=== PATIENT | male | born 1955 | race Two or more races ===

== ENCOUNTER 2024-03-19 15:01 | Outpatient (OUT) | payer MEDICARE, SELFPAY ==
--- NOTE | 2024-03-19 15:05 | US_ITS ---
[place] [address] Patient Name: BRAD CABRALES MRN: [id number] date: 1955 Sex: M Assigned Patient Location: CT Current Patient Location: Accession/Order Number: [id number] Exam Date: 03/19/2024 15:06 Report Date: 03/20/2024 07:02 At the request of: PA BREWER Procedure: US venous doppler LE LT EXAM: US venous doppler LE LT HISTORY: Left Calf Pain M79.062, Left Lower Extremity Edema COMPARISON: None. TECHNIQUE: Grayscale, color and Doppler FINDINGS: Region: Left leg Thrombus: None Flow: Normal Compressibility: Normal Augmentation: Normal US/US venous doppler LE LT IMPRESSION: No deep or superficial vein thrombus identified in the left leg Electronically authenticated by: BLANCO GREEN Date: 03/20/2024 07:02
--- NOTE | 2024-03-19 15:25 | CT_ITS ---
[address] [address] Patient Name: BRAD CABRALES MRN: [id number] date: 1955 Sex: M Assigned Patient Location: CT Current Patient Location: CT Accession/Order Number: [id number] Exam Date: 03/19/2024 15:15 Report Date: 03/19/2024 16:13 At the request of: PA BREWER Procedure: CT lung screening low-dose EXAMINATION: CT lung screening low-dose HISTORY: Tobacco Use Z72.0 COMPARISON: No relevant comparison available. TECHNIQUE: Axial, Coronal, and Sagittal images were created without the administration of IV contrast material. Dose reduction techniques were achieved by using automated exposure control and/or adjustment of mA and/or kV according to patient size and/or use of iterative reconstruction technique. FINDINGS: LUNGS: Scattered subcentimeter calcified pulmonary nodules. Minimal centrilobular emphysema with an upper lobe prominence.. PLEURA: No mass, effusion, or pneumothorax. VASCULATURE: No abnormality. BOB: No mass or pathologic adenopathy. MEDIASTINUM: No mass or pathologic adenopathy. CARDIAC: No enlargement, pericardial thickening, or significant calcification. CORONARY ARTERIES: Coronary calcifications are mild. AORTA: No aortic aneurysm. Mild calcific atherosclerosis CHEST WALL: No mass or axillary adenopathy BONES: No bone lesion or fracture. LIMITED ABDOMEN: Diffuse hypoattenuation the liver suggesting hepatic steatosis. Evidence of a partially visualized left kidney possibly a cyst OTHER: Negative. CT/CT lung screening low-dose IMPRESSION: LUNG SCREENING: Lung-RADS Category 2- Benign Appearance or Behavior. Nodules with a very low likelihood of becoming a clinically active cancer due to size or lack of growth. 2. Continue annual screening with LDCT in 12 months. Electronically authenticated by: BLANCO GREEN Date: 03/19/2024 16:13
== END 2024-03-19 15:02 | disposition home or self-care (01) ==
LOC: CT 15:01
PROVIDERS: PCP Nurse Practitioner Family; Visit Provider Nurse Practitioner Family
DX: R91.8 Other nonspecific abnormal finding of lung field (principal); M79.662 Pain in left lower leg; F17.210 Nicotine dependence, cigarettes, uncomplicated; R60.0 Localized edema
CPT/HCPCS: 71271; 93971

== ENCOUNTER 2024-03-22 14:29 | Outpatient (OUT) | payer MEDICARE, SELFPAY ==
[2024-03-22 14:55] LABS: Basophils Absolute Auto 0.1 10^3/uL (0.0-0.1); Basophils Percent Auto 0.9 % (0.2-2.0); Eosinophils Absolute Auto 0.4 10^3/uL (0.0-0.7); Hemoglobin 15.3 g/dL (14.0-18.0); Immature Granulocytes Abs Auto 0.04 10^3/uL (0.00-0.03); Immature Granulocytes Pct Auto 0.3 % (0.0-0.5); Lymphocytes Absolute Auto 2.8 10^3/uL (1.2-3.8); Mean Corpuscular HGB Conc 33.3 g/dL (29.9-35.2); Mean Corpuscular Hemoglobin 30.3 pg (25.9-34.0); Mean Corpuscular Volume 91.1 fL (80.0-94.0); Mean Platelet Volume 9.6 fL (9.5-13.5); Monocytes Absolute Auto 0.9 10^3/uL (0.3-0.8); Monocytes Percent Auto 7.6 % (1.7-12.0); Neutrophils Absolute Auto 7.5 10^3/uL (1.4-6.5); Neutrophils Percent Auto 64.2 % (43.0-75.0); Platelet Count 257 10^3/uL (150-450); Red Blood Count 5.05 10^6/uL (4.70-6.10); Red Cell Distribution Width 13.1 % (11.0-15.0); White Blood Count 11.6 10^3/uL (4.0-11.0)
[2024-03-22 14:56] LABS: Bilirubin Urine NEGATIVE (NEGATIVE); Blood Urine SMALL (NEGATIVE); Clarity Urine CLEAR (CLEAR); Color Urine LT. YELLOW (YELLOW); Glucose Urine UA NEGATIVE (NEGATIVE); Ketones Urine NEGATIVE (NEGATIVE); Leukocyte Esterase Urine NEGATIVE (NEGATIVE); Nitrite Urine NEGATIVE (NEGATIVE); Protein Urine NEGATIVE (NEG/TRACE); Urobilinogen Urine 0.2 EU/dL (0.2-1.0)
[2024-03-22 15:35] LABS: Alanine Aminotransferase 26 U/L (16-63); Albumin Globulin Ratio 0.9; Albumin Level 3.7 g/dL (3.4-5.0); Alkaline Phosphatase 72 U/L (46-116); Anion Gap 8.7; Aspartate Amino Transferase 18 U/L (15-37); BUN Creatinine Ratio 13.8; Bilirubin Total 0.6 mg/dL (0.2-1.0); Calcium 9.1 mg/dL (8.5-10.1); Chloride 101 mmol/L (98-107); Cholesterol 104 mg/dL (<=200); Estimated GFR (African America >60 (>=60); Estimated GFR (Non-African Ame >60 (>=60); Free T3 2.91 pg/mL (2.18-3.98); Globulin 3.9 g/dL; Glucose 109 mg/dL (74-106); HDL Cholesterol 35 mg/dL (40-60); Potassium 3.7 mmol/L (3.5-5.1); Sodium 137 mmol/L (136-145); Thyroid Stimulating Hormone 1.257 uIU/mL (0.358-3.740); Total Protein 7.6 g/dL (6.4-8.2); Triglycerides 88 mg/dL (<=150); Uric Acid 7.8 mg/dL (3.5-7.2); VLDL CHOLESTEROL 17.6 mg/dL
[2024-03-22 15:37] LABS: Prostate Specific Antigen Scrn 0.23 ng/mL (<=4.00)
[2024-03-22 15:44] LABS: Bacteria Urine TRACE #/HPF (NONE SEEN); Crystals Seen? None Seen #/HPF (None Seen); Mucus Urine SMALL (NONE SEEN); RBC Urine 0-2 #/HPF (0-2); Squamous Epithelial Cell Urine FEW #/LPF (NONE/RARE); WBC Urine 0-2 #/HPF (NONE SEEN)
[2024-03-22 15:45] LABS: Cast Seen? NONE SEEN #/LPF (NONE SEEN)
[2024-03-22 15:45] LABS: Estimated Average Glucose 131 mg/dL; Glycohemoglobin A1C 6.2 % (4.5-6.2)
== END 2024-03-22 14:30 | disposition home or self-care (01) ==
LOC: LAB 14:30
PROVIDERS: PCP Nurse Practitioner Family; Visit Provider Nurse Practitioner Family
DX: R91.8 Other nonspecific abnormal finding of lung field (principal); N39.0 Urinary tract infection, site not specified; E78.5 Hyperlipidemia, unspecified; R53.83 Other fatigue; R73.09 Other abnormal glucose; I10 Essential (primary) hypertension; M10.9 Gout, unspecified; E03.9 Hypothyroidism, unspecified; Z12.5 Encounter for screening for malignant neoplasm of prostate; R31.9 Hematuria, unspecified
CPT/HCPCS: 36415; 80053; 80061; 81001; 83036; 83525; 84436; 84443; 84481; 84550; 85025; 87086; G0103

== ENCOUNTER 2024-08-28 15:55 | Emergency (ER) | payer MEDICARE, SELFPAY ==
[2024-08-28] VITALS (47 sets, daily range): BP systolic 110–180; BP diastolic 62–89; PULSE 59–71; TEMP 36.5; O2SAT 96–99; BMI 32.0
--- OUTSIDE RECORDS SUMMARY | 2024-08-28 16:02 | XMS_ITS | CCD ---
Author Organization [facility] Care Team Providers Care Digital Campaign Manager Name Role Phone MARIELOS Moreau Attending Provider [phone] JOELLE BREWER Primary Care Physician JOELLE BREWER Admitting Unavailable JOELLE BREWER Attending Unavailable OSMAN, JOELLE Primary Care Unavailable OSMAN JOELLE Admitting Unavailable OSMAN, JOELLE Attending Unavailable OSMAN, JOELLE Primary Care Unavailable JOELLE BREWER Consulting Unavailable OSMAN, JOELLE Admitting Unavailable JOELLE BREWER Attending Unavailable JOELLE BREWER Primary Care Unavailable DR ANA RAMOS Consulting Unavailable JOELLE BREWER Consulting Unavailable JOELLE BREWER Admitting Unavailable JOELLE BREWRE Attending Unavailable OSMAN JOELLE Primary Care Unavailable JOELLE BREWER Consulting Unavailable Kameron BARR Attending Unavailable JOELLE BREWER Referring Unavailable JOELLE BREWER Referring Unavailable Kameron BARR Attending Unavailable Allergies Allergy Classification Reported Allergen(s) Allergy Type Date of Onset Reaction(s) Facility (1 source) Benzocaine Drug Allergy Novel [facility] [facility] Other (2 sources) Allantoin / Benzocaine / Camphor / Petrolatum; Translations: [benzocaine topical] Drug Allergy Swelling (finding) [facility] Medications Current Medications Medication Drug Class(es) Dates Sig (Normalized) Sig (Original) cephalexin 500 mg oral tablet (1 source) Cephalosporin Antibacterial Start: 02-09-2022 take 1 tablet by mouth every twelve hours Cephalexin 500 MG 1 tablet Orally every 12 hrs for 10 day(s) Feb, Active lisinopril 20 mg oral tablet (3 sources) Angiotensin Converting Enzyme Inhibitor Start: 12-22-2022 take 1 mg by mouth once daily lisinopril 20 mg Tab mg tab(s), Oral, Daily Start Date: 12/22/22 Status: Ordered Lisinopril Activ e metFORMIN (3 sources) Biguanide Start: 12-22-2022 metformin Oral Start Date: 12/22/22 Status: Ordered metFORMIN HCl Ac tive pantoprazole 40 mg delayed release oral tablet (3 sources) Proton Pump Inhibitor Start: 12-22-2022 take 1 mg by mouth once daily Pantoprazole [address] Tab mg tab(s), Oral, Daily Start Date: 12/22/22 Status: Ordered Pantoprazole Sod ium Active Completed/Discontinued Medications Medication Drug Class(es) Dates Sig (Normalized) Sig (Original) ciprofloxacin 500 mg oral tablet (2 sources) Quinolone Antimicrobial Start: 12-22-2022 Cipro 500 mg Tab 500 mg = 1 tab(s), Oral, As Directed, Patient to take 1 tab the day before procedure and the 2nd tab the day of procedure once completed, # 2 tab(s), Refills(s) 0, [id number], 167, cm, 12/22/22 10:25:00 EDT, Height/Length Do... Start Date: 12/22/22 Status: Ordered Problems Problem Classification Problem Date Documented Da te Episodic/Chronic Deficiency and other anemia (1 source) Anemia, unspecified; Translations: [ANEMIA UNSPECIFIED] Onset: 11-15-2022 Episodic Diabetes mellitus without complication (3 sources) Diabetes mellitus; Translations: [Type 2 diabetes mellitus without complications] Onset: 11-08-2022 12-22-2022 Chronic Disorders of lipid metabolism (6 sources) Hyperlipidemia; Translations: [Hyperlipidemia, unspecified] Onset: 11-04-2022 12-22-2022 Chronic Essential hypertension (2 sources) Hypertensive disorder 12-22-2022 Chronic Genitourinary symptoms and ill-defined conditions (10 sources) Microscopic hematuria; Translations: [Other microscopic hematuria] Onset: 11-08-2022 Episodic Heart valve disorders (2 sources) Heart murmur 12-22-2022 Episodic Hyperplasia of prostate (3 sources) Benign prostatic hypertrophy with outflow obstruction; Translations: [Benign prostatic hyperplasia with lower urinary tract symptoms] Onset: 12-22-2022 Chronic Malaise and fatigue (1 source) Other fatigue; Translations: [OTHER FATIGUE] Onset: 11-08-2022 Episodic Nonspecific chest pain (4 sources) Other chest pain; Translations: [OTHER CHEST PAIN] Onset: 01-11-2023 Episodic Other aftercare (1 source) Other penitentiary (current) drug therapy; Translations: [OTH INTERMEDIATE CURRENT DRUG THERAPY] Onset: 11-08-2022 Episodic Other diseases of kidney and ureters (1 source) Cyst of kidney, acquired; Translations: [CYST OF KIDNEY ACQUIRED] Onset: 11-16-2022 Episodic Other non-traumatic joint disorders (1 source) Pain in unspecified joint; Translations: [PAIN IN UNSPECIFIED JOINT] Onset: 11-08-2022 Episodic Other screening for suspected conditions (not mental disorders or infectious disease) (6 sources) Encounter for screening for malignant neoplasm of rectum; Translations: [Encounter for screening for malignant neoplasm of prostate] Onset: 11-08-2022 Episodic Residual codes; unclassified (3 sources) Family history of malignant neoplasm of kidney; Translations: [Family history of malignant neoplasm of kidney] Onset: 12-22-2022 Episodic Skin and subcutaneous tissue infections (2 sources) Paronychia of finger; Translations: [Cellulitis of unspecified finger] Onset: 02-09-2022 Resolved: 02-09-2022 Episodic Results Test Name Value Interpretation Reference Range Facility Provider Letteron 03-04-2023 Provider Letter (Inserted Image. Carin ble to display) March 04, 2023 HARVEY CABRALES [address] [place] [address] : 1955 Dear Mr. Hintonel Mel , This letter is to inform you the the providers of [facility] (Dr. Kameron Barr) will no longer be responsible for your routine medical care due to your repeated non compliance regarding scheduling a Cystoscopy, scope of the bladder. Emergency care only will be provided for the thirty (30) days following this letter. During this time period we suggest that you find another physician for your medical needs. A listing of area physicians can be found on [facility]'s website at [email or web address] or you may contact your health plan. We will be glad to forward your records to your new physician as long as we receive a signed release of records form. Sincerely, Kameron Barr M.D., F.A.C.S. [facility] [address] [place] [place], [place] [address] , Option #3 Normal [facility] Patient Letter FTon 2022 Patient Letter [facility] January 21, 2023 HARVEY CABRALES [address] [place] [address] : 1955 SENT REGULAR/CERTIFIED MAIL Dear Harvey Cabrales, [facility], Dr. Kameron Barr, is sending this letter (regular and certified mail) in concern that you cancelled the Cystoscopy (scope of the bladder) scheduled on 12/28/22. It is very important that you have this simple out patient procedure done to see where the blood in the urine is coming from. Blood in the urine can be caused by stones, infection, and possible bladder tumors/cancer. Please call the office within 2 weeks to get this procedure rescheduled. Your failure to comply with this request, may result in discharge from the practice due to your repeated non compliance. Sincerely, Kameron Barr M.D., F.A.C.S. [facility] [address] [place], [place] [address] , Option #3 Normal [facility] Urine Cytology ([facility])on 0 12-28-2022 Urine Cytology Diagnosis Info Invalid Interpretation Code [facility] Comment on above: Result Comment: A:Ur ine,Urine:Voided Interpretation - No evidence of high grade urothelial carcinoma identified. Adequate cellularity for evaluation. MicroScopic Description - Adequacy - Gross Description Site ID:A color Yellow fixative Alcohol Specimen designated Urine received in alcohol preservative and labeled with the patient?s name, consists of 40ml clear yellow fluid. Electronically signed by : on: 12/28/2022 09:05:14 Performed By: #### 1 [id number] #### [facility] [address] [place] [address] Formson 12-23-2022 Forms [id number]:127 Normal [facility] Physician Referralon 023 Physician Referral [id number]:127 Normal [facility] Screenson 12-23-2022 Screens [id number]:127 Normal [facility] Ambulatory Visit Summaryon 0 12-22-2022 Ambulatory Visit Summary HARVEY CABRALES :1955 Visit Date:12/22/2022 Ambulatory Visit Instructions Your Diagnosis Microhematuria Benign prostatic hyperplasia (BPH) with post-void dribbling Family history of kidney cancer Tests Performed Urnls Dip Stick Auto w/o Microscopy POC 63594 Your Care Team Attending Physician - Kameron BARR MD Primary Care Physician - JOELLE BREWER CNP Referring Physician - JOELLE BREWER CNP This Is Your Medications List Contact prescribing physician if questions or concerns lisinopril (lisinopril 20 mg Tab) metformin pantoprazole (Pantoprazole [address] Tab) Procedures Performed Cholecystectomy, Colonoscopy, Hernia. Discharge Vitals Heart Rate (Peripheral) 58 Blood Pressure 146/75 Height 167 cm Height 66 in Weight 90.4 kg Weight 198.88 lb BMI 32.41 What to do next You Need to Schedule the Following Appointments Follow Up with OSITO MOYA, YI Farnsworth When: Where: [facility] [address], [place] [address]- Medications What How Much When Instructions Unchanged lisinopril (lisinopril 20 mg Tab) Every day Contact prescribing physician if questions or concerns Unchanged metformin Contact prescribing physician if questions or concerns Unchanged pantoprazole (Pantoprazole [address] Tab) Every day Contact prescribing physician if questions or concerns Test Results Urnls Dip Stick Auto w/o Microscopy POC 66723 (12/22/2022) Bilirubin Urine Dipstick - Negative Blood Urine Dipstick - 2+ Moderate Glucose Urine Dipstick - Negative Ketones Urine Dipstick - Negative Leukocytes Urine Dipstick - Negative Nitrite Urine Dipstick - Negative Protein Urine Dipstick - Negative Specific Jerome Urine Dipstick - 1.020 Urine Appearance Urine Dipstick - Clear Urine Color Urine Dipstick - Yellow Urobilinogen Urine Dipstick - Normal 0.2-1 EU/dl pH Urine Dipstick - 6 Allergies Benzocaine (Swelling) Problems Ongoing - Any problem that you are currently receiving treatment for. Benign prostatic hyperplasia (BPH) with post-void dribbling Diabetes Family history of kidney cancer Heart murmur Hematuria Hyperlipidemia Hypertension Microhematuria Education [employer] Hematuria, Adult Hematuria is blood in the urine. Blood may be visible in the urine, or it may be identified with a test. This condition can be caused by infections of the bladder, urethra, kidney, or prostate. Other possible causes include: ? Kidney stones. ? Cancer of the urinary tract. ? Too much calcium in the urine. ? Conditions that are passed from parent to child (inherited conditions). ? Exercise that requires a lot of energy. Infections can usually be treated with medicine, and a kidney stone usually will pass through your urine. If neither of these is the cause of your hematuria, more tests may be needed to identify the cause of your symptoms. It is very important to tell your health care provider about any blood in your urine, even if it is painless or the blood stops without treatment. Blood in the urine, when it happens and then stops and then happens again, can be a symptom of a very serious condition, including cancer. There is no pain in the initial stages of many urinary cancers. Follow these instructions at home: Medicines ? Take urks-lsc-elehict and prescription medicines only as told by your health care provider. ? If you were prescribed an antibiotic medicine, take it as told by your health care provider. Do not stop taking the antibiotic even if you start to feel better. Eating and drinking ? Drink enough fluid to keep your urine pale yellow. It is recommended that you drink 3?4 quarts (2.8?3.8 L) a day. If you have been diagnosed with an infection, drinking cranberry juice in addition to large amounts of water is recommended. ? Avoid caffeine, tea, and carbonated beverages. These tend to irritate the bladder. ? Avoid alcohol because it may irritate the prostate (in males). General instructions ? If you have been diagnosed with a kidney stone, follow your health care provider's instructions about straining your urine to catch the stone. ? Empty your bladder often. Avoid holding urine for long periods of time. ? If you are female: ? After a bowel movement, wipe from front to back and use each piece of toilet paper only once. ? Empty your bladder before and after sex. ? Pay attention to any changes in your symptoms. Tell your health care provider about any changes or any new symptoms. ? It is up to you to get the results of any tests. Ask your health care provider, or the department that is doing the test, when your results will be ready. ? Keep all follow-up visits. This is important. Contact a health care provider if: ? You develop back pain. ? You have a fever or chills. ? You have nausea or vomiting. ? Your symptoms do not (more content not included)... Normal [facility] Urine Cytology ([facility])on 0 12-22-2022 Method of Extraction Voided Normal [facility] Comment on above: Performed By: #### 1 [id number] #### [facility] [address] [place] [address] Number of Jars 1 Invalid Interpretation Code [facility] Comment on above: Performed By: #### 1 [id number] #### [facility] [address] [place] [address] Specimen Urine Normal [facility] Comment on above: Performed By: #### 1 [id number] #### [facility] [address] [place] [address] Type of Service Technical Only Normal [facility] Comment on above: Performed By: #### 1 [id number] #### [facility] [address] [place] [address] Urology Office/Clinic Noteon 12-22-2022 Urology Office/Clinic Note Chief Complaint Pt referred due to recurring hematuria HPI Staff Pt referred by Joelle Brewer CNP due to recurring hematuria. KUB done 11/12/22 shows no appreciable urinary tract calculi, mass, or finding to account for patient's symptoms. Benign-appearing left renal cysts. PVR today is 61ml. Dysuria: denies pain and burning Incomplete bladder emptying: denies Hematuria: denies visible blood, Pt states his urine appears dark sometimes, UA today shows MODERATE Frequency: every 2 hours depending on fluid intake Urgency: denies Nocturia: every 2 hours Stream: denies hesitancy, normal stream Leaking: yes Post void dripping: yes Wearing pads/ Depends: denies Urge incontinence: denies Stress incontinence: denies Incontinence without Sensory Awareness: denies Abdominal pain: denies Flank pain: Rt sided pain Sexual complaints: denies History of Present Illness Tests reviewed: reviewed UA, referral records. I have reviewed the previous health record information and history for this patient from Joelle Brewer CNP. I have reviewed and verified the staff HPI to be accurate for this encounter. There have been no associated fever, chills, flank pain, or blood in the urine. Denies any urinary infections since last encounter. Review of Systems PHQ Score Initial Depression Screen Score: 2 ROS - Provider Constitutional: denies weight loss, denies hot flashes. Eyes: denies eye problems. Gastrointestinal: denies nausea, denies vomiting. Cardiovascular: denies chest pain or angina. Integumentary: no dryness Musculoskeletal: denies musculoskeletal symptoms. ENMT: denies otolaryngeal symptoms. Respiratory: no shortness of breath. Heme/Lymph: denies easy bleeding tendency, denies easy bruising tendency. Psychiatric: no confusion, no anxiety. Genitourinary: See HPI. Physical Exam Vitals & Measurements HR: 58(Peripheral) BP: 146/75 HT: 66 in HT: 167 cm WT: 90.4 kg WT: 198.88 lb BMI: 32.41 General Appearance: alert, no distress, well nourished, well developed male. Head: normocephalic . Eyes: normal orbit and globe. ENMT: normal examination of external ears. Chest: Lungs CTA, respirations non labored. Cardiovascular: regular rate and rhythm. Abdomen: soft, non distended, no tenderness, no mass or organomegaly, no hernia. Genitourinary: normal scrotum, normal testes, normal urethra, normal epididymis, normal vas deferens/spermatic cord. Flank Pain: none. Bladder: nonpalpable. Penis: normal shaft, normal glans. Prostate: unable to perform due to pt tightening up. Lymph Nodes: unremarkable palpation of the cervical area. Skin: warm, dry, no bruising. Psychiatric: cooperative, affect appropriate for age, normal judgement, euthymic mood. Assessment/Plan Harvey is a 67 yo male new pt referred by Joelle Brewer CNP due to recurrent hematuria. 1. Microhematuria (R31.29: Other microscopic hematuria) LIZBETH 11/12/22 [facility] - No appreciable urinary tract calculi, mass, or finding to account for patient's symptoms. Benign-appearing left renal cysts. UA today shows moderate blood, neg for infection. Reviewed LIZBETH findings with pt, nothing to explain microhematuria. Was hospitalized recently. Not a good historian. Thinks he had stones/stone surgery. Explained cysto the last step for hematuria workup. Has had ongoing R-sided pain, pt is unsure why. -Will schedule cysto. The risks and benefits for cystoscopy have been discussed. The risks include bleeding, infection, and irritation of the bladder and urinary channel, among others. The patient, after being informed of procedural details and after questions have been answered, wishes to proceed. Full informed consent has been obtained. Will order Local anesthesia. Prophylactic abx sent to [facility]. -Will send urine for cytol 2. Benign prostatic hyperplasia (BPH) with post-void dribbling (N40.1: Benign prostatic hyperplasia with lower urinary tract symptoms) PSA 11/04/22 - 0.21. PVR today 61 ml. Denies family hx of prostate cancer. Sometimes slow stream. Feels he empties completely. JEREMY: unable to perform due to pt tightening up. 3. Family history of kidney cancer (Z80.51: Family history of malignant neoplasm of kidney) Parents. Follow-up With When Contact Information OSITO MOYA, Kameron Khoury, URL [facility] [address], [place] [address]- Additional Instructions: schedule cysto Patient Education Hematuria, Adult I, Zoraida Smith, personally scribed for Dr. Barr on 12/22/2022 11:37:26. . Documentation recorded by the scribe, Zoraida Smith, accurately reflects the services(s) I performed and decisions made by me. Authenticated by Dr. Barr on 12/22/2022 11:39:03. Problem List/Past Medical History Ongoing Benign prostatic hyperplasia (BPH) with post-void dribbling Diabetes Family history of kidney cancer Heart murmur Hematuria Hyperlipidemia Hypertens (more content not included)... [facility] Comment on above: Result Comment: Elec tronically Signed By: Kameron BARR MD\.br\Date and Time Signed: 12/22/22 11:39 EDT\.br\Electronically Co-Signed By: Zoraida Smith\.br\Date and Time Co-Signed: 12/22/22 11:37 EDT Patient Educationon 12-22-19 Patient Education Urology Hematuria, Adult Hematuria is blood in the urine. Blood may be visible in the urine, or it may be identified with a test. This condition can be caused by infections of the bladder, urethra, kidney, or prostate. Other possible causes include: ? Kidney stones. ? Cancer of the urinary tract. ? Too much calcium in the urine. ? Conditions that are passed from parent to child (inherited conditions). ? Exercise that requires a lot of energy. Infections can usually be treated with medicine, and a kidney stone usually will pass through your urine. If neither of these is the cause of your hematuria, more tests may be needed to identify the cause of your symptoms. It is very important to tell your health care provider about any blood in your urine, even if it is painless or the blood stops without treatment. Blood in the urine, when it happens and then stops and then happens again, can be a symptom of a very serious condition, including cancer. There is no pain in the initial stages of many urinary cancers. Follow these instructions at home: Medicines ? Take azjf-zki-viligxu and prescription medicines only as told by your health care provider. ? If you were prescribed an antibiotic medicine, take it as told by your health care provider. Do not stop taking the antibiotic even if you start to feel better. Eating and drinking ? Drink enough fluid to keep your urine pale yellow. It is recommended that you drink 3?4 quarts (2.8?3.8 L) a day. If you have been diagnosed with an infection, drinking cranberry juice in addition to large amounts of water is recommended. ? Avoid caffeine, tea, and carbonated beverages. These tend to irritate the bladder. ? Avoid alcohol because it may irritate the prostate (in males). General instructions ? If you have been diagnosed with a kidney stone, follow your health care provider's instructions about straining your urine to catch the stone. ? Empty your bladder often. Avoid holding urine for long periods of time. ? If you are female: ? After a bowel movement, wipe from front to back and use each piece of toilet paper only once. ? Empty your bladder before and after sex. ? Pay attention to any changes in your symptoms. Tell your health care provider about any changes or any new symptoms. ? It is up to you to get the results of any tests. Ask your health care provider, or the department that is doing the test, when your results will be ready. ? Keep all follow-up visits. This is important. Contact a health care provider if: ? You develop back pain. ? You have a fever or chills. ? You have nausea or vomiting. ? Your symptoms do not improve after 3 days. ? Your symptoms get worse. Get help right away if: ? You develop severe vomiting and are unable to take medicine without vomiting. ? You develop severe pain in your back or abdomen even though you are taking medicine. ? You pass a large amount of blood in your urine. ? You pass blood clots in your urine. ? You feel very weak or like you might faint. ? You faint. Summary ? Hematuria is blood in the urine. It has many possible causes. ? It is very important that you tell your health care provider about any blood in your urine, even if it is painless or the blood stops without treatment. ? Take mlmo-tti-maanbbf and prescription medicines only as told by your health care provider. ? Drink enough fluid to keep your urine pale yellow. This information is not intended to replace advice given to you by your health care provider. Make sure you discuss any questions you have with your health care provider. Document Revised: 04/22/2021 Document Reviewed: 04/22/2021 [employer] Patient Education ? 2022 [employer] Normal [facility] OCC BLD IMMUNO SCREENon 11-03 OCCULT BLOOD Negative Normal NEGATIVE [facility] Comment on above: Performed By: #### O BSCRN #### [facility] [address] [place] [address] Dr. Tom Chacko US KIDNEYS BLADDERon 023 US KIDNEYS BLADDER EXAMINATION: US KIDN EYS BLADDER HISTORY: Blood in urine COMPARISON: No relevant comparison available. TECHNIQUE: Ultrasound examination was performed of the kidneys and urinary bladder. FINDINGS: RIGHT KIDNEY: No hydronephrosis, mass, or stones. Color Doppler demonstrates blood flow within the kidney. No significant cortical thinning. Kidney: 10.8 x 5.3 x 5.8 cm LEFT KIDNEY: Benign-appearing cyst projecting from superior pole, 2.2 cm in diameter; and from inferior pole 3.8 cm in diameter. Color Doppler demonstrates blood flow within the kidney. No significant cortical thinning. Kidney: 11.7 x 5.5 x 5.5 cm BLADDER: No visible wall thickening, mass, or calculi. Post void residual: 6 mL URETERAL JETS: Visualized bilaterally. IMPRESSION: 1. No appreciable urinary tract calculi, mass, or findings to account for patient's symptoms. 2. Benign-appearing left renal cysts. Electronically authenticated by: ANA RAMOS Date: 2022-11-12 13:02 [facility] [facility] CA 19-9on 11-05-2022 CA 19-9 9 U/mL Normal 0-35 [facility] Comment on above: Result Comment: [employer] Electrochemiluminescence Immunoassay (ECLIA) . Values obtained with different assay methods or kits cannot be used interchangeably. Results cannot be interpreted as absolute evidence of the presence or absence of malignant disease. Performed By: #### C A 19,9 #### [facility] [address] [place] [address] Dr. Tom Chacko INSULINon 11-05-2022 Insulin 17.2 uIU/mL Normal 2.6-24.9 [facility] Comment on above: Performed By: #### I NSULIN ####[facility] [id number] [address]Dr. Tom Chacko CBC AUTO DIFFon 11-04-2022 BASO # 0.1 103/ul Normal 0.0-0.1 [facility] Comment on above: Performed By: #### C BC #### [facility] [address] [place] [address] Dr. Tom Chacko Basophils/100 WBC (Bld) 1.0 % Normal 0.2-2.0 [facility] Comment on above: Performed By: #### C BC #### [facility] [address] [place] [address] Dr. Tom Chacko EO # 0.4 103/ul Normal 0.0-0.7 [facility] Comment on above: Performed By: #### C BC #### [facility] [address] [place] [address] Dr. Tom Chacko Eosinophils/100 WBC (Bld) 3.2 % Normal 0.9-7.0 [facility] Comment on above: Performed By: #### C BC #### [facility] [address] [place] [address] Dr. Tom Chacko Erythrocyte distribution width (RBC) [Ratio] 13.5 % Normal 11.0-15.0 [facility] Comment on above: Performed By: #### C BC #### [facility] [address] [place] [address] Dr. Tom Chacko Hematocrit (Bld) [Volume fraction] 45.7 % Normal 42.0-54.0 [facility] Comment on above: Performed By: #### C BC #### [facility] [address] [place] [address] Dr. Tom Chacko Hemoglobin (Bld) [Mass/Vol] 15.7 g/dL Normal 14.0-18.0 [facility] Comment on above: Performed By: #### C BC #### [facility] [address] [place] [address] Dr. Tom Chacko IG # 0.05 10e3/ul Critically high 0.00-0.03 [facility] Comment on above: Performed By: #### C BC #### [facility] [address] [place] [address] Dr. Tom Chacko IG % 0.4 % Normal 0.0-0.5 [facility] Comment on above: Performed By: #### C BC #### [facility] [address] [place] [address] Dr. Tom Chacko LYMPH # 3.8 103/ul Normal 1.2-3.8 [facility] Comment on above: Performed By: #### C BC #### [facility] [address] [place] [address] Dr. Tom Chacko Lymphocytes/100 WBC (Bld) 31.9 % Normal 20.5-60.0 [facility] Comment on above: Performed By: #### C BC #### [facility] [address] [place] [address] Dr. Tom Chacko MANUAL DIFF REQ NO Normal [facility] Comment on above: Performed By: #### C BC #### [facility] [address] [place] [address] Dr. Tom Chacko MCH (RBC) [Entitic mass] 30.3 pg Normal 25.9-34.0 [facility] Comment on above: Performed By: #### C BC #### [facility] [address] [place] [address] Dr. Tom Chacko MCHC (RBC) [Mass/Vol] 34.4 g/dL Normal 29.9-35.2 [facility] Comment on above: Performed By: #### C BC #### [facility] [address] [place] [address] Dr. Tom Chacko MCV (RBC) [Entitic vol] 88.2 fL Normal 80.0-94.0 [facility] Comment on above: Performed By: #### C BC #### [facility] [address] [place] [address] Dr. Tom Chacko MONO # 0.8 103/ul Normal 0.3-0.8 [facility] Comment on above: Performed By: #### C BC #### [facility] [address] [place] [address] Dr. Tom Chacko Monocytes/100 WBC (Bld) 6.6 % Normal 1.7-12.0 [facility] Comment on above: Performed By: #### C BC #### [facility] [address] [place] [address] Dr. Tom Chacko NEUT # 6.8 103/ul Critically high 1.4-6.5 [facility] Comment on above: Performed By: #### C BC #### [facility] [address] [place] [address] Dr. Tom Chacko Neutrophils/100 WBC (Bld) 56.9 % Normal 43.0-75.0 [facility] Comment on above: Performed By: #### C BC #### [facility] [address] [place] [address] Dr. Tom Chacko Platelet mean volume (Bld) [Entitic vol] 9.6 fL Normal 9.5-13.5 [facility] Comment on above: Performed By: #### C BC #### [facility] [address] [address] [address] Tom Chacko PLT 258 103/ul Normal 150-450 [facility] Comment on above: Performed By: #### C BC #### [facility] [address] [place] [address] Dr. Tom Chacko RBC 5.18 106/ul Normal 4.70-6.10 [facility] Comment on above: Performed By: #### C BC #### [facility] [address] [place] [address] Dr. Tom Chacko WBC 11.9 103/ul Critically high 4.0-11.0 [facility] Comment on above: Performed By: #### C BC #### [facility] [address] [place] [address] Dr. Tom Chacko GLYCOHEMOGLOBIN A1Con 2022 ADA RECOMMENDATION SEE BELOW Normal [facility] Comment on above: Result Comment: ADA RECOMMENDED LIMIT 4.0 - 6.0 ADA THERAPEUTIC TARGET < 7.0 ACTION SUGGESTED > 7.0 Performed By: #### A 1C #### [facility] [address] [place] [address] Dr. Tom Chacko Glucose [Mass/Vol] 120 mg/dL Normal [facility] Comment on above: Performed By: #### A 1C #### [facility] [address] [place] [address] Dr. Tom Chacko HbA1c (Bld) [Mass fraction] 5.8 % Normal 4.5-6.2 [facility] Comment on above: Performed By: #### A 1C #### [facility] [address] [place] [address] Dr. Tom Chacko LIPID PROFILEon 11-04-2022 CHOL-HDL RATIO NORM SEE BELOW Normal [facility] Comment on above: Result Comment: 3.3 - 4.4 LOW RISK 4.4 - 7.1 AVERAGE RISK 7.1 - 11.0 MODERATE RISK >11.0 HIGH RISK Performed By: #### C MP, URIC, LIPID #### [facility] [address] [address] [address] Tom Chacko Cholesterol [Mass/Vol] 112 mg/dL Normal <=200 [facility] Comment on above: Performed By: #### C MP, URIC, LIPID #### [facility] [address] [address] [address] Tom Chacko Cholesterol in HDL [Mass/Vol] 34 mg/dL Critically low 40-60 [facility] Comment on above: Performed By: #### C MP, URIC, LIPID #### [facility] [address] [address] [address] Tom Chacko Cholesterol in LDL [Mass/Vol] 48.6 mg/dL Normal [facility] Comment on above: Performed By: #### C MP, URIC, LIPID #### [facility] [address] [address] [address] Tom Chacko Cholesterol.total/ Cholesterol in HDL [Mass ratio] 3.3 {ratio} Normal [facility] Comment on above: Performed By: #### C MP, URIC, LIPID #### [facility] [address] [address] [address] Tom Chacko HDL NORMAL > or = 60 mg/dl - LO W CARDIOVASCULAR RISK <40 mg/dl - HIGH CARDIOVASCULAR RISK Normal [facility] Comment on above: Performed By: #### C MP, URIC, LIPID #### [facility] [address] [address] [address] Tom Chacko LDL CALC NORMAL SEE BELOW Normal [facility] Comment on above: Result Comment: <100 mg/dl OPTIMAL 100 - 129 mg/dl NEAR OR ABOVE OPTIMAL 130 - 159 mg/dl BORDERLINE HIGH 160 - 189 mg/dl HIGH >190 mg/dl VERY HIGH Performed By: #### C MP, URIC, LIPID #### [facility] [address] [address] [address] Tom Chacko Triglyceride [Mass/Vol] 147 mg/dL Normal <=150 [facility] Comment on above: Performed By: #### C MP, URIC, LIPID #### [facility] [address] [place] [address] Dr. Tom Chacko VLDL CALC 29.4 mg/dL Normal [facility] Comment on above: Performed By: #### C MP, URIC, LIPID #### [facility] [address] [place] [address] Dr. Tom Chacko PROF 14(COMP METB)on 023 Albumin [Mass/Vol] 3.8 g/dL Normal 3.4-5.0 [facility] Comment on above: Performed By: #### C MP, URIC, LIPID #### [facility] [address] [place] [address] Dr. Tom Chacko Albumin/Globulin [Mass ratio] 1.1 {ratio} Normal [facility] Comment on above: Performed By: #### C MP, URIC, LIPID #### [facility] [address] [place] [address] Dr. Tom Chacko ALP [Catalytic activity/Vol] 73 U/L Normal 46-116 [facility] Comment on above: Performed By: #### C MP, URIC, LIPID #### [facility] [address] [place] [address] Dr. Tom Chacko ALT [Catalytic activity/Vol] 28 U/L Normal 16-63 [facility] Comment on above: Performed By: #### C MP, URIC, LIPID #### [facility] [address] [place] [address] Dr. Tom Chacko Anion gap [Moles/Vol] 10.3 mmol/L Normal [facility] Comment on above: Performed By: #### C MP, URIC, LIPID #### [facility] [address] [place] [address] Dr. Tom Chacko AST [Catalytic activity/Vol] 17 U/L Normal 15-37 [facility] Comment on above: Performed By: #### C MP, URIC, LIPID #### [facility] [address] [address] [address] Tom Chacko Bilirubin [Mass/Vol] 0.4 mg/dL Normal 0.2-1.0 [facility] Comment on above: Performed By: #### C MP, URIC, LIPID #### [facility] [address] [address] [address] Tom Chacko Calcium [Mass/Vol] 9.3 mg/dL Normal 8.5-10.1 [facility] Comment on above: Performed By: #### C MP, URIC, LIPID #### [facility] [address] [address] [address] Tom Chacko Chloride [Moles/Vol] 104 mmol/L Normal 98-107 [facility] Comment on above: Performed By: #### C MP, URIC, LIPID #### [facility] [address] [place] [address] Dr. Tom Chacko CO2 [Moles/Vol] 29.5 mmol/L Normal 21.0-32.0 [facility] Comment on above: Performed By: #### C MP, URIC, LIPID #### [facility] [address] [place] [address] Dr. Tom Chacko Creatinine [Mass/Vol] 0.96 mg/dL Normal 0.70-1.30 [facility] Comment on above: Performed By: #### C MP, URIC, LIPID #### [facility] [address] [place] [address] Dr. Tom Chacko EGFR-AF SLOVAK >60 Normal >=60 [facility] Comment on above: Performed By: #### C MP, URIC, LIPID #### [facility] [address] [place] [address] Dr. Tom Chacko EGFR-NON AF SLOVAK >60 Normal >=60 [facility] Comment on above: Performed By: #### C MP, URIC, LIPID #### [facility] [address] [place] [address] Dr. Tom Chacko Globulin (S) [Mass/Vol] 3.5 g/dL Normal [facility] Comment on above: Performed By: #### C MP, URIC, LIPID #### [facility] [address] [place] [address] Dr. Tom Chacko Glucose [Mass/Vol] 113 mg/dL Critically high 74-106 [facility] Comment on above: Performed By: #### C MP, URIC, LIPID #### [facility] [address] [place] [address] Dr. Tom Chacko Potassium [Moles/Vol] 3.8 mmol/L Normal 3.5-5.1 [facility] Comment on above: Performed By: #### C MP, URIC, LIPID #### [facility] [address] [place] [address] Dr. Tom Chacko Protein [Mass/Vol] 7.3 g/dL Normal 6.4-8.2 [facility] Comment on above: Performed By: #### C MP, URIC, LIPID #### [facility] [address] [place] [address] Dr. Tom Chacko Sodium [Moles/Vol] 140 mmol/L Normal 136-145 [facility] Comment on above: Performed By: #### C MP, URIC, LIPID #### [facility] [address] [place] [address] Dr. Tom Chacko Urea nitrogen [Mass/Vol] 14.0 mg/dL Normal 7.0-18.0 [facility] Comment on above: Performed By: #### C MP, URIC, LIPID #### [facility] [address] [place] [address] Dr. Tom Chacko Urea nitrogen/Creatinin e [Mass ratio] 14.6 mg/mg Normal [facility] Comment on above: Performed By: #### C MP, URIC, LIPID #### [facility] [address] [place] [address] Dr. Tom Chacko UA (CLEAN/CATCH) MEDICAL BILLING CODER/MICRO I F IND.on 11-04-2022 Bilirubin Ql (U) Negative Normal NEGATIVE [facility] Comment on above: Performed By: #### U MICRO, UACSIND #### [facility] [address] [place] [address] Dr. Tom Chacko Clarity (U) CLEAR Normal CLEAR [facility] Comment on above: Performed By: #### U MICRO, UACSIND #### [facility] [address] [address] [address] Tom Chacko Color (U) YELLOW Normal YELLOW [facility] Comment on above: Performed By: #### U MICRO, UACSIND #### [facility] [address] [address] [address] Tom Chacko Glucose Ql (U) Negative Normal NEGATIVE [facility] Comment on above: Performed By: #### U MICRO, UACSIND #### [facility] [address] [address] [address] Tom Chacko Hemoglobin Ql (U) MODERATE Abnormal NEGATIVE [facility] Comment on above: Performed By: #### U MICRO, UACSIND #### [facility] [address] [place] [address] Dr. Tom Chacko Ketones Ql (U) Negative Normal NEGATIVE [facility] Comment on above: Performed By: #### U MICRO, UACSIND #### [facility] [address] [place] [address] Dr. Tom Chacko LEUKOCYTES Negative Normal NEGATIVE [facility] Comment on above: Performed By: #### U MICRO, UACSIND #### [facility] [address] [place] [address] Dr. Tom Chacko Nitrite Ql (U) Negative Normal NEGATIVE [facility] Comment on above: Performed By: #### U MICRO, UACSIND #### [facility] [address] [address] [address] Tom Chacko pH (U) 6.0 [pH] Normal 5-9 [facility] Comment on above: Performed By: #### U MICRO, UACSIND #### [facility] [address] [address] [address] Tom Chacko SPEC GRAVITY 1.020 Normal 1.005-<=1.0 25 [facility] Comment on above: Performed By: #### U MICRO, UACSIND #### [facility] [address] [address] [address] Tom Chacko UA PROTEIN Negative Normal NEGATIVE/ TRACE [facility] Comment on above: Performed By: #### U MICRO, UACSIND #### [facility] [address] [address] [address] Tom Chacko UR MICRO IND INDICATED Normal [facility] Comment on above: Performed By: #### U MICRO, UACSIND #### [facility] [address] [address] [address] Tom Chacko Urobilinogen Qn (U) 0.2 {Joseph'U}/dL Normal 0.2 - 1.0 [facility] Comment on above: Performed By: #### U MICRO, UACSIND #### [facility] [address] [place] [address] Dr. Tom Chacko URIC ACID SERUMon 11-04-2022 Urate [Mass/Vol] 7.3 mg/dL Critically high 3.5-7.2 [facility] Comment on above: Performed By: #### C MP, URIC, LIPID ####[facility] [id number] [address]Dr. Tom Chacko URINE MICROSCOPIC ONLYon BACTERIA NONE SEEN Normal NONE SEEN [facility] Comment on above: Performed By: #### U MICRO, UACSIND #### [facility] [address] [address] [address] Tom Chacko Bacteria identified Cx Nom (U) NOT INDICATED Normal [facility] Comment on above: Performed By: #### U MICRO, UACSIND #### [facility] [address] [place] [address] Dr. Tom Chacko CAST NONE SEEN Normal NONE SEEN [facility] Comment on above: Performed By: #### U MICRO, UACSIND #### [facility] [address] [place] [address] Dr. Tom Chacko Crystals LM Nom (Urine sed) NONE SEEN Normal NONE SEEN [facility] Comment on above: Performed By: #### U MICRO, UACSIND #### [facility] [address] [place] [address] Dr. Tom Chacko Epithelial cells LM Ql (Urine sed) RARE Normal NONE SEEN /RARE [facility] Comment on above: Performed By: #### U MICRO, UACSIND #### [facility] [address] [address] [address] Tom Chacko MUCOUS NONE SEEN Normal NONE SEEN [facility] Comment on above: Performed By: #### U MICRO, UACSIND #### [facility] [address] [address] [address] Tom Chacko RBC 5-10 Abnormal 0-2 [facility] Comment on above: Performed By: #### U MICRO, UACSIND #### [facility] [address] [address] [address] Tom Chacko WBC NONE SEEN Normal NONE SEEN [facility] Comment on above: Performed By: #### U MICRO, UACSIND #### [facility] [address] [address] [address] Tom Chacko Aerobic Cultureon 02-09-2022 Aerobic Culture ORGANISM: Strep. aga lactiae Grp B (O:B) Quantity of Growth Moderate Growth No Anaerobes Isolated 3 Days Gram Stain Result No Bacteria Seen PERFORMED BY: [place] [address] PATHOLOGIST [employer]G [employer] D[employer] MIXER MARGARITA CHOI M.D. [facility] Comment on above: Performed By: #### A JUSTIN, GS #### [facility] [address] [place] [address] Gram Stainon 02-09-2022 Microscopic observation Gram stain Nom (Unsp spec) Gram Stain Result No Bacteria Seen PERFORMED BY: [place] [address] PATHOLOGIST [employer] MIXER MARGARITA CHOI M.D. [facility] Comment on above: Performed By: #### A JUSTIN, GS #### [address] US Venous, Unilat, Lower Ext Righton 09-25-2021 US Venous, Unilat, Lower Ext Right HISTORY: Swelling, pain FINDINGS: The deep venous system of the right lower extremity exhibits full compressibility and normal flow augmentation. These specifically include the common femoral, superficial femoral, popliteal and visualization anterior tibialis, posterior tibialis and peroneal veins. No evidence of deep venous thrombosis is present. Greater saphenous vein is patent. No cystic or soft tissue mass in the popliteal fossa. IMPRESSION: No evidence of deep or superficial venous thrombosis. Report reported and signed by Reggie Hackett on 09/25/2021 1153 Normal [facility] Powerhouse Helper US Venous, Unilat, Lower Ext Righton 09-11-2021 US Venous, Unilat, Lower Ext Right HISTORY: pain and swelling FINDINGS: The deep venous system of the right lower extremity exhibits full compressibility and normal flow augmentation. These specifically include the common femoral, superficial femoral, and popliteal veins. No evidence of deep venous thrombosis is present. No cystic or soft tissue mass in the popliteal fossa. IMPRESSION: Normal venous sonogram. No deep venous thrombosis. Report reported and signed by Reggie Hackett on 09/11/2021 1200 Normal [facility] Specialist Vital Signs Date Time Vital Sign Value Performing Clinician Facility 12-22-2022 10:06-0400 Blood Pressure Location Kameron BARR [facility] 12-22-2022 10:06-0400 Diastolic blood pressure 75 mm[Hg] Kameron BARR [facility] 12-22-2022 10:06-0400 Heart rate 58 /min Kameron BARR [facility] 12-22-2022 10:06-0400 Systolic blood pressure 146 mm[Hg] Kameron BARR [facility] 02-09-2022 19:50-0400 Body height 147.32 cm Allegra Moreau Other [facility] Other 02-09-2022 19:50-0400 Body mass index (BMI) [Ratio] 50.15 kg/m2 Allegra Moreau Other [facility] Other 02-09-2022 19:50-0400 Body temperature 96.9 [degF] Allegra Moreau Other [facility] Other 02-09-2022 19:50-0400 Body weight 108.86 kg Allegra Moreau Other [facility] Other 02-09-2022 19:50-0400 Diastolic blood pressure 80 mm[Hg] Allegra Moreau Other [facility] Other 02-09-2022 19:50-0400 Respiratory rate 18 /min Allegra Moreau Other [facility] Other 02-09-2022 19:50-0400 SaO2% (BldA) [Mass fraction] 99 % Allegra Moreau Other [facility] Other 02-09-2022 19:50-0400 Systolic blood pressure 167 mm[Hg] Allegra Moreau Other [facility] Other Encounters Encounter Date Encounter Type Care Provider Facility Start: 01-11-2023 End: 01-12-2023 ambulatory JOELLE BREWER Facility: Start: 12-23-2022 End: 12-29-2022 Pre-admission assessment Kameron BARR [facility] Start: 12-22-2022 End: 12-23-2022 ambulatory Kameron BARR Facility:[facility] Start: 12-22-2022 End: 12-22-2022 Patient encounter procedure Kameron BARR [facility] Start: 11-16-2022 ambulatory Kameron BARR Facility :[facility] Start: 11-12-2022 End: 11-13-2022 ambulatory JOELLE BREWER Facility:[facility] Start: 11-04-2022 End: 11-05-2022 ambulatory JOELLE BREWER Facility:[facility] Start: 02-09-2022 End: 02-09-2022 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 Tom Chacko Cholecystectomy Kameron LALA Colonoscopy Kameron BARR Herniated structure (morphologic abnormality) Kameron BARR Plan of Treatment Date Care Activity Detail Author Start: 02-09-2022 Aerobic Culture Aerobic Culture [facility] Start: 02-09-2022 Anaerobic Culture Anaerobic Culture [facility] Start: 02-09-2022 Microscopic observat ion [Identifier] in Unspecified specimen by Gram stain Gram Stain [facility] Bacteria identified in Unspecified specimen by Aerobe culture [facility] Work Phone: Bacteria identified in Unspecified specimen by Anaerobe culture [facility] Work Phone: Microscopic observat ion [Identifier] in Unspecified specimen by Gram stain [facility] Work Phone: Immunizations Immunization Date Immunization Notes Care Provider Wilberto stephens 12-30-2020 SARS-CoV-2 (COVID-19 ) [id number] vaccine Kameron BARR [facility] Comment on above: Result Comment: 2022: [id number] 12-02-2020 SARS-CoV-2 (COVID-19 ) [id number] vaccine Kameron BARR [facility] Comment on above: Result Comment: 2022: [id number] 06-21-2020 influenza virus vaccine, unspecified formulation Kameron BARR [facility] 07-08-2019 influenza virus vaccine, unspecified formulation Kameron BARR [facility] Payers Date Payer Category Payer Medicare [id number] 1955 Unknown [id number] 2.16.84 [id number] 1955 Unknown [id number] 2.16.84 [id number] 1955 Unknown [id number] 2.16.84 [id number] 1955 Unknown [id number] 2.16.84 [id number] 1955 Unknown [id number] 2.16.8 [id number] 1955 Unknown [id number] 2.16.8 [id number] Self-pay Self Pay [id number] Unknown [id number] Social History Date Type Detail [facility] Work Phone: Start: 1955 Sex Assigned At Male F [facility] Sex Assigned At [facility] Start: 12-22-2022 Tobacco smoking status Light t obacco smoker (finding) [facility] Tobacco smoking status Never [facility] Functional Status Date Assessment Result Facility 12-22-2022 Functional Status N/A [facility] Evaluation + Plan note 12-22-2022 Note Date & Type Note Facility 12-22-2022 Evaluation + Plan note Diagnostic Tests PendingUrine Cytology ([facility]) 12/22/22 [facility] Hospital Discharge instructions 12-21-2022 Note Date & Type Note Facility 12-21-2022 Hospital Discharg e instructions Patient Education 12/21/2022 15:48:09 Hematuria, Adult Hematuria, Adult Hematuria is blood in the urine. Blood may be visible in the urine, or it may be identified with a test. This condition can be caused by infections of the bladder, urethra, kidney, or prostate. Other possible causes include: Kidney stones. Cancer of the urinary tract. Too much calcium in the urine. Conditions that are passed from parent to child (inherited conditions). Exercise that requires a lot of energy. Infections can usually be treated with medicine, and a kidney stone usually will pass through your urine. If neither of these is the cause of your hematuria, more tests may be needed to identify the cause of your symptoms. It is very important to tell your health care provider about any blood in your urine, even if it is painless or the blood stops without treatment. Blood in the urine, when it happens and then stops and then happens again, can be a symptom of a very serious condition, including cancer. There is no pain in the initial stages of many urinary cancers. Follow these instructions at home: Medicines Take akwl-fkb-hfhamxn and prescription medicines only as told by your health care provider. If you were prescribed an antibiotic medicine, take it as told by your health care provider. Do not stop taking the antibiotic even if you start to feel better. Eating and drinking Drink enough fluid to keep your urine pale yellow. It is recommended that you drink 3 4 quarts (2.8 3.8 L) a day. If you have been diagnosed with an infection, drinking cranberry juice in addition to large amounts of water is recommended. Avoid caffeine, tea, and carbonated beverages. These tend to irritate the bladder. Avoid alcohol because it may irritate the prostate (in males). General instructions If you have been diagnosed with a kidney stone, follow your health care provider's instructions about straining your urine to catch the stone. Empty your bladder often. Avoid holding urine for long periods of time. If you are female: ?After a bowel movement, wipe from front to back and use each piece of toilet paper only once. ?Empty your bladder before and after sex. Pay attention to any changes in your symptoms. Tell your health care provider about any changes or any new symptoms. It is up to you to get the results of any tests. Ask your health care provider, or the department that is doing the test, when your results will be ready. Keep all follow-up visits. This is important. Contact a health care provider if: You develop back pain. You have a fever or chills. You have nausea or vomiting. Your symptoms do not improve after 3 days. Your symptoms get worse. Get help right away if: You develop severe vomiting and are unable to take medicine without vomiting. You develop severe pain in your back or abdomen even though you are taking medicine. You pass a large amount of blood in your urine. You pass blood clots in your urine. You feel very weak or like you might faint. You faint. Summary Hematuria is blood in the urine. It has many possible causes. It is very important that you tell your health care provider about any blood in your urine, even if it is painless or the blood stops without treatment. Take otqx-nwq-uqckzoe and prescription medicines only as told by your health care provider. Drink enough fluid to keep your urine pale yellow. This information is not intended to replace advice given to you by your health care provider. Make sure you discuss any questions you have with your health care provider. Document Revised: 04/22/2021 Document Reviewed: 04/22/2021 [employer] Patient Education 2022 [employer]q. Follow Up Care 12/21/2022 13:53:01 With:OSITO MOYA, Kameron Khoury, URL Address: [facility] [address], [place] [address]- When: Unknown [facility] Evaluation note 02-09-2022 Note Date & Type Note Facility 02-09-2022 Evaluation note Encounter Date Diagnosis Assessment Notes Feb, Paronychia of finger of right hand (ICD-10 - L03.011) Discussed diagnosis with patient. I&D performed today in office. Wound culture obtained, will call with results in 2-5 days. Will send in rx of Cephalexin to use as directed. Instructed patient to take medications as prescribed, take with food and full glass of water, complete entire course even if feeling better. Keep area clean and dry. Encouraged warm Epsom salt soaks of finger and warm compress. Keep skin and nail moisturized, good to use Vaseline or triple antibiotic ointment. May use Tylenol or Motrin as needed for discomfort. Follow up with PCP in 3-4 days if symptoms do not improve. Immediate eval if area increases in swelling, redness, warmth, red streaking, purulent drainage, or any other new or concerning symptoms. Patient verbalizes understanding and is agreeable with treatment plan Feb, Other Paronychia home care material was printed [employer] Other Evaluation note Note Date & Type Note Facility Evaluation note No assessment information availa [facility] Work Phone: History general Narrative - Reported Note Date & Type Note Facility History general Narrative - Reported Type Medical History diabetes mallitus Medical History high blood pressure [employer] Other Hospital course Narrative Note Date & Type Note Facility Hospital course Narrative No data available for this section [facility] Discharge instructions Note Date & Type Note Facility Hospital Discharge instructions No data available for this section [facility] Progress note Note Date & Type Note Facility Progress note No data available for this section [facility] Summary Purpose Family History No Family History Records FoundNo Family History Records FoundNo Family History Records FoundNo Family History Records Found Advance Directives No Advanced Directives Records FoundNo Advanced Directives Records FoundNo Advanced Directives Records FoundNo Advanced Directives Records Found Additional Source Comments (unrecognized sect ion and content) No Status Records FoundNo Status Records FoundNo Status Records FoundNo Status Records Found INFORMATION SOURCE (unrecogn ized section and content) DATE CREATED AUTHOR 09/26/2021 [facility] DATE CREATED AUTHOR AUTHOR'S ORGANIZ ATION 02/13/2022 [facility] DATE CREATED AUTHOR AUTHOR'S ORGANIZ ATION 01/16/2023 [facility] DATE CREATED AUTHOR AUTHOR'S ORGANIZ ATION 03/05/2023 Tommy Roberson [facility] Care Teams (unrecognized sec tion and content) Team Status: Inactive Member Role Status Dates Allegra Moreau APRN Attending Provider Active Goals (unrecognized section and content) Goals may be documented in a n alternate sectionNo Information No data available for this section No data available for this section REASON FOR VISIT (unrecogniz ed section and content) FINGER PAIN FOR RECORDS PERTAINING TO PATIENTS WHO ARE OR HAVE BEEN ENROLLED IN A CHEMICAL DEPENDENCY/SUBSTANCEABUSE PROGRAM, SOME INFORMATION MAY BE OMITTED. This clinical summary was aggregated from multiple sources. Caution should be exercised in using it in the provision of clinical care. This summary normalizes information from multiple sources, and as a consequence, information in this document may materially change the coding, format and clinical context of patient data. In addition, data may be omitted in some cases. CLINICAL DECISIONS SHOULD BE BASED ON THE PRIMARY CLINICAL RECORDS. [facility]. provides no warranty or guarantee of the accuracy or completeness of information in this document.
--- NOTE | 2024-08-28 16:04 | XR_ITS ---
The [address] [address] Patient Name: BRAD CABRALES MRN: [id number] date: 1955 Sex: M Assigned Patient Location: ED.MAIN Current Patient Location: ER Accession/Order Number: [id number] Exam Date: 08/28/2024 16:55 Report Date: 08/28/2024 17:26 At the request of: SHAHIDA MCLEOD Procedure: XR chest 1V EXAM: XR chest 1V at 1641 hours HISTORY: CVA symptoms COMPARISON: 09/22/2021 TECHNIQUE: AP upright portable chest x-ray FINDINGS: The heart is not enlarged and the vasculature is not distended. No acute infiltrate, effusion or pneumothorax is identified. The osseous structures are grossly intact. XR/XR chest 1V IMPRESSION: No acute infiltrate or evidence of cardiac decompensation. The overall appearance of the chest is unchanged. Electronically authenticated by: JASEN BOB Date: 08/28/2024 17:26
--- NOTE | 2024-08-28 16:04 | CT_ITS ---
The [address] [address] Patient Name: BRAD CABRALES MRN: [id number] date: 1955 Sex: M Assigned Patient Location: ER Current Patient Location: ER Accession/Order Number: [id number] Exam Date: 08/28/2024 16:11 Report Date: 08/28/2024 16:50 At the request of: SHAHIDA MCLEOD Procedure: CT stroke head/brain wo con Study: CT stroke head/brain wo con HISTORY: Numbness Technique: CT images of the head were acquired without intravenous contrast. Dose reduction technique used: Automatic exposure control and/or adjustment of the mA and/or kV according to patient size and/or use of degenerative reconstruction technique. Comparisons: None available. Findings: Mild parenchymal volume loss is associated with compensatory prominence of the ventricles and extra-axial CSF spaces. No intracranial hemorrhage identified. No territorial loss of ang-white matter differentiation seen. No mass effect or midline shift. Basal cisterns are patent. No extra-axial fluid collection. No hyperdense vessel sign identified. Basilar calcifications are noted at the carotid siphons. The orbits appear normal. Visualized soft tissues of the face and scalp are within normal limits. The inferior maxillary sinuses are not included in wypqq-es-thcg. Visualized paranasal sinuses are well aerated. Left loy bullosa anatomic variant with mild rightward deviation of the nasal septum is incidentally noted. Mastoid air cells/middle ears are clear. No destructive calvarial lesion. IMPRESSION: 1. No acute abnormality within limitations of noncontrast CT. 2. Mild parenchymal volume loss. Electronically authenticated by: HEMANT ANAYA Date: 08/28/2024 16:50
--- NOTE | 2024-08-28 16:05 | CT_ITS ---
[address] [address] Patient Name: BRAD CABRALES MRN: [id number] date: 1955 Sex: M Assigned Patient Location: ER Current Patient Location: Accession/Order Number: [id number] Exam Date: 08/28/2024 16:11 Report Date: 08/28/2024 18:14 At the request of: SHAHIDA MCLEOD Procedure: CT angio neck CT angio head, CT angio neck EXAM DATE: 08/28/2024 2:11 PM [facility]. COMPARISON: CT head dated 08/28/2024. INDICATION: Right sided numbness TECHNIQUE: CT angiogram images of the head and neck were acquired with intravenous contrast. Multiplanar reformations were obtained. Measurement of carotid stenosis is based on NASCET criteria. Dose reduction technique used: Automatic exposure control and/or adjustment of the mA and/or kV according to patient size and/or use of degenerative reconstruction technique. FINDINGS: HEAD: Anterior circulation: The intracranial ICA segments are patent. The bilateral MCA M1 and M2 segments are patent. The bilateral FARZAD A1 and A2 segments are patent. No large vessel occlusion. Posterior circulation: The bilateral V4 vertebral arteries are patent. The basilar artery is patent. The bilateral CEMENT CUTTER P1 and P2 segments are patent. No large vessel occlusion. NECK: Vasculature: There is a three branch anatomic configuration at the aortic arch. Scattered atherosclerotic plaque is noted at the aortic arch. Atherosclerotic plaque is also noted at the left greater than right carotid bifurcations. Severe burden of eccentric calcified and noncalcified plaque at the left carotid bifurcation extends through the proximal internal carotid artery, resulting in at least 80% luminal narrowing by NASCET criteria. The distal left internal carotid artery remains patent distal to this area of high-grade stenosis. Low attenuating atherosclerotic plaque with associated plaque ulceration at the left carotid bifurcation measures up to 6 mm in thickness. Associated rim calcifications around the atherosclerotic plaque is suggestive of prior intraplaque hemorrhage. A linear filling defect at the distal aspect of this large left carotid bifurcation plaque burden is suspicious for non-occlusive intraluminal thrombus (series 5, image 186). Atherosclerotic plaque at the right carotid bifurcation results in less than 50% narrowing by NASCET criteria. The vertebral arteries appear codominant. The cervical vertebral arteries are patent. No vertebral artery dissection or occlusion is identified. Nasopharynx: Normal. Suprahyoid neck: Parapharyngeal fat is not displaced. The parotid glands and submandibular glands are normal. Infrahyoid neck: The larynx, hypopharynx, and supraglottis are normal. The true vocal cords are symmetric. Thyroid: Within normal limits. Bone: Multilevel degenerative changes of the cervical spine are most advanced at C5-C6 where moderate-severe intervertebral disc loss and associated disc osteophyte complex is present. No critical narrowing of the osseous spinal canal. Upper thorax: Mild emphysematous changes. No acute lung findings. Small right pulmonary cyst CT/CT angio neck IMPRESSION: 1. High-grade left cervical ICA stenosis secondary to large burden of low density ulcerative plaque at the left carotid bifurcation. Luminal narrowing measures at least 80% by NASCET criteria. Left cervical ICA nonocclusive linear filling defect immediately distal to this plaque burden (series 5, image 186) is suspicious for nonocclusive intraluminal thrombus. 2. Left carotid bifurcation low density plaque with rim calcification suggests previous intraplaque hemorrhage. Superimposed plaque ulceration is best seen on series 5, image 177. Findings are suspicious for plaque instability. 3. No intracranial large vessel occlusion. 4. Right carotid bifurcation atherosclerotic plaque results in less than 50% luminal stenosis. 5. No occlusion or high-grade stenosis of the cervical vertebral arteries. Findings were discussed with DONALDO Peoples Dr. via telephone at 5:50 PM, 08/28/2024. Electronically authenticated by: HEMANT ANAYA Date: 08/28/2024 18:14
--- NOTE | 2024-08-28 16:05 | CT_ITS ---
[address] [address] Patient Name: BRAD CABRALES MRN: [id number] date: 1955 Sex: M Assigned Patient Location: ER Current Patient Location: Accession/Order Number: [id number] Exam Date: 08/28/2024 16:11 Report Date: 08/28/2024 18:14 At the request of: SHAHIDA MCLEOD Procedure: CT angio head CT angio head, CT angio neck EXAM DATE: 08/28/2024 2:11 PM [facility]. COMPARISON: CT head dated 08/28/2024. INDICATION: Right sided numbness TECHNIQUE: CT angiogram images of the head and neck were acquired with intravenous contrast. Multiplanar reformations were obtained. Measurement of carotid stenosis is based on NASCET criteria. Dose reduction technique used: Automatic exposure control and/or adjustment of the mA and/or kV according to patient size and/or use of degenerative reconstruction technique. FINDINGS: HEAD: Anterior circulation: The intracranial ICA segments are patent. The bilateral MCA M1 and M2 segments are patent. The bilateral FARZAD A1 and A2 segments are patent. No large vessel occlusion. Posterior circulation: The bilateral V4 vertebral arteries are patent. The basilar artery is patent. The bilateral AIRPORT OPERATIONS SPECIALIST P1 and P2 segments are patent. No large vessel occlusion. NECK: Vasculature: There is a three branch anatomic configuration at the aortic arch. Scattered atherosclerotic plaque is noted at the aortic arch. Atherosclerotic plaque is also noted at the left greater than right carotid bifurcations. Severe burden of eccentric calcified and noncalcified plaque at the left carotid bifurcation extends through the proximal internal carotid artery, resulting in at least 80% luminal narrowing by NASCET criteria. The distal left internal carotid artery remains patent distal to this area of high-grade stenosis. Low attenuating atherosclerotic plaque with associated plaque ulceration at the left carotid bifurcation measures up to 6 mm in thickness. Associated rim calcifications around the atherosclerotic plaque is suggestive of prior intraplaque hemorrhage. A linear filling defect at the distal aspect of this large left carotid bifurcation plaque burden is suspicious for non-occlusive intraluminal thrombus (series 5, image 186). Atherosclerotic plaque at the right carotid bifurcation results in less than 50% narrowing by NASCET criteria. The vertebral arteries appear codominant. The cervical vertebral arteries are patent. No vertebral artery dissection or occlusion is identified. Nasopharynx: Normal. Suprahyoid neck: Parapharyngeal fat is not displaced. The parotid glands and submandibular glands are normal. Infrahyoid neck: The larynx, hypopharynx, and supraglottis are normal. The true vocal cords are symmetric. Thyroid: Within normal limits. Bone: Multilevel degenerative changes of the cervical spine are most advanced at C5-C6 where moderate-severe intervertebral disc loss and associated disc osteophyte complex is present. No critical narrowing of the osseous spinal canal. Upper thorax: Mild emphysematous changes. No acute lung findings. Small right pulmonary cyst CT/CT angio head IMPRESSION: 1. High-grade left cervical ICA stenosis secondary to large burden of low density ulcerative plaque at the left carotid bifurcation. Luminal narrowing measures at least 80% by NASCET criteria. Left cervical ICA nonocclusive linear filling defect immediately distal to this plaque burden (series 5, image 186) is suspicious for nonocclusive intraluminal thrombus. 2. Left carotid bifurcation low density plaque with rim calcification suggests previous intraplaque hemorrhage. Superimposed plaque ulceration is best seen on series 5, image 177. Findings are suspicious for plaque instability. 3. No intracranial large vessel occlusion. 4. Right carotid bifurcation atherosclerotic plaque results in less than 50% luminal stenosis. 5. No occlusion or high-grade stenosis of the cervical vertebral arteries. Findings were discussed with DONALDO Peoples Dr. via telephone at 5:50 PM, 08/28/2024. Electronically authenticated by: HEMANT ANAYA Date: 08/28/2024 18:14
--- NOTE | 2024-08-28 16:05 | ECG_ITS ---
The [facility] Test Date: 2024-08-28 Pat Name: BRAD CABRALES Department: Room: - Gender: Male [employer]: : 1955 Requested By: PA BREWER Order Number: [id number] Reading MD: KEVIN ZHOU Measurements Intervals [place] Rate: 65 P: 68 VT: 176 QRS: 91 QRSD: 92 T: 43 QT: 410 QTc: 422 Interpretive Statements 1100 Sinus rhythm 7102 Moderate right axis deviation 9110 normal ECG Compared to ECG 09/22/2021 17:05:04 Right-axis deviation now present Electronically Signed On 08-29-2024 8:08:11 EST by KEVIN ZHOU
--- NOTE | 2024-08-28 16:14 | ED.NEUROSD1 ---
HPI - Neuro Symptoms/Deficit General Chief Complaint: Neuro Symptoms/Deficit Stated Complaint: Chest pain Time Seen by Provider: 08/28/24 15:56 Source: patient Mode of arrival: walk-in Limitations: no limitations History of Present Illness HPI Narrative: Patient is a 69-year-old male with a history of bradycardia who presents to the emergency department accompanied by his for evaluation of strokelike symptoms. Patient states 2 days ago he noticed numbness and tingling in his right arm with some weakness. He and his thought that he may have a pinched nerve. Today, 1 hour ago the patient's noticed that he was slurring his speech and did not seem like himself. Patient had right-sided facial numbness that is now resolved and states that his speech is no longer slurred. She states he still does not seem like himself and seems confused. He denies any recent illness, flulike symptoms, chest pain or shortness of breath. states she checked his blood pressure and it was 220/100. Related Data Home Medications ?Medication ?Instructions ?Recorded ?Confirmed lisinopril 20 mg tablet 20 mg PO DAILY 08/28/24 08/28/24 metformin 850 mg tablet 850 mg PO BID 08/28/24 08/28/24 pantoprazole 40 mg tablet,delayed 40 mg PO DAILY 08/28/24 08/28/24 release (Protonix) Allergies Allergy/AdvReac Type Severity Reaction Status Date / Time benzocaine Allergy Severe Hives Verified 08/28/24 16:06 Review of Systems ROS Constitutional Denies: fever or chills Ears, nose, mouth, and throat Denies: throat pain or nasal congestion Cardiovascular Denies: chest pain Respiratory Denies: shortness of breath Gastrointestinal Denies: nausea or vomiting Integumentary/Breast Denies: rash Neurological Reports: numbness in extremities, weakness in extremities, confusion and slurred speech; Denies: headache Hematologic/Lymphatic Denies: easy bruising or easy bleeding [facility] Medical History (Updated 08/28/24 @ 19:15 by DONALDO Peoples) Hypertension ?I10 - Essential (primary) hypertension (ICD-10) Social History Little interest or pleasure in doing things: not at all Feeling down, depressed, or hopeless: not at all Exam Narrative Exam Narrative: Gen.: Awake, alert, in no distress Head: Normocephalic, atraumatic ENT: Moist mucous membranes, no obvious facial drooping or swelling; no carotid bruit appreciated by attending physician on reevaluation Respiratory: No respiratory distress, lungs clear bilaterally Cardio: Regular rate and rhythm Extremities: Moves extremities equally Psych: Normal mood and affect Neuro: No focal neuro deficit; NIH stroke scale of 3 for minor drift in the right leg, minimal dysarthria and mild asymmetry of the right corner of the mouth noted with smiling only Skin: Warm, dry, intact Constitutional Vital Signs, click to edit/add: Last Vital Signs Temp 97.7 F 08/28/24 16:00 Pulse 59 L 08/28/24 18:40 Resp 14 08/28/24 18:40 BP 110/66 08/28/24 18:31 Pulse Ox 98 08/28/24 18:31 O2 Del Method Room Air 08/28/24 16:12 O2 Flow Rate 2 08/28/24 16:12 Course Vital Signs Vital signs: Vital Signs Temperature 97.7 F 08/28/24 16:00 Pulse Rate 68 08/28/24 16:00 Respiratory Rate 16 08/28/24 16:00 Blood Pressure 180/89 H 08/28/24 16:00 Pulse Oximetry 98 08/28/24 16:00 Temperature 97.7 F 08/28/24 16:00 Pulse Rate 59 L 08/28/24 18:40 Respiratory Rate 14 08/28/24 18:40 Blood Pressure 110/66 08/28/24 18:31 Pulse Oximetry 98 08/28/24 18:31 Oxygen Delivery Method Room Air 08/28/24 16:12 Oxygen Delivery Flow Rate 2 08/28/24 16:12 MDM - Neuro Symptoms/Deficit MDM Narrative Medical decision making narrative: Patient was immediately taken to a room on arrival, EKG and vital signs were obtained with IV placement and he was immediately taken to CT for noncontrast CT of the brain which is unremarkable per the radiologist. CT angio of the head and neck were also obtained. [facility] I discussed the case with Dr. Mendoza ([id number]) for stroke interventional services. He reviewed the CT angio of the head and neck, he is in agreement that the left carotid artery appears to have thrombus versus occlusion. He requested that the patient be started on heparin drip, lower dose with no bolus. Patient was started on heparin drip, second IV was established and the patient will require transfer to [facility] to the neuro ICU with accepting physician Dr. Rivera for ischemic stroke. [facility] and stroke physician discussed that they do not have any beds at this time, Dr. Mendoza is aware and comfortable with the patient waiting for a bed. 1716: Patient was reevaluated by attending physician, he has not had no progression or worsening of his symptoms since arrival to the ER. No carotid bruits were appreciated by attending physician. Patient and his family were made aware that he will require transfer to [place] and they are in agreement with this. Patient is hemodynamically stable at this time with improved blood pressure 153/84. Plan is to closely monitor the patient in this emergency department on a heparin drip until a bed is available in [place]. If his clinical condition changes in the emergency department he will require emergent transfer to [place]. 1754: Critical results discussed with radiologist who feels the patient's finding in the left carotid artery represents a high risk plaque although she cannot rule out a thrombus entirely. Final results of the CT angio head and neck will be sent with the patient at time of transfer. 1915: Patient resting comfortably in the emergency department, he has not had any progression or worsening of his symptoms at this time. Blood pressure is controlled at 110/66. 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 He remains hemodynamically stable with no progression of neurosymptoms. Critical care time 45 minutes. SHARED APC VISIT, PHYSICIAN ATTESTATION: [id number] I performed a substantive part of the MDM during the patient?s E/M visit. I personally evaluated and examined the patient. I personally made or approved the documented management plan and acknowledge its risk of complications. Medical Records Attestation: I reviewed the patient's medical records. Lab Data Attestation: I reviewed the patient's lab results. Labs: Lab Results 08/28/24 08/28/24 08/28/24 Range/Units 16:10 16:16 16:44 WBC 14.3 H (4.0-11.0) 10^3/uL RBC 5.23 (4.70-6.10) 10^6/uL Hgb 16.0 (14.0-18.0) g/dL Hct 46.3 (42.0-54.0) % MCV 88.5 (80.0-94.0) fL MCH 30.6 (25.9-34.0) pg MCHC 34.6 (29.9-35.2) g/dL RDW 12.6 (11.0-15.0) % Plt Count 279 (150-450) 10^3/uL MPV 9.9 (9.5-13.5) fL Neut % (Auto) 59.1 (43.0-75.0) % Lymph % (Auto) 28.6 (20.5-60.0) % [place] % (Auto) 8.9 (1.7-12.0) % Eos % (Auto) 2.0 (0.9-7.0) % Baso % (Auto) 1.0 (0.2-2.0) % Neut # (Auto) 8.5 H (1.4-6.5) 10^3/uL Lymph # (Auto) 4.1 H (1.2-3.8) 10^3/uL [place] # (Auto) 1.3 H (0.3-0.8) 10^3/uL Eos # (Auto) 0.3 (0.0-0.7) 10^3/uL Baso # (Auto) 0.2 H (0.0-0.1) 10^3/uL Abs Immat Gran (auto) 0.06 H (0.00-0.03) 10^3/uL Imm/Tot Granulo (auto) 0.4 (0.0-0.5) % PT 11.1 (9.0-11.6) sec INR 1.05 APTT 28.8 (22.3-36.2) sec Sodium 138 (136-145) mmol/L Potassium 3.3 L (3.5-5.1) mmol/L Chloride 101 (98-107) mmol/L Carbon Dioxide 26.9 (21.0-32.0) mmol/L Anion Gap 13.4 BUN 22.0 H (7.0-18.0) mg/dL Creatinine 1.29 (0.70-1.30) mg/dL Est GFR ( Amer) >60 (>=60 mL/min/1.73m^2) Est GFR (Non-Af Amer) 56 L (>=60 mL/min/1.73m^2) BUN/Creatinine Ratio 17.1 Glucose 144 H (74-106) mg/dL Calcium 9.5 (8.5-10.1) mg/dL Total Bilirubin 0.4 (0.2-1.0) mg/dL AST 14 L (15-37) U/L ALT 20 (16-63) U/L Alkaline Phosphatase 98 (46-116) U/L Troponin I High Sens 4.8 (4.0-76.1) pg/mL Total Protein 8.1 (6.4-8.2) g/dL Albumin 3.9 (3.4-5.0) g/dL Globulin 4.2 g/dL Albumin/Globulin Ratio 0.9 TSH 1.483 (0.358-3.740) uIU/mL Urine Opiates Screen Negative (NEGATIVE) Ur Buprenorphine Scrn Negative (NEGATIVE) Ur Oxycodone Screen Negative (NEGATIVE) Urine Methadone Screen Negative (NEGATIVE) Ur Barbiturates Screen Negative (NEGATIVE) U Tricyclic Antidepress Negative (NEGATIVE) Ur Phencyclidine Scrn Negative (NEGATIVE) Ur Amphetamines Screen Negative (NEGATIVE) U Methamphetamines Scrn Negative (NEGATIVE) U Benzodiazepines Scrn Negative (NEGATIVE) Urine Cocaine Screen Negative (NEGATIVE) U Cannabinoids Screen Positive A (NEGATIVE) Ethanol Quant <3 mg/dL POC Glucose 132 H (74-106) mg/dL Imaging Data CT scan - head: Attestation: I have reviewed the pertinent imaging results. Radiologist's impression: ITS Impressions Chest X-Ray 08/28/24 16:04 IMPRESSION: No acute infiltrate or evidence of cardiac decompensation. The overall appearance of the chest is unchanged. Electronically authenticated by: JASEN BBO Date: 08/28/2024 17:26 Head CTA 08/28/24 16:05 IMPRESSION: 1. High-grade left cervical ICA stenosis secondary to large burden of low density ulcerative plaque at the left carotid bifurcation. Luminal narrowing measures at least 80% by NASCET criteria. Left cervical ICA nonocclusive linear filling defect immediately distal to this plaque burden (series 5, image 186) is suspicious for nonocclusive intraluminal thrombus. 2. Left carotid bifurcation low density plaque with rim calcification suggests previous intraplaque hemorrhage. Superimposed plaque ulceration is best seen on series 5, image 177. Findings are suspicious for plaque instability. 3. No intracranial large vessel occlusion. 4. Right carotid bifurcation atherosclerotic plaque results in less than 50% luminal stenosis. 5. No occlusion or high-grade stenosis of the cervical vertebral arteries. Findings were discussed with DONALDO Peoples Dr. via telephone at 5:50 PM, 08/28/2024. Electronically authenticated by: HEMANT ANAYA Date: 08/28/2024 18:14 Neck CTA 08/28/24 16:05 IMPRESSION: 1. High-grade left cervical ICA stenosis secondary to large burden of low density ulcerative plaque at the left carotid bifurcation. Luminal narrowing measures at least 80% by NASCET criteria. Left cervical ICA nonocclusive linear filling defect immediately distal to this plaque burden (series 5, image 186) is suspicious for nonocclusive intraluminal thrombus. 2. Left carotid bifurcation low density plaque with rim calcification suggests previous intraplaque hemorrhage. Superimposed plaque ulceration is best seen on series 5, image 177. Findings are suspicious for plaque instability. 3. No intracranial large vessel occlusion. 4. Right carotid bifurcation atherosclerotic plaque results in less than 50% luminal stenosis. 5. No occlusion or high-grade stenosis of the cervical vertebral arteries. Findings were discussed with DONALDO Peoples Dr. via telephone at 5:50 PM, 08/28/2024. Electronically authenticated by: HEMANT ANAYA Date: 08/28/2024 18:14 ECG Data Attestation: I personally reviewed and interpreted this ECG as follows: (Normal sinus rhythm at a rate of 65, no acute ST elevation or ectopy. EKG reviewed by attending physician) Critical Care Time Critical Care Time Critical Care Time: Yes Total Critical Care Time: 45 Attestation: 45 minutes of critical care time assessed for evaluation of strokelike symptoms, neurowork-up and consultation with stroke interventional services, transfer to tertiary care for definitive management of ischemic stroke Discharge Plan Discharge Chief Complaint: Neuro Symptoms/Deficit Clinical Impression: Ischemic stroke Patient Disposition: [facility] Time of Disposition Decision: 17:00 Discharge Location: [facility] Condition: Fair Mode of Transportation: EMS
[2024-08-28 16:21] LABS: Glucometer 132 mg/dL (74-106)
[2024-08-28 16:22] LABS: Basophils Absolute Auto 0.2 10^3/uL (0.0-0.1); Eosinophils Absolute Auto 0.3 10^3/uL (0.0-0.7); Hematocrit 46.3 % (42.0-54.0); Immature Granulocytes Abs Auto 0.06 10^3/uL (0.00-0.03); Immature Granulocytes Pct Auto 0.4 % (0.0-0.5); Lymphocytes Absolute Auto 4.1 10^3/uL (1.2-3.8); Lymphocytes Percent Auto 28.6 % (20.5-60.0); Mean Corpuscular HGB Conc 34.6 g/dL (29.9-35.2); Mean Corpuscular Hemoglobin 30.6 pg (25.9-34.0); Mean Corpuscular Volume 88.5 fL (80.0-94.0); Mean Platelet Volume 9.9 fL (9.5-13.5); Monocytes Absolute Auto 1.3 10^3/uL (0.3-0.8); Monocytes Percent Auto 8.9 % (1.7-12.0); Neutrophils Absolute Auto 8.5 10^3/uL (1.4-6.5); Neutrophils Percent Auto 59.1 % (43.0-75.0); Platelet Count 279 10^3/uL (150-450); Red Blood Count 5.23 10^6/uL (4.70-6.10); Red Cell Distribution Width 12.6 % (11.0-15.0); White Blood Count 14.3 10^3/uL (4.0-11.0)
[2024-08-28 16:35] LABS: Ethanol <3 mg/dL
[2024-08-28 16:37] LABS: INR 1.05; Prothrombin Time 11.1 sec (9.0-11.6)
[2024-08-28 16:50] LABS: Alanine Aminotransferase 20 U/L (16-63); Albumin Globulin Ratio 0.9; Albumin Level 3.9 g/dL (3.4-5.0); Alkaline Phosphatase 98 U/L (46-116); Anion Gap 13.4; Aspartate Amino Transferase 14 U/L (15-37); BUN Creatinine Ratio 17.1; Bilirubin Total 0.4 mg/dL (0.2-1.0); Calcium 9.5 mg/dL (8.5-10.1); Carbon Dioxide 26.9 mmol/L (21.0-32.0); Chloride 101 mmol/L (98-107); Estimated GFR (African America >60 (>=60 mL/min/1.73m^2); Estimated GFR (Non-African Ame 56 (>=60 mL/min/1.73m^2); Globulin 4.2 g/dL; Glucose 144 mg/dL (74-106); Potassium 3.3 mmol/L (3.5-5.1); Sodium 138 mmol/L (136-145); Thyroid Stimulating Hormone 1.483 uIU/mL (0.358-3.740); Total Protein 8.1 g/dL (6.4-8.2); Troponin I High Sensitivity 4.8 pg/mL (4.0-76.1)
[2024-08-28 17:04] LABS: Amphetamine Screen Urine NEGATIVE (NEGATIVE); Barbiturates Screen Urine NEGATIVE (NEGATIVE); Benzodiazepines Screen Urine NEGATIVE (NEGATIVE); Buprenorphine Screen Urine NEGATIVE (NEGATIVE); Cannabinoid Screen Urine POSITIVE (NEGATIVE); Cocaine Screen Urine NEGATIVE (NEGATIVE); Methadone Screen Urine NEGATIVE (NEGATIVE); Methamphetamines Screen Urine NEGATIVE (NEGATIVE); Opiate Screen Urine NEGATIVE (NEGATIVE); Oxycodone Screen Urine NEGATIVE (NEGATIVE); Phencyclidine Screen Urine NEGATIVE (NEGATIVE); Tricyclic Antidepressant Urine NEGATIVE (NEGATIVE)
[2024-08-28] MEDS: HEPARIN SODIUM,PORCINE/D5W 25,000 UNIT/500 ML IV.SOLN 17.76 UNIT IV (17:22)
[2024-08-28 17:29] LABS: Partial Thromboplastin Time 28.8 sec (22.3-36.2)
--- NOTE | 2024-08-28 19:35 | PC.NURSE ---
Pt has room assignment at [facility] bed [id number]. Transport ETA 0000. Pt and family updated.
--- NOTE | 2024-08-28 20:48 | ECG_ITS ---
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
--- NOTE | 2024-08-28 22:43 | ECG_ITS ---
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
[2024-08-28] MEDS: ACETAMINOPHEN 325 MG TABLET 650 MG PO (23:00)
[2024-08-28 23:15] LABS: Partial Thromboplastin Time 32.4 sec (22.3-36.2)
[2024-08-28 23:19] LABS: Troponin I High Sensitivity 5.8 pg/mL (4.0-76.1)
[2024-08-28] MEDS: HEPARIN SODIUM (PORCINE) 5,000 UNIT/ML VIAL 4000 UNIT IV (23:40)
[2024-08-29] VITALS (26 sets, daily range): BP systolic 118–146; BP diastolic 67–80; PULSE 56–87; O2SAT 97
--- NOTE | 2024-08-29 02:46 | PC.NURSE ---
[facility] ETA is now 90 minutes from current time. Pt and family updated.
[2024-08-29] MEDS: CYCLOBENZAPRINE HCL 10 MG TABLET PO (03:24)
== END 2024-08-29 04:30 | disposition short-term general hospital (02) ==
PROVIDERS: Emergency Medicine; Physician Assistant; Emergency Provider Emergency Medicine Emergency Medical Services; PCP Nurse Practitioner Family
DX: I63.9 Cerebral infarction, unspecified (principal)
CPT/HCPCS: 36415; 70450; 70496; 70498; 71045; 80053; 80307; 80320; 82948; 84443; 84484; 85025; 85610; 85730; 93005; 96365; 96366; 96376; 99285; J1644; Q9967

== ENCOUNTER 2024-09-28 13:59 | Inpatient (IN) | payer MEDICARE, SELFPAY ==
[2024-09-28] VITALS (27 sets, daily range): BP systolic 97–124; BP diastolic 49–85; PULSE 59–95; TEMP 36.4–36.8; O2SAT 94–100; BMI 29.2
--- NOTE | 2024-09-28 14:09 | ED.GENADUL1 ---
HPI HPI - General Adult General Chief complaint: Weakness Stated complaint: blood sugar Time Seen by Provider: 09/28/24 14:03 History of Present Illness HPI narrative: pt sent from Dr Jay's office after his blood glucose was found to be greater than 600 in their office. 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 He was treated at [facility] for this. He said that during his admission he was placed on insulin but then when he was discharged home he was put back on his prior dose of metformin, which is 500 mg twice a day. He said that since getting out of the hospital he has had progressively worsening symptoms including increased thirst, increased frequency of urination, diffuse muscle aches, fatigue, diffuse weakness. He does not know how to use insulin at home. Related Data Home Medications ?Medication ?Instructions ?Recorded ?Confirmed lisinopril 20 mg tablet 20 mg PO DAILY 08/28/24 09/28/24 metformin 850 mg tablet 850 mg PO BID 08/28/24 09/28/24 pantoprazole 40 mg tablet,delayed 40 mg PO DAILY 08/28/24 09/28/24 release (Protonix) aspirin 81 mg tablet,delayed 81 mg PO DAILY 09/28/24 09/28/24 release (Adult Low Dose Aspirin) atorvastatin 40 mg tablet 40 mg PO QPM 09/28/24 09/28/24 clopidogrel 75 mg tablet 75 mg PO DAILY 09/28/24 09/28/24 lisinopril 20 1 tab PO DAILY 09/28/24 09/28/24 mg-hydrochlorothiazide 25 mg tablet metformin 500 mg tablet 500 mg PO BID 09/28/24 09/28/24 Allergies Allergy/AdvReac Type Severity Reaction Status Date / Time benzocaine Allergy Severe Hives Verified 09/28/24 14:05 Opioid HPI Opioid Management Most Recent Opioid Data: Ur Phencyclidine Scrn Negative (NEGATIVE) 08/28/24 16:44 [facility]28/24 [facility] History (Updated 09/28/24 @ 15:33 by Cortez Brower) Type 2 diabetes mellitus ?E11.9 - Type 2 diabetes mellitus without complications (ICD-10) Ischemic stroke ?I63.9 - Cerebral infarction, unspecified (ICD-10) Hypertension ?I10 - Essential (primary) hypertension (ICD-10) Social History Little interest or pleasure in doing things: not at all Feeling down, depressed, or hopeless: not at all Exam Narrative Exam Narrative: Nurses notes and vital signs reviewed and patient is not hypoxic. afebrile General: Well-appearing and in no apparent distress. Skin: Warm, dry, no pallor noted. No rash. Head: Normocephalic, atraumatic. Neck: Supple, non-tender. No meningismus. Eye: Pupils are equal, round and EOMI. No scleral icterus. Ears, Nose, Mouth, and Throat: Oral mucosa is very dry Cardiovascular: Borderline tachycardia on exam. Respiratory: No accessory muscle use or respiratory distress. Lungs are clear to auscultation, no wheezing, rales or rhonchi Musculoskeletal: normal ROM, no calf or popliteal tenderness, no lower extremity edema/swelling GI: Abdomen is soft, non-distended. Normal bowel sounds. Mild, diffuse tenderness to palpation. No rebound, guarding, or rigidity noted. Neurological: A&O x4. No cranial nerve dysfunction observed. No truncal ataxia. Moves all extremities. Sensation intact. Psychiatric: Cooperative and interactive. Normal mood and affect. Constitutional Vital Signs, click to edit/add: Last Vital Signs Temp 97.6 F 09/28/24 14:05 Pulse 95 H 09/28/24 14:05 Resp 16 09/28/24 14:05 BP 114/68 09/28/24 15:05 Pulse Ox 96 09/28/24 15:05 O2 Del Method Room Air 09/28/24 14:05 Course Vital Signs Vital signs: Vital Signs Temperature 97.6 F 09/28/24 14:05 Pulse Rate 95 H 09/28/24 14:05 Respiratory Rate 16 09/28/24 14:05 Blood Pressure 121/85 09/28/24 14:05 Pulse Oximetry 96 09/28/24 14:05 Oxygen Delivery Method Room Air 09/28/24 14:05 Temperature 97.6 F 09/28/24 14:05 Pulse Rate 95 H 09/28/24 14:05 Respiratory Rate 16 09/28/24 14:05 Blood Pressure 114/68 09/28/24 15:05 Pulse Oximetry 96 09/28/24 15:05 Oxygen Delivery Method Room Air 09/28/24 14:05 Medical Decision Making MDM Narrative Medical decision making narrative: Patient with profound hyperglycemia, history of metformin use but no current insulin use. Patient was placed on cardiac cath tech and EKG obtained. Blood drawn and sent for evaluation. Patient was ordered to receive a liter of normal saline and blood was drawn and sent for testing. He was found to have a glucose of 848 with pseudohyponatremia, sodium 120. White blood cell count is elevated 18.3 but he also has elevation of his hemoglobin and hematocrit, this is likely secondary to profound dehydration. Acetone was negative, indicating the patient likely has hyperosmolar hyperglycemic state. BUN/creatinine are elevated at 41 and 1.92. Bicarbonate is 24. Potassium is normal at 4.5. Calcium normal at 9.1 and LFTs are negative. The patient was ordered to receive a second liter of normal saline IV fluid and then I also ordered 1/3 L to be given at 200 mL/h with 40 mill equivalents of potassium chloride inside because the patient was also started on an insulin drip. I started him at 0.05 units/kg/h and he will be closely monitored per DKA protocol with adjustments made to his insulin dose as needed. I discussed the case with Dr. Jay, who agreed to admit the patient to the intensive care unit under his service. He agreed that we would go low and slow with reducing this patient's glucose. The patient was informed of need for admission and agreeable. During his admission he will be educated on the use of insulin -he is already familiar with how to check his blood sugar at home. Medical Records Medical records reviewed: Yes I reviewed the patient's medical records Medical records narrative: I reviewed the patient's prior admission in which she sustained an occlusive CVA, necessitating emergent transfer to [facility] with heparin drip administered in the emergency department prior to transfer. Lab Data Lab results reviewed: Yes I reviewed the patient's lab results Labs: Lab Results 09/28/24 Range/Units 14:10 WBC 18.3 H (4.0-11.0) 10^3/uL RBC 4.81 (4.70-6.10) 10^6/uL Hgb 14.7 (14.0-18.0) g/dL Hct 41.2 L (42.0-54.0) % MCV 85.7 (80.0-94.0) fL MCH 30.6 (25.9-34.0) pg MCHC 35.7 H (29.9-35.2) g/dL RDW 11.8 (11.0-15.0) % Plt Count 293 (150-450) 10^3/uL MPV 11.1 (9.5-13.5) fL Neut % (Auto) 80.0 H (43.0-75.0) % Lymph % (Auto) 13.3 L (20.5-60.0) % Boyd % (Auto) 5.1 (1.7-12.0) % Eos % (Auto) 0.4 L (0.9-7.0) % Baso % (Auto) 0.7 (0.2-2.0) % Neut # (Auto) 14.6 H (1.4-6.5) 10^3/uL Lymph # (Auto) 2.4 (1.2-3.8) 10^3/uL [place] # (Auto) 0.9 H (0.3-0.8) 10^3/uL Eos # (Auto) 0.1 (0.0-0.7) 10^3/uL Baso # (Auto) 0.1 (0.0-0.1) 10^3/uL Abs Immat Gran (auto) 0.10 H (0.00-0.03) 10^3/uL Imm/Tot Granulo (auto) 0.5 (0.0-0.5) % Sodium 120 L* (136-145) mmol/L Potassium 4.5 (3.5-5.1) mmol/L Chloride 86 L (98-107) mmol/L Carbon Dioxide 23.7 (21.0-32.0) mmol/L Anion Gap 14.8 BUN 41.0 H (7.0-18.0) mg/dL Creatinine 1.92 H (0.70-1.30) mg/dL Est GFR ( Amer) 43 L (>=60 mL/min/1.73m^2) Est GFR (Non-Af Amer) 35 L (>=60 mL/min/1.73m^2) BUN/Creatinine Ratio 21.4 Glucose 848 H* (74-106) mg/dL Estimat Average Glucose 275 mg/dL Hemoglobin A1c 11.2 H (4.5-6.2) % Calcium 9.1 (8.5-10.1) mg/dL Phosphorus 5.4 H (2.6-4.7) mg/dL Magnesium 2.2 (1.8-2.4) mg/dL Total Bilirubin 0.7 (0.2-1.0) mg/dL AST 12 L (15-37) U/L ALT 27 (16-63) U/L Alkaline Phosphatase 138 H (46-116) U/L Total Protein 7.6 (6.4-8.2) g/dL Albumin 3.8 (3.4-5.0) g/dL Globulin 3.8 g/dL Albumin/Globulin Ratio 1.0 Acetone, Qual Negative (NEGATIVE) ECG Data Attestation: I personally reviewed and interpreted this ECG as follows: Interpretation: EKG interpretation: Emergency Department physician interpretation. Normal sinus rhythm at 63bpm. Normal axis, normal intervals and no ST segment elevation or depression. Normal EKG. Discharge Plan Discharge Chief Complaint: Weakness Clinical Impression: Hyperosmolar hyperglycemic state (HHS), Acute kidney injury, Pseudohyponatremia Patient Disposition: Admitted as Observation Time of Disposition Decision: 15:33 Additional Instructions: Dr Jay
[2024-09-28] MEDS: 0.9 % SODIUM CHLORIDE 1,000 ML 999 ML IV (14:21)
[2024-09-28 14:23] LABS: Basophils Absolute Auto 0.1 10^3/uL (0.0-0.1); Basophils Percent Auto 0.7 % (0.2-2.0); Eosinophils Absolute Auto 0.1 10^3/uL (0.0-0.7); Eosinophils Percent Auto 0.4 % (0.9-7.0); Hematocrit 41.2 % (42.0-54.0); Hemoglobin 14.7 g/dL (14.0-18.0); Immature Granulocytes Pct Auto 0.5 % (0.0-0.5); Lymphocytes Absolute Auto 2.4 10^3/uL (1.2-3.8); Lymphocytes Percent Auto 13.3 % (20.5-60.0); Mean Corpuscular HGB Conc 35.7 g/dL (29.9-35.2); Mean Corpuscular Hemoglobin 30.6 pg (25.9-34.0); Mean Corpuscular Volume 85.7 fL (80.0-94.0); Mean Platelet Volume 11.1 fL (9.5-13.5); Monocytes Absolute Auto 0.9 10^3/uL (0.3-0.8); Monocytes Percent Auto 5.1 % (1.7-12.0); Neutrophils Absolute Auto 14.6 10^3/uL (1.4-6.5); Platelet Count 293 10^3/uL (150-450); Red Blood Count 4.81 10^6/uL (4.70-6.10); Red Cell Distribution Width 11.8 % (11.0-15.0); White Blood Count 18.3 10^3/uL (4.0-11.0)
--- NOTE | 2024-09-28 14:26 | PC.NURSE ---
pt has been c/o weakness, blurry vision x1 week. pt has been urinating frequently feeling thirsty, N/V. hx of diabetes.
[2024-09-28 14:42] LABS: Alanine Aminotransferase 27 U/L (16-63); Albumin Level 3.8 g/dL (3.4-5.0); Alkaline Phosphatase 138 U/L (46-116); Anion Gap 14.8; Aspartate Amino Transferase 12 U/L (15-37); BUN Creatinine Ratio 21.4; Bilirubin Total 0.7 mg/dL (0.2-1.0); Calcium 9.1 mg/dL (8.5-10.1); Carbon Dioxide 23.7 mmol/L (21.0-32.0); Chloride 86 mmol/L (98-107); Estimated GFR (African America 43 (>=60 mL/min/1.73m^2); Estimated GFR (Non-African Ame 35 (>=60 mL/min/1.73m^2); Globulin 3.8 g/dL; Potassium 4.5 mmol/L (3.5-5.1); Total Protein 7.6 g/dL (6.4-8.2)
[2024-09-28 14:44] LABS: Acetone NEGATIVE (NEGATIVE)
[2024-09-28 14:46] LABS: Glucose 848 mg/dL (74-106); Sodium 120 mmol/L (136-145)
[2024-09-28 15:04] LABS: Magnesium 2.2 mg/dL (1.8-2.4); Phosphorus 5.4 mg/dL (2.6-4.7)
[2024-09-28 15:10] LABS: Estimated Average Glucose 275 mg/dL; Glycohemoglobin A1C 11.2 % (4.5-6.2)
[2024-09-28] MEDS: 0.9 % SODIUM CHLORIDE 1,000 ML 1000 ML IV (15:18)
[2024-09-28] MEDS: INSULIN REGULAR IN 0.9 % NACL 100 UNIT/100 ML PLAST..BAG IV (15:22)
--- NOTE | 2024-09-28 15:37 | ECG_ITS ---
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
[2024-09-28] MEDS: POTASSIUM CHLORIDE IN 0.9%NACL 1,000 ML 200 ML IV (16:01)
--- NOTE | 2024-09-28 16:21 | PC.NURSE ---
1610 per cart from ER. alert and oriented. Dx DKA. Alert oriented color castorena, skin warm and dry. IV of NS awith 40 kcl infusing at 200 ml hrt
--- OUTSIDE RECORDS SUMMARY | 2024-09-28 16:21 | XMS_ITS | CCD ---
Author Organization [facility] CliniSyid Care Team Providers Care Survey Data Technician Name Role Phone MARIELOS Moreau Attending Provider JOELLE BREWER Primary Care Physician BETTY BREWERELA Admitting Unavailable OSMAN, JOELLE Attending Unavailable OSMAN, JOELLE Primary Care Unavailable OSMAN, JOELLE Admitting Unavailable OSMAN, JOELLE Attending Unavailable OSMAN, JOELLE Primary Care Unavailable OSMAN, JOELLE Consulting Unavailable OSMAN, JOELLE Admitting Unavailable OSMAN, JOELLE Attending Unavailable OSMAN, JOELLE Primary Care Unavailable DR ANA RAMOS Consulting Unavailable OSMAN, JOELLE Consulting Unavailable OSMAN, JOELLE Admitting Unavailable OSMAN, JOELLE Attending Unavailable OSMAN, JOELLE Primary Care Unavailable OSMAN, JOELLE Consulting Unavailable Kameron BARR Attending Unavailable OSMAN, JOELLE S Referring Unavailable OSMAN, JOELLE S Referring Unavailable Kameron BARR Attending Unavailable Osman CLAUDIO Joelle S Primary Care Provider OSMAN, JOELLE S Referring Unavailable OSMAN, JOELLE S Primary Care Unavailable OSMAN, JOELLE S Referring Unavailable OSMAN, JOELLE S Primary Care Unavailable OSMAN, JOELLE S Referring Unavailable OSMAN, JOELLE S Primary Care Unavailable OSMAN, JOELLE S Referring Unavailable OSMAN, JOELLE S Primary Care Unavailable JENNIFER, VIEH Admitting Unavailable JENNIFER, VIEH Attending Unavailable ROSA MCGILL Referring Unavailable OSMAN, JOELLE S Primary Care Unavailable ZEN CRUZ Consulting Unavailable AILYN SIBLEY Consulting Unavailable JENNIFER, VIEH Referring Unavailable OSMAN, JOELLE S Primary Care Unavailable NEERAJ, OLGA Referring Unavailable OSMAN, JOELLE S Primary Care Unavailable NEERAJ, OLGA Referring Unavailable OSMAN, JOELLE S Primary Care Unavailable JENNY LUKE Attending Unavailable OSMAN, JOELLE S Primary Care Unavailable BLANCO BENZ Attending Unavailable JOELLE BREWER Referring Unavailable JOELLE BREWER Primary Care Unavailable ASHLYN CRANE Attending Unavailable Allergies Allergy Classification Reported Allergen(s) Allergy Type Date of Onset Reaction(s) Facility (6 sources) Benzocaine; Translations: [BENZOCAINE] Drug Allergy 4 Hives [facility] (2 sources) Allantoin / Benzocaine / Camphor / Petrolatum; Translations: [benzocaine topical] Drug Allergy Swelling (finding) [facility] (4 sources) Benzocaine-Kush alkonium Cl; Translations: [BENZOCAINE-RODNEY ZALKONIUM CL] Propensity to adverse reactions to drug 0 Swelling, Flushing [facility] Medications Current Medications Medication Drug Class(es) Dates [...] Date: 12/22/22 Status: Ordered Lisinopril Activ e pantoprazole 40 mg delayed release oral tablet (3 sources) Proton Pump Inhibitor Start: 12-22-2022 take 1 mg by mouth once daily Pantoprazole [address] Tab mg tab(s), Oral, Daily Start Date: 12/22/22 Status: Ordered Pantoprazole Sod ium Active Completed/Discontinued Medications Medication Drug Class(es) Dates Sig (Normalized) Sig (Original) acetaminophen 500 mg oral tablet (1 source) Start: 04-08-2021 take 1 tablet by mouth every six hours as needed for pain acetaminophen (TYLENOL) 500 mg tablet Take 1 tablet (500 mg total) by mouth every 6 (six) hours as needed for pain. 30 tablet 04/08/2021 Suspended ciprofloxacin 500 mg oral tablet (2 sources) Quinolone Antimicrobial Start: 12-22-2022 Cipro 500 mg Tab 500 mg = 1 tab(s), Oral, As Directed, Patient to take 1 tab the day before procedure and the 2nd tab the day of procedure once completed, # 2 tab(s), Refills(s) 0, Pharmacy: [id number], 167, cm, 12/22/22 10:25:00 EDT, Height/Length Do... Start Date: 12/22/22 Status: Ordered hydroCHLOROthiazide 25 mg / lisinopril 20 mg oral tablet (1 source) Thiazide Diuretic, Angiotensin Converting Enzyme Inhibitor Start: 12-09-2022 take 1 tablet by mouth once in the morning lisinopril-hydroC HLOROthiazide (PRINZIDE,ZESTORE TIC) 20-25 mg per tablet Take 1 tablet by mouth in the morning. 12/09/2022 Suspended MEN'S MULTI-VITAMIN ORAL (1 source) MEN'S MULTI-VITAMIN ORAL Take by mouth. Suspended metFORMIN hydrochloride 500 mg oral tablet (4 sources) Biguanide Start: 12-22-2022 take 1 tablet by mouth in the morning, then take 1 tablet by mouth at mealtime metFORMIN (GLUCOPHAGE) 500 mg tablet Take 1 tablet (500 mg total) by mouth in the morning and 1 tablet (500 mg total) in the evening. Take with meals. 12/22/2022 Suspended Start: 12-22-2022 metformin Oral Start Date: 12/22/22 Status: Ordered metFORMIN HCl Ac tive omeprazole 40 mg delayed release oral capsule (1 source) Proton Pump Inhibitor take 1 capsule by mouth in the morning omeprazole (PriLOSEC) 40 mg capsule Take 1 capsule (40 mg total) by mouth in the morning. Suspended Problems Active Problems Problem Classification Problem Date Documented Da te Episodic/Chronic Acute cerebrovascular disease (3 sources) Ischemic stroke; Translations: [Cerebral infarction, unspecified] Onset: 08-29-2024 Chronic Deficiency and other anemia (1 source) Anemia, unspecified; Translations: [ANEMIA UNSPECIFIED] Onset: 11-15-2022 Episodic Diabetes mellitus without complication (3 sources) Diabetes mellitus; Translations: [Type 2 diabetes mellitus without complications] Onset: 11-08-2022 12-22-2022 Chronic Disorders of lipid metabolism (8 sources) Hyperlipidemia; Translations: [Hyperlipidemia, unspecified] Onset: 03-02-2023 04-19-2023 Chronic Essential hypertension (2 sources) Hypertensive disorder 12-22-2022 Chronic Heart valve disorders (2 sources) Heart murmur [...] 01-11-2023 Episodic Other aftercare (1 source) Other chcf (current) drug therapy; Translations: [OTH CUSTODIAL CURRENT DRUG THERAPY] Onset: 11-08-2022 Episodic Other connective tissue disease (1 source) Neurological symptom; Translations: [Unspecified symptoms and signs involving the nervous system] Onset: 08-29-2024 08-29-2024 Episodic Other connective tissue disease (2 sources) Unspecified symptoms and signs involving the nervous system; Translations: [Unspecified symptoms and signs involving the nervous system] Onset: 08-29-2024 Episodic Other diseases of kidney and ureters [...] malignant neoplasm of kidney] Onset: 12-22-2022 Episodic Residual codes; unclassified (1 source) Pain, unspecified; Translations: [Pain, unspecified] Onset: 08-29-2024 Episodic Skin and subcutaneous tissue infections (2 sources) Paronychia of finger; Translations: [Cellulitis of unspecified finger] Onset: 02-09-2022 Resolved: 02-09-2022 Episodic Past or Other Problems Problem Classification Problem Date Documented Da te Episodic/Chronic Genitourinary symptoms and ill-defined conditions (12 sources) Microscopic hematuria; Translations: [Other microscopic hematuria] Onset: 11-08-2022 Episodic Mood disorders (1 source) Mood disorders Onset: 08-30-2024 08-30-2024 Results Test Name Value Interpretation Reference Range Facility Office Visiton 09-25-2024 Follow-up visit [id number] Harvey Cabrales 1955 M Date Provider Department Center 09/25/2024 [id number] CRANE CARD [facility] Family History Problem Relation Age of Onset Hypertension Brother Family Status - Relation Status Age at Brother Level of Service:28859 OK OFFICE/OUTPATIENT NEW MODERATE MDM 45 MINUTES Reason for Visit and Comments: Cerebrovascular Accident [149] - Recent CVA and was admitted to [facility]. Had echo while inpatient. Denies lightheadedness/syncope, but c/o blurred vision. carotid artery stenosis [Other] - S/p right CEA a few weeks ago. He has follow up with the surgeon this week. Fatigue [46] - Says he's always thirsty and feels like he can't get enough water. Normal [facility] BASIC METABOLIC PANLon 09-03 Anion gap [Moles/Vol] 9 mmol/L Normal 5-15 [facility] Comment on above: Performed By: #### 7 18-7, PLTCT, PINR, 73191-3, HA1C #### [facility] ([id number]) [address], [address] [place] [address] Calcium [Mass/Vol] 9.3 mg/dL Normal 8.5-10.5 [facility] Comment on above: Performed By: #### 7 18-7, PLTCT, PINR, 16615-5, HA1C #### [facility] ([id number]) [address], [address] [place] [address] Chloride [Moles/Vol] 103 mmol/L Normal 98-109 [facility] Comment on above: Performed By: #### 7 18-7, PLTCT, PINR, 06693-7, HA1C #### [facility] ([id number]) [address], [address] [place] [address] CO2 [Moles/Vol] 27 mmol/L Normal 22-32 [facility] Comment on above: Performed By: #### 7 18-7, PLTCT, PINR, 58601-1, HA1C #### [facility] ([id number]) [address], [address] [place] [address] Creatinine [Mass/Vol] 0.92 mg/dL Normal 0.60-1.30 [facility] Comment on above: Result Comment: METH OD TRACEABLE TO IDMS STANDARD Performed By: #### 7 18-7, PLTCT, PINR, 40158-2, HA1C #### [facility] ([id number]) [address], [address] [place] [address] eGFR (CKD-EPI) NON-RACE DEPENDENT >90 Normal >59 [facility] Comment on above: Result Comment: Reported eGFR is based on the CKD-EPI 2020 equation that does not use a race coefficient. Performed By: #### 7 18-7, PLTCT, PINR, 05265-5, HA1C #### [facility] ([id number]) [address], [address] [place] [address] Glucose [Mass/Vol] 116 mg/dL High 65-99 [facility] Comment on above: Performed By: #### 7 18-7, PLTCT, PINR, 45458-2, HA1C #### [facility] ([id number]) [address], [address] [place] [address] Potassium [Moles/Vol] 4.1 mmol/L Normal 3.5-5.0 [facility] Comment on above: Performed By: #### 7 18-7, PLTCT, PINR, 16919-9, HA1C #### [facility] ([id number]) [address], [address] [place] [address] Sodium [Moles/Vol] 139 mmol/L Normal 134-146 [facility] Comment on above: Performed By: #### 7 18-7, PLTCT, PINR, 44485-0, HA1C #### [facility] ([id number]) [address], [address] [place] [address] Urea nitrogen [Mass/Vol] 16 mg/dL Normal 5-27 [facility] Comment on above: Performed By: #### 7 18-7, PLTCT, PINR, 44405-2, HA1C #### [facility] ([id number]) [address], [address] [place] [address] Glucose Glucometer (BldC) [M ass/Vol]on 09-03-2024 Glucose [Mass/Vol] 200 mg/dL High 65-99 [facility] Glucose [Mass/Vol] 106 mg/dL High 65-99 [facility] BASIC METABOLIC PANLon 09-02 Anion gap [Moles/Vol] 9 mmol/L Normal 5-15 [facility] Comment on above: Performed By: #### 7 18-7, PLTCT, PINR, 58793-2, HA1C #### [facility] ([id number]) [address], [address] [place] [address] Calcium [Mass/Vol] 9.2 mg/dL Normal 8.5-10.5 [facility] Comment on above: Performed By: #### 7 18-7, PLTCT, PINR, 03971-1, HA1C #### [facility] ([id number]) [address], [address] [place] [address] Chloride [Moles/Vol] 105 mmol/L Normal 98-109 [facility] Comment on above: Performed By: #### 7 18-7, PLTCT, PINR, 66772-5, HA1C #### [facility] ([id number]) [address], [address] [place] [address] CO2 [Moles/Vol] 25 mmol/L Normal 22-32 [facility] Comment on above: Performed By: #### 7 18-7, PLTCT, PINR, 15736-2, HA1C #### [facility] ([id number]) [address], [address] [place] [address] Creatinine [Mass/Vol] 0.89 mg/dL Normal 0.60-1.30 [facility] Comment on above: Result Comment: METH OD TRACEABLE TO IDMS STANDARD Performed By: #### 7 18-7, PLTCT, PINR, 14652-9, HA1C #### [facility] ([id number]) [address], [facility] [address] [place] [address] eGFR (CKD-EPI) NON-RACE DEPENDENT >90 Normal >59 [facility] Comment on above: Result Comment: Reported eGFR is based on the CKD-EPI 2020 equation that does not use a race coefficient. Performed By: #### 7 18-7, PLTCT, PINR, 47636-2, HA1C #### [facility] ([id number]) [address], [address] [place] [address] Glucose [Mass/Vol] 145 mg/dL High 65-99 [facility] Comment on above: Performed By: #### 7 18-7, PLTCT, PINR, 15439-2, HA1C #### [facility] ([id number]) [address], [address] [place] [address] Potassium [Moles/Vol] 3.9 mmol/L Normal 3.5-5.0 [facility] Comment on above: Performed By: #### 7 18-7, PLTCT, PINR, 83566-9, HA1C #### [facility] ([id number]) [address], [address] [place] [address] Sodium [Moles/Vol] 139 mmol/L Normal 134-146 [facility] Comment on above: Performed By: #### 7 18-7, PLTCT, PINR, 46084-8, HA1C #### [facility] ([id number]) [address], [address] [place] [address] Urea nitrogen [Mass/Vol] 17 mg/dL Normal 5-27 [facility] Comment on above: Performed By: #### 7 18-7, PLTCT, PINR, 79806-1, HA1C #### [facility] ([id number]) [address], [address] [place] [address] Glucose Glucometer (BldC) [M ass/Vol]on 09-02-2024 Glucose [Mass/Vol] 167 mg/dL High 65-99 [facility] Glucose [Mass/Vol] 154 mg/dL High 65-99 [facility] Glucose [Mass/Vol] 134 mg/dL High 65-99 [facility] Glucose [Mass/Vol] 132 mg/dL High 65-99 [facility] HEMOGLOBINon 09-02-2024 Hemoglobin (Bld) [Mass/Vol] 14.5 g/dL Normal 13.0-17.0 [facility] Comment on above: Performed By: #### 7 18-7, PLTCT, PINR, 41660-7, HA1C #### [facility] ([id number]) [address], [address] [place] [address] Heparin unfractionated Chrom ogenic method Qn (PPP)on 09-02-2024 ANTI XA UFH 0.99 IU/mL Critically high 0.30-0.70 [facility] Comment on above: Result Comment: Opti mal time for testing is 6 hrs post dosage This test is specific for monitoring patients on UFH, and is not recommended for use with other Anti-Xa medications. Performed By: #### 7 18-7, PLTCT, PINR, 08252-3, HA1C #### [facility] ([id number]) [address], [address] [place] [address] PLATELET COUNT AND MPVon Platelet mean volume (Bld) [Entitic vol] 8.8 fL Normal 7-12 [facility] Comment on above: Performed By: #### 7 18-7, PLTCT, PINR, 00606-0, HA1C #### [facility] ([id number]) [address], [address] [place] [address] Platelets (Bld) [#/Vol] 239 10*3/uL Normal 150-450 [facility] Comment on above: Performed By: #### 7 18-7, PLTCT, PINR, 40434-0, HA1C #### [facility] ([id number]) [address], [address] [place] [address] BASIC METABOLIC PANLon 09-01 Anion gap [Moles/Vol] 11 mmol/L Normal 5-15 [facility] Comment on above: Performed By: #### 7 18-7, PLTCT, PINR, 86886-3, HA1C #### [facility] ([id number]) [address], [address] [place] [address] Calcium [Mass/Vol] 9.2 mg/dL Normal 8.5-10.5 [facility] Comment on above: Performed By: #### 7 18-7, PLTCT, PINR, 10100-1, HA1C #### [facility] ([id number]) [address], [address] [place] [address] Chloride [Moles/Vol] 105 mmol/L Normal 98-109 [facility] Comment on above: Performed By: #### 7 18-7, PLTCT, PINR, 18787-4, HA1C #### [facility] ([id number]) [address], [address] [place] [address] CO2 [Moles/Vol] 25 mmol/L Normal 22-32 [facility] Comment on above: Performed By: #### 7 18-7, PLTCT, PINR, 30095-7, HA1C #### [facility] ([id number]) [address], [address] [place] [address] Creatinine [Mass/Vol] 0.90 mg/dL Normal 0.60-1.30 [facility] Comment on above: Result Comment: METH OD TRACEABLE TO IDMS STANDARD Performed By: #### 7 18-7, PLTCT, PINR, 45979-5, HA1C #### [facility] ([id number]) [address], [address] [place] [address] eGFR (CKD-EPI) NON-RACE DEPENDENT >90 Normal >59 [facility] Comment on above: Result Comment: Reported eGFR is based on the CKD-EPI 2020 equation that does not use a race coefficient. Performed By: #### 7 18-7, PLTCT, PINR, 29738-5, HA1C #### [facility] ([id number]) [address], [address] [place] [address] Glucose [Mass/Vol] 127 mg/dL High 65-99 [facility] Comment on above: Performed By: #### 7 18-7, PLTCT, PINR, 85508-6, HA1C #### [facility] ([id number]) [address] [address] [place] [address] Potassium [Moles/Vol] 4.1 mmol/L Normal 3.5-5.0 [facility] Comment on above: Performed By: #### 7 18-7, PLTCT, PINR, 55073-2, HA1C #### [facility] ([id number]) [address], [address] [place] [address] Sodium [Moles/Vol] 141 mmol/L Normal 134-146 [facility] Comment on above: Performed By: #### 7 18-7, PLTCT, PINR, 50782-6, HA1C #### [facility] ([id number]) [address], [address] [place] [address] Urea nitrogen [Mass/Vol] 20 mg/dL Normal 5-27 [facility] Comment on above: Performed By: #### 7 18-7, PLTCT, PINR, 21668-0, HA1C #### [facility] ([id number]) [address], [address] [place] [address] CBC AND AUTO DIFFon 09-01-20 24 ABSOLUTE BASOPHIL 0.2 X10E9/L Normal 0.0-0.2 [facility] Comment on above: Performed By: #### 7 18-7, PLTCT, PINR, 90492-9, HA1C #### [facility] ([id number]) [address], [address] [place] [address] ABSOLUTE NEUTROPHIL 6.1 X10E9/L Normal 1.5-6.6 [facility] Comment on above: Performed By: #### 7 18-7, PLTCT, PINR, 33768-0, HA1C #### [facility] ([id number]) [address], [address] [place] [address] Basophils/100 WBC (Bld) 1.5 % Normal [facility] Comment on above: Performed By: #### 7 18-7, PLTCT, PINR, 33316-1, HA1C #### [facility] ([id number]) [address], [address] [place] [address] Eosinophils (Bld) [#/Vol] 0.2 10*3/uL Normal 0.0-0.4 [facility] Comment on above: Performed By: #### 7 18-7, PLTCT, PINR, 46746-9, HA1C #### [facility] ([id number]) [address], [address] [place] [address] Eosinophils/100 WBC (Bld) 2.2 % Normal [facility] Comment on above: Performed By: #### 7 18-7, PLTCT, PINR, 86790-3, HA1C #### [facility] ([id number]) [address], [address] [place] [address] Erythrocyte distribution width (RBC) [Ratio] 13.6 % Normal 11.5-15.0 [facility] Comment on above: Performed By: #### 7 18-7, PLTCT, PINR, 54165-8, HA1C #### [facility] ([id number]) [address], [facility] [address] [place] [address] Hematocrit (Bld) [Volume fraction] 43.0 % Normal 39-49 [facility] Comment on above: Performed By: #### 7 18-7, PLTCT, PINR, 67562-5, HA1C #### [facility] ([id number]) [address], [facility] [address] [place] [address] Hemoglobin (Bld) [Mass/Vol] 14.8 g/dL Normal 13.0-17.0 [facility] Comment on above: Performed By: #### 7 18-7, PLTCT, PINR, 79966-3, HA1C #### [facility] ([id number]) [address] [address] Lymphocytes (Bld) [#/Vol] 3.4 10*3/uL Normal 1.0-3.5 [facility] Comment on above: Performed By: #### 7 18-7, PLTCT, PINR, 05387-8, HA1C #### [facility] ([id number]) [address] [address] [place] [address] Lymphocytes/100 WBC (Bld) 31.7 % Normal [facility] Comment on above: Performed By: #### 7 18-7, PLTCT, PINR, 11394-8, HA1C #### [facility] ([id number]) [address], [address] [place] [address] MCH (RBC) [Entitic mass] 31.0 pg Normal 27-34 [facility] Comment on above: Performed By: #### 7 18-7, PLTCT, PINR, 27332-3, HA1C #### [facility] ([id number]) [address], [facility] [address] [place] [address] MCHC (RBC) [Mass/Vol] 34.4 g/dL Normal 32-36 [facility] Comment on above: Performed By: #### 7 18-7, PLTCT, PINR, 29751-8, HA1C #### [facility] ([id number]) [address] [address] MCV (RBC) [Entitic vol] 90 fL Normal 80-100 [facility] Comment on above: Performed By: #### 7 18-7, PLTCT, PINR, 13766-3, HA1C #### [facility] ([id number]) [address], [address] [address] Monocytes (Bld) [#/Vol] 0.7 10*3/uL Normal 0-0.9 [facility] Comment on above: Performed By: #### 7 18-7, PLTCT, PINR, 06655-5, HA1C #### [facility] ([id number]) [address] [address] Monocytes/100 WBC (Bld) 6.9 % Normal [facility] Comment on above: Performed By: #### 7 18-7, PLTCT, PINR, 75752-6, HA1C #### [facility] ([id number]) [address], [address] [address] Neutrophils/100 WBC (Bld) 57.7 % Normal [facility] Comment on above: Performed By: #### 7 18-7, PLTCT, PINR, 13578-7, HA1C #### [facility] ([id number]) [address], [address] [place] [address] Platelet mean volume (Bld) [Entitic vol] 8.7 fL Normal 7-12 [facility] Comment on above: Performed By: #### 7 18-7, PLTCT, PINR, 53649-2, HA1C #### [facility] ([id number]) [address] [address] Platelets (Bld) [#/Vol] 254 10*3/uL Normal 150-450 [facility] Comment on above: Performed By: #### 7 18-7, PLTCT, PINR, 47536-5, HA1C #### [facility] ([id number]) [address], [address] [address] RBC COUNT 4.78 X10E12/L Normal 4.10-5.70 [facility] Comment on above: Performed By: #### 7 18-7, PLTCT, PINR, 24265-1, HA1C #### [facility] ([id number]) [address], [address] [address] WBC (Bld) [#/Vol] 10.6 10*3/uL Normal 4.0-11.0 [facility] Comment on above: Performed By: #### 7 18-7, PLTCT, PINR, 68010-3, HA1C #### [facility] ([id number]) [address], [address] [address] Glucose Glucometer (BldC) [M ass/Vol]on 09-01-2024 Glucose [Mass/Vol] 189 mg/dL High 65-99 [facility] Glucose [Mass/Vol] 166 mg/dL High 65-99 [facility] Glucose [Mass/Vol] 103 mg/dL High 65-99 [facility] Glucose [Mass/Vol] 132 mg/dL High 65-99 [facility] HEMOGLOBINon 09-01-2024 Hemoglobin (Bld) [Mass/Vol] 14.2 g/dL Normal 13.0-17.0 [facility] Comment on above: Performed By: #### 7 18-7, PLTCT, PINR, 45406-5, HA1C #### [facility] ([id number]) [address], [address] [place] [address] Heparin unfractionated Chrom ogenic method Qn (PPP)on 09-01-2024 ANTI XA UFH 0.49 IU/mL Normal 0.30-0.70 [facility] Comment on above: Result Comment: Opti mal time for testing is 6 hrs post dosage This test is specific for monitoring patients on UFH, and is not recommended for use with other Anti-Xa medications. Performed By: #### 7 18-7, PLTCT, PINR, 60846-6, ANABELA1C #### [facility] ([id number]) [address], [address] [place] [address] PLATELET COUNT AND MPVon Platelet mean volume (Bld) [Entitic vol] 8.4 fL Normal 7-12 [facility] Comment on above: Performed By: #### 7 18-7, PLTCT, PINR, 18320-2, HA1C #### [facility] ([id number]) [address], [address] [place] [address] Platelets (Bld) [#/Vol] 242 10*3/uL Normal 150-450 [facility] Comment on above: Performed By: #### 7 18-7, PLTCT, PINR, 95805-2, HA1C #### [facility] ([id number]) [address], [address] [place] [address] PROTIME AND INRon 09-01-2024 INR Coag (PPP) [Relative time] 1.2 {INR} High 0.8-1.1 [facility] Comment on above: Performed By: #### 7 18-7, PLTCT, PINR, 77583-8, HA1C #### [facility] ([id number]) [address], [address] [place] [address] PT Coag (PPP) [Time] 14.4 s High 9.8-13.2 [facility] Comment on above: Performed By: #### 7 18-7, PLTCT, PINR, 81078-5, HA1C #### [facility] ([id number]) [address], [address] [place] [address] aPTT Coag (PPP) [Time]on aPTT Coag (Bld) [Time] 43 s High 26-37 [facility] Comment on above: Performed By: #### 7 18-7, PLTCT, PINR, 26250-3, HA1C #### [facility] ([id number]) [address], [address] [place] [address] BASIC METABOLIC PANLon 08-31 Anion gap [Moles/Vol] 8 mmol/L Normal 5-15 [facility] Comment on above: Performed By: #### 7 18-7, PLTCT, PINR, 41563-7, HA1C #### [facility] ([id number]) [address], [address] [place] [address] Calcium [Mass/Vol] 9.2 mg/dL Normal 8.5-10.5 [facility] Comment on above: Performed By: #### 7 18-7, PLTCT, PINR, 18150-4, HA1C #### [facility] ([id number]) [address], [address] [place] [address] Chloride [Moles/Vol] 105 mmol/L Normal 98-109 [facility] Comment on above: Performed By: #### 7 18-7, PLTCT, PINR, 98207-5, HA1C #### [facility] ([id number]) [address], [address] [place] [address] CO2 [Moles/Vol] 25 mmol/L Normal 22-32 [facility] Comment on above: Performed By: #### 7 18-7, PLTCT, PINR, 57181-6, HA1C #### [facility] ([id number]) [address], [address] [place] [address] Creatinine [Mass/Vol] 0.90 mg/dL Normal 0.60-1.30 [facility] Comment on above: Result Comment: METH OD TRACEABLE TO IDMS STANDARD Performed By: #### 7 18-7, PLTCT, PINR, 85263-5, HA1C #### [facility] ([id number]) [address], [address] [place] [address] eGFR (CKD-EPI) NON-RACE DEPENDENT >90 Normal >59 [facility] Comment on above: Result Comment: Reported eGFR is based on the CKD-EPI 2020 equation that does not use a race coefficient. Performed By: #### 7 18-7, PLTCT, PINR, 72601-0, HA1C #### [facility] ([id number]) [address], [address] [place] [address] Glucose [Mass/Vol] 131 mg/dL High 65-99 [facility] Comment on above: Performed By: #### 7 18-7, PLTCT, PINR, 86109-7, HA1C #### [facility] ([id number]) [address], [address] [place] [address] Potassium [Moles/Vol] 3.8 mmol/L Normal 3.5-5.0 [facility] Comment on above: Performed By: #### 7 18-7, PLTCT, PINR, 30140-8, HA1C #### [facility] ([id number]) [address], [address] [place] [address] Sodium [Moles/Vol] 138 mmol/L Normal 134-146 [facility] Comment on above: Performed By: #### 7 18-7, PLTCT, PINR, 26541-2, HA1C #### [facility] ([id number]) [address], [address] [place] [address] Urea nitrogen [Mass/Vol] 23 mg/dL Normal 5-27 [facility] Comment on above: Performed By: #### 7 18-7, PLTCT, PINR, 79222-0, HA1C #### [facility] ([id number]) [address], [address] [place] [address] CBC AND AUTO DIFFon 08-31-20 24 ABSOLUTE BASOPHIL 0.1 X10E9/L Normal 0.0-0.2 [facility] Comment on above: Performed By: #### 7 18-7, PLTCT, PINR, 36016-4, HA1C #### [facility] ([id number]) [address], [address] [place] [address] ABSOLUTE NEUTROPHIL 6.6 X10E9/L Normal 1.5-6.6 [facility] Comment on above: Performed By: #### 7 18-7, PLTCT, PINR, 74051-0, HA1C #### [facility] ([id number]) [address], [address] [place] [address] Basophils/100 WBC (Bld) 1.0 % Normal [facility] Comment on above: Performed By: #### 7 18-7, PLTCT, PINR, 22202-9, HA1C #### [facility] ([id number]) [address], [address] [place] [address] Eosinophils (Bld) [#/Vol] 0.2 10*3/uL Normal 0.0-0.4 [facility] Comment on above: Performed By: #### 7 18-7, PLTCT, PINR, 57609-2, HA1C #### [facility] ([id number]) [address], [address] [place] [address] Eosinophils/100 WBC (Bld) 2.1 % Normal [facility] Comment on above: Performed By: #### 7 18-7, PLTCT, PINR, 77861-6, HA1C #### [facility] ([id number]) [address], [facility] [address] [place] [address] Erythrocyte distribution width (RBC) [Ratio] 13.3 % Normal 11.5-15.0 [facility] Comment on above: Performed By: #### 7 18-7, PLTCT, PINR, 77379-0, HA1C #### [facility] ([id number]) [address], [address] [address] Hematocrit (Bld) [Volume fraction] 43.1 % Normal 39-49 [facility] Comment on above: Performed By: #### 7 18-7, PLTCT, PINR, 74071-8, HA1C #### [facility] ([id number]) [address], [address] [place] [address] Hemoglobin (Bld) [Mass/Vol] 14.6 g/dL Normal 13.0-17.0 [facility] Comment on above: Performed By: #### 7 18-7, PLTCT, PINR, 15380-1, HA1C #### [facility] ([id number]) [address], [address] [address] Lymphocytes (Bld) [#/Vol] 3.8 10*3/uL High 1.0-3.5 [facility] Comment on above: Performed By: #### 7 18-7, PLTCT, PINR, 15093-7, HA1C #### [facility] ([id number]) [address], [address] [address] Lymphocytes/100 WBC (Bld) 32.6 % Normal [facility] Comment on above: Performed By: #### 7 18-7, PLTCT, PINR, 35060-8, HA1C #### [facility] ([id number]) [address], [address] [place] [address] MCH (RBC) [Entitic mass] 30.8 pg Normal 27-34 [facility] Comment on above: Performed By: #### 7 18-7, PLTCT, PINR, 53256-1, HAZoraida #### [facility] ([id number]) [address], [address] [place] [address] MCHC (RBC) [Mass/Vol] 33.9 g/dL Normal 32-36 [facility] Comment on above: Performed By: #### 7 18-7, PLTCT, PINR, 11039-1, TASHA #### [facility] ([id number]) [address], [address] [place] [address] MCV (RBC) [Entitic vol] 91 fL Normal 80-100 [facility] Comment on above: Performed By: #### 7 18-7, PLTCT, PINR, 49086-4, HAZoraida #### [facility] ([id number]) [address], [address] [place] [address] Monocytes (Bld) [#/Vol] 0.9 10*3/uL Normal 0-0.9 [facility] Comment on above: Performed By: #### 7 18-7, PLTCT, PINR, 29395-2, TASHA #### [facility] ([id number]) [address], [address] [place] [address] Monocytes/100 WBC (Bld) 8.0 % Normal [facility] Comment on above: Performed By: #### 7 18-7, PLTCT, PINR, 70452-0, TASHA #### [facility] ([id number]) [address], [address] [place] [address] Neutrophils/100 WBC (Bld) 56.3 % Normal [facility] Comment on above: Performed By: #### 7 18-7, PLTCT, PINR, 17291-1, HA1C #### [facility] ([id number]) [address], [facility] [address] [place] [address] Platelet mean volume (Bld) [Entitic vol] 8.7 fL Normal 7-12 [facility] Comment on above: Performed By: #### 7 18-7, PLTCT, PINR, 62340-2, HA1C #### [facility] ([id number]) [address], [address] [address] Platelets (Bld) [#/Vol] 237 10*3/uL Normal 150-450 [facility] Comment on above: Performed By: #### 7 18-7, PLTCT, PINR, 67295-0, HA1C #### [facility] ([id number]) [address], [address] [address] RBC COUNT 4.75 X10E12/L Normal 4.10-5.70 [facility] Comment on above: Performed By: #### 7 18-7, PLTCT, PINR, 80264-3, HA1C #### [facility] ([id number]) [address], [address] [address] WBC (Bld) [#/Vol] 11.7 10*3/uL High 4.0-11.0 [facility] Comment on above: Performed By: #### 7 18-7, PLTCT, PINR, 74148-3, HA1C #### [facility] ([id number]) [address], [address] [place] [address] Glucose Glucometer (dC) [M ass/Vol]on 08-31-2024 Glucose [Mass/Vol] 182 mg/dL High 65-99 [facility] Glucose [Mass/Vol] 234 mg/dL High 65-99 [facility] Glucose [Mass/Vol] 101 mg/dL High 65-99 [facility] Glucose [Mass/Vol] 124 mg/dL High 65-99 [facility] POTASSIUMon 08-31-2024 Potassium [Moles/Vol] 4.0 mmol/L Normal 3.5-5.0 [facility] Comment on above: Performed By: #### 7 18-7, PLTCT, PINR, 17021-7, HA1C #### [facility] ([id number]) [address], [address] [place] [address] BASIC METABOLIC PANLon 08-30 Anion gap [Moles/Vol] 8 mmol/L Normal 5-15 [facility] Comment on above: Performed By: #### 7 18-7, PLTCT, PINR, 81504-9, HA1C #### [facility] ([id number]) [address], [address] [place] [address] Calcium [Mass/Vol] 9.4 mg/dL Normal 8.5-10.5 [facility] Comment on above: Performed By: #### 7 18-7, PLTCT, PINR, 32797-9, HA1C #### [facility] ([id number]) [address], [address] [place] [address] Chloride [Moles/Vol] 104 mmol/L Normal 98-109 [facility] Comment on above: Performed By: #### 7 18-7, PLTCT, PINR, 03079-5, HA1C #### [facility] ([id number]) [address], [address] [place] [address] CO2 [Moles/Vol] 27 mmol/L Normal 22-32 [facility] Comment on above: Performed By: #### 7 18-7, PLTCT, PINR, 18255-7, HA1C #### [facility] ([id number]) [address], [address] [place] [address] Creatinine [Mass/Vol] 0.94 mg/dL Normal 0.60-1.30 [facility] Comment on above: Result Comment: METH OD TRACEABLE TO IDMS STANDARD Performed By: #### 7 18-7, PLTCT, PINR, 55317-9, HA1C #### [facility] ([id number]) [address], [address] [place] [address] GFR/1.73 sq M.predicted among non-blacks MDRD (S/P/Bld) [Vol rate/Area] 89 mL/min/{1.73_m2} Normal >59 [facility] Comment on above: Result Comment: Reported eGFR is based on the CKD-EPI 2020 equation that does not use a race coefficient. Performed By: #### 7 18-7, PLTCT, PINR, 89114-9, HA1C #### [facility] ([id number]) [address], [address] [place] [address] Glucose [Mass/Vol] 109 mg/dL High 65-99 [facility] Comment on above: Performed By: #### 7 18-7, PLTCT, PINR, 52985-6, HA1C #### [facility] ([id number]) [address], [address] [place] [address] Potassium [Moles/Vol] 3.9 mmol/L Normal 3.5-5.0 [facility] Comment on above: Performed By: #### 7 18-7, PLTCT, PINR, 53534-7, HA1C #### [facility] ([id number]) [address], [address] [place] [address] Sodium [Moles/Vol] 139 mmol/L Normal 134-146 [facility] Comment on above: Performed By: #### 7 18-7, PLTCT, PINR, 56280-2, HA1C #### [facility] ([id number]) [address], [address] [place] [address] Urea nitrogen [Mass/Vol] 25 mg/dL Normal 5-27 [facility] Comment on above: Performed By: #### 7 18-7, PLTCT, PINR, 48888-0, HA1C #### [facility] ([id number]) [address], [address] [place] [address] CBC AND AUTO DIFFon 08-30-20 ABSOLUTE BASOPHIL 0.1 X10E9/L Normal 0.0-0.2 [facility] Comment on above: Performed By: #### 7 18-7, PLTCT, PINR, 29282-6, HA1C #### [facility] ([id number]) [address], [address] [place] [address] ABSOLUTE NEUTROPHIL 6.5 X10E9/L Normal 1.5-6.6 [facility] Comment on above: Performed By: #### 7 18-7, PLTCT, PINR, 93974-0, HA1C #### [facility] ([id number]) [address], [address] [place] [address] Basophils/100 WBC (Bld) 1.0 % Normal [facility] Comment on above: Performed By: #### 7 18-7, PLTCT, PINR, 83235-1, HA1C #### [facility] ([id number]) [address], [address] [place] [address] Eosinophils (Bld) [#/Vol] 0.3 10*3/uL Normal 0.0-0.4 [facility] Comment on above: Performed By: #### 7 18-7, PLTCT, PINR, 58833-6, HA1C #### [facility] ([id number]) [address], [address] [place] [address] Eosinophils/100 WBC (Bld) 2.5 % Normal [facility] Comment on above: Performed By: #### 7 18-7, PLTCT, PINR, 79434-1, HA1C #### [facility] ([id number]) [address], [address] [place] [address] Erythrocyte distribution width (RBC) [Ratio] 13.5 % Normal 11.5-15.0 [facility] Comment on above: Performed By: #### 7 18-7, PLTCT, PINR, 76535-0, HA1C #### [facility] ([id number]) [address], [facility] [address] [place] [address] Hematocrit (Bld) [Volume fraction] 44.1 % Normal 39-49 [facility] Comment on above: Performed By: #### 7 18-7, PLTCT, PINR, 54152-8, HA1C #### [facility] ([id number]) [address], [facility] [address] [place] [address] Hemoglobin (Bld) [Mass/Vol] 14.9 g/dL Normal 13.0-17.0 [facility] Comment on above: Performed By: #### 7 18-7, PLTCT, PINR, 49469-3, HA1C #### [facility] ([id number]) [address], [facility] [address] [place] [address] Lymphocytes (Bld) [#/Vol] 4.0 10*3/uL High 1.0-3.5 [facility] Comment on above: Performed By: #### 7 18-7, PLTCT, PINR, 46940-9, HA1C #### [facility] ([id number]) [address], [address] [place] [address] Lymphocytes/100 WBC (Bld) 33.5 % Normal [facility] Comment on above: Performed By: #### 7 18-7, PLTCT, PINR, 14514-0, HA1C #### [facility] ([id number]) [address], [address] [place] [address] MCH (RBC) [Entitic mass] 30.5 pg Normal 27-34 [facility] Comment on above: Performed By: #### 7 18-7, PLTCT, PINR, 64397-8, HA1C #### [facility] ([id number]) [address], [address] [place] [address] MCHC (RBC) [Mass/Vol] 33.7 g/dL Normal 32-36 [facility] Comment on above: Performed By: #### 7 18-7, PLTCT, PINR, 90453-4, HA1C #### [facility] ([id number]) [address], [address] [place] [address] MCV (RBC) [Entitic vol] 91 fL Normal 80-100 [facility] Comment on above: Performed By: #### 7 18-7, PLTCT, PINR, 29242-0, HA1C #### [facility] ([id number]) [address], [address] [place] [address] Monocytes (Bld) [#/Vol] 1.0 10*3/uL High 0-0.9 [facility] Comment on above: Performed By: #### 7 18-7, PLTCT, PINR, 59327-6, HA1C #### [facility] ([id number]) [address], [address] [place] [address] Monocytes/100 WBC (Bld) 8.6 % Normal [facility] Comment on above: Performed By: #### 7 18-7, PLTCT, PINR, 00397-3, HA1C #### [facility] ([id number]) [address], [address] [place] [address] Neutrophils/100 WBC (Bld) 54.4 % Normal [facility] Comment on above: Performed By: #### 7 18-7, PLTCT, PINR, 94818-0, HA1C #### [facility] ([id number]) [address], [address] [place] [address] Platelet mean volume (Bld) [Entitic vol] 8.4 fL Normal 7-12 [facility] Comment on above: Performed By: #### 7 18-7, PLTCT, PINR, 78282-0, HA1C #### [facility] ([id number]) [address], [address] [place] [address] Platelets (Bld) [#/Vol] 238 10*3/uL Normal 150-450 [facility] Comment on above: Performed By: #### 7 18-7, PLTCT, PINR, 08715-1, HA1C #### [facility] ([id number]) [address], [address] [place] [address] RBC COUNT 4.86 X10E12/L Normal 4.10-5.70 [facility] Comment on above: Performed By: #### 7 18-7, PLTCT, PINR, 79927-4, HA1C #### [facility] ([id number]) [address], [address] [place] [address] WBC (Bld) [#/Vol] 11.9 10*3/uL High 4.0-11.0 [facility] Comment on above: Performed By: #### 7 18-7, PLTCT, PINR, 31183-3, HA1C #### [facility] ([id number]) [address], [address] [place] [address] Glucose Glucometer (BldC) [M ass/Vol]on 08-30-2024 Glucose [Mass/Vol] 199 mg/dL High 65-99 [facility] Glucose [Mass/Vol] 291 mg/dL High 65-99 [facility] Glucose [Mass/Vol] 87 mg/dL Normal 65-99 [facility] Lipid 1996 panelon Cholesterol [Mass/Vol] 99 mg/dL Low 150-200 [facility] Comment on above: Performed By: #### 7 18-7, PLTCT, PINR, 46869-3, HA1C #### [facility] ([id number]) [address], [address] [place] [address] Cholesterol in HDL [Mass/Vol] 31 mg/dL Low >39 [facility] Comment on above: Result Comment: HDL <40 mg/dL - High Risk HDL > or = 40mg/dL- Desirable HDL >60 mg/dL - Negative Risk Performed By: #### 7 18-7, PLTCT, PINR, 26466-2, HA1C #### [facility] ([id number]) [address], [address] [place] [address] Cholesterol in LDL [Mass/Vol] 54 mg/dL Normal <130 [facility] Comment on above: Result Comment: LDL <100 mg/dL - Desirable LDL >160 mg/dL - High Risk Performed By: #### 7 18-7, PLTCT, PINR, 38897-6, HA1C #### [facility] ([id number]) [address], [address] [place] [address] Cholesterol in VLDL [Mass/Vol] 14 mg/dL Normal 0-30 [facility] Comment on above: Performed By: #### 7 18-7, PLTCT, PINR, 77533-0, HA1C #### [facility] ([id number]) [address], [facility] [address] [place] [address] CHOLESTEROL:HDL 3.2 Normal 1.0-5.0 [facility] Comment on above: Performed By: #### 7 18-7, PLTCT, PINR, 19196-8, HA1C #### [facility] ([id number]) [address], [address] [place] [address] Triglyceride [Mass/Vol] 68 mg/dL Normal 27-150 [facility] Comment on above: Performed By: #### 7 18-7, PLTCT, PINR, 53706-9, HA1C #### [facility] ([id number]) [address], [address] [place] [address] MR BRAIN WO CONTon MR BRAIN WO CONT MR BRAIN WO CONT MRI brain: HISTORY: Right-sided weakness and speech disturbance. Evaluate CVA. Multisequence multiplanar imaging of the brain was obtained. The diffusion-weighted images and ADC map show scattered foci of cortical diffusion restriction within the left frontal and parietal lobes, likely MCA distribution. Flow voids appear to be normal in caliber and contour to within the limits of this exam. Gradient echo sequences show no significant susceptibility. Scattered white matter changes present most consistent with chronic small vessel ischemia. No intracranial mass or evidence of vasogenic edema. Several hemispheres are symmetric. Ventricles normal in caliber. Paranasal sinuses and mastoid air cells are clear. IMPRESSION: Scattered foci of diffusion restriction within the left frontal and parietal cortex most consistent with acute to subacute ischemia, MCA distribution. Finalized by Jimi Marie MD on 08/30/2024 1:59 PM Normal [facility] BASIC METABOLIC PANLon 08-29 Anion gap [Moles/Vol] 11 mmol/L Normal 5-15 [facility] Comment on above: Performed By: #### B MP #### [facility] ([id number]) [address], [address] [place] [address] Calcium [Mass/Vol] 9.7 mg/dL Normal 8.5-10.5 [facility] Comment on above: Performed By: #### B MP #### [facility] ([id number]) [address], [address] [place] [address] Chloride [Moles/Vol] 101 mmol/L Normal 98-109 [facility] Comment on above: Performed By: #### B MP #### [facility] ([id number]) [address], [address] [place] [address] CO2 [Moles/Vol] 27 mmol/L Normal 22-32 [facility] Comment on above: Performed By: #### B MP #### [facility] ([id number]) [address], [address] [place] [address] Creatinine [Mass/Vol] 1.01 mg/dL Normal 0.60-1.30 [facility] Comment on above: Result Comment: METH OD TRACEABLE TO IDMS STANDARD Performed By: #### B MP #### [facility] ([id number]) [address] [place] [address] GFR/1.73 sq M.predicted among non-blacks MDRD (S/P/Bld) [Vol rate/Area] 82 mL/min/{1.73_m2} Normal >59 [facility] Comment on above: Result Comment: Reported eGFR is based on the CKD-EPI 2020 equation that does not use a race coefficient. Performed By: #### B MP #### [facility] ([id number]) [address], [address] [place] [address] Glucose [Mass/Vol] 122 mg/dL High 65-99 [facility] Comment on above: Performed By: #### B MP #### [facility] ([id number]) [address], [address] [place] [address] Potassium [Moles/Vol] 3.4 mmol/L Low 3.5-5.0 [facility] Comment on above: Performed By: #### B MP #### [facility] ([id number]) [address], [address] [place] [address] Sodium [Moles/Vol] 139 mmol/L Normal 134-146 [facility] Comment on above: Performed By: #### B MP #### [facility] ([id number]) [address], [address] [place] [address] Urea nitrogen [Mass/Vol] 22 mg/dL Normal 5-27 [facility] Comment on above: Performed By: #### B MP #### [facility] ([id number]) [address], [facility] [address] [place] [address] Glucose Glucometer (BldC) [M ass/Vol]on 08-29-2024 Glucose [Mass/Vol] 116 mg/dL High 65-99 [facility] Glucose [Mass/Vol] 155 mg/dL High 65-99 [facility] HEMOGLOBINon 08-29-2024 Hemoglobin (Bld) [Mass/Vol] 15.4 g/dL Normal 13.0-17.0 [facility] Comment on above: Performed By: #### 7 18-7, PLTCT, PINR, 27618-6, HA1C #### [facility] ([id number]) [address], [address] [place] [address] HGB A1C (GLYCO-HGB)on 2023 Glucose [Mass/Vol] 171 mg/dL Normal [facility] Comment on above: Performed By: #### 7 18-7, PLTCT, PINR, 35968-6, HA1C #### [facility] ([id number]) [address], [facility] [address] [place] [address] HbA1c (Bld) [Mass fraction] 7.6 % High 4.4-5.6 [facility] Comment on above: Result Comment: NOTE ADA Guidelines Result HgbA1c Normal : less than 5.7 % Prediabetes : 5.7 % to 6.4 % Diabetes : > 6.4 % Use with caution in patients with abnormal hemoglobin variants as the half-life of red blood cells and in vivo glycation rates are affected. Performed By: #### 7 18-7, PLTCT, PINR, 08179-6, HA1C #### [facility] ([id number]) [address], [address] [place] [address] Heparin unfractionated Chrom ogenic method Qn (PPP)on 08-29-2024 ANTI XA UFH 0.16 IU/mL Low 0.30-0.70 [facility] Comment on above: Result Comment: Opti mal time for testing is 6 hrs post dosage This test is specific for monitoring patients on UFH, and is not recommended for use with other Anti-Xa medications. Performed By: #### 3 274-8 #### [facility] ([id number]) [address], [address] [place] [address] ANTI XA UFH 0.10 IU/mL Low 0.30-0.70 [facility] Comment on above: Result Comment: Opti mal time for testing is 6 hrs post dosage This test is specific for monitoring patients on UFH, and is not recommended for use with other Anti-Xa medications. Performed By: #### 3 274-8 #### [facility] ([id number]) [address], [address] [place] [address] PLATELET COUNT AND MPVon Platelet mean volume (Bld) [Entitic vol] 8.3 fL Normal 7-12 [facility] Comment on above: Performed By: #### 7 18-7, PLTCT, PINR, 65920-9, HA1C #### [facility] ([id number]) [address], [address] [place] [address] Platelets (Bld) [#/Vol] 243 10*3/uL Normal 150-450 [facility] Comment on above: Performed By: #### 7 18-7, PLTCT, PINR, 44265-4, HA1C #### [facility] ([id number]) [address], [address] [place] [address] PROTIME AND INRon 08-29-2024 INR Coag (PPP) [Relative time] 1.3 {INR} High 0.8-1.1 [facility] Comment on above: Performed By: #### 7 18-7, PLTCT, PINR, 21025-3, HA1C #### [facility] ([id number]) [address] [facility], [address] [place] [address] PT Coag (PPP) [Time] 15.0 s High 9.8-13.2 [facility] Comment on above: Performed By: #### 7 18-7, PLTCT, PINR, 12883-7, HA1C #### [facility] ([id number]) [address] [facility], [address] [place] [address] aPTT Coag (PPP) [Time]on aPTT Coag (Bld) [Time] 34 s Normal 26-37 [facility] Comment on above: Performed By: #### 7 18-7, PLTCT, PINR, 80853-9, HA1C #### [facility] ([id number]) [address] [facility], [address] [place] [address] Provider Letteron 03-04-2023 Provider Letter (Inserted Image. Carin ble to display) March 04, 2023 HARVEY CABRALES [address] [place] [address] : 1955 Dear Harvey Cabrales , This letter is to inform you the the providers of [facility], [facility] (Dr. Kameron Barr) will no longer [...] of area physicians can be found on [facility]'s website at [email or web address] or you may contact your health plan. We will be glad to forward your records to your new physician as long as we receive a signed release of records form. Sincerely, Kameron Barr M.D., F.A.C.S. [facility] [address] [facility] [place], [place] [address] , Option #3 Normal [facility] Patient Letter FTon 2022 Patient Letter [facility] January 21, 2023 [place] [address] : 1955 SENT REGULAR/CERTIFIED MAIL Dear Mr. Hintonel Mel, [facility], Dr. Kameron Barr, is sending [...] Barr M.D., F.A.C.S. [facility] [address] [place], [place] [address] , Option #3 Normal [facility] Urine Cytology ([facility])on 0 12-28-2022 Urine Cytology Diagnosis Info Invalid Interpretation Code [facility] Comment on above: Result Comment: A:Ur ine,Urine:Voided [...] on: 12/28/2022 09:05:14 Performed By: #### 1 [id number] #### [facility] [address] [place] [address] Formson 12-23-2022 Forms [id number]:127 Normal [facility] Physician Referralon 04-20-2 023 Physician Referral [id number]:127 Normal [facility] Screenson 12-23-2022 Screens [id number]#[id number]:127 Normal [facility] Ambulatory Visit Summaryon 0 12-22-2022 Ambulatory Visit Summary HARVEY CABRALES :1955 Visit Date:12/22/2022 Ambulatory Visit Instructions Your Diagnosis Microhematuria Benign prostatic hyperplasia (BPH) with post-void dribbling Family history of kidney cancer Tests Performed Urnls Dip Stick Auto w/o Microscopy POC 68675 Your Care Team Attending Physician - Kameron [...] [place] When: Where: [facility] [address] [place] [address]- Medications What How Much When Instructions Unchanged lisinopril (lisinopril 20 mg Tab) Every day Contact prescribing physician if questions or concerns Unchanged metformin Contact prescribing physician if questions or concerns Unchanged pantoprazole (Pantoprazole [address] Tab) Every day Contact prescribing physician if questions or concerns Test Results Urnls Dip Stick Auto w/o Microscopy POC 34709 (12/22/2022) Bilirubin Urine Dipstick - Negative Blood Urine Dipstick - 2+ Moderate Glucose Urine Dipstick - Negative Ketones Urine Dipstick - Negative Leukocytes Urine Dipstick - Negative Nitrite Urine Dipstick - Negative Protein Urine Dipstick - Negative Specific Lyons Urine Dipstick - 1.020 Urine Appearance Urine [...] these instructions at home: Medicines ? Take yefw-kgb-ryipkol and prescription medicines only as told by [...] do not (more content not included)... Normal [facility] Urine Cytology ([facility])on 0 12-22-2022 Method of Extraction Voided Normal [facility] Comment on above: Performed By: #### 1 [id number] #### [facility] [address] Number of Jars 1 Invalid Interpretation Code [facility] Comment on above: Performed By: #### 1 [id number] #### [facility] [address] [id number] Specimen Urine Normal [facility] Comment on above: Performed By: #### 1 [id number] #### [facility] [address] [place] [address] Type of Service Technical Only Normal [facility] Comment on above: Performed By: #### 1 [id number] #### [facility] [address] [place] [address] Urology Office/Clinic Noteon 12-22-2022 Urology Office/Clinic Note [...] URL [facility] [address], [place] [address]- Additional Instructions: schedule cysto Patient Education Hematuria, [...] Hyperlipidemia Hypertens (more content not included)... Normal [facility] Comment on above: Result Comment: Elec tronically Signed By: Kameron ABRR MD\.br\Date and Time Signed: 12/22/22 11:39 EDT\.br\Electronically [...] these instructions at home: Medicines ? Take isse-ulc-ygcapsr and prescription medicines only as told by [...] the blood stops without treatment. ? Take vtwq-uzr-drgrkhh and prescription medicines only as told by your health care provider. ? Drink enough fluid to keep your urine pale yellow. This information is not intended to replace advice given to you by your health care provider. Make sure you discuss any questions you have with your health care provider. Document Revised: 04/22/2021 Document Reviewed: 04/22/2021 [employer] Patient Education ? 2022 [employer] Normal [facility] OCC BLD IMMUNO SCREENon 11-03 OCCULT BLOOD Negative Normal NEGATIVE [facility] Comment on above: Performed By: #### O BSCRN #### [facility] [address] [place] [address] Dr. Tom Chacko US KIDNEYS BLADDERon 023 [...] by: ANA RAMOS Date: 2022-11-12 13:02 Normal [facility] CA 19-9on 11-05-2022 CA 19-9 9 U/mL Normal 0-35 [facility] Comment on above: Result Comment: NCR [employer] Electrochemiluminescence Immunoassay (ECLIA) . Values obtained with different assay methods or kits cannot be used interchangeably. Results cannot be interpreted as absolute evidence of the presence or absence of malignant disease. Performed By: #### C A 19,9 #### [facility] [address] [address] [address] Tom Chacko INSULINon 11-05-2022 Insulin 17.2 uIU/mL Normal 2.6-24.9 [facility] Comment on above: Performed By: #### I NSULIN ####[facility] [address] [place], [place] [address]NmDr. Tom Chacko CBC AUTO DIFFon 11-04-2022 BASO # 0.1 103/ul Normal 0.0-0.1 [facility] Comment on above: Performed By: #### C BC #### [facility] [address] [address] [address] Tom Chacko Basophils/100 WBC (Bld) 1.0 % Normal 0.2-2.0 [facility] Comment on above: Performed By: #### C BC #### [facility] [id number] Tom Chacko EO # 0.4 103/ul Normal 0.0-0.7 [facility] [place] [facility] Comment on above: Performed By: #### C BC #### [facility] [address] [place] [address] Dr. Tom Chacko Eosinophils/100 WBC (Bld) 3.2 % Normal 0.9-7.0 [facility] Comment on above: Performed By: #### C BC #### [facility] [address] [place] [address] Dr. Tom Chacko Erythrocyte distribution width (RBC) [Ratio] 13.5 % Normal 11.0-15.0 [facility] Comment on above: Performed By: #### C BC #### [facility] [address] [place] [address] Dr. Tom Chacko Hematocrit (Bld) [Volume fraction] 45.7 % Normal 42.0-54.0 [facility] Comment on above: Performed By: #### C BC #### [facility] [address] [place] [address] Dr. Tom Chacko Hemoglobin (Bld) [Mass/Vol] 15.7 g/dL Normal 14.0-18.0 [facility] Comment on above: Performed By: #### C BC #### [facility] [address] [place] [address] Dr. Tom Chacko IG # 0.05 10e3/ul Critically high 0.00-0.03 [facility] Comment on above: Performed By: #### C BC #### [facility] [address] [place] [address] Dr. Tom Chacko IG % 0.4 % Normal 0.0-0.5 [facility] Comment on above: Performed By: #### C BC #### [facility] [address] [place] [address] Dr. Tom Chacko LYMPH # 3.8 103/ul Normal 1.2-3.8 [facility] Comment on above: Performed By: #### C BC #### [facility] [address] [place] [address] Dr. Tom Chacko Lymphocytes/100 WBC (Bld) 31.9 % Normal 20.5-60.0 [facility] Comment on above: Performed By: #### C BC #### [facility] [address] [place] [address] Dr. Tom Chacko MANUAL DIFF REQ NO Normal [facility] Comment on above: Performed By: #### C BC #### [facility] [address] [place] [address] Dr. Tom Chacko MCH (RBC) [Entitic mass] 30.3 pg Normal 25.9-34.0 [facility] Comment on above: Performed By: #### C BC #### [facility] [address] [place] [address] Dr. Tom Chacko MCHC (RBC) [Mass/Vol] 34.4 g/dL Normal 29.9-35.2 [facility] Comment on above: Performed By: #### C BC #### [facility] [address] [place] [address] Dr. Tom Chacko MCV (RBC) [Entitic vol] 88.2 fL Normal 80.0-94.0 [facility] Comment on above: Performed By: #### C BC #### [facility] [address] [place] [address] Dr. Tom Chacko MONO # 0.8 103/ul Normal 0.3-0.8 [facility] Comment on above: Performed By: #### C BC #### [facility] [address] [place] [address] Dr. Tom Chacko Monocytes/100 WBC (Bld) 6.6 % Normal 1.7-12.0 [facility] Comment on above: Performed By: #### C BC #### [facility] [address] [place] [address] Dr. Tom Chacko NEUT # 6.8 103/ul Critically high 1.4-6.5 [facility] Comment on above: Performed By: #### C BC #### [facility] [address] [place] [address] Dr. Tom Chacko Neutrophils/100 WBC (Bld) 56.9 % Normal 43.0-75.0 [facility] Comment on above: Performed By: #### C BC #### [facility] [address] [address] [address] Tom Chacko Platelet mean volume (Bld) [Entitic vol] 9.6 fL Normal 9.5-13.5 [facility] Comment on above: Performed By: #### C BC #### [facility] [address] [place] [address] Dr. Tom Chacko PLT 258 103/ul Normal 150-450 [facility] Comment on above: Performed By: #### C BC #### [facility] [address] [address] [address] Tom Chacko RBC 5.18 106/ul Normal 4.70-6.10 [facility] Comment on above: Performed By: #### C BC #### [facility] [address] [place] [address] Dr. Tom Chacko WBC 11.9 103/ul Critically high 4.0-11.0 [facility] Comment on above: Performed By: #### C BC #### [facility] [address] [place] [address] Dr. Tom Chacko GLYCOHEMOGLOBIN A1Con 2022 ADA RECOMMENDATION SEE BELOW Normal [facility] Comment on above: Result Comment: ADA RECOMMENDED LIMIT 4.0 - 6.0 ADA THERAPEUTIC TARGET < 7.0 ACTION SUGGESTED > 7.0 Performed By: #### A 1C #### [facility] [address] [place] [address] Dr. Tom Chacko Glucose [Mass/Vol] 120 mg/dL Normal [facility] Comment on above: Performed By: #### A 1C #### [facility] [address] [place] [address] Dr. Tom Chacko HbA1c (Bld) [Mass fraction] 5.8 % Normal 4.5-6.2 [facility] Comment on above: Performed By: #### A 1C #### [facility] [address] [place] [address] Dr. Tom Chacko LIPID PROFILEon 11-04-2022 CHOL-HDL RATIO NORM SEE BELOW Normal [facility] Comment on above: Result Comment: 3.3 - 4.4 LOW RISK 4.4 - 7.1 AVERAGE RISK 7.1 - 11.0 MODERATE RISK >11.0 HIGH RISK Performed By: #### C MP, URIC, LIPID #### [facility] [address] [address] [address] Tom Chacko Cholesterol [Mass/Vol] 112 mg/dL Normal <=200 [facility] Comment on above: Performed By: #### C MP, URIC, LIPID #### [facility] [address] [address] [address] Tom Chacko Cholesterol in HDL [Mass/Vol] 34 mg/dL Critically low 40-60 [facility] Comment on above: Performed By: #### C MP, URIC, LIPID #### [facility] [address] [address] [address] Tom Chacko Cholesterol in LDL [Mass/Vol] 48.6 mg/dL Normal [facility] Comment on above: Performed By: #### C MP, URIC, LIPID #### [facility] [address] [address] [address] Tom Chacko Cholesterol.total/ Cholesterol in HDL [Mass ratio] 3.3 {ratio} Normal [facility] Comment on above: Performed By: #### C MP, URIC, LIPID #### [facility] [address] [address] [address] Tom Chacko HDL NORMAL > or = 60 mg/dl - LO W CARDIOVASCULAR RISK <40 mg/dl - HIGH CARDIOVASCULAR RISK Normal [facility] Comment on above: Performed By: #### C MP, URIC, LIPID #### [facility] [address] [address] [address] Tom Chacko LDL CALC NORMAL SEE BELOW Normal [facility] Comment on above: Result Comment: <100 mg/dl OPTIMAL 100 - 129 mg/dl NEAR OR ABOVE OPTIMAL 130 - 159 mg/dl BORDERLINE HIGH 160 - 189 mg/dl HIGH >190 mg/dl VERY HIGH Performed By: #### C MP, URIC, LIPID #### [facility] [address] [address] [address] Tom Chacko Triglyceride [Mass/Vol] 147 mg/dL Normal <=150 [facility] Comment on above: Performed By: #### C MP, URIC, LIPID #### [facility] [address] [place] [address] Dr. Tom Chacko VLDL CALC 29.4 mg/dL Normal [facility] Comment on above: Performed By: #### C MP, URIC, LIPID #### [facility] [address] [place] [address] Dr. Tom Chacko PROF 14(COMP METB)on 023 Albumin [Mass/Vol] 3.8 g/dL Normal 3.4-5.0 [facility] Comment on above: Performed By: #### C MP, URIC, LIPID #### [facility] [address] [place] [address] Dr. Tom Chacko Albumin/Globulin [Mass ratio] 1.1 {ratio} Normal [facility] Comment on above: Performed By: #### C MP, URIC, LIPID #### [facility] [address] [place] [address] Dr. Tom Chacko ALP [Catalytic activity/Vol] 73 U/L Normal 46-116 [facility] Comment on above: Performed By: #### C MP, URIC, LIPID #### [facility] [address] [place] [address] Dr. Tom Chacko ALT [Catalytic activity/Vol] 28 U/L Normal 16-63 [facility] Comment on above: Performed By: #### C MP, URIC, LIPID #### [facility] [address] [place] [address] Dr. Tom Chacko Anion gap [Moles/Vol] 10.3 mmol/L Normal [facility] Comment on above: Performed By: #### C MP, URIC, LIPID #### [facility] [address] [place] [address] Dr. Tom Chacko AST [Catalytic activity/Vol] 17 U/L Normal 15-37 [facility] Comment on above: Performed By: #### C MP, URIC, LIPID #### [facility] [address] [place] [address] Dr. Tom Chacko Bilirubin [Mass/Vol] 0.4 mg/dL Normal 0.2-1.0 [facility] Comment on above: Performed By: #### C MP, URIC, LIPID #### [facility] [address] [address] [address] Tom Chacko Calcium [Mass/Vol] 9.3 mg/dL Normal 8.5-10.1 [facility] Comment on above: Performed By: #### C MP, URIC, LIPID #### [facility] [address] [place] [address] Dr. Tom Chacko Chloride [Moles/Vol] 104 mmol/L Normal 98-107 [facility] Comment on above: Performed By: #### C MP, URIC, LIPID #### [facility] [address] [place] [address] Dr. Tom Chacko CO2 [Moles/Vol] 29.5 mmol/L Normal 21.0-32.0 [facility] Comment on above: Performed By: #### C MP, URIC, LIPID #### [facility] [address] [place] [address] Dr. Tom Chacko Creatinine [Mass/Vol] 0.96 mg/dL Normal 0.70-1.30 [facility] Comment on above: Performed By: #### C MP, URIC, LIPID #### [facility] [address] [place] [address] Dr. Tom Chacko EGFR-AF VIET[place]ESE >60 Normal >=60 [facility] Comment on above: Performed By: #### C MP, URIC, LIPID #### [facility] [address] [place] [address] Dr. Tom Chacko EGFR-NON AF VIET[place]ESE >60 Normal >=60 [facility] Comment on above: Performed By: #### C MP, URIC, LIPID #### [facility] [address] [place] [address] Dr. Tom Chacko Globulin (S) [Mass/Vol] 3.5 g/dL Normal [facility] Comment on above: Performed By: #### C MP, URIC, LIPID #### [facility] [address] [place], [place] [id number] Dr. Tom Chacko Glucose [Mass/Vol] 113 mg/dL Critically high 74-106 [facility] Comment on above: Performed By: #### C MP, URIC, LIPID #### [facility] [address] [place] [address] Dr. Tom Chacko Potassium [Moles/Vol] 3.8 mmol/L Normal 3.5-5.1 [facility] Comment on above: Performed By: #### C MP, URIC, LIPID #### [facility] [address] [place] [address] Dr. Tom Chacko Protein [Mass/Vol] 7.3 g/dL Normal 6.4-8.2 [facility] Comment on above: Performed By: #### C MP, URIC, LIPID #### [facility] [address] [place] [address] Dr. Tom Chacko Sodium [Moles/Vol] 140 mmol/L Normal 136-145 [facility] Comment on above: Performed By: #### C MP, URIC, LIPID #### [facility] [address] [place] [address] Dr. Tom Chacko Urea nitrogen [Mass/Vol] 14.0 mg/dL Normal 7.0-18.0 [facility] Comment on above: Performed By: #### C MP, URIC, LIPID #### [facility] [address] [place] [address] Dr. Tom Chacko Urea nitrogen/Creatinin e [Mass ratio] 14.6 mg/mg Normal [facility] Comment on above: Performed By: #### C MP, URIC, LIPID #### [facility] [address] [place] [address] Dr. Tom Chacko UA (CLEAN/CATCH) GEOSPATIAL IMAGERY INTELLIGENCE ANALYST/MICRO I F IND.on 11-04-2022 Bilirubin Ql (U) Negative Normal NEGATIVE [facility] Comment on above: Performed By: #### U MICRO, UACSIND #### [facility] [address] [place] [address] Dr. Tom Chacko Clarity (U) CLEAR Normal CLEAR [facility] Comment on above: Performed By: #### U MICRO, UACSIND #### [facility] [address] [address] [address] Tom Chacko Color (U) YELLOW Normal YELLOW [facility] Comment on above: Performed By: #### U MICRO, UACSIND #### [facility] [address] [address] [address] Tom Chacko Glucose Ql (U) Negative Normal NEGATIVE [facility] Comment on above: Performed By: #### U MICRO, UACSIND #### [facility] [address] [address] [address] Tom Chacko Hemoglobin Ql (U) MODERATE Abnormal NEGATIVE [facility] [facility] Comment on above: Performed By: #### U MICRO, UACSIND #### [facility] [address] [place] [address] Dr. Tom Chacok Ketones Ql (U) Negative Normal NEGATIVE [facility] Comment on above: Performed By: #### U MICRO, UACSIND #### [facility] [address] [place] [address] Dr. Tom Chacko LEUKOCYTES Negative Normal NEGATIVE [facility] Comment on above: Performed By: #### U MICRO, UACSIND #### [facility] [address] [place] [address] Dr. Tom Chacko Nitrite Ql (U) Negative Normal NEGATIVE [facility] Comment on above: Performed By: #### U MICRO, UACSIND #### [facility] [address] [place] [address] Dr. Tom Chacko pH (U) 6.0 [pH] Normal 5-9 [facility] Comment on above: Performed By: #### U MICRO, UACSIND #### [facility] [address] [address] [address] Tom Chacko SPEC GRAVITY 1.020 Normal 1.005-<=1.0 25 [facility] Comment on above: Performed By: #### U MICRO, UACSIND #### [facility] [address] [place] [address] Dr. Tom Chacko UA PROTEIN Negative Normal NEGATIVE/ TRACE [facility] Comment on above: Performed By: #### U MICRO, UACSIND #### [facility] [address] [address] [address] Tom Chacko UR MICRO IND INDICATED Normal [facility] Comment on above: Performed By: #### U MICRO, UACSIND #### [facility] [address] [address] [address] Tom Chacko Urobilinogen Qn (U) 0.2 {Joseph'U}/dL Normal 0.2 - 1.0 [facility] Comment on above: Performed By: #### U MICRO, UACSIND #### [facility] [address] [address] [address] Tom Chacko URIC ACID SERUMon 11-04-2022 Urate [Mass/Vol] 7.3 mg/dL Critically high 3.5-7.2 [facility] Comment on above: Performed By: #### C MP, URIC, LIPID ####[facility] [address] [address]Dr. Tom Chacko URINE MICROSCOPIC ONLYon BACTERIA NONE SEEN Normal NONE SEEN [facility] Comment on above: Performed By: #### U MICRO, UACSIND #### [facility] [address] [address] [address] Tom Chacko Bacteria identified Cx Nom (U) NOT INDICATED Normal [facility] Comment on above: Performed By: #### U MICRO, UACSIND #### [facility] [address] [address] [address] Tom Chacko CAST NONE SEEN Normal NONE SEEN [facility] Comment on above: Performed By: #### U MICRO, UACSIND #### [facility] [address] [address] [address] Tom Chacko Crystals LM Nom (Urine sed) NONE SEEN Normal NONE SEEN [facility] Comment on above: Performed By: #### U MICRO, UACSIND #### [facility] [address] [address] [address] Tom Chacko Epithelial cells LM Ql (Urine sed) RARE Normal NONE SEEN /RARE [facility] Comment on above: Performed By: #### U MICRO, UACSIND #### [facility] [address] [address] [address] Tom Chacko MUCOUS NONE SEEN Normal NONE SEEN [facility] Comment on above: Performed By: #### U MICRO, UACSIND #### [facility] [address] [address] [address] Tom Chacko RBC 5-10 Abnormal 0-2 [facility] Comment on above: Performed By: #### U MICRO, UACSIND #### [facility] [address] [address] [address] Tom Chacko WBC NONE SEEN Normal NONE SEEN [facility] Comment on above: Performed By: #### U MICRO, UACSIND #### [facility] [address] [address] [address] Tom Chacko Aerobic Cultureon 02-09-2022 Aerobic Culture ORGANISM: Strep. aga lactiae Grp B (O:B) Quantity of Growth Moderate Growth No Anaerobes Isolated 3 Days Gram Stain Result No Bacteria Seen PERFORMED BY: [place] [address] PATHOLOGIST PROGRAM DEVELOPMENT SPECIALIST MARGARITA CHOI M.D. [facility] Comment on above: Performed By: #### A JUSTIN GS #### [address] Gram Stainon 02-09-2022 Microscopic observation Gram stain Nom (Unsp spec) Gram Stain Result No Bacteria Seen PERFORMED BY: [place] [address] PATHOLOGIST PROGRAM DEVELOPMENT SPECIALIST MARGARITA CHOI M.D. [facility] Comment on above: Performed By: #### A JUSTIN, GS #### [address] US Venous, Unilat, Lower Ext Righton [...] by Reggie Hackett on 09/25/2021 1153 Normal [facility] Cosmetic Counselor US Venous, Unilat, Lower Ext Righton 09-11-2021 [...] by Reggie Hackett on 09/11/[address] [facility] Specialist Vital Signs Date Time Vital Sign Value Performing Clinician Facility 12-22-2022 10:06-0400 Blood Pressure Location Kameron BARR [facility] 12-22-2022 10:06-0400 Diastolic blood pressure 75 mm[Hg] Kameron BARR [facility] 12-22-2022 10:06-0400 Heart rate 58 /min Kameron BARR [facility] 12-22-2022 10:06-0400 Systolic blood pressure 146 mm[Hg] Kameron BARR [facility] 02-09-2022 19:50-0400 Body height 147.32 cm Allegra Moreau Other [employer] Other 02-09-2022 19:50-0400 Body mass index (BMI) [Ratio] 50.15 kg/m2 Allegra Moreau Other [employer] Other 02-09-2022 19:50-0400 Body temperature 96.9 [degF] Allegra Moreau Other [employer] Other 02-09-2022 19:50-0400 Body weight 108.86 kg Allegra Moreau Other [employer] Other 02-09-2022 19:50-0400 Diastolic blood pressure 80 mm[Hg] Allegra Moreau Other [employer] Other 02-09-2022 19:50-0400 Respiratory rate 18 /min Allegra Moreau Other [employer] Other 02-09-2022 19:50-0400 SaO2% (BldA) [Mass fraction] 99 % Allegra Moreau Other [employer] Other 02-09-2022 19:50-0400 Systolic blood pressure 167 mm[Hg] Allegra Moreau Other [employer] Other Encounters Encounter Date Encounter Type Care Provider Facility Start: 09-25-2024 End: 09-25-2024 ambulatory [facility] Start: 09-11-2024 ambulatory [facility] Start: 09-04-2024 End: 09-04-2024 [facility] Start: 09-01-2024 End: 09-01-[address] [facility] khoury Comment on above: Advice Only Start: 08-31-2024 End: 09-04-2024 Evaluation and management of inpatient [facility] Start: 08-30-2024 End: 09-04-2024 Evaluation and management of inpatient [facility] Start: 08-30-2024 End: 08-30-2024 ambulatory [facility] Start: 08-29-2024 ambulatory JOELLE BRWEER [facility] Start: 08-29-2024 End: 09-03-2024 Evaluation and management of inpatient BRANDON RODRIGUEZ [facility] Start: 01-11-2023 End: 01-12-2023 ambulatory JOELLE BREWER Facility:[facility] Start: 12-23-2022 End: 12-29-2022 Pre-admission assessment Kameron BARR [facility] Start: 12-22-2022 End: 12-23-2022 ambulatory Kameron BARR Facility:[facility] Start: 12-22-2022 End: 12-22-2022 Patient encounter procedure Kameron BARR [facility] Start: 11-16-2022 ambulatory Kameron BARR Facility :[facility] [place] Start: 11-12-2022 End: 11-13-2022 ambulatory JOELLE BREWER Facility:[facility] Start: 11-04-2022 End: 11-05-2022 ambulatory JOELLE BREWER Facility:[facility] Start: 02-09-2022 End: 02-09-2022 Departed Referred ENVIRONMENTAL PROPERTY ASSESSOR Allegra Moreau Work Phone: [facility] [place] Start: 02-09-2022 End: 02-09-2022 ambulatory Allegra Moreau Other [place] [employer] Other Start: 02-09-2022 Office outpatient ne w 20 minutes Allegra Moreau [facility] Procedures Date Procedure Procedure Detail Performing Clinician Start: 08-30-2024 Adult depression scr eening assessment [facility] Start: 11-04-2022 PSA screening JOELLE PANTOJA Comment on above: Performed By: #### P [facility] #### [facility] [address] [place] [address] Dr. Tom Chacko Cholecystectomy Kameron LALA Colonoscopy Kameron BARR Herniated structure (morphologic abnormality) Kameron OSITO Plan of Treatment Date Care Activity Detail Author Start: 08-30-2025 Depression Screening Depression Screening [facility] Start: 08-29-2025 Adult BMI Screening Adult BMI Screening [facility] Start: 05-06-2024 COVID-19 Vaccine () COVID-19 Vaccine () [facility] Start: 05-06-2024 Influenza vaccination Influenza Vaccine [facility] Start: 04-26-2024 Tobacco Screening Tobacco Screening [facility] Start: 2022 Fall Risk Screening Fall Risk Screening [facility] Start: 02-09-2022 Aerobic Culture Aerobic Culture [facility] Start: 02-09-2022 Anaerobic Culture Anaerobic Culture [facility] Start: 02-09-2022 Microscopic observation [Identifier] in Unspecified specimen by Gram stain Gram Stain [facility] Start: 2007 Administration of varicella zoster vaccine Zoster (Shingles) Vaccine (1 of 2) [facility] Start: 1976 DTaP,Tdap and Td Vaccines (1 - Tdap) DTaP,Tdap and Td Vaccines (1 - Tdap) [facility] Start: 1975 Adult BMI Follow Up Plan Adult BMI Follow Up Plan [facility] Bacteria identified in Unspecified specimen by Aerobe culture [facility] Work Phone: Bacteria identified in Unspecified specimen by Anaerobe culture [facility] Work Phone: Microscopic observat ion [Identifier] in Unspecified specimen by Gram stain [facility] Work Phone: Immunizations Immunization Date Immunization Notes Care Provider Wilberto stephens 12-30-2020 SARS-CoV-2 (COVID-19 ) mRNA-1273 vaccine Kameron BARR [facility] Comment on above: Result Comment: 2022: [id number] 12-02-2020 SARS-CoV-2 (COVID-19 ) mRNA-1273 vaccine Kameron BARR [facility] Comment on above: Result Comment: 2022: [id number] 06-21-2020 influenza virus vaccine, unspecified formulation Kameron BARR [facility] 06-21-2020 influenza, injectabl e, quadrivalent, preservative free [facility] 07-08-2019 influenza virus vaccine, unspecified formulation Kameron BARR [facility] 07-08-2019 influenza, injectabl e, quadrivalent, contains preservative [facility] Payers Date Payer Category Payer Medicare MEDICARE [id number] 1957 Medicare [id number] 1955 Unknown [id number] 1957 Unknown [id number] [id number]3 1957 Unknown [id number] 2.16.840.1.412471.3.579.2.593 1957 Unknown [id number] 2.16.840.1.148032.3.579.2.593 1957 Unknown [id number] 2.16.840.1.303081.3.579.2.727 1957 Unknown [id number] 2.16.840.1.356728.3.579.2.727 1957 Unknown [id number] 2.16.840.1.703671.3.579.2.128 6 1957 Unknown [id number] 2.16.840.1.529704.3.579.2.128 6 1957 Unknown [id number] 2.16.840.1.858792.3.579.2.128 6 1957 Unknown [id number] 2.16.840.1.409686.3.579.2.128 6 1957 Unknown [id number] 2.16.840.1.868903.3.579.2.128 6 1957 Unknown [id number] 2.16840.1.566146.3.579.2.128 6 1957 Unknown [id number] 2.16.840.1.755809.3.579.2.128 6 1957 Unknown [id number] 2.16.840.1.856182.3.579.2.128 6 1957 Unknown [id number] 2.16.840.1.839916.3.579.2.128 6 1957 Unknown [id number] 2.16840.1.379833.3.579.2.128 6 1957 Unknown [id number] 2.16.840.1.560042.3.579.2.128 6 1957 Unknown [id number] 2.16.840.1.521565.3.579.2.128 6 1957 Unknown [id number] 2.16.840.1.915525.3.579.2.128 6 Self-pay Self Pay [id number] Unknown [id number] [id number] Social History Date Type Detail Facility [facility] Work Phone: Start: 1955 Sex Assigned At Male F [facility] Start: 10-03-2020 End: 08-30-2024 Sex Assigned At [facility] Start: 12-22-2022 Tobacco smoking status Light t obacco smoker (finding) [facility] Tobacco smoking status Never [facility] Start: 2023 [facility] History of tobacco use Cigarette Smoker [employer] [facility] Start: 10-03-2020 End: 2023 Cigarettes smoked current (pack per day) - [facility]orted 0.5 [facility] [place] Start: 2023 Tobacco use and exposure Smokeless tobacco non-user [facility] [employer] [facility] Start: 04-27-2023 Alcoholic beverage intake Ex-dr[facility] (finding) [facility] Has the [employer], [employer], or [employer] threatened to shut off services in your home in past 12Mo [employer] System How often to you hav e a drink containing alcohol? Never [employer] Start: 1955 Sex assigned at Not on file [employer] [facility] Start: 04-10-2015 Sex [facility] (finding) [facility] Functional Status Date Assessment Result Facility 12-22-2022 Functional Status N/A [facility] Clinical Notes 02-09-2022 to 09-25-2024 Telephone Encounter - Tri Sergio - 09/01/2024 1:16 PM ESTTelephone Encounter - Tri Thay[facility]ch - 09/01/2024 1:16 PM ESTTelephone Encounter - Tri Sergio - 09/01/2024 1:16 PM EST Note Date & Type Note Facility 09-25-2024 Note [facility] Note Reason for cardiology consult: Status post stroke Chief Complaint: No cardiac complain HPI: Harvey Cabrales is a 69 y.o. male with past medical history of hypertension, type 2 diabetes mellitus, nicotine dependence. On 08/29/2024 he presented to out side facility with speech difficulty unilateral weakness. Brain CT did not show intracranial pathology. MRI of the brain showed diffusion restriction of the left frontal and parietal cortex with acute/subacute ischemia within MCA distribution. CTA of the head and neck was concerning for left ICA thrombus. He was started on heparin infusion. He was transferred to [facility]. His echo was overall normal. He underwent left carotid endarterectomy with patch angioplasty on 09/02/2024 he was found to have significant plaque with evidence of plaque hemorrhage. Per patient he was referred for cardiology to check up before starting physical therapy. Patient having currently physical therapy twice a week. He did not exercise prior to his stroke but he was able to perform his daily physical activities without any chest pain or shortness of breath at rest or with exertion. Denies orthopnea or paroxysmal nocturnal dyspnea or dizziness or palpitations or legs edema or leg discomfort on exertion. He is a longtime smoker 2 packs/day since he was 17-year-old however he quit at the time of his stroke. He denies any alcohol or illicit drugs Regarding family history his brother had hypertension and that he due to heart attack at age of 50. No other family members with cardiac issues Cardiology ROS: GENERAL: Denies fever, chills, night sweats, weight loss. HEENT: Denies changes in vision, photophobia, changes in hearing, epistaxis, oral bleeding. CARDIOVASCULAR: Denies chest pain, exertional dyspnea, orthopnea/PND, lower extremity edema, palpitations, lightheadedness/dizziness. RESPIRATORY: Denies SOB, coughing, wheezing GI: Denies abdominal pain, nausea/vomiting, heartburn, melena/hematochezia. RENAL: Denies dysuria, hematuria, flank pain. MSK: Denies muscle weakness/pain, arthralgias/joint pain. NEUROLOGIC: Denies LOC, weakness, numbness, headaches. He reports mild tingling of the right side SKIN: Denies abnormal rashes or bleeding. PSYCH: Denies significant anxiety, depression, sleep disturbances. Past Medical History He has a past medical history of Abnormal ECG, Bradycardia, Diabetes mellitus ([facility]), Heart murmur, Heart valve disease, Hyperlipidemia, Hypertension, and Stroke ([facility]). Surgical History He has a past surgical history that includes Carotid endarterectomy; Cholecystectomy; Appendectomy; and Knee surgery. Social History He reports that he quit smoking about 4 weeks ago. His smoking use included cigarettes. He has never used smokeless tobacco. He reports that he does not currently use alcohol. No history on file for drug use. Family History Family History Problem Relation Name Age of Onset Hypertension Brother Allergies Benzocaine Medications Current Outpatient Medications: aspirin 81 mg EC tablet, Take 81 mg by mouth in the morning., Disp: , Rfl: atorvastatin (Lipitor) 40 mg tablet, Take 40 mg by mouth in the morning., Disp: , Rfl: clopidogrel (Plavix) 75 mg tablet, Take 75 mg by mouth in the morning., Disp: , Rfl: lisinopriL-hydrochlorothiazide 20-25 mg tablet, Take 1 tablet by mouth in the morning., Disp: , Rfl: metFORMIN (Glucophage) 500 mg tablet, Take 500 mg by mouth with breakfast and with evening meal., Disp: , Rfl: pantoprazole (ProtoNix) 40 mg EC tablet, Take 40 mg by mouth before breakfast., Disp: , Rfl: Last Recorded Vitals Visit Vitals BP 116/74 (BP Location: Left arm, Patient Position: Sitting) Pulse 82 Ht 1.676 m (5' 6 ) Wt 83 kg (183 lb) SpO2 98% BMI 29.54 kg/m??? Smoking Status Former BSA 1.97 m??? Physical Examination: GENERAL: alert and oriented x3, well developed, in no acute distress. HEAD: atraumatic, normocephalic. EYES: MARGY, EOMI. NECK: trachea midline, no JVD present, no carotid bruits present. CARDIAC: S1, S2 present. RRR. No murmur, rubs, or gallops. RESPIRATORY: CTAB, no increased effort of breathing, no rales, rhonchi, or wheezing. ABDOMEN: soft, nontender, nondistended. EXTREMITIES: no lower extremity edema. No rash/skin discoloration present. NEURO: strength/sensation equal and symmetric in bilateral upper and lower extremities. PSYCH: appropriate mood, affect, and judgement. Labs: 09/02/2024 Sodium 139, potassium 3.9, BUN 17, creatinine 0.89, glucose 149, GFR above 90, calcium 9.2 09/01/2024 White blood count 10.6, hemoglobin 14.8, hematocrit 43, platelets 254 08/30/2024 Cholesterol 99, triglycerides 68, HDL 31, LDL 54 08/29/2024 HbA1c 7.6% 03/22/2024 HbA1c 6.2% AST 18, ALT 26 Triglyceride 88, cholesterol 104, LDL 52, HDL 35 TSH 1.257 Last Images: EKG 08/28/2024 showed normal sinus (more content not included)... [facility] 09-01-2024 Miscellaneous Notes Contract: JAYLEN Alfaro @ [facility] is calling for consult Promotion Manager reached out to DONALDO Hooker to reach out to the facility [facility] this [facility] [place] 09-01-2024 Telephone encounter Note Contract: JAYLEN Alfaro @ [facility] is calling for consult [facility] [place] 09-01-2024 Telephone encounter Note Promotion Manager reached out to DONALDO Hooker to reach out to the facility [employer] 12-22-2022 Evaluation + Plan note Diagnostic Tests PendingUrine Cytology ([facility]) 12/22/22 [facility] 12-21-2022 Hospital Discharg e instructions Patient Education [...] Follow these instructions at home: Medicines Take [id number] and prescription medicines only as told by [...] or the blood stops without treatment. Take ymvz-poj-ubidsek and prescription medicines only as told by your health care provider. Drink enough fluid to keep your urine pale yellow. This information is not intended to replace advice given to you by your health care provider. Make sure you discuss any questions you have with your health care provider. Document Revised: 04/22/2021 Document Reviewed: 04/22/2021 [employer] Patient Education 2022 [employer] Follow Up Care 12/21/2022 13:53:01 With:OSITO MOYA, Kameron Khoury, URL Address: [facility] [address], [place] [address]- When: Unknown [facility] 02-09-2022 Evaluation note Encounter Date Diagnosis Assessment [...] Other [facility] home care material was printed [employer] Other Evaluation noteNo assessment information available [facility] Work Phone: History general Narrative - Reported* Type Description Date Medical History diabetes mallitus Medical History high blood pressure [employer] Other Hospital course Narrative No data available for this section [facility] Discharge instructions No data available for this section [facility] filedocumented in this encounter [facility] No data available for this section [facility] Summary Purpose Family History No Family History Records FoundNo Family History Records FoundNo Family History Records FoundNo Family History Records FoundNo Family History Records FoundNo Family History Records FoundNo Family History Records FoundNo Family History Records Found Advance Directives No Advanced Directives Records Found Date Activated Date Inactivated Comments 08/31/2024 12:40 PM Additional Source Comments (unrecognized sect ion and content) No Status Records FoundNo Status Records FoundNo Status Records FoundNo Status Records FoundNo Status Records FoundNo Status Records FoundNo Status Records FoundNo Status Records Found INFORMATION SOURCE (unrecogn ized section and content) DATE CREATED AUTHOR 09/26/2021 [facility] dical Specialist DATE CREATED AUTHOR AUTHOR'S ORGANIZ ATION 02/13/2022 [facility] DATE CREATED AUTHOR AUTHOR'S ORGANIZ ATION 01/16/2023 [facility] DATE CREATED AUTHOR AUTHOR'S ORGANIZ ATION 03/05/2023 [facility] DATE CREATED AUTHOR AUTHOR'S ORGANIZ ATION 09/03/2024 [facility] DATE CREATED AUTHOR AUTHOR'S ORGANIZ ATION 09/04/2024 [facility] DATE CREATED AUTHOR AUTHOR'S ORGANIZ ATION 09/24/2024 [facility] DATE CREATED AUTHOR AUTHOR'S ORGANIZ ATION 09/27/2024 [facility] Care Teams (unrecognized sec tion and content) Team Status: Inactive Member Role Status Dates Allegra Moreau APRN Attending Provider Active Survey Data Technician Relationship Specialty Start Date End Date Joelle Brewer APRN-BAR ROLLER [address] [facility] [place] [address] PCP - General Family Medicine 05/26/20 Goals (unrecognized section and content) Goals may be documented in a n alternate sectionNo Information No data available for this section No data available for this sectionNot on filedocumented as of this encounter REASON FOR VISIT (unrecogniz ed section and content) Reason Onset Date Comments Advice Only 09/01/2024 FOR RECORDS PERTAINING TO PATIENTS WHO ARE [...] BE BASED ON THE PRIMARY CLINICAL RECORDS. [employer] [facility]. provides no warranty or guarantee of the accuracy or completeness of information in this document.
--- NOTE | 2024-09-28 16:22 | PC.NURSE ---
1610 Admitted to 275 from ER, alert oriented, color castorena skin warm dry. IV site RACF ns with 40 kcl infusing at 200ml hr. Insulin drip infusing at 4.1 units hr. Significant other at bedside, cardiac, spo2, ecg, nibp monitoring initiated.
--- NOTE | 2024-09-28 16:48 | P.HP_ITS ---
HPI H&P: HPI History of Present Illness Chief complaint: Hyperglycemia hyperosmolality non-ketsacidosis Narrative: Patient presented to emergency room with increasing urinary frequency, dry mouth, lightheaded, no syncope, no chest pain no shortness of breath, no infection symptoms, in ER found to have hyperosmolar hyperglycemic syndrome, with a glucose of over 800, given IV insulin and insulin drip fluid resuscitation of 2 L When I saw patient up in intensive care unit, he was on insulin drip for an hour, feeling some better, sugar were down to low 500s, this is approximately 3 hours after institution of medications as outlined above. Opioid HPI Opioid Management Most Recent Pain and Opioid Data: Last Pain Assessment 09/28/24 17:02 Last ORT Total Score 1 09/28/24 16:19 09/28/24 Last ORT Risk Category Low Risk 09/28/24 16:19 09/28/24 Ur Phencyclidine Scrn Negative (NEGATIVE) 08/28/24 16:44 08/06 12/27 Review of Systems ROS Status of ROS 10 or more systems reviewed and unremark able except as noted in history and below PFSH PFS Medical History Anticoagulated ?Z79.01 - technician terminal and repeater (current) use of anticoagulants (ICD-10) CVA (cerebral vascular accident) ?I63.9 - Cerebral infarction, unspecified (ICD-10) Type 2 diabetes mellitus ?E11.9 - Type 2 diabetes mellitus without complications (ICD-10) Ischemic stroke ?I63.9 - Cerebral infarction, unspecified (ICD-10) Hypertension ?I10 - Essential (primary) hypertension (ICD-10) Surgical History (Updated 09/28/24 @ 16:52 by Rima Bolton RN) History of carotid endarterectomy ?Z98.890 - Other specified postprocedural states (ICD-10) History of cholecystectomy ?Z90.49 - Acquired absence of other specified parts of digestive tract (ICD- 10) Social History (Updated 09/28/24 @ 16:53 by Rima Bolton, MICA) Within the past year, how often did you have a drink containing alcohol: never Within the past year, how many standard drinks containing alcohol did you have on a typical day: 1 or 2 Within the past year, how often did you have six or more drinks on one occasion: never Total score: 0 Score interpretation: A score less than 4 is consistent with normal alcohol consumption. Known occupational exposures/hazards: No Highest level of school completed/degree received: 11th grade Little interest or pleasure in doing things: more than half the days Feeling down, depressed, or hopeless: not at all Do you think of yourself as: straight/heterosexual Gender Identity: male Meds Home Medications and Allergies Home Medications ?Medication ?Instructions ?Recorded ?Confirmed ?Type pantoprazole 40 mg tablet,delayed 40 mg PO DAILY 08/28/24 09/28/24 History release (Protonix) aspirin 81 mg tablet,delayed 81 mg PO DAILY 09/28/24 09/28/24 History release (Adult Low Dose Aspirin) atorvastatin 40 mg tablet 40 mg PO QPM 09/28/24 09/28/24 History clopidogrel 75 mg tablet 75 mg PO DAILY 09/28/24 09/28/24 History lisinopril 20 1 tab PO DAILY 09/28/24 09/28/24 History mg-hydrochlorothiazide 25 mg tablet metformin 500 mg tablet 500 mg PO BID 09/28/24 09/28/24 History Allergies Allergy/AdvReac Type Severity Reaction Status Date / Time benzocaine Allergy Severe Hives Verified 09/28/24 14:05 Exam Constitutional Vital Signs, click to edit/add: Last Vital Signs Temp 97.6 F 09/28/24 14:05 Pulse 75 09/28/24 16:26 Resp 12 09/28/24 16:26 BP 124/76 09/28/24 16:15 Pulse Ox 99 09/28/24 16:26 O2 Del Method Room Air 09/28/24 16:26 Documenting provider has reviewed patient's vital signs: yes Common normals: no apparent distress Chest Common normals: inspection of chest normal Respiratory Common normals: normal respiratory effort and no retractions Cardio Common normals: regular rate and regular rhythm GI Common normals: Normal to inspection, nondistended, normoactive bowel sounds present Results Labs Labs: Short CBC 09/28/24 Range/Units 14:10 WBC 18.3 H (4.0-11.0) 10^3/uL Hgb 14.7 (14.0-18.0) g/dL Hct 41.2 L (42.0-54.0) % Plt Count 293 (150-450) 10^3/uL BMP 09/28/24 14:10 Sodium 120 L* Potassium 4.5 Chloride 86 L Carbon Dioxide 23.7 BUN 41.0 H Creatinine 1.92 H Glucose 848 H* Calcium 9.1 Liver Function 09/28/24 Range/Units 14:10 Total Bilirubin 0.7 (0.2-1.0) mg/dL AST 12 L (15-37) U/L ALT 27 (16-63) U/L Alkaline Phosphatase 138 H (46-116) U/L Albumin 3.8 (3.4-5.0) g/dL Assessment and Plan Assessment and Plan (1) Pseudohyponatremia: (2) Acute kidney injury: (3) Hyperosmolar hyperglycemic state (HHS): (4) Ischemic stroke: (5) Hypertension: (6) Type 2 diabetes mellitus: Plan Admission findings: Tachycardia, leukocytosis, hyponatremia, acute kidney injury (baseline creatinine of 116, admission creatinine of 192 which is 165.5% above baseline) stage I, severe hyperglycemia with glucose of over 800 on admission. Patient denies any infectious symptoms Hyperglycemic hyperosmolar syndrome-continue with fluid resuscitation, started on insulin drip in ER, will try to wean off of that as the night goes on, and then switch to sliding scale insulin, would still like to try oral medications and patient when agrees with that we will add glimepiride, keep with his metformin, and closer monitoring of sugars Fairly recent [id number] weakness-no recurrence of symptoms Hypertension-holding blood pressure medications currently, will hold off on the hydrochlorothiazide at discharge Hypercholesterolemia-continue with home medications Acute kidney injury stage I as outlined above-fluid resuscitation, Hyponatremia-likely secondary to the hyperglycemic hyperosmolar syndrome-track and trend Hyperphosphatemia likely secondary to the acute kidney injury-repeat in a.m. Admission status: Severe hyperglycemia with hyperglycemic hyperosmolar syndrome- with sugar over 800, admitted to inpatient status in the ICU is medically necessary treatment will more than likely span 2 midnights.
[2024-09-28 16:51] LABS: Glucometer 547 mg/dL (74-106)
[2024-09-28 17:34] LABS: Bilirubin Urine NEGATIVE (NEGATIVE); Blood Urine TRACE-I (NEGATIVE); Clarity Urine CLEAR (CLEAR); Color Urine LT. YELLOW (YELLOW); Glucose Urine UA >=1000 mg/dL (NEGATIVE); Ketones Urine TRACE mg/dL (NEGATIVE); Leukocyte Esterase Urine NEGATIVE (NEGATIVE); Nitrite Urine NEGATIVE (NEGATIVE); Protein Urine NEGATIVE (NEG/TRACE); Specific Gravity Urine <=1.005 (1.005-1.025); Urobilinogen Urine 0.2 EU/dL (0.2-1.0); pH Urine 5.5 (5.0-9.0)
[2024-09-28 17:42] LABS: WBC Urine NONE SEEN #/HPF (NONE SEEN)
[2024-09-28 17:43] LABS: Bacteria Urine NONE SEEN #/HPF (NONE SEEN); Cast Seen? NONE SEEN #/LPF (NONE SEEN); Crystals Seen? None Seen #/HPF (None Seen); Mucus Urine NONE SEEN (NONE SEEN); RBC Urine 0-2 #/HPF (0-2); Squamous Epithelial Cell Urine RARE #/LPF (NONE/RARE)
[2024-09-28] MEDS: GLIMEPIRIDE 2 MG TABLET PO (17:58)
[2024-09-28 18:06] LABS: Glucometer 407 mg/dL (74-106)
[2024-09-28 19:29] LABS: Glucometer 388 mg/dL (74-106)
[2024-09-28 20:13] LABS: Glucometer 301 mg/dL (74-106)
[2024-09-28 21:08] LABS: Glucometer 143 mg/dL (74-106)
[2024-09-28] MEDS: 0.9 % SODIUM CHLORIDE 1,000 ML 500 ML IV (21:12)
[2024-09-28] MEDS: ATORVASTATIN CALCIUM 40 MG TABLET PO (21:13)
[2024-09-28] MEDS: INSULIN ASPART 300 UNIT/3 ML PEN SUBQ (21:16)
--- NOTE | 2024-09-28 21:50 | PC.NURSE ---
Brianne is not working, will use glucometer.
[2024-09-28] MEDS: 0.9 % SODIUM CHLORIDE 1,000 ML 150 ML IV (23:50)
[2024-09-29] VITALS (16 sets, daily range): BP systolic 97–134; BP diastolic 49–71; PULSE 52–63; TEMP 36.4–36.6; O2SAT 95–100
[2024-09-29 05:38] LABS: Glucometer 178 mg/dL (74-106)
[2024-09-29 05:39] LABS: Basophils Absolute Auto 0.1 10^3/uL (0.0-0.1); Basophils Percent Auto 0.8 % (0.2-2.0); Eosinophils Absolute Auto 0.3 10^3/uL (0.0-0.7); Eosinophils Percent Auto 2.1 % (0.9-7.0); Hematocrit 36.5 % (42.0-54.0); Hemoglobin 12.7 g/dL (14.0-18.0); Immature Granulocytes Abs Auto 0.07 10^3/uL (0.00-0.03); Immature Granulocytes Pct Auto 0.4 % (0.0-0.5); Lymphocytes Percent Auto 25.1 % (20.5-60.0); Mean Corpuscular HGB Conc 34.8 g/dL (29.9-35.2); Mean Corpuscular Hemoglobin 30.4 pg (25.9-34.0); Mean Corpuscular Volume 87.3 fL (80.0-94.0); Mean Platelet Volume 10.5 fL (9.5-13.5); Monocytes Percent Auto 6.2 % (1.7-12.0); Neutrophils Absolute Auto 10.4 10^3/uL (1.4-6.5); Neutrophils Percent Auto 65.4 % (43.0-75.0); Platelet Count 175 10^3/uL (150-450); Red Blood Count 4.18 10^6/uL (4.70-6.10); Red Cell Distribution Width 11.9 % (11.0-15.0); White Blood Count 15.9 10^3/uL (4.0-11.0)
[2024-09-29 05:54] LABS: Alanine Aminotransferase 25 U/L (16-63); Albumin Globulin Ratio 0.9; Albumin Level 2.8 g/dL (3.4-5.0); Alkaline Phosphatase 83 U/L (46-116); Anion Gap 7.7; Aspartate Amino Transferase 18 U/L (15-37); BUN Creatinine Ratio 25.9; Bilirubin Total 0.5 mg/dL (0.2-1.0); Calcium 8.2 mg/dL (8.5-10.1); Carbon Dioxide 26.2 mmol/L (21.0-32.0); Chloride 104 mmol/L (98-107); Estimated GFR (African America >60 (>=60 mL/min/1.73m^2); Estimated GFR (Non-African Ame >60 (>=60 mL/min/1.73m^2); Globulin 3.1 g/dL; Glucose 171 mg/dL (74-106); Phosphorus 2.6 mg/dL (2.6-4.7); Potassium 3.9 mmol/L (3.5-5.1); Sodium 134 mmol/L (136-145); Total Protein 5.9 g/dL (6.4-8.2)
[2024-09-29] MEDS: OMEPRAZOLE 40 MG CAPSULE.DR PO (06:16)
[2024-09-29] MEDS: 0.9 % SODIUM CHLORIDE 1,000 ML 150 ML IV (06:16)
[2024-09-29 07:59] LABS: Glucometer 178 mg/dL (74-106)
[2024-09-29] MEDS: METFORMIN HCL 500 MG TABLET PO (08:34)
[2024-09-29] MEDS: INSULIN ASPART 300 UNIT/3 ML PEN SUBQ ×2 (08:34→11:42)
[2024-09-29] MEDS: ASPIRIN 81 MG TABLET.DR PO (08:34)
[2024-09-29] MEDS: CLOPIDOGREL BISULFATE 75 MG TABLET PO (08:34)
[2024-09-29] MEDS: ACETAMINOPHEN 500 MG TABLET 1000 MG PO (08:39)
--- NOTE | 2024-09-29 11:25 | P.DS_ITS ---
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 Patient is a type 2 DM and uses Metformin for it. In ED he reported symptoms like increased thirst, polyuria and generalized malaise, weakness likely from symptomatic hyperglycemia. Upon arrival, his Blood glucose was 848 but no evidence of DKA. He also had LAUREL and leukocytosis. Patient was admitted to ICU and started on aggressive IV hydration and IV insulin drip for symptomatic hyperglycemia. His renal function improved during the course of admission along with improvement in his blood glucose and was taken off of insulin drip earlier in the morning. Patient's leukocytosis also improved. No source of infection identified and leukocytosis likely reactive from dehydration and hyperglycemia. His A1c was 11.2 and based on his A1c, I feel that he will likely need subcutaneous insulin to help manage his type 2 diabetes Patient medically stable for discharge. I will increase his metformin to thousand twice daily. I also started patient on glipizide 5 mg twice a day along with 15 units of Basaglar at night. He was instructed to monitor his blood glucose at least twice a day and bring his blood glucose log to his primary care physician so that his medications can be adjusted based on his blood glucose log. He was educated in great detail symptoms of hyperglycemia and hypoglycemia and was instructed to return to ED if he had persistent hyper glycemia or hypoglycemia. Patient will need follow-up with PCP in 1 to 2 weeks. Status at Discharge Functional status at discharge: independent ambulation Overall status at discharge: patient is back to baseline Time Spent with Patient Time attestation: Total time spent providing and/or coordinating discharge services: Time spent: greater than 30 minutes Exam Constitutional Vital Signs, click to edit/add: Last Vital Signs Temp 97.5 F L 09/29/24 07:56 Pulse 54 L 09/29/24 10:00 Resp 16 09/29/24 08:00 BP 120/68 09/29/24 07:56 Pulse Ox 100 09/29/24 07:56 O2 Del Method Room Air 09/29/24 03:53 Documenting provider has reviewed patient's vital signs: yes Common normals: no apparent distress and oriented x3 General appearance: cooperative Respiratory Common normals: normal respiratory effort and clear to auscultation bilaterally Effort & inspection: able to speak in complete sentences Auscultation: clear to auscultation bilaterally Cardio Common normals: regular rate, S1 normal heart sound and S2 normal heart sound Rate: regular rate Heart sounds: S1 normal and S2 normal Extremity Common normals: no clubbing, cyanosis or edema Neuro Common normals: oriented x3, moves all extremities and no focal motor deficits Psych Common normals: mental status grossly normal, denies hallucinations, denies homicidal ideation and denies suicidal ideation DS: Data Data Completed and Pending Labs on day of discharge: Labs from last 24 hours 09/29/24 09/29/24 09/29/24 07:59 05:36 05:33 WBC 15.9 H RBC 4.18 L Hgb 12.7 L Hct 36.5 L MCV 87.3 MCH 30.4 MCHC 34.8 RDW 11.9 Plt Count 175 MPV 10.5 Neut % (Auto) 65.4 Lymph % (Auto) 25.1 [place] % (Auto) 6.2 Eos % (Auto) 2.1 Baso % (Auto) 0.8 Neut # (Auto) 10.4 H Lymph # (Auto) 4.0 H [place] # (Auto) 1.0 H Eos # (Auto) 0.3 Baso # (Auto) 0.1 Abs Immat Gran (auto) 0.07 H Imm/Tot Granulo (auto) 0.4 Sodium 134 L Potassium 3.9 Chloride 104 Carbon Dioxide 26.2 Anion Gap 7.7 BUN 29.0 H Creatinine 1.12 Est GFR ( Amer) >60 Est GFR (Non-Af Amer) >60 BUN/Creatinine Ratio 25.9 Glucose 171 H Estimat Average Glucose Hemoglobin A1c Calcium 8.2 L Phosphorus 2.6 Magnesium Total Bilirubin 0.5 AST 18 ALT 25 Alkaline Phosphatase 83 Total Protein 5.9 L Albumin 2.8 L Globulin 3.1 Albumin/Globulin Ratio 0.9 Urine Color Urine Clarity Urine pH Ur Specific [place] Urine Protein Urine Glucose (UA) Urine Ketones Urine Occult Blood Urine Nitrite Urine Bilirubin Urine Urobilinogen Ur Leukocyte Esterase Urine RBC Urine WBC Ur Squamous Epith Cells Urine Crystals Urine Bacteria Urine Casts Urine Mucus Acetone, Qual POC Glucose 178 H 178 H 09/28/24 09/28/24 09/28/24 21:07 20:12 19:26 WBC RBC Hgb Hct MCV MCH MCHC RDW Plt Count MPV Neut % (Auto) Lymph % (Auto) [place] % (Auto) Eos % (Auto) Baso % (Auto) Neut # (Auto) Lymph # (Auto) [place] # (Auto) Eos # (Auto) Baso # (Auto) Abs Immat Gran (auto) Imm/Tot Granulo (auto) Sodium Potassium Chloride Carbon Dioxide Anion Gap BUN Creatinine Est GFR ( Amer) Est GFR (Non-Af Amer) BUN/Creatinine Ratio Glucose Estimat Average Glucose Hemoglobin A1c Calcium Phosphorus Magnesium Total Bilirubin AST ALT Alkaline Phosphatase Total Protein Albumin Globulin Albumin/Globulin Ratio Urine Color Urine Clarity Urine pH Ur Specific [place] Urine Protein Urine Glucose (UA) Urine Ketones Urine Occult Blood Urine Nitrite Urine Bilirubin Urine Urobilinogen Ur Leukocyte Esterase Urine RBC Urine WBC Ur Squamous Epith Cells Urine Crystals Urine Bacteria Urine Casts Urine Mucus Acetone, Qual POC Glucose 143 H 301 H 388 H 09/28/24 09/28/24 09/28/24 18:04 16:50 16:05 WBC RBC Hgb Hct MCV MCH MCHC RDW Plt Count MPV Neut % (Auto) Lymph % (Auto) [place] % (Auto) Eos % (Auto) Baso % (Auto) Neut # (Auto) Lymph # (Auto) [place] # (Auto) Eos # (Auto) Baso # (Auto) Abs Immat Gran (auto) Imm/Tot Granulo (auto) Sodium Potassium Chloride Carbon Dioxide Anion Gap BUN Creatinine Est GFR ( Amer) Est GFR (Non-Af Amer) BUN/Creatinine Ratio Glucose Estimat Average Glucose Hemoglobin A1c Calcium Phosphorus Magnesium Total Bilirubin AST ALT Alkaline Phosphatase Total Protein Albumin Globulin Albumin/Globulin Ratio Urine Color Lt. yellow Urine Clarity Clear Urine pH 5.5 Ur Specific [place] <=1.005 A Urine Protein Negative Urine Glucose (UA) >=1000 A Urine Ketones Trace A Urine Occult Blood Trace-i Urine Nitrite Negative Urine Bilirubin Negative Urine Urobilinogen 0.2 Ur Leukocyte Esterase Negative Urine RBC 0-2 Urine WBC None seen Ur Squamous Epith Cells Rare Urine Crystals None seen Urine Bacteria None seen Urine Casts None seen Urine Mucus None seen Acetone, Qual POC Glucose 407 H 547 H* 09/28/24 14:10 WBC 18.3 H RBC 4.81 Hgb 14.7 Hct 41.2 L MCV 85.7 MCH 30.6 MCHC 35.7 H RDW 11.8 Plt Count 293 MPV 11.1 Neut % (Auto) 80.0 H Lymph % (Auto) 13.3 L [place] % (Auto) 5.1 Eos % (Auto) 0.4 L Baso % (Auto) 0.7 Neut # (Auto) 14.6 H Lymph # (Auto) 2.4 [place] # (Auto) 0.9 H Eos # (Auto) 0.1 Baso # (Auto) 0.1 Abs Immat Gran (auto) 0.10 H Imm/Tot Granulo (auto) 0.5 Sodium 120 L* Potassium 4.5 Chloride 86 L Carbon Dioxide 23.7 Anion Gap 14.8 BUN 41.0 H Creatinine 1.92 H Est GFR ( Amer) 43 L Est GFR (Non-Af Amer) 35 L BUN/Creatinine Ratio 21.4 Glucose 848 H* Estimat Average Glucose 275 Hemoglobin A1c 11.2 H Calcium 9.1 Phosphorus 5.4 H Magnesium 2.2 Total Bilirubin 0.7 AST 12 L ALT 27 Alkaline Phosphatase 138 H Total Protein 7.6 Albumin 3.8 Globulin 3.8 Albumin/Globulin Ratio 1.0 Urine Color Urine Clarity Urine pH Ur Specific [place] Urine Protein Urine Glucose (UA) Urine Ketones Urine Occult Blood Urine Nitrite Urine Bilirubin Urine Urobilinogen Ur Leukocyte Esterase Urine RBC Urine WBC Ur Squamous Epith Cells Urine Crystals Urine Bacteria Urine Casts Urine Mucus Acetone, Qual Negative POC Glucose Discharge Plan Discharge Disposition: Home, Self-Care Discharge Medications: New metformin 1,000 mg tablet 1,000 mg PO BID Qty: 60 0RF glipizide 5 mg tablet 5 mg PO BID Qty: 60 0RF Rx Instructions: use within 30 minutes of meals insulin glargine [Basaglar KwikPen U-100 Insulin] 100 unit/mL (3 mL) insulin pen 15 unit subcut QAM Qty: 15 0RF (DME) pen needle, diabetic [Pen Needle] 31 gauge x 1/4 needle See Rx Instructions .Route Qty: 100 0RF Rx Instructions: once daily Continued clopidogrel 75 mg tablet 75 mg PO DAILY aspirin [Adult Low Dose Aspirin] 81 mg tablet,delayed release (DR/EC) 81 mg PO DAILY lisinopril-hydrochlorothiazide 20-25 mg tablet 1 tab PO DAILY atorvastatin 40 mg tablet 40 mg PO QPM pantoprazole [Protonix] 40 mg tablet,delayed release (DR/EC) 40 mg PO DAILY Discontinued metformin 500 mg tablet 500 mg PO BID Activity: increase activity as tolerated Diet: diabetic diet Print Language: Green[place]ic Patient Instructions: Glipizide (By mouth), Insulin Glargine (By injection), Hyperosmolar Hyperglycemic State (DC), Type 2 Diabetes Management for Adults (DC) Activity Restrictions/Additional Instructions: Please check your blood glucose twice a day before meals. Maintain Blood glucose log and bring your log to your PCP on follow up appointment. If you experience frequent low blood glucose, talk your doctor who will then adjust your new Diabetic medications. Forms: Portal Instructions Follow Up Appointments: Please call Tuesday and schedule a follow up with PCP to be seen in one week.
[2024-09-29 11:40] LABS: Glucometer 243 mg/dL (74-106)
--- OUTSIDE RECORDS SUMMARY | 2024-10-01 09:52 | XMS_ITS | CCD ---
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 Name Role Phone MoreauRUPA ibarraWillie Trejo Attending Provider [phone] JOELLE BREWER Primary Care Physician [phone] OSMAN, JOELLE Admitting Unavailable OSMAN, JOELLE Attending [...] Referring Unavailable Kameron BARR Attending Unavailable Osman GONZÁLEZ Joelle S Primary Care Provider OSMAN, JOELLE S Referring Unavailable OSMAN, JOELLE S Primary Care Unavailable OSMAN, JOELLE S Referring Unavailable OSMAN, JOELLE S Primary Care Unavailable OSMAN, JOELLE S Referring Unavailable OSMAN, JOELLE S Primary Care Unavailable OSMAN, JOELLE S Referring Unavailable OSMAN, JOELLE S Primary Care Unavailable OSMAN, JOELLE S Referring Unavailable OSMAN, JOELLE S Primary Care Unavailable ASHLYN CRANE Attending Unavailable Unavailable Primary Care Provider Unavailabl e BRANDON RODRIGUEZ Admitting Unavailable BRANDON RODRIGUEZ Attending Unavailable ROSA MCGILL Referring Unavailable OSMAN, JOELLE S Primary Care Unavailable ZEN CRUZ Consulting Unavailable AILYN SIBLEY Consulting Unavailable JENNIFER, BRANDON Referring Unavailable OSMAN, JOELLE S Primary Care Unavailable NEERAJ, OLGA Referring Unavailable OSMAN, JOELLE S Primary Care Unavailable OLGA PICKARD Referring Unavailable OSMAN, JOELLE S Primary Care Unavailable JENNY LUKE Attending Unavailable OSMAN, JOELLE S Primary Care Unavailable BLANCO BENZ Attending Unavailable CHICO PATHAK Attending Unavailable OSMAN, JOELLE S Referring Unavailable OSMAN, JOELLE S Primary Care Unavailable Allergies Allergy Classification Reported Allergen(s) Allergy Type Date of Onset Reaction(s) Facility (7 sources) Benzocaine; Translations: [BENZOCAINE] Drug Allergy 4 [facility] (2 sources) Allantoin / Benzocaine / Camphor / Petrolatum; Translations: [benzocaine topical] Drug Allergy Swelling (finding) [facility] (5 sources) Benzocaine-Kush alkonium Cl; Translations: [BENZOCAINE-RODNEY ZALKONIUM CL] Propensity to adverse reactions to drug 0 Swelling, [place] Medications Current Medications Medication Drug Class(es) Dates Sig (Normalized) Sig (Original) acetaminophen 500 mg oral tablet (2 sources) Start: 04-08-2021 take 1 tablet by mouth every six hours as needed for pain acetaminophen (TYLENOL) 500 mg tablet Take 1 tablet (500 mg total) by mouth every 6 (six) hours as needed for pain. 30 tablet 04/08/2021 Active aspirin 81 mg delayed release oral tablet (1 source) Platelet Aggregation Inhibitor, Nonsteroidal Anti-inflammatory Drug Start: 09-04-2024 take 1 tablet by mouth in the morning aspirin 81 mg Take 1 tablet (81 mg total) by mouth in the morning. 81 tablet 1 09/04/2024 Active atorvastatin 40 mg oral tablet (1 source) HMG-CoA Reductase Inhibitor Start: 09-03-2024 take 1 tablet by mouth once daily atorvastatin (LIPITOR) 40 mg tablet Take 1 tablet (40 mg total) by mouth nightly. 30 tablet 2 09/03/2024 Active cephalexin 500 mg oral tablet (1 source) Cephalosporin Antibacterial Start: 02-09-2022 take 1 tablet by mouth every twelve hours Cephalexin 500 MG 1 tablet Orally every 12 hrs for 10 day(s) Feb, Active clopidogrel 75 mg oral tablet (1 source) P2Y12 Platelet Inhibitor Start: 09-04-2024 take 1 tablet by mouth in the morning clopidogreL (PLAVIX) 75 mg tablet Take 1 tablet (75 mg total) by mouth in the morning. 30 tablet 1 09/04/2024 Active hydroCHLOROthiazide 25 mg / lisinopril 20 mg oral tablet (2 sources) Thiazide Diuretic, Angiotensin Converting Enzyme Inhibitor Start: 12-09-2022 take 1 tablet by mouth once in the morning lisinopril-hydroC HLOROthiazide (PRINZIDE,ZESTORE TIC) 20-25 mg per tablet Take 1 tablet by mouth in the morning. 12/09/2022 Active lisinopril 20 mg oral tablet (3 sources) Angiotensin Converting Enzyme Inhibitor Start: 12-22-2022 take 1 mg by mouth once daily lisinopril 20 mg Tab mg tab(s), Oral, Daily Start Date: 12/22/22 Status: Ordered Lisinopril Activ e MEN'S MULTI-VITAMIN ORAL (2 sources) MEN'S MULTI-ANDREW MIN ORAL Take by mouth. Active MEN'S MULTI-ANDREW MIN ORAL Take by mouth. Suspended metFORMIN hydrochloride 500 mg oral tablet (5 sources) Biguanide Start: 12-22-2022 take 1 tablet by mouth in the morning, then take 1 tablet by mouth at mealtime metFORMIN (GLUCOPHAGE) 500 mg tablet Take 1 tablet (500 mg total) by mouth in the morning and 1 tablet (500 mg total) in the evening. Take with meals. 12/22/2022 Active Start: 12-22-2022 metformin Oral Start Date: 12/22/22 Status: Ordered metFORMIN HCl Ac tive omeprazole 40 mg delayed release oral capsule (2 sources) Proton Pump Inhibitor take 1 capsule by mouth in the morning omeprazole (PriLOSEC) 40 mg capsule Take 1 capsule (40 mg total) by mouth in the morning. Active pantoprazole 40 mg delayed release oral tablet (4 sources) Proton Pump Inhibitor Start: 3 take 1 mg by mouth once daily Pantoprazole [address] Tab mg tab(s), Oral, Daily Start Date: 12/22/22 Status: Ordered take 1 tablet by mouth in the mo rning pantoprazole (PROTONIX) 20 mg EC tablet Take 1 tablet (20 mg total) by mouth in the morning. Active Pantoprazole Sod ium Active Completed/Discontinued Medications Medication Drug Class(es) Dates Sig (Normalized) Sig (Original) ciprofloxacin 500 mg oral tablet (2 sources) Quinolone Antimicrobial Start: 12-22-2022 Cipro 500 mg Tab 500 mg = 1 tab(s), Oral, As Directed, Patient to take 1 tab the day before procedure and the 2nd tab the day of procedure once completed, # 2 tab(s), Refills(s) 0, [id number], 167, cm, 12/22/22 10:25:00 EDT, Height/Length Do... Start Date: 12/22/22 Status: Ordered Problems Active Problems Problem Classification Problem Date Documented Da te Episodic/Chronic Acute cerebrovascular disease (3 sources) Cerebral infarction, unspecified; Translations: [Ischemic stroke] Onset: 08-29-2024 Chronic Deficiency and other anemia (1 source) Anemia, unspecified; Translations: [ANEMIA UNSPECIFIED] Onset: 11-15-2022 Episodic Diabetes mellitus without complication (3 sources) Diabetes mellitus; Translations: [Type 2 diabetes mellitus without complications] Onset: 11-08-2022 12-22-2022 Chronic Disorders of lipid metabolism (8 sources) Hyperlipidemia; Translations: [Hyperlipidemia, unspecified] Onset: 11-04-2022 [...] Translations: [OTHER CHEST PAIN] Onset: 01-11-2023 Episodic Occlusion or stenosis of precerebral arteries (2 sources) Right carotid artery stenosis; Translations: [Occlusion and stenosis of right carotid artery] 09-27-2024 Chronic Other aftercare (1 source) Other nursing home (current) drug therapy; Translations: [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] Onset: 11-08-2022 Episodic Other connective tissue disease (2 sources) Neurological symptom; Translations: [Unspecified symptoms and signs [...] unspecified finger] Onset: 02-09-2022 Resolved: 02-09-2022 Episodic Unclassified (1 source) Post-op Onset: 09-27-2024 Past or Other Problems Problem Classification Problem Date Documented Da te Episodic/Chronic Genitourinary symptoms and ill-defined conditions (14 sources) Microscopic hematuria; Translations: [Other microscopic hematuria] Onset: 11-08-2022 Episodic Mood disorders (2 sources) Mood disorders Onset: 08-30-2024 08-30-2024 Results Test Name Value Interpretation Reference Range Facility Office Visiton 09-25-2024 Follow-up visit [id number] Harvey Cabrales 1955 M Date Provider Department Center 09/25/2024 [id number] CRANE Family History Problem Relation Age of Onset Hypertension Brother Family Status - Relation Status Age at Brother Level of Service:88363 MD OFFICE/OUTPATIENT NEW MODERATE MDM 45 MINUTES Reason for Visit and Comments: Cerebrovascular Accident [149] - Recent CVA [facility] Had echo while inpatient. Denies lightheadedness/syncope, but c/o blurred vision. carotid artery stenosis [Other] - S/p right CEA a few weeks ago. He has follow up with the surgeon this week. Fatigue [46] - Says he's always thirsty and feels like he can't get enough water. Normal [facility] BASIC METABOLIC PANLon 09-03 Anion gap [Moles/Vol] 9 mmol/L Normal 5-15 [facility] Comment on above: Performed By: #### 7 18-7, PLTCT, PINR, 24164-1, HA1C #### [facility] ([id number]) [address], [address] [place] [address] Calcium [Mass/Vol] 9.3 mg/dL Normal 8.5-10.5 [facility] Comment on above: Performed By: #### 7 18-7, PLTCT, PINR, 12252-8, HA1C #### [facility] ([id number]) [address], [address] [place] [address] Chloride [Moles/Vol] 103 mmol/L Normal 98-109 [facility] Comment on above: Performed By: #### 7 18-7, PLTCT, PINR, 72732-5, HA1C #### [facility] ([id number]) [address], [address] [place] [address] CO2 [Moles/Vol] 27 mmol/L Normal 22-32 [facility] Comment on above: Performed By: #### 7 18-7, PLTCT, PINR, 56589-2, HA1C #### [facility] ([id number]) [address], [address] [place] [address] Creatinine [Mass/Vol] 0.92 mg/dL Normal 0.60-1.30 [facility] Comment on above: Result Comment: METH OD TRACEABLE TO IDMS STANDARD Performed By: #### 7 18-7, PLTCT, PINR, 29380-9, HA1C #### [facility] ([id number]) [address], [address] [place] [address] eGFR (CKD-EPI) NON-RACE DEPENDENT >90 Normal >59 [facility] Comment on above: Result Comment: Reported eGFR is based on the CKD-EPI 2020 equation that does not use a race coefficient. Performed By: #### 7 18-7, PLTCT, PINR, 11022-6, HA1C #### [facility] ([id number]) [address], [address] [place] [address] Glucose [Mass/Vol] 116 mg/dL High 65-99 [facility] Comment on above: Performed By: #### 7 18-7, PLTCT, PINR, 06535-4, HA1C #### [facility] ([id number]) [address], [address] [place] [address] Potassium [Moles/Vol] 4.1 mmol/L Normal 3.5-5.0 [facility] Comment on above: Performed By: #### 7 18-7, PLTCT, PINR, 21777-8, HA1C #### [facility] ([id number]) [address], [address] [place] [address] Sodium [Moles/Vol] 139 mmol/L Normal 134-146 [facility] Comment on above: Performed By: #### 7 18-7, PLTCT, PINR, 14314-8, HA1C #### [facility] ([id number]) [address], [address] [place] [address] Urea nitrogen [Mass/Vol] 16 mg/dL Normal 5-27 [facility] Comment on above: Performed By: #### 7 18-7, PLTCT, PINR, 05349-7, HA1C #### [facility] ([id number]) [address], [address] [place] [address] Glucose Glucometer (BldC) [M ass/Vol]on 09-03-2024 Glucose [Mass/Vol] 200 mg/dL High 65-99 [facility] Glucose [Mass/Vol] 106 mg/dL High 65-99 [facility] BASIC METABOLIC PANLon 09-02 Anion gap [Moles/Vol] 9 mmol/L Normal 5-15 [facility] Comment on above: Performed By: #### 7 18-7, PLTCT, PINR, 13904-7, HA1C #### [facility] ([id number]) [address], [address] [place] [address] Calcium [Mass/Vol] 9.2 mg/dL Normal 8.5-10.5 [facility] Comment on above: Performed By: #### 7 18-7, PLTCT, PINR, 24658-1, HA1C #### [facility] ([id number]) [address], [address] [place] [address] Chloride [Moles/Vol] 105 mmol/L Normal 98-109 [facility] Comment on above: Performed By: #### 7 18-7, PLTCT, PINR, 12946-0, HA1C #### [facility] ([id number]) [address], [address] [place] [address] CO2 [Moles/Vol] 25 mmol/L Normal 22-32 [facility] Comment on above: Performed By: #### 7 18-7, PLTCT, PINR, 44021-1, HA1C #### [facility] ([id number]) [address], [address] [place] [address] Creatinine [Mass/Vol] 0.89 mg/dL Normal 0.60-1.30 [facility] Comment on above: Result Comment: METH OD TRACEABLE TO IDMS STANDARD Performed By: #### 7 18-7, PLTCT, PINR, 47133-8, HA1C #### [facility] ([id number]) [address], [address] [place] [address] eGFR (CKD-EPI) NON-RACE DEPENDENT >90 Normal >59 [facility] Comment on above: Result Comment: Reported eGFR is based on the CKD-EPI 2020 equation that does not use a race coefficient. Performed By: #### 7 18-7, PLTCT, PINR, 26092-7, HA1C #### [facility] ([id number]) [address], [address] [place] [address] Glucose [Mass/Vol] 145 mg/dL High 65-99 [facility] Comment on above: Performed By: #### 7 18-7, PLTCT, PINR, 30083-4, HA1C #### [facility] ([id number]) [address], [address] [place] [address] Potassium [Moles/Vol] 3.9 mmol/L Normal 3.5-5.0 [facility] Comment on above: Performed By: #### 7 18-7, PLTCT, PINR, 31790-8, HA1C #### [facility] ([id number]) [address], [address] [place] [address] Sodium [Moles/Vol] 139 mmol/L Normal 134-146 [facility] Comment on above: Performed By: #### 7 18-7, PLTCT, PINR, 83878-9, HA1C #### [facility] ([id number]) [address], [address] [place] [address] Urea nitrogen [Mass/Vol] 17 mg/dL Normal 5-27 [facility] Comment on above: Performed By: #### 7 18-7, PLTCT, PINR, 13516-6, HA1C #### [facility] ([id number]) [address], [address] [place] [address] Glucose Glucometer (BldC) [M ass/Vol]on 09-02-2024 Glucose [Mass/Vol] 167 mg/dL High 65-99 [facility] Glucose [Mass/Vol] 154 mg/dL High 65-99 [facility] Glucose [Mass/Vol] 134 mg/dL High 65-99 [facility] Glucose [Mass/Vol] 132 mg/dL High 65-99 [facility] HEMOGLOBINon 09-02-2024 Hemoglobin (Bld) [Mass/Vol] 14.5 g/dL Normal 13.0-17.0 [facility] Comment on above: Performed By: #### 7 18-7, PLTCT, PINR, 06324-8, HA1C #### [facility] ([id number]) [address], [address] [place] [address] Heparin unfractionated Chrom ogenic method Qn (PPP)on 09-02-2024 ANTI XA UFH 0.99 IU/mL Critically high 0.30-0.70 [facility] Comment on above: Result Comment: Opti mal time for testing is 6 hrs post dosage This test is specific for monitoring patients on UFH, and is not recommended for use with other Anti-Xa medications. Performed By: #### 7 18-7, PLTCT, PINR, 34727-2, HA1C #### [facility] ([id number]) [address], [address] [place] [address] PLATELET COUNT AND MPVon Platelet mean volume (Bld) [Entitic vol] 8.8 fL Normal 7-12 [facility] Comment on above: Performed By: #### 7 18-7, PLTCT, PINR, 69694-0, HA1C #### [facility] ([id number]) [address], [address] [place] [address] Platelets (Bld) [#/Vol] 239 10*3/uL Normal 150-450 [facility] Comment on above: Performed By: #### 7 18-7, PLTCT, PINR, 41143-7, HA1C #### [facility] ([id number]) [address], [address] [place] [address] BASIC METABOLIC PANLon 09-01 Anion gap [Moles/Vol] 11 mmol/L Normal 5-15 [facility] Comment on above: Performed By: #### 7 18-7, PLTCT, PINR, 21558-4, HA1C #### [facility] ([id number]) [address], [address] [place] [address] Calcium [Mass/Vol] 9.2 mg/dL Normal 8.5-10.5 [facility] Comment on above: Performed By: #### 7 18-7, PLTCT, PINR, 66364-3, HA1C #### [facility] ([id number]) [address], [facility] [address] [place] [address] Chloride [Moles/Vol] 105 mmol/L Normal 98-109 [facility] Comment on above: Performed By: #### 7 18-7, PLTCT, PINR, 41064-7, HA1C #### [facility] ([id number]) [address], [address] [place] [address] CO2 [Moles/Vol] 25 mmol/L Normal 22-32 [facility] Comment on above: Performed By: #### 7 18-7, PLTCT, PINR, 34877-8, HA1C #### [facility] ([id number]) [address], [address] [place] [address] Creatinine [Mass/Vol] 0.90 mg/dL Normal 0.60-1.30 [facility] Comment on above: Result Comment: METH OD TRACEABLE TO IDMS STANDARD Performed By: #### 7 18-7, PLTCT, PINR, 83377-8, HA1C #### [facility] ([id number]) [address], [address] [place] [address] eGFR (CKD-EPI) NON-RACE DEPENDENT >90 Normal >59 [facility] Comment on above: Result Comment: Reported eGFR is based on the CKD-EPI 2020 equation that does not use a race coefficient. Performed By: #### 7 18-7, PLTCT, PINR, 46360-5, HA1C #### [facility] ([id number]) [address], [address] [place] [address] Glucose [Mass/Vol] 127 mg/dL High 65-99 [facility] Comment on above: Performed By: #### 7 18-7, PLTCT, PINR, 34279-0, HA1C #### [facility] ([id number]) [address], [address] [place] [address] Potassium [Moles/Vol] 4.1 mmol/L Normal 3.5-5.0 [facility] Comment on above: Performed By: #### 7 18-7, PLTCT, PINR, 46398-8, HA1C #### [facility] ([id number]) [address], [address] [place] [address] Sodium [Moles/Vol] 141 mmol/L Normal 134-146 [facility] Comment on above: Performed By: #### 7 18-7, PLTCT, PINR, 92641-8, HA1C #### [facility] ([id number]) [address], [address] [place] [address] Urea nitrogen [Mass/Vol] 20 mg/dL Normal 5-27 [facility] Comment on above: Performed By: #### 7 18-7, PLTCT, PINR, 26334-1, HA1C #### [facility] ([id number]) [address], [address] [place] [address] CBC AND AUTO DIFFon 12-28-20 24 ABSOLUTE BASOPHIL 0.2 X10E9/L Normal 0.0-0.2 [facility] Comment on above: Performed By: #### 7 18-7, PLTCT, PINR, 13087-8, HA1C #### [facility] ([id number]) [address], [address] [place] [address] ABSOLUTE NEUTROPHIL 6.1 X10E9/L Normal 1.5-6.6 [facility] Comment on above: Performed By: #### 7 18-7, PLTCT, PINR, 36900-5, HA1C #### [facility] ([id number]) [address], [address] [place] [address] Basophils/100 WBC (Bld) 1.5 % Normal [facility] Comment on above: Performed By: #### 7 18-7, PLTCT, PINR, 55779-4, HA1C #### [facility] ([id number]) [address], [address] [place] [address] Eosinophils (Bld) [#/Vol] 0.2 10*3/uL Normal 0.0-0.4 [facility] Comment on above: Performed By: #### 7 18-7, PLTCT, PINR, 06017-2, HA1C #### [facility] ([id number]) [address], [address] [place] [address] Eosinophils/100 WBC (Bld) 2.2 % Normal [facility] Comment on above: Performed By: #### 7 18-7, PLTCT, PINR, 49905-9, HA1C #### [facility] ([id number]) [address], [address] [place] [address] Erythrocyte distribution width (RBC) [Ratio] 13.6 % Normal 11.5-15.0 [facility] Comment on above: Performed By: #### 7 18-7, PLTCT, PINR, 94378-3, HA1C #### [facility] ([id number]) [address], [address] [place] [address] Hematocrit (Bld) [Volume fraction] 43.0 % Normal 39-49 [facility] Comment on above: Performed By: #### 7 18-7, PLTCT, PINR, 66538-3, HA1C #### [facility] ([id number]) [address], [address] [place] [address] Hemoglobin (Bld) [Mass/Vol] 14.8 g/dL Normal 13.0-17.0 [facility] Comment on above: Performed By: #### 7 18-7, PLTCT, PINR, 22791-8, HA1C #### [facility] ([id number]) [address], [address] [place] [address] Lymphocytes (Bld) [#/Vol] 3.4 10*3/uL Normal 1.0-3.5 [facility] Comment on above: Performed By: #### 7 18-7, PLTCT, PINR, 98580-3, HA1C #### [facility] ([id number]) [address] [address] Lymphocytes/100 WBC (Bld) 31.7 % Normal [facility] Comment on above: Performed By: #### 7 18-7, PLTCT, PINR, 92159-3, HA1C #### [facility] ([id number]) [address], [address] [place] [address] MCH (RBC) [Entitic mass] 31.0 pg Normal 27-34 [facility] Comment on above: Performed By: #### 7 18-7, PLTCT, PINR, 58239-0, HA1C #### [facility] ([id number]) [address], [address] [place] [address] MCHC (RBC) [Mass/Vol] 34.4 g/dL Normal 32-36 [facility] Comment on above: Performed By: #### 7 18-7, PLTCT, PINR, 72680-9, HA1C #### [facility] ([id number]) [address], [address] [place] [address] MCV (RBC) [Entitic vol] 90 fL Normal 80-100 [facility] Comment on above: Performed By: #### 7 18-7, PLTCT, PINR, 24226-7, HA1C #### [facility] ([id number]) [address], [address] [place] [address] Monocytes (Bld) [#/Vol] 0.7 10*3/uL Normal 0-0.9 [facility] Comment on above: Performed By: #### 7 18-7, PLTCT, PINR, 00676-5, HA1C #### [facility] ([id number]) [address] [place] [address] Monocytes/100 WBC (Bld) 6.9 % Normal [facility] Comment on above: Performed By: #### 7 18-7, PLTCT, PINR, 66450-8, HA1C #### [facility] ([id number]) [address] [place] [address] Neutrophils/100 WBC (Bld) 57.7 % Normal [facility] Comment on above: Performed By: #### 7 18-7, PLTCT, PINR, 01643-0, HA1C #### [facility] ([id number]) [address], [address] [place] [address] Platelet mean volume (Bld) [Entitic vol] 8.7 fL Normal 7-12 [facility] Comment on above: Performed By: #### 7 18-7, PLTCT, PINR, 22826-4, HA1C #### [facility] ([id number]) [address], [address] [place] [address] Platelets (Bld) [#/Vol] 254 10*3/uL Normal 150-450 [facility] Comment on above: Performed By: #### 7 18-7, PLTCT, PINR, 81476-9, HA1C #### [facility] ([id number]) [address], [address] [place] [address] RBC COUNT 4.78 X10E12/L Normal 4.10-5.70 [facility] Comment on above: Performed By: #### 7 18-7, PLTCT, PINR, 63057-1, HA1C #### [facility] ([id number]) [address], [address] [place] [address] WBC (Bld) [#/Vol] 10.6 10*3/uL Normal 4.0-11.0 [facility] Comment on above: Performed By: #### 7 18-7, PLTCT, PINR, 62806-7, HA1C #### [facility] ([id number]) [address], [address] [place] [address] Glucose Glucometer (BldC) [M ass/Vol]on 09-01-2024 Glucose [Mass/Vol] 189 mg/dL High 65-99 [facility] Glucose [Mass/Vol] 166 mg/dL High 65-99 [facility] Glucose [Mass/Vol] 103 mg/dL High 65-99 [facility] Glucose [Mass/Vol] 132 mg/dL High 65-99 [facility] HEMOGLOBINon 09-01-2024 Hemoglobin (Bld) [Mass/Vol] 14.2 g/dL Normal 13.0-17.0 [facility] Comment on above: Performed By: #### 7 18-7, PLTCT, PINR, 76644-6, HA1C #### [facility] ([id number]) [address], [address] [place] [address] Heparin unfractionated Chrom ogenic method Qn (PPP)on 09-01-2024 ANTI XA UFH 0.49 IU/mL Normal 0.30-0.70 [facility] Comment on above: Result Comment: Opti mal time for testing is 6 hrs post dosage This test is specific for monitoring patients on UFH, and is not recommended for use with other Anti-Xa medications. Performed By: #### 7 18-7, PLTCT, PINR, 45266-0, HA1C #### [facility] ([id number]) [address], [address] [place] [address] PLATELET COUNT AND MPVon Platelet mean volume (Bld) [Entitic vol] 8.4 fL Normal 7-12 [facility] Comment on above: Performed By: #### 7 18-7, PLTCT, PINR, 35687-6, HA1C #### [facility] ([id number]) [address], [address] [place] [address] Platelets (Bld) [#/Vol] 242 10*3/uL Normal 150-450 [facility] Comment on above: Performed By: #### 7 18-7, PLTCT, PINR, 61767-6, HA1C #### [facility] ([id number]) [address], [address] [place] [address] PROTIME AND INRon 09-01-2024 INR Coag (PPP) [Relative time] 1.2 {INR} High 0.8-1.1 [facility] Comment on above: Performed By: #### 7 18-7, PLTCT, PINR, 49798-4, HA1C #### [facility] ([id number]) [address], [facility] [address] [place] [address] PT Coag (PPP) [Time] 14.4 s High 9.8-13.2 [facility] Comment on above: Performed By: #### 7 18-7, PLTCT, PINR, 63208-3, HA1C #### [facility] ([id number]) [address], [address] [place] [address] aPTT Coag (PPP) [Time]on aPTT Coag (Bld) [Time] 43 s High 26-37 [facility] Comment on above: Performed By: #### 7 18-7, PLTCT, PINR, 47408-4, HA1C #### [facility] ([id number]) [address], [address] [place] [address] BASIC METABOLIC PANLon 08-31 Anion gap [Moles/Vol] 8 mmol/L Normal 5-15 [facility] Comment on above: Performed By: #### 7 18-7, PLTCT, PINR, 25032-0, HA1C #### [facility] ([id number]) [address], [address] [place] [address] Calcium [Mass/Vol] 9.2 mg/dL Normal 8.5-10.5 [facility] Comment on above: Performed By: #### 7 18-7, PLTCT, PINR, 55208-7, HA1C #### [facility] ([id number]) [address], [address] [place] [address] Chloride [Moles/Vol] 105 mmol/L Normal 98-109 [facility] Comment on above: Performed By: #### 7 18-7, PLTCT, PINR, 57685-9, HA1C #### [facility] ([id number]) [address], [address] [place] [address] CO2 [Moles/Vol] 25 mmol/L Normal 22-32 [facility] Comment on above: Performed By: #### 7 18-7, PLTCT, PINR, 92739-0, HA1C #### [facility] ([id number]) [address], [address] [place] [address] Creatinine [Mass/Vol] 0.90 mg/dL Normal 0.60-1.30 [facility] Comment on above: Result Comment: METH OD TRACEABLE TO IDMS STANDARD Performed By: #### 7 18-7, PLTCT, PINR, 92340-4, HA1C #### [facility] ([id number]) [address], [address] [place] [address] eGFR (CKD-EPI) NON-RACE DEPENDENT >90 Normal >59 [facility] Comment on above: Result Comment: Reported eGFR is based on the CKD-EPI 2020 equation that does not use a race coefficient. Performed By: #### 7 18-7, PLTCT, PINR, 42278-5, HA1C #### [facility] ([id number]) [address], [address] [place] [address] Glucose [Mass/Vol] 131 mg/dL High 65-99 [facility] Comment on above: Performed By: #### 7 18-7, PLTCT, PINR, 15108-9, HA1C #### [facility] ([id number]) [address], [facility] [address] [place] [address] Potassium [Moles/Vol] 3.8 mmol/L Normal 3.5-5.0 [facility] Comment on above: Performed By: #### 7 18-7, PLTCT, PINR, 80504-4, HA1C #### [facility] ([id number]) [address], [address] [place] [address] Sodium [Moles/Vol] 138 mmol/L Normal 134-146 [facility] Comment on above: Performed By: #### 7 18-7, PLTCT, PINR, 22299-5, HA1C #### [facility] ([id number]) [address], [address] [place] [address] Urea nitrogen [Mass/Vol] 23 mg/dL Normal 5-27 [facility] Comment on above: Performed By: #### 7 18-7, PLTCT, PINR, 55855-5, HA1C #### [facility] ([id number]) [address], [address] [place] [address] CBC AND AUTO DIFFon 12-27-20 24 ABSOLUTE BASOPHIL 0.1 X10E9/L Normal 0.0-0.2 [facility] Comment on above: Performed By: #### 7 18-7, PLTCT, PINR, 94235-2, HA1C #### [facility] ([id number]) [address] [address] [place] [address] ABSOLUTE NEUTROPHIL 6.6 X10E9/L Normal 1.5-6.6 [facility] Comment on above: Performed By: #### 7 18-7, PLTCT, PINR, 57101-7, HA1C #### [facility] ([id number]) [address], [address] [place] [address] Basophils/100 WBC (Bld) 1.0 % Normal [facility] Comment on above: Performed By: #### 7 18-7, PLTCT, PINR, 24986-6, HA1C #### [facility] ([id number]) [address], [address] [place] [address] Eosinophils (Bld) [#/Vol] 0.2 10*3/uL Normal 0.0-0.4 [facility] Comment on above: Performed By: #### 7 18-7, PLTCT, PINR, 33380-4, HA1C #### [facility] ([id number]) [address] [address] [place] [address] Eosinophils/100 WBC (Bld) 2.1 % Normal [facility] Comment on above: Performed By: #### 7 18-7, PLTCT, PINR, 85283-3, HA1C #### [facility] ([id number]) [address], [address] [place] [address] Erythrocyte distribution width (RBC) [Ratio] 13.3 % Normal 11.5-15.0 [facility] Comment on above: Performed By: #### 7 18-7, PLTCT, PINR, 90151-4, HA1C #### [facility] ([id number]) [address], [address] [place] [address] Hematocrit (Bld) [Volume fraction] 43.1 % Normal 39-49 [facility] Comment on above: Performed By: #### 7 18-7, PLTCT, PINR, 90911-1, HA1C #### [facility] ([id number]) [address], [address] [place] [address] Hemoglobin (Bld) [Mass/Vol] 14.6 g/dL Normal 13.0-17.0 [facility] Comment on above: Performed By: #### 7 18-7, PLTCT, PINR, 21841-9, HA1C #### [facility] ([id number]) [address], [address] [place] [address] Lymphocytes (Bld) [#/Vol] 3.8 10*3/uL High 1.0-3.5 [facility] Comment on above: Performed By: #### 7 18-7, PLTCT, PINR, 95071-2, HA1C #### [facility] ([id number]) [address], [address] [place] [address] Lymphocytes/100 WBC (Bld) 32.6 % Normal [facility] Comment on above: Performed By: #### 7 18-7, PLTCT, PINR, 40843-3, HA1C #### [facility] ([id number]) [address], [address] [place] [address] MCH (RBC) [Entitic mass] 30.8 pg Normal 27-34 [facility] Comment on above: Performed By: #### 7 18-7, PLTCT, PINR, 09018-6, HA1C #### [facility] ([id number]) [address], [address] [place] [address] MCHC (RBC) [Mass/Vol] 33.9 g/dL Normal 32-36 [facility] Comment on above: Performed By: #### 7 18-7, PLTCT, PINR, 34248-8, HA1C #### [facility] ([id number]) [address], [address] [place] [address] MCV (RBC) [Entitic vol] 91 fL Normal 80-100 [facility] Comment on above: Performed By: #### 7 18-7, PLTCT, PINR, 77548-8, HA1C #### [facility] ([id number]) [address], [address] [place] [address] Monocytes (Bld) [#/Vol] 0.9 10*3/uL Normal 0-0.9 [facility] Comment on above: Performed By: #### 7 18-7, PLTCT, PINR, 00779-5, HA1C #### [facility] ([id number]) [address], [address] [place] [address] Monocytes/100 WBC (Bld) 8.0 % Normal [facility] Comment on above: Performed By: #### 7 18-7, PLTCT, PINR, 31305-5, HA1C #### [facility] ([id number]) [address], [address] [place] [address] Neutrophils/100 WBC (Bld) 56.3 % Normal [facility] Comment on above: Performed By: #### 7 18-7, PLTCT, PINR, 31010-9, HA1C #### [facility] ([id number]) [address], [address] [place] [address] Platelet mean volume (Bld) [Entitic vol] 8.7 fL Normal 7-12 [facility] Comment on above: Performed By: #### 7 18-7, PLTCT, PINR, 34253-6, HA1C #### [facility] ([id number]) [address], [address] [place] [address] Platelets (Bld) [#/Vol] 237 10*3/uL Normal 150-450 [facility] Comment on above: Performed By: #### 7 18-7, PLTCT, PINR, 47210-1, HA1C #### [facility] ([id number]) [address], [address] [place] [address] RBC COUNT 4.75 X10E12/L Normal 4.10-5.70 [facility] Comment on above: Performed By: #### 7 18-7, PLTCT, PINR, 15567-2, HA1C #### [facility] ([id number]) [address], [address] [place] [address] WBC (Bld) [#/Vol] 11.7 10*3/uL High 4.0-11.0 [facility] Comment on above: Performed By: #### 7 18-7, PLTCT, PINR, 44654-2, HA1C #### [facility] ([id number]) [address], [address] [place] [address] Glucose Glucometer (dC) [M ass/Vol]on 08-31-2024 Glucose [Mass/Vol] 182 mg/dL High 65-99 [facility] Glucose [Mass/Vol] 234 mg/dL High 65-99 [facility] Glucose [Mass/Vol] 101 mg/dL High 65-99 [facility] Glucose [Mass/Vol] 124 mg/dL High 65-99 [facility] POTASSIUMon 08-31-2024 Potassium [Moles/Vol] 4.0 mmol/L Normal 3.5-5.0 [facility] Comment on above: Performed By: #### 7 18-7, PLTCT, PINR, 98633-2, HA1C #### [facility] ([id number]) [address], [address] [place] [address] BASIC METABOLIC PANLon 08-30 Anion gap [Moles/Vol] 8 mmol/L Normal 5-15 [facility] Comment on above: Performed By: #### 7 18-7, PLTCT, PINR, 45865-3, HA1C #### [facility] ([id number]) [address] [address] [place] [address] Calcium [Mass/Vol] 9.4 mg/dL Normal 8.5-10.5 [facility] Comment on above: Performed By: #### 7 18-7, PLTCT, PINR, 52867-3, HA1C #### [facility] ([id number]) [address], [address] [address] Chloride [Moles/Vol] 104 mmol/L Normal 98-109 [facility] Comment on above: Performed By: #### 7 18-7, PLTCT, PINR, 74999-4, HA1C #### [facility] ([id number]) [address] [address] CO2 [Moles/Vol] 27 mmol/L Normal 22-32 [facility] Comment on above: Performed By: #### 7 18-7, PLTCT, PINR, 27338-2, HA1C #### [facility] ([id number]) [address] [address] Creatinine [Mass/Vol] 0.94 mg/dL Normal 0.60-1.30 [facility] Comment on above: Result Comment: METH OD TRACEABLE TO IDMS STANDARD Performed By: #### 7 18-7, PLTCT, PINR, 88034-7, HA1C #### [facility] ([id number]) [address] [address] [place] [address] GFR/1.73 sq M.predicted among non-blacks MDRD (S/P/Bld) [Vol rate/Area] 89 mL/min/{1.73_m2} Normal >59 [facility] Comment on above: Result Comment: Reported eGFR is based on the CKD-EPI 2020 equation that does not use a race coefficient. Performed By: #### 7 18-7, PLTCT, PINR, 24973-3, HA1C #### [facility] ([id number]) [address], [address] [place] [address] Glucose [Mass/Vol] 109 mg/dL High 65-99 [facility] Comment on above: Performed By: #### 7 18-7, PLTCT, PINR, 55493-3, HA1C #### [facility] ([id number]) [address], [address] [place] [address] Potassium [Moles/Vol] 3.9 mmol/L Normal 3.5-5.0 [facility] Comment on above: Performed By: #### 7 18-7, PLTCT, PINR, 56376-7, HA1C #### [facility] ([id number]) [address], [address] [place] [address] Sodium [Moles/Vol] 139 mmol/L Normal 134-146 [facility] Comment on above: Performed By: #### 7 18-7, PLTCT, PINR, 81127-1, HA1C #### [facility] ([id number]) [address], [address] [place] [address] Urea nitrogen [Mass/Vol] 25 mg/dL Normal 5-27 [facility] Comment on above: Performed By: #### 7 18-7, PLTCT, PINR, 16703-3, HA1C #### [facility] ([id number]) [address], [address] [place] [address] CBC AND AUTO DIFFon 12-26-20 24 ABSOLUTE BASOPHIL 0.1 X10E9/L Normal 0.0-0.2 [facility] Comment on above: Performed By: #### 7 18-7, PLTCT, PINR, 82302-1, HA1C #### [facility] ([id number]) [address], [address] [place] [address] ABSOLUTE NEUTROPHIL 6.5 X10E9/L Normal 1.5-6.6 [facility] Comment on above: Performed By: #### 7 18-7, PLTCT, PINR, 18433-3, HA1C #### [facility] ([id number]) [address], [address] [place] [address] Basophils/100 WBC (Bld) 1.0 % Normal [facility] Comment on above: Performed By: #### 7 18-7, PLTCT, PINR, 31391-3, HA1C #### [facility] ([id number]) [address], [address] [place] [address] Eosinophils (Bld) [#/Vol] 0.3 10*3/uL Normal 0.0-0.4 [facility] Comment on above: Performed By: #### 7 18-7, PLTCT, PINR, 58149-6, HA1C #### [facility] ([id number]) [address], [address] [place] [address] Eosinophils/100 WBC (Bld) 2.5 % Normal [facility] Comment on above: Performed By: #### 7 18-7, PLTCT, PINR, 42737-8, HA1C #### [facility] ([id number]) [address], [address] [place] [address] Erythrocyte distribution width (RBC) [Ratio] 13.5 % Normal 11.5-15.0 [facility] Comment on above: Performed By: #### 7 18-7, PLTCT, PINR, 33176-9, HA1C #### [facility] ([id number]) [address], [address] [place] [address] Hematocrit (Bld) [Volume fraction] 44.1 % Normal 39-49 [facility] Comment on above: Performed By: #### 7 18-7, PLTCT, PINR, 65448-4, HA1C #### [facility] ([id number]) [address], [address] [place] [address] Hemoglobin (Bld) [Mass/Vol] 14.9 g/dL Normal 13.0-17.0 [facility] Comment on above: Performed By: #### 7 18-7, PLTCT, PINR, 34584-7, HA1C #### [facility] ([id number]) [address], [address] [place] [address] Lymphocytes (Bld) [#/Vol] 4.0 10*3/uL High 1.0-3.5 [facility] Comment on above: Performed By: #### 7 18-7, PLTCT, PINR, 98449-8, HA1C #### [facility] ([id number]) [address] [place] [address] Lymphocytes/100 WBC (Bld) 33.5 % Normal [facility] Comment on above: Performed By: #### 7 18-7, PLTCT, PINR, 52454-2, HA1C #### [facility] ([id number]) [address], [facility] [address] [place] [address] MCH (RBC) [Entitic mass] 30.5 pg Normal 27-34 [facility] Comment on above: Performed By: #### 7 18-7, PLTCT, PINR, 55282-8, HA1C #### [facility] ([id number]) [address], [address] [place] [address] MCHC (RBC) [Mass/Vol] 33.7 g/dL Normal 32-36 [facility] Comment on above: Performed By: #### 7 18-7, PLTCT, PINR, 92045-9, HA1C #### [facility] ([id number]) [address], [address] [place] [address] MCV (RBC) [Entitic vol] 91 fL Normal 80-100 [facility] Comment on above: Performed By: #### 7 18-7, PLTCT, PINR, 27911-5, HA1C #### [facility] ([id number]) [address], [address] [place] [address] Monocytes (Bld) [#/Vol] 1.0 10*3/uL High 0-0.9 [facility] Comment on above: Performed By: #### 7 18-7, PLTCT, PINR, 73388-4, HA1C #### [facility] ([id number]) [address] [place] [address] Monocytes/100 WBC (Bld) 8.6 % Normal [facility] Comment on above: Performed By: #### 7 18-7, PLTCT, PINR, 07486-9, HA1C #### [facility] ([id number]) [address] [place] [address] Neutrophils/100 WBC (Bld) 54.4 % Normal [facility] Comment on above: Performed By: #### 7 18-7, PLTCT, PINR, 55353-9, HA1C #### [facility] ([id number]) [address] [place] [address] Platelet mean volume (Bld) [Entitic vol] 8.4 fL Normal 7-12 [facility] Comment on above: Performed By: #### 7 18-7, PLTCT, PINR, 94943-2, HA1C #### [facility] ([id number]) [address], [address] [place] [address] Platelets (Bld) [#/Vol] 238 10*3/uL Normal 150-450 [facility] Comment on above: Performed By: #### 7 18-7, PLTCT, PINR, 95727-2, HA1C #### [facility] ([id number]) [address], [address] [place] [address] RBC COUNT 4.86 X10E12/L Normal 4.10-5.70 [facility] Comment on above: Performed By: #### 7 18-7, PLTCT, PINR, 79710-5, TASHA #### [facility] ([id number]) [address], [address] [place] [address] WBC (Bld) [#/Vol] 11.9 10*3/uL High 4.0-11.0 [facility] Comment on above: Performed By: #### 7 18-7, PLTCT, PINR, 05161-5, TASHA #### [facility] ([id number]) [address], [address] [place] [address] Glucose Glucometer (BldC) [M ass/Vol]on 08-30-2024 Glucose [Mass/Vol] 199 mg/dL High 65-99 [facility] Glucose [Mass/Vol] 291 mg/dL High 65-99 [facility] Glucose [Mass/Vol] 87 mg/dL Normal 65-99 [facility] Lipid 1996 panelon Cholesterol [Mass/Vol] 99 mg/dL Low 150-200 [facility] Comment on above: Performed By: #### 7 18-7, PLTCT, PINR, 11123-1, TASHA #### [facility] ([id number]) [address], [address] [place] [address] Cholesterol in HDL [Mass/Vol] 31 mg/dL Low >39 [facility] Comment on above: Result Comment: HDL <40 mg/dL - High Risk HDL > or = 40mg/dL- Desirable HDL >60 mg/dL - Negative Risk Performed By: #### 7 18-7, PLTCT, PINR, 11036-1, HA1C #### [facility] ([id number]) [address] [place] [address] Cholesterol in LDL [Mass/Vol] 54 mg/dL Normal <130 [facility] Comment on above: Result Comment: LDL <100 mg/dL - Desirable LDL >160 mg/dL - High Risk Performed By: #### 7 18-7, PLTCT, PINR, 70905-8, HA1C #### [facility] ([id number]) [address], [address] [place] [address] Cholesterol in VLDL [Mass/Vol] 14 mg/dL Normal 0-30 [facility] Comment on above: Performed By: #### 7 18-7, PLTCT, PINR, 49925-0, HA1C #### [facility] ([id number]) [address], [address] [place] [address] CHOLESTEROL:HDL 3.2 Normal 1.0-5.0 [facility] Comment on above: Performed By: #### 7 18-7, PLTCT, PINR, 72679-6, HA1C #### [facility] ([id number]) [address] [place] [address] Triglyceride [Mass/Vol] 68 mg/dL Normal 27-150 [facility] Comment on above: Performed By: #### 7 18-7, PLTCT, PINR, 73149-9, HA1C #### [facility] ([id number]) [address], [address] [address] MR BRAIN WO CONTon 4 MR BRAIN WO CONT MR BRAIN WO [...] Marie MD on 08/30/2024 1:59 PM Normal [facility] BASIC METABOLIC PANLon 08-29 Anion gap [Moles/Vol] 11 mmol/L Normal 5-15 [facility] Comment on above: Performed By: #### B MP #### [facility] ([id number]) [address], [address] [place] [address] Calcium [Mass/Vol] 9.7 mg/dL Normal 8.5-10.5 [facility] Comment on above: Performed By: #### B MP #### [facility] ([id number]) [address], [address] [place] [address] Chloride [Moles/Vol] 101 mmol/L Normal 98-109 [facility] Comment on above: Performed By: #### B MP #### [facility] ([id number]) [address] [place] [address] CO2 [Moles/Vol] 27 mmol/L Normal 22-32 [facility] Comment on above: Performed By: #### B MP #### [facility] ([id number]) [address] [place] [address] Creatinine [Mass/Vol] 1.01 mg/dL Normal 0.60-1.30 [facility] Comment on above: Result Comment: METH OD TRACEABLE TO IDMS STANDARD Performed By: #### B MP #### [facility] ([id number]) [address] [place] [address] GFR/1.73 sq M.predicted among non-blacks MDRD (S/P/Bld) [Vol rate/Area] 82 mL/min/{1.73_m2} Normal >59 [facility] Comment on above: Result Comment: Reported eGFR is based on the CKD-EPI 2020 equation that does not use a race coefficient. Performed By: #### B MP #### [facility] ([id number]) [address] [address] [place] [address] Glucose [Mass/Vol] 122 mg/dL High 65-99 [facility] Comment on above: Performed By: #### B MP #### [facility] ([id number]) [address] [address] Potassium [Moles/Vol] 3.4 mmol/L Low 3.5-5.0 [facility] Comment on above: Performed By: #### B MP #### [facility] ([id number]) [address] [address] [place] [address] Sodium [Moles/Vol] 139 mmol/L Normal 134-146 [facility] Comment on above: Performed By: #### B MP #### [facility] ([id number]) [address] [address] Urea nitrogen [Mass/Vol] 22 mg/dL Normal 5-27 [facility] Comment on above: Performed By: #### B MP #### [facility] ([id number]) [address] [address] [place] [address] Glucose Glucometer (BldC) [M ass/Vol]on 08-29-2024 Glucose [Mass/Vol] 116 mg/dL High 65- [facility] Glucose [Mass/Vol] 155 mg/dL High 65- [facility] HEMOGLOBINon 08-29-2024 Hemoglobin (Bld) [Mass/Vol] 15.4 g/dL Normal 13.0-17.0 [facility] Comment on above: Performed By: #### 7 18-7, PLTCT, PINR, 51448-9, HA1C #### [facility] ([id number]) [address] [place] [address] HGB A1C (GLYCO-HGB)on 2023 Glucose [Mass/Vol] 171 mg/dL Normal [facility] Comment on above: Performed By: #### 7 18-7, PLTCT, PINR, 54864-0, HA1C #### [facility] ([id number]) [address] [place] [address] HbA1c (Bld) [Mass fraction] 7.6 % High 4.4-5.6 [facility] Comment on above: Result Comment: NOTE ADA Guidelines Result HgbA1c Normal : less than 5.7 % Prediabetes : 5.7 % to 6.4 % Diabetes : > 6.4 % Use with caution in patients with abnormal hemoglobin variants as the half-life of red blood cells and in vivo glycation rates are affected. Performed By: #### 7 18-7, PLTCT, PINR, 16582-6, HA1C #### [facility] ([id number]) [address] [place] [address] Heparin unfractionated Chrom ogenic method Qn (PPP)on 08-29-2024 ANTI XA UFH 0.16 IU/mL Low 0.30-0.70 [facility] Comment on above: Result Comment: Opti mal time for testing is 6 hrs post dosage This test is specific for monitoring patients on UFH, and is not recommended for use with other Anti-Xa medications. Performed By: #### 3 274-8 #### [facility] ([id number]) [address] [place] [address] ANTI XA UFH 0.10 IU/mL Low 0.30-0.70 [facility] Comment on above: Result Comment: Opti mal time for testing is 6 hrs post dosage This test is specific for monitoring patients on UFH, and is not recommended for use with other Anti-Xa medications. Performed By: #### 3 274-8 #### [facility] ([id number]) [address] [place] [address] PLATELET COUNT AND MPVon Platelet mean volume (Bld) [Entitic vol] 8.3 fL Normal 7-12 [facility] Comment on above: Performed By: #### 7 18-7, PLTCT, PINR, 50628-6, HA1C #### [facility] ([id number]) [address] [place] [address] Platelets (Bld) [#/Vol] 243 10*3/uL Normal 150-450 [facility] Comment on above: Performed By: #### 7 18-7, PLTCT, PINR, 27657-6, HA1C #### [facility] ([id number]) [address], [address] [place] [address] PROTIME AND INRon 08-29-2024 INR Coag (PPP) [Relative time] 1.3 {INR} High 0.8-1.1 [facility] Comment on above: Performed By: #### 7 18-7, PLTCT, PINR, 91422-2, HA1C #### [facility] ([id number]) [address], [address] [place] [address] PT Coag (PPP) [Time] 15.0 s High 9.8-13.2 [facility] Comment on above: Performed By: #### 7 18-7, PLTCT, PINR, 27020-9, HA1C #### [facility] ([id number]) [address], [address] [place] [address] aPTT Coag (PPP) [Time]on aPTT Coag (Bld) [Time] 34 s Normal 26-37 [facility] Comment on above: Performed By: #### 7 18-7, PLTCT, PINR, 88453-1, HA1C #### [facility] ([id number]) [address] [place] [address] Provider Letteron 03-04-2023 Provider Letter (Inserted Image. Carin ble to display) March 04, 2023 HARVEY SAMRA [address] [place] [address] : 1955 Dear Mr. Harvey Cabrales , This letter is to inform you the the providers of [facility], [facility] (Dr. Kameron Barr) will no longer be [...] physicians can be found on [facility]'s website at [email or web address] or you may contact your health plan. We will be glad to forward your records to your new physician as long as we receive a signed release of records form. Sincerely, Kameron Barr M.D., F.A.C.S. [facility] [address] [place] [address] , Option #3 Normal [facility] Patient Letter FTon 2022 Patient Letter [facility] January 21, 2023 HARVEY CABRALES [address] [place] [address] : 1955 SENT REGULAR/CERTIFIED MAIL Dear Mr. Harvey Cabrales, [facility], Dr. Kameron Barr, [...] Kameron Barr M.D., F.A.C.S. [facility] [address] [place], [place] [id number] , Option #3 Normal [facility] Urine Cytology ([facility])on 0 12-28-2022 Urine Cytology Diagnosis Info Invalid Interpretation Code [facility] Comment on above: Result Comment: A:Ur ine,Urine:Voided [...] on: 12/28/2022 09:05:14 Performed By: #### 1 [id number] #### [facility] [address] [place] [address] Formson 12-23-2022 Forms [id number]:127 Normal [facility] Physician Referralon 023 Physician Referral [id number]:127 Normal [facility] Screenson 12-23-2022 Screens [id number]:127 Normal [facility] Ambulatory Visit Summaryon 0 12-22-2022 Ambulatory Visit Summary HARVEY CABRALES :1955 Visit Date:12/22/2022 Ambulatory Visit Instructions Your Diagnosis Microhematuria Benign prostatic hyperplasia (BPH) with post-void dribbling Family history of kidney cancer Tests Performed Urnls Dip Stick Auto w/o Microscopy POC 77386 Your Care Team Attending Physician - Kameron [...] Schedule the Following Appointments Follow Up with Kameron BARR MD, YI When: Where: [facility] [address], [place] [address]- Medications What How Much When Instructions Unchanged lisinopril (lisinopril 20 mg Tab) Every day Contact prescribing physician if questions or concerns Unchanged metformin Contact prescribing physician if questions or concerns Unchanged pantoprazole (Pantoprazole [address] Tab) Every day Contact prescribing physician if questions or concerns Test Results Urnls Dip Stick Auto w/o Microscopy POC 94694 (12/22/2022) Bilirubin Urine Dipstick - Negative Blood Urine Dipstick - 2+ Moderate Glucose Urine Dipstick - Negative Ketones Urine Dipstick - Negative Leukocytes Urine Dipstick - Negative Nitrite Urine Dipstick - Negative Protein Urine Dipstick - Negative Specific Goehner Urine Dipstick - 1.020 Urine Appearance Urine [...] these instructions at home: Medicines ? Take zbmr-pcb-cmiaymz and prescription medicines only as told by [...] do not (more content not included)... Normal [facility] Urine Cytology ([facility])on 0 12-22-2022 UC Method of Extraction Voided Normal [facility] Comment on above: Performed By: #### 1 [id number] #### [facility] [address] [facility] [place] [address] Number of Jars 1 Invalid Interpretation Code [facility] Comment on above: Performed By: #### 1 [id number] #### [facility] [address] [facility] [place] [address] Specimen Urine Normal [facility] Comment on above: Performed By: #### 1 [id number] #### [facility] [address] [facility] [place] [address] Type of Service Technical Only Normal Fi [facility] Comment on above: Performed By: #### 1 [id number] #### [facility] [address] [facility] [place] [address] Urology Office/Clinic Noteon 12-22-2022 Urology Office/Clinic Note [...] URL [facility] [address], [place] [address]- Additional Instructions: schedule cysto Patient Education Hematuria, [...] Hyperlipidemia Hypertens (more content not included)... Normal [facility] Comment on above: Result Comment: Elec tronically [...] these instructions at home: Medicines ? Take aill-eps-qvzcyqt and prescription medicines only as told by [...] the blood stops without treatment. ? Take orpx-pzn-vbqdyub and prescription medicines only as told by your health care provider. ? Drink enough fluid to keep your urine pale yellow. This information is not intended to replace advice given to you by your health care provider. Make sure you discuss any questions you have with your health care provider. Document Revised: 04/22/2021 Document Reviewed: 04/22/2021 [employer] Patient Education ? 2022 [employer]. Normal [facility] OCC BLD IMMUNO SCREENon 11-03 OCCULT BLOOD Negative Normal NEGATIVE [facility] Comment on above: Performed By: #### O BSCRN #### [facility] [address] [address] [address] Tom Chacko US KIDNEYS BLADDERon 11-12- 023 US KIDNEYS BLADDER EXAMINATION: [facility] BLADDER HISTORY: Blood in urine COMPARISON: No [...] Date: 2022-11-12 13:02 Normal [facility] CA 19-9on 11-05-2022 CA 19-9 9 U/mL Normal 0-35 [facility] Comment on above: Result Comment: [employer] Electrochemiluminescence Immunoassay (ECLIA) . Values obtained with different assay methods or kits cannot be used interchangeably. Results cannot be interpreted as absolute evidence of the presence or absence of malignant disease. Performed By: #### C A 19,9 #### [facility] [address] [address] [address] Tom Chacko INSULINon 11-05-2022 Insulin 17.2 uIU/mL Normal 2.6-24.9 [facility] Comment on above: Performed By: #### I NSULIN ####[facility] [id number] [address]Dr. Tom Chacko CBC AUTO DIFFon 11-04-2022 BASO # 0.1 103/ul Normal 0.0-0.1 [facility] Comment on above: Performed By: #### C BC #### [facility] [address] [place] [address] Dr. Tom Chacko Basophils/100 WBC (Bld) 1.0 % Normal 0.2-2.0 [facility] Comment on above: Performed By: #### C BC #### [facility] [address] [place] [address] Dr. Tom Chacko EO # 0.4 103/ul Normal 0.0-0.7 [facility] Comment on above: Performed By: #### C BC #### [facility] [address] [place] [address] Dr. Tom Chacko Eosinophils/100 WBC (Bld) 3.2 % Normal 0.9-7.0 [facility] Comment on above: Performed By: #### C BC #### [facility] [address] [place] [address] Dr. Tom Chacko Erythrocyte distribution width (RBC) [Ratio] 13.5 % Normal 11.0-15.0 [facility] Comment on above: Performed By: #### C BC #### [facility] [address] [place] [address] Dr. Tom Chacko Hematocrit (Bld) [Volume fraction] 45.7 % Normal 42.0-54.0 [facility] Comment on above: Performed By: #### C BC #### [facility] [address] [place] [address] Dr. Tom Chacko Hemoglobin (Bld) [Mass/Vol] 15.7 g/dL Normal 14.0-18.0 [facility] Comment on above: Performed By: #### C BC #### [facility] [address] [place] [address] Dr. Tom Chacko IG # 0.05 10e3/ul Critically high 0.00-0.03 [facility] Comment on above: Performed By: #### C BC #### [facility] [address] [place] [address] Dr. Tom Chacko IG % 0.4 % Normal 0.0-0.5 [facility] Comment on above: Performed By: #### C BC #### [facility] [address] [place] [address] Dr. Tom Chacko LYMPH # 3.8 103/ul Normal 1.2-3.8 [facility] Comment on above: Performed By: #### C BC #### [facility] [address] [place] [address] Dr. Tom Chacko Lymphocytes/100 WBC (Bld) 31.9 % Normal 20.5-60.0 [facility] Comment on above: Performed By: #### C BC #### [facility] [address] [place] [address] Dr. Tom Chacko MANUAL DIFF REQ NO Normal [facility] Comment on above: Performed By: #### C BC #### [facility] [address] [place] [address] Dr. Tom Chacko MCH (RBC) [Entitic mass] 30.3 pg Normal 25.9-34.0 [facility] Comment on above: Performed By: #### C BC #### [facility] [address] [place] [address] Dr. Tom Chacko MCHC (RBC) [Mass/Vol] 34.4 g/dL Normal 29.9-35.2 [facility] Comment on above: Performed By: #### C BC #### [facility] [address] [address] [address] Tom Chacko MCV (RBC) [Entitic vol] 88.2 fL Normal 80.0-94.0 [facility] Comment on above: Performed By: #### C BC #### [facility] [address] [address] [address] Tom Chacko MONO # 0.8 103/ul Normal 0.3-0.8 [facility] Comment on above: Performed By: #### C BC #### [facility] [address] [place] [address] Dr. Tom Chacko Monocytes/100 WBC (Bld) 6.6 % Normal 1.7-12.0 [facility] Comment on above: Performed By: #### C BC #### [facility] [address] [place] [address] Dr. Tom Chacko NEUT # 6.8 103/ul Critically high 1.4-6.5 [facility] Comment on above: Performed By: #### C BC #### [facility] [address] [place] [address] Dr. Tom Chacko Neutrophils/100 WBC (Bld) 56.9 % Normal 43.0-75.0 [facility] Comment on above: Performed By: #### C BC #### [facility] [address] [place] [address] Dr. Tom Chacko Platelet mean volume (Bld) [Entitic vol] 9.6 fL Normal 9.5-13.5 [facility] Comment on above: Performed By: #### C BC #### [facility] [address] [place] [address] Dr. Tom Chacko PLT 258 103/ul Normal 150-450 [facility] Comment on above: Performed By: #### C BC #### [facility] [address] [place] [address] Dr. Tom Chacko RBC 5.18 106/ul Normal 4.70-6.10 [facility] Comment on above: Performed By: #### C BC #### [facility] [address] [address] [address] Tom Chacko WBC 11.9 103/ul Critically high 4.0-11.0 [facility] Comment on above: Performed By: #### C BC #### [facility] [address] [place] [address] Dr. oTm Chacko GLYCOHEMOGLOBIN A1Con 2022 ADA RECOMMENDATION SEE BELOW Normal [facility] Comment on above: Result Comment: ADA RECOMMENDED LIMIT 4.0 - 6.0 ADA THERAPEUTIC TARGET < 7.0 ACTION SUGGESTED > 7.0 Performed By: #### A 1C #### [facility] [address] [place] [address] Dr. Tom Chacko Glucose [Mass/Vol] 120 mg/dL Normal [facility] Comment on above: Performed By: #### A 1C #### [facility] [address] [place] [address] Dr. Tom Chacko HbA1c (Bld) [Mass fraction] 5.8 % Normal 4.5-6.2 [facility] Comment on above: Performed By: #### A 1C #### [facility] [address] [place] [address] Dr. Tom Chacko LIPID PROFILEon 11-04-2022 CHOL-HDL RATIO NORM SEE BELOW Normal [facility] Comment on above: Result Comment: 3.3 - 4.4 LOW RISK 4.4 - 7.1 AVERAGE RISK 7.1 - 11.0 MODERATE RISK >11.0 HIGH RISK Performed By: #### C MP, URIC, LIPID #### [facility] [address] [place] [address] Dr. Tom Chacko Cholesterol [Mass/Vol] 112 mg/dL Normal <=200 [facility] Comment on above: Performed By: #### C MP, URIC, LIPID #### [facility] [address] [place] [address] Dr. Tom Chacko Cholesterol in HDL [Mass/Vol] 34 mg/dL Critically low 40-60 [facility] Comment on above: Performed By: #### C MP, URIC, LIPID #### [facility] [address] [address] [address] Tom Chacko Cholesterol in LDL [Mass/Vol] 48.6 mg/dL Normal [facility] Comment on above: Performed By: #### C MP, URIC, LIPID #### [facility] [address] [address] [address] Tom Chacko Cholesterol.total/ Cholesterol in HDL [Mass ratio] 3.3 {ratio} Normal [facility] Comment on above: Performed By: #### C MP, URIC, LIPID #### [facility] [address] [address] [address] Tom Chacko HDL NORMAL > or = 60 mg/dl - LO W CARDIOVASCULAR RISK <40 mg/dl - HIGH CARDIOVASCULAR RISK Normal [facility] Comment on above: Performed By: #### C MP, URIC, LIPID #### [facility] [address] [place] [address] Dr. Tom Chacko LDL CALC NORMAL SEE BELOW Normal [facility] Comment on above: Result Comment: <100 mg/dl OPTIMAL 100 - 129 mg/dl NEAR OR ABOVE OPTIMAL 130 - 159 mg/dl BORDERLINE HIGH 160 - 189 mg/dl HIGH >190 mg/dl VERY HIGH Performed By: #### C MP, URIC, LIPID #### [facility] [address] [place] [address] Dr. Tom Chacko Triglyceride [Mass/Vol] 147 mg/dL Normal <=150 [facility] Comment on above: Performed By: #### C MP, URIC, LIPID #### [facility] [address] [address] [address] Tom Chacko VLDL CALC 29.4 mg/dL Normal [facility] Comment on above: Performed By: #### C MP, URIC, LIPID #### [facility] [address] [place] [address] Dr. Tom Chacko PROF 14(COMP METB)on 023 Albumin [Mass/Vol] 3.8 g/dL Normal 3.4-5.0 [facility] Comment on above: Performed By: #### C MP, URIC, LIPID #### [facility] [address] [address] [address] Tom Chacko Albumin/Globulin [Mass ratio] 1.1 {ratio} Normal [facility] Comment on above: Performed By: #### C MP, URIC, LIPID #### [facility] [address] [address] [address] Tom Chacko ALP [Catalytic activity/Vol] 73 U/L Normal 46-116 [facility] Comment on above: Performed By: #### C MP, URIC, LIPID #### [facility] [address] [address] [address] Tom Chacko ALT [Catalytic activity/Vol] 28 U/L Normal 16-63 [facility] Comment on above: Performed By: #### C MP, URIC, LIPID #### [facility] [address] [address] [address] Tom Chacko Anion gap [Moles/Vol] 10.3 mmol/L Normal [facility] Comment on above: Performed By: #### C MP, URIC, LIPID #### [facility] [address] [address] [address] Tom Chacko AST [Catalytic activity/Vol] 17 U/L Normal 15-37 [facility] Comment on above: Performed By: #### C MP, URIC, LIPID #### [facility] [address] [address] [address] Tom Chacko Bilirubin [Mass/Vol] 0.4 mg/dL Normal 0.2-1.0 [facility] Comment on above: Performed By: #### C MP, URIC, LIPID #### [facility] [address] [address] [address] Tom Chacko Calcium [Mass/Vol] 9.3 mg/dL Normal 8.5-10.1 [facility] Comment on above: Performed By: #### C MP, URIC, LIPID #### [facility] [address] [address] [address] Tom Chacko Chloride [Moles/Vol] 104 mmol/L Normal 98-107 [facility] Comment on above: Performed By: #### C MP, URIC, LIPID #### [facility] [address] [address] [address] Tom Chacko CO2 [Moles/Vol] 29.5 mmol/L Normal 21.0-32.0 [facility] Comment on above: Performed By: #### C MP, URIC, LIPID #### [facility] [address] [address] [address] Tom Chacko Creatinine [Mass/Vol] 0.96 mg/dL Normal 0.70-1.30 [facility] Comment on above: Performed By: #### C MP, URIC, LIPID #### [facility] [address] [address] [address] Tom Chacko EGFR-AF UGANDAN >60 Normal >=60 [facility] Comment on above: Performed By: #### C MP, URIC, LIPID #### [facility] [address] [place] [address] Dr. Tom Chacko EGFR-NON AF UGANDAN >60 Normal >=60 [facility] Comment on above: Performed By: #### C MP, URIC, LIPID #### [facility] [address] [address] [address] Tom Chacko Globulin (S) [Mass/Vol] 3.5 g/dL Normal [facility] Comment on above: Performed By: #### C MP, URIC, LIPID #### [facility] [address] [address] [address] Tom Chacko Glucose [Mass/Vol] 113 mg/dL Critically high 74-106 [facility] Comment on above: Performed By: #### C MP, URIC, LIPID #### [facility] [address] [address] [address] Tom Chacko Potassium [Moles/Vol] 3.8 mmol/L Normal 3.5-5.1 [facility] Comment on above: Performed By: #### C MP, URIC, LIPID #### [facility] [address] [address] [address] Tom Chacko Protein [Mass/Vol] 7.3 g/dL Normal 6.4-8.2 [facility] Comment on above: Performed By: #### C MP, URIC, LIPID #### [facility] [address] [address] [address] Tom Chacko Sodium [Moles/Vol] 140 mmol/L Normal 136-145 [facility] Comment on above: Performed By: #### C MP, URIC, LIPID #### [facility] [address] [place] [address] Dr. Tom Chacko Urea nitrogen [Mass/Vol] 14.0 mg/dL Normal 7.0-18.0 [facility] Comment on above: Performed By: #### C MP, URIC, LIPID #### [facility] [address] [place] [address] Dr. Tom Chacko Urea nitrogen/Creatinin e [Mass ratio] 14.6 mg/mg Normal [facility] Comment on above: Performed By: #### C MP, URIC, LIPID #### [facility] [address] [place] [address] Dr. Tom Chacko UA (CLEAN/CATCH) RECEIVING AND PROCESSING SUPERVISOR/MICRO I F IND.on 11-04-2022 Bilirubin Ql (U) Negative Normal NEGATIVE [facility] Comment on above: Performed By: #### U MICRO, UACSIND #### [facility] [address] [place] [address] Dr. Tom Chacko Clarity (U) CLEAR Normal CLEAR [facility] Comment on above: Performed By: #### U MICRO, UACSIND #### [facility] [address] [place] [address] Dr. Tom Chacko Color (U) YELLOW Normal YELLOW [facility] Comment on above: Performed By: #### U MICRO, UACSIND #### [facility] [address] [place] [address] Dr. Tom Chacko Glucose Ql (U) Negative Normal NEGATIVE [facility] Comment on above: Performed By: #### U MICRO, UACSIND #### [facility] [address] [place] [address] Dr. Tom Chacko Hemoglobin Ql (U) MODERATE Abnormal NEGATIVE [facility] Comment on above: Performed By: #### U MICRO, UACSIND #### [facility] [address] [address] [address] Tom Chacko Ketones Ql (U) Negative Normal NEGATIVE [facility] Comment on above: Performed By: #### U MICRO, UACSIND #### [facility] [address] [address] [address] Tom Chacko LEUKOCYTES Negative Normal NEGATIVE [facility] Comment on above: Performed By: #### U MICRO, UACSIND #### [facility] [address] [address] [address] Tom Chacko Nitrite Ql (U) Negative Normal NEGATIVE [facility] Comment on above: Performed By: #### U MICRO, UACSIND #### [facility] [address] [address] [address] Tom Chacko pH (U) 6.0 [pH] Normal 5-9 [facility] Comment on above: Performed By: #### U MICRO, UACSIND #### [facility] [address] [address] [address] Tom Chacko SPEC GRAVITY 1.020 Normal 1.005-<=1.0 25 [facility] Comment on above: Performed By: #### U MICRO, UACSIND #### [facility] [address] [address] [address] Tom Chacko UA PROTEIN Negative Normal NEGATIVE/ TRACE [facility] Comment on above: Performed By: #### U MICRO, UACSIND #### [facility] [address] [address] [address] Tom Chacko UR MICRO IND INDICATED Normal [facility] Comment on above: Performed By: #### U MICRO, UACSIND #### [facility] [address] [address] [address] Tom Chacko Urobilinogen Qn (U) 0.2 {Joseph'U}/dL Normal 0.2 - 1.0 [facility] Comment on above: Performed By: #### U MICRO, UACSIND #### [facility] [address] [address] [address] Tom Chacko URIC ACID SERUMon 11-04-2022 Urate [Mass/Vol] 7.3 mg/dL Critically high 3.5-7.2 [facility] Comment on above: Performed By: #### C MP, URIC, LIPID ####[facility] [id number] [address]Dr. Tom Chacko URINE MICROSCOPIC ONLYon BACTERIA NONE SEEN Normal NONE SEEN [facility] Comment on above: Performed By: #### U MICRO, UACSIND #### [facility] [address] [address] [address] Tom Chacko Bacteria identified Cx Nom (U) NOT INDICATED Normal [facility] Comment on above: Performed By: #### U MICRO, UACSIND #### [facility] [address] [place] [address] Dr. Tom Chacko CAST NONE SEEN Normal NONE SEEN [facility] Comment on above: Performed By: #### U MICRO, UACSIND #### [facility] [address] [address] [address] Tmo Chacko Crystals LM Nom (Urine sed) NONE SEEN Normal NONE SEEN [facility] Comment on above: Performed By: #### U MICRO, UACSIND #### [facility] [address] [place] [address] Dr. Tom Chacko Epithelial cells LM Ql (Urine sed) RARE Normal NONE SEEN /RARE [facility] Comment on above: Performed By: #### U MICRO, UACSIND #### [facility] [address] [place] [address] Dr. Tom Chacko MUCOUS NONE SEEN Normal NONE SEEN [facility] Comment on above: Performed By: #### U MICRO, UACSIND #### [facility] [address] [address] [address] Tom Chacko RBC 5-10 Abnormal 0-2 [facility] Comment on above: Performed By: #### U MICRO, UACSIND #### [facility] [address] [place] [address] Dr. Tom Chacko WBC NONE SEEN Normal NONE SEEN [facility] Comment on above: Performed By: #### U MICRO, UACSIND #### [facility] [address] [address] [address] Tom Chacko Aerobic Cultureon 02-09-2022 Aerobic Culture ORGANISM: Strep. aga lactiae Grp B (O:B) Quantity of Growth Moderate Growth No Anaerobes Isolated 3 Days Gram Stain Result No Bacteria Seen PERFORMED BY: [place] [id number] PATHOLOGIST ENGINEERING LECTURER MARGARITA CHOI M.D. [facility] Comment on above: Performed By: #### A ERC, GS #### [address] Gram Stainon 02-09-2022 Microscopic observation Gram stain Nom (Unsp spec) Gram Stain Result No Bacteria Seen PERFORMED BY: [place] [id number] PATHOLOGIST ENGINEERING LECTURER AMRGARITA CHOI M.D. [facility] Comment on above: Performed By: #### A ERC, GS #### [address] US Venous, Unilat, Lower Ext Righton [...] by Reggie Hackett on 09/25/2021 1153 Normal [facility] US Venous, Unilat, Lower Ext Righton 09-11-2021 [...] by Reggie Hackett on 09/11/2021 1200 Normal [facility] Vital Signs Date Time Vital Sign Value Performing Clinician Facility 09-27-2024 15:09-0500 Body height 170.2 cm Chico Pathak DO Work Phone: [facility] 09-27-2024 15:09-0500 Body mass index (BMI) [Ratio] 28.97 kg/m2 Chico Pathak DO Work Phone: [facility] 09-27-2024 15:09-0500 Body weight 83.92 kg Chico Lawson DO Work Phone: [facility] 09-27-2024 15:09-0500 Diastolic blood pressure 64 mm[Hg] Chico Pathak DO Work Phone: [facility] 09-27-2024 15:09-0500 Systolic blood pressure 124 mm[Hg] Cihco Lawson DO Work Phone: [facility] 12-22-2022 10:06-0400 Blood Pressure Location Kameron BARR [facility] 12-22-2022 10:06-0400 Diastolic blood pressure 75 mm[Hg] Kameron BARR [facility] 12-22-2022 10:06-0400 Heart rate 58 /min Kameron BARR [facility] 12-22-2022 10:06-0400 Systolic blood pressure 146 mm[Hg] Kameron BARR [facility] 02-09-2022 19:50-0400 Body height 147.32 cm Allegra Moreau Other [employer] Other 02-09-2022 19:50-0400 Body mass index (BMI) [Ratio] 50.15 kg/m2 Allegra Moreau Other [employer] Other 02-09-2022 19:50-0400 Body temperature 96.9 [degF] Allegra Moreau Other [employer] Other 02-09-2022 19:50-0400 Body weight 108.86 kg Allegra Moreau Other [employer] Other 02-09-2022 19:50-0400 Diastolic blood pressure 80 mm[Hg] Allegra Moreau Other [employer] Other 02-09-2022 19:50-0400 Respiratory rate 18 /min Allegra Moreau Other [employer] Other 02-09-2022 19:50-0400 SaO2% (BldA) [Mass fraction] 99 % Allegra Moreau Other [employer] Other 02-09-2022 19:50-0400 Systolic blood pressure 167 mm[Hg] Allegra Moreau Other [employer] Other Encounters Encounter Date Encounter Type Care Provider Facility Start: 09-27-2024 End: 09-27-2024 Postop follow up visit related to original px Chico Pathak DO Work Phone: [facility] Comment on above: 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) Start: 09-27-2024 End: 09-27-2024 ambulatory CHICO PATHAK [facility] Start: 09-27-2024 End: 09-27-2024 Telephone encounter Antionette De La Paz LINER MAN Work Phone: [facility] Start: 09-25-2024 End: 09-25-2024 ambulatory [facility] Start: 09-11-2024 ambulatory JOELLE BREWER [facility] Start: 09-04-2024 End: 09-04-2024 Evaluation and management of inpatient JENNY Bocanegra [facility] Start: 09-01-2024 End: 09-01-2024 Telephone encounter Tri Núñezedica Call Benedictoliyah khoury Comment on above: Advice Only Start: 08-31-2024 End: 09-04-2024 Evaluation and management of inpatient [facility] Start: 08-30-2024 End: 09-04-2024 Evaluation and management of inpatient [facility] Start: 08-30-2024 End: 08-30-2024 ambulatory [facility] Start: 08-29-2024 ambulatory [facility] Start: 08-29-2024 End: 09-03-2024 Evaluation and management of inpatient [facility] Start: 01-11-2023 End: 01-12-2023 ambulatory JOELLE BREWER Facility:[facility] Start: 12-23-2022 End: 12-29-2022 Pre-admission assessment Kameron BARR [facility] Start: 12-22-2022 End: 12-23-2022 ambulatory Kameron BARR Facility:[facility] Start: 12-22-2022 End: 12-22-2022 Patient encounter procedure Kameron BARR [facility] Start: 11-16-2022 ambulatory Kameron BARR Facility :[facility] Start: 11-12-2022 End: 11-13-2022 ambulatory JOELLE BREWER Facility:[facility] Start: 11-04-2022 End: 11-05-2022 ambulatory JOELLE BREWER Facility:[facility] Start: 02-09-2022 End: 02-09-2022 Departed Referred MARIELOS Moreau Work Phone: [facility] [place] Start: 02-09-2022 End: 02-09-2022 ambulatory Allegra Moreau Other [employer] Other Start: 02-09-2022 Office outpatient ne w 20 minutes Allegra Moreau [facility] Procedures Date Procedure Procedure Detail Performing Clinician Start: 08-30-2024 Adult depression scr eening assessment [facility] [place] Start: 11-04-2022 PSA screening JOELLE PANTOJA Comment on above: Performed By: #### P [facility] #### [facility] [address] [place] [address] Dr. Tom Chacko Cholecystectomy Kameron LALA Colonoscopy Kameron BARR Herniated structure (morphologic abnormality) Kameron BARR Plan of Treatment Date Care Activity Detail Author Start: 09-27-2025 Adult BMI Screening Adult BMI Screen ing [facility] Start: 09-27-2025 Tobacco Screening Tobacco Screening [facility] Start: 08-30-2025 Depression Screening Depression Scre ening [facility] Start: 08-29-2025 Adult BMI Screening Adult BMI Screen ing [facility] Start: 11-15-2024 End: 11-15-2024 Patient encounter procedure 11/15/2024 3:30 PM EDT [facility] [address] [place] [address] Chico Pathak W, DO [address] [place] [address] [facility] Start: 10-29-2024 End: 10-29-2024 Patient encounter procedure 10/29/2024 3:30 PM EST Appointment [facility] [address] [place] [id number] [facility] Start: 10-28-2024 End: 03-27-2026 US Carotid arteries - bilateral Vas carotid duplex bilateral Vascular Ultrasound Routine Stenosis of right carotid artery Expected: 10/28/2024 (Approximate), Expires: 03/27/2026 [facility] Work Phone: Comment on above: Expected: 10/28/2024 (Approximate), Expires: 03/27/2026 Start: 05-06-2024 COVID-19 Vaccine ( season) COVID-19 Vaccine ( season) [facility] Start: 05-06-2024 Influenza vaccination [facility] Start: 04-26-2024 Tobacco Screening Tobacco Screening [facility] Start: 2022 Fall Risk Screening Fall Risk Screen ing [facility] Start: 2022 Pneumococcal Vaccine : 65+ Years (1 of 1 - PCV) Pneumococcal Vaccine: 65+ Years (1 of 1 - PCV) [facility] Start: 02-09-2022 Aerobic Culture Aerobic Culture [facility] Start: 02-09-2022 Anaerobic Culture Anaerobic Culture [facility] Start: 02-09-2022 Microscopic observat ion [Identifier] in Unspecified specimen by Gram stain Gram Stain [facility] Start: 2007 Administration of varicella zoster vaccine Zoster (Shingles) Vaccine (1 of 2) [facility] Start: 1976 DTaP,Tdap and Td Vaccines (1 - Tdap) DTaP,Tdap and Td Vaccines (1 - Tdap) [facility] Start: 1975 Adult BMI Follow Up Plan Adult BMI Follow Up Plan [facility] Start: 1975 Diabetic foot examination Diabetic Foot Exam [facility] Start: 1957 Glaucoma screening Diabetic Op hthalmology Exam [facility] Start: 1957 Screening for malign ant neoplasm of colon [facility] Start: 1957 Statin Use: Diabetic Statin Use: Yakelin betic [facility] Start: 1957 Tobacco Counseling Tobacco Counselin g [facility] Start: 1957 Urine screening for protein Urine Microalbumin [facility] Bacteria identified in Unspecified specimen by Aerobe culture [facility] Work Phone: Bacteria identified in Unspecified specimen by Anaerobe culture [facility] Work Phone: Microscopic observat ion [Identifier] in Unspecified specimen by Gram stain [facility] Work Phone: Immunizations Immunization Date Immunization Notes Care Provider Wilberto stephens 12-30-2020 SARS-CoV-2 (COVID-19 ) mRNA-1273 vaccine Kameron BARR [facility] Comment on above: Result Comment: 2022: [id number] 12-02-2020 SARS-CoV-2 (COVID-19 ) mRNA-1273 vaccine Kameron BARR [facility] Comment on above: Result Comment: 2022: [id number] 06-21-2020 influenza virus vaccine, unspecified formulation Kameron BARR [facility] 06-21-2020 influenza, injectabl e, quadrivalent, preservative free [facility] 07-08-2019 influenza virus vaccine, unspecified formulation Kameron BARR [facility] 07-08-2019 influenza, injectabl e, quadrivalent, contains preservative [facility] Payers Date Payer Category Payer Medicare MEDICARE [id number] 1957 Medicare [id number] 1957 Unknown [id number] 1957 Unknown [id number] [id number] 1957 Unknown [id number] 2.16.840.1.478471.3.579.2.593 1957 Unknown [id number] 2.16.840.1.983516.3.579.2.593 1957 Unknown [id number] 2.16.840.1.268980.3.579.2.727 1957 Unknown [id number] 2.16.840.1.636378.3.579.2.727 1957 Unknown [id number] 2..840.1.603192.3.579.2.128 6 1957 Unknown [id number] 2.840.1.309395.3.579.2.128 6 1957 Unknown [id number] 2.840.1.992357.3.579.2.128 6 1957 Unknown [id number] 2.840.1.515637.3.579.2.128 6 1957 Unknown [id number] 2.16.840.1.164167.3.579.2.128 6 1957 Unknown [id number] 2.840.1.869853.3.579.2.128 6 1957 Unknown [id number] 2.16.840.1.654059.3.579.2.128 6 1957 Unknown [id number] 2.16840.1.957335.3.579.2.128 6 1957 Unknown [id number] 2.16.840.1.121666.3.579.2.128 6 1957 Unknown [id number] 2.16.840.1.528096.3.579.2.128 6 1957 Unknown [id number] 2.16.840.1.488876.3.579.2.128 6 1957 Unknown [id number] 2.16.840.1.006660.3.579.2.128 6 1957 Unknown [id number] 2.16.840.1.086157.3.579.2.128 6 1957 Unknown [id number] 2.16.840.1.725658.3.579.2.128 6 Self-pay Self Pay [id number] Unknown [id number] 2..[id number] Social History Date Type Detail Facility [facility] Work Phone: Start: 1955 Sex Assigned At Male [facility] Start: 10-03-2020 End: 08-30-2024 Sex Assigned At [facility] Start: 12-22-2022 Tobacco smoking status Light t obacco smoker (finding) [facility] Tobacco smoking status Never [facility] Start: 2023 [facility] daily [facility] History of tobacco use [facility]igarette [facility] Start: 10-03-2020 End: 2023 Cigarettes smoked current (pack per day) - Reported 0.5 [facility] Start: 2023 Tobacco use and exposure Smokeless tobacco non-user [facility] Start: 04-27-2023 End: 09-27-2024 Alcoholic beverage intake Ex-drinker (finding) [facility] Has the [employer], or [employer] threatened to shut off services in your home in past 12Mo No [facility] How often to you hav e a drink containing alcohol? Never [facility] Start: 1955 Sex assigned at Not on file [facility] Start: 04-10-2015 Sex Male (finding) [facility] Tobacco smoking stat [facility] Tobacco smoking consumption unknown [facility] Work Phone: Medical Equipment Procedure Code Equipment Code Equipment Origin al Text Equipment Identifier Dates Patch Vsc 8x.8cm [employer]vn Pricrd Tiss Strl Rpl [id number] - [id number] Start: 09-02-2024 Functional Status Date Assessment Result Facility 12-22-2022 Functional Status N/A [facility] Clinical Notes 02-09-2022 to 09-27-2024 Telephone Encounter - Antionette De La Paz NP - 09/27/2024 8:11 PM ESTTelephone Encounter - Antionette De La Paz NP - 09/27/2024 8:11 PM Arcelia Pathak DO - 09/27/2024 3:50 PM EST Note Date & Type Note Facility 09-27-2024 Telephone encounter Note Calling to see if you ever got any information about Harvey He needs to see Dr Hoang Santa. He had a stroke august 28, he had surgery september 01. We need a neurologist. Want to know If you got any of the paperwork. Referrals show Joelle Brewer referred to [facility] for CVA. Will need updated to Arina and they will need to contact Joelle. [facility] 09-27-2024 Miscellaneous Notes Calling to see if you ever got any information about Harvey He needs to see Dr Hoang Santa. He had a stroke august 28, he had surgery september 01. We need a neurologist. Want to know If you got any of the paperwork. Referrals show Joelle Brewer referred to [facility] for CVA. Will need updated to Arina and they will need to contact Joelle. documented in this encounter [facility] 09-27-2024 History of Presen t illness Narrative Images from the original note were not included. Dear Dr. 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 He states he is having numerous issues. He has developed constant blurred vision in both eyes. He states he is always thirsty and drinks plenty of water but still remains thirsty. His food does not taste good. He overall he is just fatigued. No neurologic deficits. No unilateral numbness or weakness. No dizziness or lightheadedness. No pain of the neck or incision site. The wound is clean, dry and intact with no signs or symptoms of infection. No gross neurologic deficits. No neck swelling. No tenderness over the incision. It is healing quite well. I believe he is likely hyperglycemic. We had issues controlling his sugar in the hospital. He is on metformin at home but he does not check his blood glucose. His blurred vision and thirst and overall energy level could be related to hyperglycemia. I strongly encouraged them to check and manage his blood glucose more closely and if he needs help with this he should contact his primary care office. I would like to see him again in a month with a repeat carotid duplex. We will plan to gradually increase activity as tolerated. The patient was instructed to call for any changes or worsening of symptoms. Chico Pathak DO 09/27/2024 3:19 PM documented in this encounter [facility] 09-25-2024 Note [facility] Note Reason for cardiology [...] on heparin infusion. He was transferred to [facility]. His echo was overall normal. He [...] history of Abnormal ECG, Bradycardia, Diabetes mellitus ([facility]), Heart murmur, Heart valve disease, Hyperlipidemia, Hypertension, and Stroke ([facility]). Surgical History He has a past surgical [...] showed normal sinus (more content not included)... [facility] 09-01-2024 Miscellaneous Notes Contract: JAYLEN Alfaro @ [facility] is calling for consult Labor Training Manager reached out to DONALDO Hooker to reach out to the facility documented in this encounter [facility] 09-01-2024 Telephone encounter Note Contract: JAYLEN Alfaro @ [facility] is calling for consult [facility] 09-01-2024 Telephone encounter Note Labor Training Manager reached out to DONALDO Hooker to reach out to the facility [facility] 12-22-2022 Evaluation + Plan note Diagnostic Tests PendingUrine Cytology ([facility]) 12/22/22 [facility] 12-21-2022 Hospital Discharg e instructions Patient Education [...] Follow these instructions at home: Medicines Take jhti-qol-hlrlbwt and prescription medicines only as told by [...] or the blood stops without treatment. Take zrii-wyx-jwhffxu and prescription medicines only as told by your health care provider. Drink enough fluid to keep your urine pale yellow. This information is not intended to replace advice given to you by your health care provider. Make sure you discuss any questions you have with your health care provider. Document Revised: 04/22/2021 Document Reviewed: 04/22/2021 VAN[employer] Patient Education 2022 [employer]. Follow Up Care 12/21/2022 13:53:01 With:OSITO MOYA, Kameron Khoury, URL Address: [facility] [address], [place] [address]- When: Unknown [facility] 02-09-2022 Evaluation note Encounter Date Diagnosis Assessment [...] Other [facility] home care material was printed [employer] Other Evaluation noteNo assessment information available [facility] Work Phone: Evaluation note* Diagnosis Stenosis of right carotid artery- Primary Occlusion and stenosis of carotid artery without mention of cerebral infarction documented in this encounter [facility] N[facility] - Reported* Type Description Date Medical History diabetes mallitus Medical History high blood pressure [employer] Other Hospital course Narrative No data available for this section [facility] Hospital Discharge instructions No data available for this section [facility] filedocumented in this encounter [facility]Not on filedocumented in this encounter [facility] No data available for this section [facility] Summary Purpose Family History No Family History Records FoundNo Family History Records FoundNo Family History Records FoundNo Family History Records FoundNo Family History Records FoundNo Family History Records FoundNo Family History Records FoundNo Family History Records Found Advance Directives No Advanced Directives Records Found Date Activated Date Inactivated Comments 08/31/2024 12:40 PM Date Activated Date Inactivated Comments 08/31/2024 12:40 PM 09/03/2024 6:43 PM Additional Source Comments (unrecognized sect ion and content) No Status Records FoundNo Status Records FoundNo Status Records FoundNo Status Records FoundNo Status Records FoundNo Status Records FoundNo Status Records FoundNo Status Records Found INFORMATION SOURCE (unrecogn ized section and content) DATE CREATED AUTHOR 09/26/2021 [facility] dical Specialist DATE CREATED AUTHOR AUTHOR'S ORGANIZ ATION 02/13/2022 [facility] DATE CREATED AUTHOR AUTHOR'S ORGANIZ ATION 01/16/[address] 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 Grade Teacher Relationship Specialty Start Date End Date Joelle Brewer APRN-ONLINE COMMUNICATIONS MANAGER [address] [facility] [place] [address] PCP - General Family Medicine 05/26/20 Fifth Grade Teacher Relationship Specialty Start Date End Date Joelle Brewer REFERENCE DATA EXPERT-ONLINE COMMUNICATIONS MANAGER [address] [place] [address] PCP - General Family Medicine 05/26/20 Goals (unrecognized section and content) Goals may be documented in a n alternate sectionNo Information No data available for this section No data available for this sectionNot on filedocumented as of this encounterNot on filedocumented as of this encounter REASON FOR VISIT (unrecogniz ed section and content) Reason Onset Date Comments Advice Only 09/01/2024 Reason Comments Post-op FOR RECORDS PERTAINING TO PATIENTS WHO ARE [...] BE BASED ON THE PRIMARY CLINICAL RECORDS. [facility] [facility]. provides no warranty or guarantee of the accuracy or completeness of information in this document.
--- OUTSIDE RECORDS SUMMARY | 2024-10-01 09:54 | XMS_ITS | CCD ---
Author Organization [facility] Care Team Providers Care Aircraft [employer] Dismant[employer] Name Role Phone MoreauRUPA ibarraWillie Trejo Attending Provider JOELLE BREWER Primary Care Physician OSMAN, JOELLE Admitting Unavailable OSMAN, JOELLE Attending [...] sources) Benzocaine; Translations: [BENZOCAINE] Drug Allergy 4 [facility] (2 sources) Allantoin / Benzocaine / Camphor / Petrolatum; Translations: [benzocaine topical] Drug Allergy Swelling (finding) [facility] (5 sources) Benzocaine-Kush alkonium Cl; Translations: [BENZOCAINE-RODNEY ZALKONIUM CL] Propensity to adverse reactions to drug 0 Swelling, [place] [facility] Medications Current Medications Medication Drug Class(es) [...] completed, # 2 tab(s), Refills(s) 0, [id number], 167, cm, 12/22/22 10:25:00 EDT, Height/Length Do... 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 Had echo while inpatient. Denies lightheadedness/syncope, but c/o blurred vision. carotid artery stenosis [Other] - S/p right CEA a few weeks ago. He has follow up with the surgeon this week. Fatigue [46] - Says he's always thirsty and feels like he can't get enough water. Normal [facility] BASIC METABOLIC PANLon 09-03 Anion gap [Moles/Vol] 9 mmol/L Normal 5-15 [facility] Comment on above: Performed By: #### 7 18-7, PLTCT, PINR, 30155-7, HA1C #### [facility] ([id number]) [address], [address] [place] [address] Calcium [Mass/Vol] 9.3 mg/dL Normal 8.5-10.5 [facility] Comment on above: Performed By: #### 7 18-7, PLTCT, PINR, 86688-9, HA1C #### [facility] ([id number]) [address], [address] [place] [address] Chloride [Moles/Vol] 103 mmol/L Normal 98-109 [facility] Comment on above: Performed By: #### 7 18-7, PLTCT, PINR, 63998-5, HA1C #### [facility] ([id number]) [address], [address] [place] [address] CO2 [Moles/Vol] 27 mmol/L Normal 22-32 [facility] Comment on above: Performed By: #### 7 18-7, PLTCT, PINR, 57828-7, HA1C #### [facility] ([id number]) [address], [address] [place] [address] Creatinine [Mass/Vol] 0.92 mg/dL Normal 0.60-1.30 [facility] Comment on above: Result Comment: METH OD TRACEABLE TO IDMS STANDARD Performed By: #### 7 18-7, PLTCT, PINR, 68343-2, HA1C #### [facility] ([id number]) [address], [address] [place] [address] eGFR (CKD-EPI) NON-RACE DEPENDENT >90 Normal >59 [facility] Comment on above: Result Comment: Reported eGFR is based on the CKD-EPI 2020 equation that does not use a race coefficient. Performed By: #### 7 18-7, PLTCT, PINR, 52284-7, HA1C #### [facility] ([id number]) [address], [address] [place] [address] Glucose [Mass/Vol] 116 mg/dL High 65-99 [facility] Comment on above: Performed By: #### 7 18-7, PLTCT, PINR, 81587-2, HA1C #### [facility] ([id number]) [address], [address] [place] [address] Potassium [Moles/Vol] 4.1 mmol/L Normal 3.5-5.0 [facility] Comment on above: Performed By: #### 7 18-7, PLTCT, PINR, 00584-0, HA1C #### [facility] ([id number]) [address], [address] [place] [address] Sodium [Moles/Vol] 139 mmol/L Normal 134-146 [facility] Comment on above: Performed By: #### 7 18-7, PLTCT, PINR, 77738-0, HA1C #### [facility] ([id number]) [address], [address] [place] [address] Urea nitrogen [Mass/Vol] 16 mg/dL Normal 5-27 [facility] Comment on above: Performed By: #### 7 18-7, PLTCT, PINR, 93133-5, HA1C #### [facility] ([id number]) [address], [address] [place] [address] Glucose Glucometer (BldC) [M ass/Vol]on 09-03-2024 Glucose [Mass/Vol] 200 mg/dL High 65-99 [facility] Glucose [Mass/Vol] 106 mg/dL High 65-99 [facility] BASIC METABOLIC PANLon 09-02 Anion gap [Moles/Vol] 9 mmol/L Normal 5-15 [facility] Comment on above: Performed By: #### 7 18-7, PLTCT, PINR, 23871-8, HA1C #### [facility] ([id number]) [address], [address] [place] [address] Calcium [Mass/Vol] 9.2 mg/dL Normal 8.5-10.5 [facility] Comment on above: Performed By: #### 7 18-7, PLTCT, PINR, 93292-7, HA1C #### [facility] ([id number]) [address], [address] [place] [address] Chloride [Moles/Vol] 105 mmol/L Normal 98-109 [facility] Comment on above: Performed By: #### 7 18-7, PLTCT, PINR, 33838-7, HA1C #### [facility] ([id number]) [address], [address] [place] [address] CO2 [Moles/Vol] 25 mmol/L Normal 22-32 [facility] Comment on above: Performed By: #### 7 18-7, PLTCT, PINR, 47649-4, HA1C #### [facility] ([id number]) [address], [address] [place] [address] Creatinine [Mass/Vol] 0.89 mg/dL Normal 0.60-1.30 [facility] Comment on above: Result Comment: METH OD TRACEABLE TO IDMS STANDARD Performed By: #### 7 18-7, PLTCT, PINR, 40981-2, HA1C #### [facility] ([id number]) [address] [place] [address] eGFR (CKD-EPI) NON-RACE DEPENDENT >90 Normal >59 [facility] Comment on above: Result Comment: Reported eGFR is based on the CKD-EPI 2020 equation that does not use a race coefficient. Performed By: #### 7 18-7, PLTCT, PINR, 96617-2, HA1C #### [facility] ([id number]) [address], [address] [place] [address] Glucose [Mass/Vol] 145 mg/dL High 65-99 [facility] Comment on above: Performed By: #### 7 18-7, PLTCT, PINR, 66955-2, HA1C #### [facility] ([id number]) [address], [address] [place] [address] Potassium [Moles/Vol] 3.9 mmol/L Normal 3.5-5.0 [facility] Comment on above: Performed By: #### 7 18-7, PLTCT, PINR, 68374-8, HA1C #### [facility] ([id number]) [address], [address] [place] [address] Sodium [Moles/Vol] 139 mmol/L Normal 134-146 [facility] Comment on above: Performed By: #### 7 18-7, PLTCT, PINR, 03459-5, HA1C #### [facility] ([id number]) [address], [address] [place] [address] Urea nitrogen [Mass/Vol] 17 mg/dL Normal 5-27 [facility] Comment on above: Performed By: #### 7 18-7, PLTCT, PINR, 19672-5, HA1C #### [facility] ([id number]) [address], [address] [place] [address] Glucose Glucometer (BldC) [M ass/Vol]on 09-02-2024 Glucose [Mass/Vol] 167 mg/dL High 65-99 [facility] Glucose [Mass/Vol] 154 mg/dL High 65-99 [facility] Glucose [Mass/Vol] 134 mg/dL High 65-99 [facility] Glucose [Mass/Vol] 132 mg/dL High 65-99 [facility] HEMOGLOBINon 09-02-2024 Hemoglobin (Bld) [Mass/Vol] 14.5 g/dL Normal 13.0-17.0 [facility] Comment on above: Performed By: #### 7 18-7, PLTCT, PINR, 39897-9, HA1C #### [facility] ([id number]) [address], [address] [place] [address] Heparin unfractionated Chrom ogenic method Qn (PPP)on 09-02-2024 ANTI XA UFH 0.99 IU/mL Critically high 0.30-0.70 [facility] Comment on above: Result Comment: Opti mal time for testing is 6 hrs post dosage This test is specific for monitoring patients on UFH, and is not recommended for use with other Anti-Xa medications. Performed By: #### 7 18-7, PLTCT, PINR, 78621-6, HA1C #### [facility] ([id number]) [address], [address] [place] [address] PLATELET COUNT AND MPVon Platelet mean volume (Bld) [Entitic vol] 8.8 fL Normal 7-12 [facility] Comment on above: Performed By: #### 7 18-7, PLTCT, PINR, 39508-9, HA1C #### [facility] ([id number]) [address], [address] [place] [address] Platelets (Bld) [#/Vol] 239 10*3/uL Normal 150-450 [facility] Comment on above: Performed By: #### 7 18-7, PLTCT, PINR, 52983-6, HA1C #### [facility] ([id number]) [address], [address] [place] [address] BASIC METABOLIC PANLon 09-01 Anion gap [Moles/Vol] 11 mmol/L Normal 5-15 [facility] Comment on above: Performed By: #### 7 18-7, PLTCT, PINR, 43643-8, HA1C #### [facility] ([id number]) [address], [address] [place] [address] Calcium [Mass/Vol] 9.2 mg/dL Normal 8.5-10.5 [facility] Comment on above: Performed By: #### 7 18-7, PLTCT, PINR, 08868-6, HA1C #### [facility] ([id number]) [address], [facility] [address] [place] [address] Chloride [Moles/Vol] 105 mmol/L Normal 98-109 [facility] Comment on above: Performed By: #### 7 18-7, PLTCT, PINR, 34834-7, HA1C #### [facility] ([id number]) [address], [address] [place] [address] CO2 [Moles/Vol] 25 mmol/L Normal 22-32 [facility] Comment on above: Performed By: #### 7 18-7, PLTCT, PINR, 53727-9, HA1C #### [facility] ([id number]) [address], [address] [place] [address] Creatinine [Mass/Vol] 0.90 mg/dL Normal 0.60-1.30 [facility] Comment on above: Result Comment: METH OD TRACEABLE TO IDMS STANDARD Performed By: #### 7 18-7, PLTCT, PINR, 41052-2, HA1C #### [facility] ([id number]) [address], [address] [place] [address] eGFR (CKD-EPI) NON-RACE DEPENDENT >90 Normal >59 [facility] Comment on above: Result Comment: Reported eGFR is based on the CKD-EPI 2020 equation that does not use a race coefficient. Performed By: #### 7 18-7, PLTCT, PINR, 36870-0, HA1C #### [facility] ([id number]) [address], [address] [place] [address] Glucose [Mass/Vol] 127 mg/dL High 65-99 [facility] Comment on above: Performed By: #### 7 18-7, PLTCT, PINR, 47437-5, HA1C #### [facility] ([id number]) [address], [address] [place] [address] Potassium [Moles/Vol] 4.1 mmol/L Normal 3.5-5.0 [facility] Comment on above: Performed By: #### 7 18-7, PLTCT, PINR, 75877-9, HA1C #### [facility] ([id number]) [address], [address] [place] [address] Sodium [Moles/Vol] 141 mmol/L Normal 134-146 [facility] Comment on above: Performed By: #### 7 18-7, PLTCT, PINR, 46998-0, HA1C #### [facility] ([id number]) [address], [address] [place] [address] Urea nitrogen [Mass/Vol] 20 mg/dL Normal 5-27 [facility] Comment on above: Performed By: #### 7 18-7, PLTCT, PINR, 60458-8, HA1C #### [facility] ([id number]) [address], [address] [place] [address] CBC AND AUTO DIFFon 12-28-20 24 ABSOLUTE BASOPHIL 0.2 X10E9/L Normal 0.0-0.2 [facility] Comment on above: Performed By: #### 7 18-7, PLTCT, PINR, 28051-5, HA1C #### [facility] ([id number]) [address], [address] [place] [address] ABSOLUTE NEUTROPHIL 6.1 X10E9/L Normal 1.5-6.6 [facility] Comment on above: Performed By: #### 7 18-7, PLTCT, PINR, 62546-1, HA1C #### [facility] ([id number]) [address], [address] [place] [address] Basophils/100 WBC (Bld) 1.5 % Normal [facility] Comment on above: Performed By: #### 7 18-7, PLTCT, PINR, 49129-8, HA1C #### [facility] ([id number]) [address], [address] [place] [address] Eosinophils (Bld) [#/Vol] 0.2 10*3/uL Normal 0.0-0.4 [facility] Comment on above: Performed By: #### 7 18-7, PLTCT, PINR, 42766-8, HA1C #### [facility] ([id number]) [address], [address] [place] [address] Eosinophils/100 WBC (Bld) 2.2 % Normal [facility] Comment on above: Performed By: #### 7 18-7, PLTCT, PINR, 95369-1, HA1C #### [facility] ([id number]) [address], [address] [place] [address] Erythrocyte distribution width (RBC) [Ratio] 13.6 % Normal 11.5-15.0 [facility] Comment on above: Performed By: #### 7 18-7, PLTCT, PINR, 16383-0, HA1C #### [facility] ([id number]) [address], [address] [place] [address] Hematocrit (Bld) [Volume fraction] 43.0 % Normal 39-49 [facility] Comment on above: Performed By: #### 7 18-7, PLTCT, PINR, 31835-4, HA1C #### [facility] ([id number]) [address], [address] [place] [address] Hemoglobin (Bld) [Mass/Vol] 14.8 g/dL Normal 13.0-17.0 [facility] Comment on above: Performed By: #### 7 18-7, PLTCT, PINR, 99646-6, HA1C #### [facility] ([id number]) [address], [address] [place] [address] Lymphocytes (Bld) [#/Vol] 3.4 10*3/uL Normal 1.0-3.5 [facility] Comment on above: Performed By: #### 7 18-7, PLTCT, PINR, 65865-4, HA1C #### [facility] ([id number]) [address] [address] Lymphocytes/100 WBC (Bld) 31.7 % Normal [facility] Comment on above: Performed By: #### 7 18-7, PLTCT, PINR, 55587-9, HA1C #### [facility] ([id number]) [address] [place] [address] MCH (RBC) [Entitic mass] 31.0 pg Normal 27-34 [facility] Comment on above: Performed By: #### 7 18-7, PLTCT, PINR, 31189-9, HA1C #### [facility] ([id number]) [address], [address] [place] [address] MCHC (RBC) [Mass/Vol] 34.4 g/dL Normal 32-36 [facility] Comment on above: Performed By: #### 7 18-7, PLTCT, PINR, 85189-2, HA1C #### [facility] ([id number]) [address], [address] [place] [address] MCV (RBC) [Entitic vol] 90 fL Normal 80-100 [facility] Comment on above: Performed By: #### 7 18-7, PLTCT, PINR, 73633-9, HA1C #### [facility] ([id number]) [address], [address] [place] [address] Monocytes (Bld) [#/Vol] 0.7 10*3/uL Normal 0-0.9 [facility] Comment on above: Performed By: #### 7 18-7, PLTCT, PINR, 94821-9, HA1C #### [facility] ([id number]) [address] [place] [address] Monocytes/100 WBC (Bld) 6.9 % Normal [facility] Comment on above: Performed By: #### 7 18-7, PLTCT, PINR, 69961-1, HA1C #### [facility] ([id number]) [address] [place] [address] Neutrophils/100 WBC (Bld) 57.7 % Normal [facility] Comment on above: Performed By: #### 7 18-7, PLTCT, PINR, 83975-2, HA1C #### [facility] ([id number]) [address], [address] [place] [address] Platelet mean volume (Bld) [Entitic vol] 8.7 fL Normal 7-12 [facility] Comment on above: Performed By: #### 7 18-7, PLTCT, PINR, 22580-4, HA1C #### [facility] ([id number]) [address], [address] [place] [address] Platelets (Bld) [#/Vol] 254 10*3/uL Normal 150-450 [facility] Comment on above: Performed By: #### 7 18-7, PLTCT, PINR, 07254-9, HA1C #### [facility] ([id number]) [address], [address] [place] [address] RBC COUNT 4.78 X10E12/L Normal 4.10-5.70 [facility] Comment on above: Performed By: #### 7 18-7, PLTCT, PINR, 76075-3, HA1C #### [facility] ([id number]) [address], [address] [place] [address] WBC (Bld) [#/Vol] 10.6 10*3/uL Normal 4.0-11.0 [facility] Comment on above: Performed By: #### 7 18-7, PLTCT, PINR, 62877-8, HA1C #### [facility] ([id number]) [address], [address] [place] [address] Glucose Glucometer (BldC) [M ass/Vol]on 09-01-2024 Glucose [Mass/Vol] 189 mg/dL High 65-99 [facility] Glucose [Mass/Vol] 166 mg/dL High 65-99 [facility] Glucose [Mass/Vol] 103 mg/dL High 65-99 [facility] Glucose [Mass/Vol] 132 mg/dL High 65-99 [facility] HEMOGLOBINon 09-01-2024 Hemoglobin (Bld) [Mass/Vol] 14.2 g/dL Normal 13.0-17.0 [facility] Comment on above: Performed By: #### 7 18-7, PLTCT, PINR, 53927-2, HA1C #### [facility] ([id number]) [address], [address] [place] [address] Heparin unfractionated Chrom ogenic method Qn (PPP)on 09-01-2024 ANTI XA UFH 0.49 IU/mL Normal 0.30-0.70 [facility] Comment on above: Result Comment: Opti mal time for testing is 6 hrs post dosage This test is specific for monitoring patients on UFH, and is not recommended for use with other Anti-Xa medications. Performed By: #### 7 18-7, PLTCT, PINR, 42915-3, HA1C #### [facility] ([id number]) [address] [place] [address] PLATELET COUNT AND MPVon Platelet mean volume (Bld) [Entitic vol] 8.4 fL Normal 7-12 [facility] Comment on above: Performed By: #### 7 18-7, PLTCT, PINR, 04745-0, HA1C #### [facility] ([id number]) [address], [address] [place] [address] Platelets (Bld) [#/Vol] 242 10*3/uL Normal 150-450 [facility] Comment on above: Performed By: #### 7 18-7, PLTCT, PINR, 68808-9, HA1C #### [facility] ([id number]) [address], [address] [place] [address] PROTIME AND INRon 09-01-2024 INR Coag (PPP) [Relative time] 1.2 {INR} High 0.8-1.1 [facility] Comment on above: Performed By: #### 7 18-7, PLTCT, PINR, 35576-8, HA1C #### [facility] ([id number]) [address], [facility] [address] [place] [address] PT Coag (PPP) [Time] 14.4 s High 9.8-13.2 [facility] Comment on above: Performed By: #### 7 18-7, PLTCT, PINR, 41956-5, HA1C #### [facility] ([id number]) [address] [place] [address] aPTT Coag (PPP) [Time]on aPTT Coag (Bld) [Time] 43 s High 26-37 [facility] Comment on above: Performed By: #### 7 18-7, PLTCT, PINR, 31869-3, HA1C #### [facility] ([id number]) [address], [address] [place] [address] BASIC METABOLIC PANLon 08-31 Anion gap [Moles/Vol] 8 mmol/L Normal 5-15 [facility] Comment on above: Performed By: #### 7 18-7, PLTCT, PINR, 08366-8, HA1C #### [facility] ([id number]) [address], [address] [place] [address] Calcium [Mass/Vol] 9.2 mg/dL Normal 8.5-10.5 [facility] Comment on above: Performed By: #### 7 18-7, PLTCT, PINR, 79730-8, HA1C #### [facility] ([id number]) [address], [address] [place] [address] Chloride [Moles/Vol] 105 mmol/L Normal 98-109 [facility] Comment on above: Performed By: #### 7 18-7, PLTCT, PINR, 27019-7, HA1C #### [facility] ([id number]) [address] [place] [address] CO2 [Moles/Vol] 25 mmol/L Normal 22-32 [facility] Comment on above: Performed By: #### 7 18-7, PLTCT, PINR, 75791-9, HA1C #### [facility] ([id number]) [address] [place] [address] Creatinine [Mass/Vol] 0.90 mg/dL Normal 0.60-1.30 [facility] Comment on above: Result Comment: METH OD TRACEABLE TO IDMS STANDARD Performed By: #### 7 18-7, PLTCT, PINR, 90047-1, HA1C #### [facility] ([id number]) [address], [address] [place] [address] eGFR (CKD-EPI) NON-RACE DEPENDENT >90 Normal >59 [facility] Comment on above: Result Comment: Reported eGFR is based on the CKD-EPI 2020 equation that does not use a race coefficient. Performed By: #### 7 18-7, PLTCT, PINR, [id number], HA1C #### [facility] ([id number]) [address], [address] [place] [address] Glucose [Mass/Vol] 131 mg/dL High 65-99 [facility] Comment on above: Performed By: #### 7 18-7, PLTCT, PINR, [id number], HA1C #### [facility] ([id number]) [address], [facility] [address] [place] [address] Potassium [Moles/Vol] 3.8 mmol/L Normal 3.5-5.0 [facility] Comment on above: Performed By: #### 7 18-7, PLTCT, PINR, [id number], HA1C #### [facility] ([id number]) [address], [address] [place] [address] Sodium [Moles/Vol] 138 mmol/L Normal 134-146 [facility] Comment on above: Performed By: #### 7 18-7, PLTCT, PINR, [id number], HA1C #### [facility] ([id number]) [address], [address] [place] [address] Urea nitrogen [Mass/Vol] 23 mg/dL Normal 5-27 [facility] Comment on above: Performed By: #### 7 18-7, PLTCT, PINR, [id number], HA1C #### [facility] ([id number]) [address], [address] [place] [address] CBC AND AUTO DIFFon 12-27-20 24 ABSOLUTE BASOPHIL 0.1 X10E9/L Normal 0.0-0.2 [facility] Comment on above: Performed By: #### 7 18-7, PLTCT, PINR, [id number], HA1C #### [facility] ([id number]) [address] [address] [place] [address] ABSOLUTE NEUTROPHIL 6.6 X10E9/L Normal 1.5-6.6 [facility] Comment on above: Performed By: #### 7 18-7, PLTCT, PINR, 97142-3, HA1C #### [facility] ([id number]) [address], [address] [place] [address] Basophils/100 WBC (Bld) 1.0 % Normal [facility] Comment on above: Performed By: #### 7 18-7, PLTCT, PINR, 06755-7, HA1C #### [facility] ([id number]) [address], [address] [place] [address] Eosinophils (Bld) [#/Vol] 0.2 10*3/uL Normal 0.0-0.4 [facility] Comment on above: Performed By: #### 7 18-7, PLTCT, PINR, 36396-0, HA1C #### [facility] ([id number]) [address] [address] [place] [address] Eosinophils/100 WBC (Bld) 2.1 % Normal [facility] Comment on above: Performed By: #### 7 18-7, PLTCT, PINR, 03104-8, HA1C #### [facility] ([id number]) [address], [address] [place] [address] Erythrocyte distribution width (RBC) [Ratio] 13.3 % Normal 11.5-15.0 [facility] Comment on above: Performed By: #### 7 18-7, PLTCT, PINR, 24960-5, HA1C #### [facility] ([id number]) [address], [address] [place] [address] Hematocrit (Bld) [Volume fraction] 43.1 % Normal 39-49 [facility] Comment on above: Performed By: #### 7 18-7, PLTCT, PINR, 03432-3, HA1C #### [facility] ([id number]) [address], [address] [place] [address] Hemoglobin (Bld) [Mass/Vol] 14.6 g/dL Normal 13.0-17.0 [facility] Comment on above: Performed By: #### 7 18-7, PLTCT, PINR, 37844-0, HA1C #### [facility] ([id number]) [address], [address] [place] [address] Lymphocytes (Bld) [#/Vol] 3.8 10*3/uL High 1.0-3.5 [facility] Comment on above: Performed By: #### 7 18-7, PLTCT, PINR, 49638-9, HA1C #### [facility] ([id number]) [address], [address] [place] [address] Lymphocytes/100 WBC (Bld) 32.6 % Normal [facility] Comment on above: Performed By: #### 7 18-7, PLTCT, PINR, 73905-4, HA1C #### [facility] ([id number]) [address], [address] [place] [address] MCH (RBC) [Entitic mass] 30.8 pg Normal 27-34 [facility] Comment on above: Performed By: #### 7 18-7, PLTCT, PINR, 68235-8, HA1C #### [facility] ([id number]) [address], [address] [place] [address] MCHC (RBC) [Mass/Vol] 33.9 g/dL Normal 32-36 [facility] Comment on above: Performed By: #### 7 18-7, PLTCT, PINR, 26454-0, HA1C #### [facility] ([id number]) [address], [address] [place] [address] MCV (RBC) [Entitic vol] 91 fL Normal 80-100 [facility] Comment on above: Performed By: #### 7 18-7, PLTCT, PINR, 63517-5, HA1C #### [facility] ([id number]) [address], [address] [place] [address] Monocytes (Bld) [#/Vol] 0.9 10*3/uL Normal 0-0.9 [facility] Comment on above: Performed By: #### 7 18-7, PLTCT, PINR, 47349-3, HA1C #### [facility] ([id number]) [address], [address] [place] [address] Monocytes/100 WBC (Bld) 8.0 % Normal [facility] Comment on above: Performed By: #### 7 18-7, PLTCT, PINR, 76581-3, HA1C #### [facility] ([id number]) [address], [address] [place] [address] Neutrophils/100 WBC (Bld) 56.3 % Normal [facility] Comment on above: Performed By: #### 7 18-7, PLTCT, PINR, 55389-6, HA1C #### [facility] ([id number]) [address], [address] [place] [address] Platelet mean volume (Bld) [Entitic vol] 8.7 fL Normal 7-12 [facility] Comment on above: Performed By: #### 7 18-7, PLTCT, PINR, 62887-7, HA1C #### [facility] ([id number]) [address], [address] [place] [address] Platelets (Bld) [#/Vol] 237 10*3/uL Normal 150-450 [facility] Comment on above: Performed By: #### 7 18-7, PLTCT, PINR, 78324-5, HA1C #### [facility] ([id number]) [address], [address] [place] [address] RBC COUNT 4.75 X10E12/L Normal 4.10-5.70 [facility] Comment on above: Performed By: #### 7 18-7, PLTCT, PINR, 93371-1, HA1C #### [facility] ([id number]) [address], [address] [place] [address] WBC (Bld) [#/Vol] 11.7 10*3/uL High 4.0-11.0 [facility] Comment on above: Performed By: #### 7 18-7, PLTCT, PINR, 55152-3, HA1C #### [facility] ([id number]) [address], [address] [place] [address] Glucose Glucometer (dC) [M ass/Vol]on 08-31-2024 Glucose [Mass/Vol] 182 mg/dL High 65-99 [facility] Glucose [Mass/Vol] 234 mg/dL High 65-99 [facility] Glucose [Mass/Vol] 101 mg/dL High 65-99 [facility] Glucose [Mass/Vol] 124 mg/dL High 65-99 [facility] POTASSIUMon 08-31-2024 Potassium [Moles/Vol] 4.0 mmol/L Normal 3.5-5.0 [facility] Comment on above: Performed By: #### 7 18-7, PLTCT, PINR, 73901-6, HA1C #### [facility] ([id number]) [address], [address] [place] [address] BASIC METABOLIC PANLon 08-30 Anion gap [Moles/Vol] 8 mmol/L Normal 5-15 [facility] Comment on above: Performed By: #### 7 18-7, PLTCT, PINR, 79050-3, HA1C #### [facility] ([id number]) [address] [address] [place] [address] Calcium [Mass/Vol] 9.4 mg/dL Normal 8.5-10.5 [facility] Comment on above: Performed By: #### 7 18-7, PLTCT, PINR, 64742-5, HA1C #### [facility] ([id number]) [address], [address] [address] Chloride [Moles/Vol] 104 mmol/L Normal 98-109 [facility] Comment on above: Performed By: #### 7 18-7, PLTCT, PINR, 76116-0, HA1C #### [facility] ([id number]) [address] [address] CO2 [Moles/Vol] 27 mmol/L Normal 22-32 [facility] Comment on above: Performed By: #### 7 18-7, PLTCT, PINR, 54794-1, HA1C #### [facility] ([id number]) [address] [address] Creatinine [Mass/Vol] 0.94 mg/dL Normal 0.60-1.30 [facility] Comment on above: Result Comment: METH OD TRACEABLE TO IDMS STANDARD Performed By: #### 7 18-7, PLTCT, PINR, 95691-9, HA1C #### [facility] ([id number]) [address] [address] [place] [address] GFR/1.73 sq M.predicted among non-blacks MDRD (S/P/Bld) [Vol rate/Area] 89 mL/min/{1.73_m2} Normal >59 [facility] Comment on above: Result Comment: Reported eGFR is based on the CKD-EPI 2020 equation that does not use a race coefficient. Performed By: #### 7 18-7, PLTCT, PINR, 77506-8, HA1C #### [facility] ([id number]) [address], [address] [place] [address] Glucose [Mass/Vol] 109 mg/dL High 65-99 [facility] Comment on above: Performed By: #### 7 18-7, PLTCT, PINR, 39186-0, HA1C #### [facility] ([id number]) [address], [address] [place] [address] Potassium [Moles/Vol] 3.9 mmol/L Normal 3.5-5.0 [facility] Comment on above: Performed By: #### 7 18-7, PLTCT, PINR, 66969-8, HA1C #### [facility] ([id number]) [address], [address] [place] [address] Sodium [Moles/Vol] 139 mmol/L Normal 134-146 [facility] Comment on above: Performed By: #### 7 18-7, PLTCT, PINR, 91021-2, HA1C #### [facility] ([id number]) [address], [address] [place] [address] Urea nitrogen [Mass/Vol] 25 mg/dL Normal 5-27 [facility] Comment on above: Performed By: #### 7 18-7, PLTCT, PINR, 73488-2, HA1C #### [facility] ([id number]) [address], [address] [place] [address] CBC AND AUTO DIFFon 12-26-20 24 ABSOLUTE BASOPHIL 0.1 X10E9/L Normal 0.0-0.2 [facility] Comment on above: Performed By: #### 7 18-7, PLTCT, PINR, 95917-7, HA1C #### [facility] ([id number]) [address], [address] [place] [address] ABSOLUTE NEUTROPHIL 6.5 X10E9/L Normal 1.5-6.6 [facility] Comment on above: Performed By: #### 7 18-7, PLTCT, PINR, 58996-3, HA1C #### [facility] ([id number]) [address], [address] [place] [address] Basophils/100 WBC (Bld) 1.0 % Normal [facility] Comment on above: Performed By: #### 7 18-7, PLTCT, PINR, 39717-4, HA1C #### [facility] ([id number]) [address], [address] [place] [address] Eosinophils (Bld) [#/Vol] 0.3 10*3/uL Normal 0.0-0.4 [facility] Comment on above: Performed By: #### 7 18-7, PLTCT, PINR, 64614-8, HA1C #### [facility] ([id number]) [address], [address] [place] [address] Eosinophils/100 WBC (Bld) 2.5 % Normal [facility] Comment on above: Performed By: #### 7 18-7, PLTCT, PINR, 21625-4, HA1C #### [facility] ([id number]) [address] [place] [address] Erythrocyte distribution width (RBC) [Ratio] 13.5 % Normal 11.5-15.0 [facility] Comment on above: Performed By: #### 7 18-7, PLTCT, PINR, 64729-2, HA1C #### [facility] ([id number]) [address] [place] [address] Hematocrit (Bld) [Volume fraction] 44.1 % Normal 39-49 [facility] Comment on above: Performed By: #### 7 18-7, PLTCT, PINR, 12720-0, HA1C #### [facility] ([id number]) [address], [address] [place] [address] Hemoglobin (Bld) [Mass/Vol] 14.9 g/dL Normal 13.0-17.0 [facility] Comment on above: Performed By: #### 7 18-7, PLTCT, PINR, 67342-1, HA1C #### [facility] ([id number]) [address] [place] [address] Lymphocytes (Bld) [#/Vol] 4.0 10*3/uL High 1.0-3.5 [facility] Comment on above: Performed By: #### 7 18-7, PLTCT, PINR, 57564-8, HA1C #### [facility] ([id number]) [address] [place] [address] Lymphocytes/100 WBC (Bld) 33.5 % Normal [facility] Comment on above: Performed By: #### 7 18-7, PLTCT, PINR, 71671-2, HA1C #### [facility] ([id number]) [address], [facility] [address] [place] [address] MCH (RBC) [Entitic mass] 30.5 pg Normal 27-34 [facility] Comment on above: Performed By: #### 7 18-7, PLTCT, PINR, 45433-6, HA1C #### [facility] ([id number]) [address], [address] [place] [address] MCHC (RBC) [Mass/Vol] 33.7 g/dL Normal 32-36 [facility] Comment on above: Performed By: #### 7 18-7, PLTCT, PINR, 53999-5, HA1C #### [facility] ([id number]) [address], [address] [place] [address] MCV (RBC) [Entitic vol] 91 fL Normal 80-100 [facility] Comment on above: Performed By: #### 7 18-7, PLTCT, PINR, 03906-7, HA1C #### [facility] ([id number]) [address], [address] [place] [address] Monocytes (Bld) [#/Vol] 1.0 10*3/uL High 0-0.9 [facility] Comment on above: Performed By: #### 7 18-7, PLTCT, PINR, 70580-8, HA1C #### [facility] ([id number]) [address] [place] [address] Monocytes/100 WBC (Bld) 8.6 % Normal [facility] Comment on above: Performed By: #### 7 18-7, PLTCT, PINR, 60691-0, HA1C #### [facility] ([id number]) [address] [place] [address] Neutrophils/100 WBC (Bld) 54.4 % Normal [facility] Comment on above: Performed By: #### 7 18-7, PLTCT, PINR, 94316-2, HA1C #### [facility] ([id number]) [address] [place] [address] Platelet mean volume (Bld) [Entitic vol] 8.4 fL Normal 7-12 [facility] Comment on above: Performed By: #### 7 18-7, PLTCT, PINR, 57640-2, HA1C #### [facility] ([id number]) [address], [address] [place] [address] Platelets (Bld) [#/Vol] 238 10*3/uL Normal 150-450 [facility] Comment on above: Performed By: #### 7 18-7, PLTCT, PINR, 26710-9, HA1C #### [facility] ([id number]) [address], [address] [place] [address] RBC COUNT 4.86 X10E12/L Normal 4.10-5.70 [facility] Comment on above: Performed By: #### 7 18-7, PLTCT, PINR, 07268-8, TASHA #### [facility] ([id number]) [address], [address] [place] [address] WBC (Bld) [#/Vol] 11.9 10*3/uL High 4.0-11.0 [facility] Comment on above: Performed By: #### 7 18-7, PLTCT, PINR, 53573-4, TASHA #### [facility] ([id number]) [address], [address] [place] [address] Glucose Glucometer (BldC) [M ass/Vol]on 08-30-2024 Glucose [Mass/Vol] 199 mg/dL High 65-99 [facility] Glucose [Mass/Vol] 291 mg/dL High 65-99 [facility] Glucose [Mass/Vol] 87 mg/dL Normal 65-99 [facility] Lipid 1996 panelon Cholesterol [Mass/Vol] 99 mg/dL Low 150-200 [facility] Comment on above: Performed By: #### 7 18-7, PLTCT, PINR, 21243-9, TASHA #### [facility] ([id number]) [address], [address] [place] [address] Cholesterol in HDL [Mass/Vol] 31 mg/dL Low >39 [facility] Comment on above: Result Comment: HDL <40 mg/dL - High Risk HDL > or = 40mg/dL- Desirable HDL >60 mg/dL - Negative Risk Performed By: #### 7 18-7, PLTCT, PINR, 39859-1, HA1C #### [facility] ([id number]) [address] [place] [address] Cholesterol in LDL [Mass/Vol] 54 mg/dL Normal <130 [facility] Comment on above: Result Comment: LDL <100 mg/dL - Desirable LDL >160 mg/dL - High Risk Performed By: #### 7 18-7, PLTCT, PINR, 35396-9, HA1C #### [facility] ([id number]) [address] [place] [address] Cholesterol in VLDL [Mass/Vol] 14 mg/dL Normal 0-30 [facility] Comment on above: Performed By: #### 7 18-7, PLTCT, PINR, 54782-7, HA1C #### [facility] ([id number]) [address], [address] [place] [address] CHOLESTEROL:HDL 3.2 Normal 1.0-5.0 [facility] Comment on above: Performed By: #### 7 18-7, PLTCT, PINR, 13562-0, HA1C #### [facility] ([id number]) [address], [address] [place] [address] Triglyceride [Mass/Vol] 68 mg/dL Normal 27-150 [facility] Comment on above: Performed By: #### 7 18-7, PLTCT, PINR, 38204-3, HA1C #### [facility] ([id number]) [address], [address] [address] MR BRAIN WO CONTon 4 MR BRAIN [...] Marie MD on 08/30/2024 1:59 PM Normal [facility] BASIC METABOLIC PANLon 08-29 Anion gap [Moles/Vol] 11 mmol/L Normal 5-15 [facility] Comment on above: Performed By: #### B MP #### [facility] ([id number]) [address], [address] [place] [address] Calcium [Mass/Vol] 9.7 mg/dL Normal 8.5-10.5 [facility] Comment on above: Performed By: #### B MP #### [facility] ([id number]) [address], [address] [place] [address] Chloride [Moles/Vol] 101 mmol/L Normal 98-109 [facility] Comment on above: Performed By: #### B MP #### [facility] ([id number]) [address], [address] [place] [address] CO2 [Moles/Vol] 27 mmol/L Normal 22-32 [facility] Comment on above: Performed By: #### B MP #### [facility] ([id number]) [address], [address] [place] [address] Creatinine [Mass/Vol] 1.01 mg/dL Normal 0.60-1.30 [facility] Comment on above: Result Comment: METH OD TRACEABLE TO IDMS STANDARD Performed By: #### B MP #### [facility] ([id number]) [address] [place] [address] GFR/1.73 sq M.predicted among non-blacks MDRD (S/P/Bld) [Vol rate/Area] 82 mL/min/{1.73_m2} Normal >59 [facility] Comment on above: Result Comment: Reported eGFR is based on the CKD-EPI 2020 equation that does not use a race coefficient. Performed By: #### B MP #### [facility] ([id number]) [address] [address] [place] [address] Glucose [Mass/Vol] 122 mg/dL High 65-99 [facility] Comment on above: Performed By: #### B MP #### [facility] ([id number]) [address] [address] Potassium [Moles/Vol] 3.4 mmol/L Low 3.5-5.0 [facility] Comment on above: Performed By: #### B MP #### [facility] ([id number]) [address] [address] [place] [address] Sodium [Moles/Vol] 139 mmol/L Normal 134-146 [facility] Comment on above: Performed By: #### B MP #### [facility] ([id number]) [address] [address] Urea nitrogen [Mass/Vol] 22 mg/dL Normal 5-27 [facility] Comment on above: Performed By: #### B MP #### [facility] ([id number]) [address] [address] [place] [address] Glucose Glucometer (BldC) [M ass/Vol]on 08-29-2024 Glucose [Mass/Vol] 116 mg/dL High 65- [facility] Glucose [Mass/Vol] 155 mg/dL High 65- [facility] HEMOGLOBINon 08-29-2024 Hemoglobin (Bld) [Mass/Vol] 15.4 g/dL Normal 13.0-17.0 [facility] Comment on above: Performed By: #### 7 18-7, PLTCT, PINR, 97535-2, HA1C #### [facility] ([id number]) [address] [place] [address] HGB A1C (GLYCO-HGB)on 2023 Glucose [Mass/Vol] 171 mg/dL Normal [facility] Comment on above: Performed By: #### 7 18-7, PLTCT, PINR, 87605-3, HA1C #### [facility] ([id number]) [address] [place] [address] HbA1c (Bld) [Mass fraction] 7.6 % High 4.4-5.6 [facility] Comment on above: Result Comment: NOTE ADA Guidelines Result HgbA1c Normal : less than 5.7 % Prediabetes : 5.7 % to 6.4 % Diabetes : > 6.4 % Use with caution in patients with abnormal hemoglobin variants as the half-life of red blood cells and in vivo glycation rates are affected. Performed By: #### 7 18-7, PLTCT, PINR, 72653-7, HA1C #### [facility] ([id number]) [address] [place] [address] Heparin unfractionated Chrom ogenic method Qn (PPP)on 08-29-2024 ANTI XA UFH 0.16 IU/mL Low 0.30-0.70 [facility] Comment on above: Result Comment: Opti mal time for testing is 6 hrs post dosage This test is specific for monitoring patients on UFH, and is not recommended for use with other Anti-Xa medications. Performed By: #### 3 274-8 #### [facility] ([id number]) [address] [place] [address] ANTI XA UFH 0.10 IU/mL Low 0.30-0.70 [facility] Comment on above: Result Comment: Opti mal time for testing is 6 hrs post dosage This test is specific for monitoring patients on UFH, and is not recommended for use with other Anti-Xa medications. Performed By: #### 3 274-8 #### [facility] ([id number]) [address], [address] [place] [address] PLATELET COUNT AND MPVon Platelet mean volume (Bld) [Entitic vol] 8.3 fL Normal 7-12 [facility] Comment on above: Performed By: #### 7 18-7, PLTCT, PINR, [id number], HA1C #### [facility] ([id number]) [address], [address] [place] [address] Platelets (Bld) [#/Vol] 243 10*3/uL Normal 150-450 [facility] Comment on above: Performed By: #### 7 18-7, PLTCT, PINR, [id number], HA1C #### [facility] ([id number]) [address], [address] [place] [address] PROTIME AND INRon 08-29-2024 INR Coag (PPP) [Relative time] 1.3 {INR} High 0.8-1.1 [facility] Comment on above: Performed By: #### 7 18-7, PLTCT, PINR, [id number], HA1C #### [facility] ([id number]) [address], [address] [place] [address] PT Coag (PPP) [Time] 15.0 s High 9.8-13.2 [facility] Comment on above: Performed By: #### 7 18-7, PLTCT, PINR, 37527-4, HA1C #### [facility] ([id number]) [address], [address] [place] [address] aPTT Coag (PPP) [Time]on aPTT Coag (Bld) [Time] 34 s Normal 26-37 [facility] Comment on above: Performed By: #### 7 18-7, PLTCT, PINR, 99406-5, HA1C #### [facility] ([id number]) [address] [place] [address] Provider Letteron 03-04-2023 Provider Letter (Inserted Image. Carin ble to display) March 04, 2023 HARVEY SAMRA [address] [place] [address] : 1955 Dear Mr. Harvey Cabrales , This letter is to inform you the the providers of [facility] (Dr. Kameron Barr) will no longer be [...] of area physicians can be found on [facility]'s website at [email or web address] or you may contact your health plan. We will be glad to forward your records to your new physician as long as we receive a signed release of records form. Sincerely, Kameron Barr M.D., F.A.C.S. [facility] [address] [place] [address] , Option #3 Normal [facility] Patient Letter FTon 2022 Patient Letter [facility] January 21, 2023 HARVEY CABRALES [address] [place] [address] : 1955 SENT REGULAR/CERTIFIED MAIL Dear Mr. [...] Kameron Barr M.D., F.A.C.S. [facility] [address] [place], [place] [id number] , Option #3 Normal [facility] Urine Cytology ([facility])on 0 12-28-2022 Urine Cytology Diagnosis Info Invalid Interpretation Code [facility] Comment on above: Result Comment: A:Ur [...] on: 12/28/2022 09:05:14 Performed By: #### 1 [id number] #### [facility] [address] [place] [address] Formson 12-23-2022 Forms [id number]:127 Normal [facility] Physician Referralon 023 Physician Referral [id number]:127 Normal [facility] Screenson 12-23-2022 Screens [id number]#[id number]:127 Normal [facility] Ambulatory Visit Summaryon 0 12-22-2022 Ambulatory Visit Summary HARVEY CABRALES :1955 Visit Date:12/22/2022 Ambulatory Visit Instructions Your Diagnosis Microhematuria Benign prostatic hyperplasia (BPH) with post-void dribbling Family history of kidney cancer Tests Performed Urnls Dip Stick Auto w/o Microscopy POC 49779 Your Care Team Attending Physician - Kameron [...] [facility] [address], [place] [address]- Medications What How Much When Instructions Unchanged lisinopril (lisinopril 20 mg Tab) Every day Contact prescribing physician if questions or concerns Unchanged metformin Contact prescribing physician if questions or concerns Unchanged pantoprazole (Pantoprazole [address] Tab) Every day Contact prescribing physician if questions or concerns Test Results Urnls Dip Stick Auto w/o Microscopy POC 99135 (12/22/2022) Bilirubin Urine Dipstick - Negative Blood Urine Dipstick - 2+ Moderate Glucose Urine Dipstick - Negative Ketones Urine Dipstick - Negative Leukocytes Urine Dipstick - Negative Nitrite Urine Dipstick - Negative Protein Urine Dipstick - Negative Specific Gilman Urine Dipstick - 1.020 Urine Appearance Urine [...] these instructions at home: Medicines ? Take vjjr-osn-mbwgbds and prescription medicines only as told by [...] not (more content not included)... Normal [facility] Urine Cytology ([facility])on 0 12-22-2022 UC Method of Extraction Voided Normal [facility] Comment on above: Performed By: #### 1 [id number] #### [facility] [address] [place] [address] Number of Jars 1 Invalid Interpretation Code [facility] Comment on above: Performed By: #### 1 [id number] #### [facility] [address] [place] [address] Specimen Urine Normal [facility] Comment on above: Performed By: #### 1 [id number] #### [facility] [address] [place] [address] Type of Service Technical Only Normal [facility] Comment on above: Performed By: #### 1 [id number] #### [facility] [address] [place] [address] Urology Office/Clinic Noteon 12-22-2022 Urology Office/Clinic Note [...] [facility] [address], [place] [id number]- Additional Instructions: schedule cysto Patient Education Hematuria, [...] Hypertens (more content not included)... Normal [facility] Comment on above: Result Comment: Elec [...] these instructions at home: Medicines ? Take yqyx-lch-lbrpmqm and prescription medicines only as told by [...] the blood stops without treatment. ? Take ardj-ttx-heffuof and prescription medicines only as told by your health care provider. ? Drink enough fluid to keep your urine pale yellow. This information is not intended to replace advice given to you by your health care provider. Make sure you discuss any questions you have with your health care provider. Document Revised: 04/22/2021 Document Reviewed: 04/22/2021 [employer] Patient Education ? 2022 [employer]. Normal [facility] OCC BLD IMMUNO SCREENon 11-03 OCCULT BLOOD Negative Normal NEGATIVE [facility] Comment on above: Performed By: #### O BSCRN #### [facility] [address] [address] [address] Tom Chacko US KIDNEYS BLADDERon 11-12- 023 US KIDNEYS BLADDER EXAMINATION: [facility] HISTORY: Blood in urine COMPARISON: No [...] ANA RAMOS Date: 2022-11-12 13:02 Normal [facility] CA 19-9on 11-05-2022 CA 19-9 9 U/mL Normal 0-35 [facility] Comment on above: Result Comment: [employer] Electrochemiluminescence Immunoassay (ECLIA) . Values obtained with different assay methods or kits cannot be used interchangeably. Results cannot be interpreted as absolute evidence of the presence or absence of malignant disease. Performed By: #### C A 19,9 #### [facility] [address] [address] [address] Tom Chacko INSULINon 11-05-2022 Insulin 17.2 uIU/mL Normal 2.6-24.[address] [facility] Comment on above: Performed By: #### I NSULIN ####[facility] [id number] [address]Dr. Tom Chacko CBC AUTO DIFFon 11-04-2022 BASO # 0.1 103/ul Normal 0.0-0.[address] [facility] Comment on above: Performed By: #### C BC #### [facility] [address] [place] [address] Dr. Tom Chacko Basophils/100 WBC (Bld) 1.0 % Normal 0.2-2.[address] [facility] Comment on above: Performed By: #### C BC #### [facility] [address] [place] [address] Dr. Tom Chacko EO # 0.4 103/ul Normal 0.0-0.[address] [facility] Comment on above: Performed By: #### C BC #### [facility] [address] [place] [address] Dr. Tom Chacko Eosinophils/100 WBC (Bld) 3.2 % Normal 0.9-7.[address] [facility] Comment on above: Performed By: #### C BC #### [facility] [address] [place] [address] Dr. Tom Chacko Erythrocyte distribution width (RBC) [Ratio] 13.5 % Normal 11.0-15.[address] [facility] Comment on above: Performed By: #### C BC #### [facility] [address] [place] [address] Dr. Tom Chacko Hematocrit (Bld) [Volume fraction] 45.7 % Normal 42.0-54.[address] [facility] Comment on above: Performed By: #### C BC #### [facility] [address] [place] [address] Dr. Tom Chacko Hemoglobin (Bld) [Mass/Vol] 15.7 g/dL Normal 14.0-18.[address] [facility] Comment on above: Performed By: #### C BC #### [facility] [address] [place] [address] Dr. Tom Chacko IG # 0.05 10e3/ul Critically high 0.00-0.03 [facility] Comment on above: Performed By: #### C BC #### [facility] [address] [place] [address] Dr. Tom Chacko IG % 0.4 % Normal 0.0-0.[address] [facility] Comment on above: Performed By: #### C BC #### [facility] [address] [place] [address] Dr. Tom Chacko LYMPH # 3.8 103/ul Normal 1.2-3.[address] [facility] Comment on above: Performed By: #### C BC #### [facility] [address] [place] [address] Dr. Tom Chacko Lymphocytes/100 WBC (Bld) 31.9 % Normal 20.5-60.[address] [facility] Comment on above: Performed By: #### C BC #### [facility] [address] [place] [address] Dr. Tom Chacko MANUAL DIFF REQ NO Normal [facility] Comment on above: Performed By: #### C BC #### [facility] [address] [place] [address] Dr. Tom Chacko MCH (RBC) [Entitic mass] 30.3 pg Normal 25.9-34.[address] [facility] Comment on above: Performed By: #### C BC #### [facility] [address] [place] [address] Dr. Tom Chacko MCHC (RBC) [Mass/Vol] 34.4 g/dL Normal 29.9-35.[address] [facility] Comment on above: Performed By: #### C BC #### [facility] [address] [address] [address] Tom Chacko MCV (RBC) [Entitic vol] 88.2 fL Normal 80.0-94.[address] [facility] Comment on above: Performed By: #### C BC #### [facility] [address] [address] [address] Tom Chacko MONO # 0.8 103/ul Normal 0.3-0.[address] [facility] Comment on above: Performed By: #### C BC #### [facility] [address] [place] [address] Dr. Tom Chacko Monocytes/100 WBC (Bld) 6.6 % Normal 1.7-12.[address] [facility] Comment on above: Performed By: #### C BC #### [facility] [address] [place] [address] Dr. Tom Chacko NEUT # 6.8 103/ul Critically high 1.4-6.5 [facility] Comment on above: Performed By: #### C BC #### [facility] [address] [place] [address] Dr. Tom Chacko Neutrophils/100 WBC (Bld) 56.9 % Normal 43.0-75.[address] [facility] Comment on above: Performed By: #### C BC #### [facility] [address] [place] [address] Dr. Tom Chacko Platelet mean volume (Bld) [Entitic vol] 9.6 fL Normal 9.5-13.5 [facility] Comment on above: Performed By: #### C BC #### [facility] [address] [place] [address] Dr. Tom Chacko PLT 258 103/ul Normal 150-450 [facility] Comment on above: Performed By: #### C BC #### [facility] [address] [place] [address] Dr. Tom Chacko RBC 5.18 106/ul Normal 4.70-6.10 [facility] Comment on above: Performed By: #### C BC #### [facility] [address] [address] [address] Tom Chacko WBC 11.9 103/ul Critically high 4.0-11.0 [facility] Comment on above: Performed By: #### C BC #### [facility] [address] [place] [address] Dr. Tom Chacko GLYCOHEMOGLOBIN A1Con 2022 ADA RECOMMENDATION SEE BELOW Normal [facility] Comment on above: Result Comment: ADA RECOMMENDED LIMIT 4.0 - 6.0 ADA THERAPEUTIC TARGET < 7.0 ACTION SUGGESTED > 7.0 Performed By: #### A 1C #### [facility] [address] [place] [address] Dr. Tom Chacko Glucose [Mass/Vol] 120 mg/dL Normal [facility] Comment on above: Performed By: #### A 1C #### [facility] [address] [place] [address] Dr. Tom Chacko HbA1c (Bld) [Mass fraction] 5.8 % Normal 4.5-6.[address] [facility] Comment on above: Performed By: #### A 1C #### [facility] [address] [place] [address] Dr. Tom Chacko LIPID PROFILEon 11-04-2022 CHOL-HDL RATIO NORM SEE BELOW Normal [facility] Comment on above: Result Comment: 3.3 - 4.4 LOW RISK 4.4 - 7.1 AVERAGE RISK 7.1 - 11.0 MODERATE RISK >11.0 HIGH RISK Performed By: #### C MP, URIC, LIPID #### [facility] [address] [place] [address] Dr. Tom Chacko Cholesterol [Mass/Vol] 112 mg/dL Normal <=[address] [facility] Comment on above: Performed By: #### C MP, URIC, LIPID #### [facility] [address] [place] [address] Dr. Tom Chacko Cholesterol in HDL [Mass/Vol] 34 mg/dL Critically low 40-[address] [facility] Comment on above: Performed By: #### C MP, URIC, LIPID #### [facility] [address] [address] [address] Tom Chacko Cholesterol in LDL [Mass/Vol] 48.6 mg/dL Normal [facility] Comment on above: Performed By: #### C MP, URIC, LIPID #### [facility] [address] [address] [address] Tom Chacko Cholesterol.total/ Cholesterol in HDL [Mass ratio] 3.3 {ratio} Normal [facility] Comment on above: Performed By: #### C MP, URIC, LIPID #### [facility] [address] [address] [address] Tom Chacko HDL NORMAL > or = 60 mg/dl - LO W CARDIOVASCULAR RISK <40 mg/dl - HIGH CARDIOVASCULAR RISK Normal [facility] Comment on above: Performed By: #### C MP, URIC, LIPID #### [facility] [address] [place] [address] Dr. Tom Chacko LDL CALC NORMAL SEE BELOW Normal [facility] Comment on above: Result Comment: <100 mg/dl OPTIMAL 100 - 129 mg/dl NEAR OR ABOVE OPTIMAL 130 - 159 mg/dl BORDERLINE HIGH 160 - 189 mg/dl HIGH >190 mg/dl VERY HIGH Performed By: #### C MP, URIC, LIPID #### [facility] [address] [place] [address] Dr. Tom Chacko Triglyceride [Mass/Vol] 147 mg/dL Normal <=[address] [facility] Comment on above: Performed By: #### C MP, URIC, LIPID #### [facility] [address] [address] [address] Tom Chacko VLDL CALC 29.4 mg/dL Normal [facility] Comment on above: Performed By: #### C MP, URIC, LIPID #### [facility] [address] [place] [address] Dr. Tom Chacko PROF 14(COMP METB)on 023 Albumin [Mass/Vol] 3.8 g/dL Normal 3.4-5.0 [facility] Comment on above: Performed By: #### C MP, URIC, LIPID #### [facility] [address] [address] [address] Tom Chacko Albumin/Globulin [Mass ratio] 1.1 {ratio} Normal [facility] Comment on above: Performed By: #### C MP, URIC, LIPID #### [facility] [address] [address] [address] Tom Chacko ALP [Catalytic activity/Vol] 73 U/L Normal 46-[address] [facility] Comment on above: Performed By: #### C MP, URIC, LIPID #### [facility] [address] [address] [address] Tom Chacko ALT [Catalytic activity/Vol] 28 U/L Normal 16-[address] [facility] Comment on above: Performed By: #### C MP, URIC, LIPID #### [facility] [address] [address] [address] Tom Chacko Anion gap [Moles/Vol] 10.3 mmol/L Normal [facility] Comment on above: Performed By: #### C MP, URIC, LIPID #### [facility] [address] [address] [address] Tom Chacko AST [Catalytic activity/Vol] 17 U/L Normal 15-[address] [facility] Comment on above: Performed By: #### C MP, URIC, LIPID #### [facility] [address] [address] [address] Tom Chacko Bilirubin [Mass/Vol] 0.4 mg/dL Normal 0.2-1.[address] [facility] Comment on above: Performed By: #### C MP, URIC, LIPID #### [facility] [address] [address] [address] Tom Chacko Calcium [Mass/Vol] 9.3 mg/dL Normal 8.5-10.1 [facility] Comment on above: Performed By: #### C MP, URIC, LIPID #### [facility] [address] [address] [address] Tom Chacko Chloride [Moles/Vol] 104 mmol/L Normal 98-[address] [facility] Comment on above: Performed By: #### C MP, URIC, LIPID #### [facility] [address] [address] [address] Tom Chacko CO2 [Moles/Vol] 29.5 mmol/L Normal 21.0-32.0 [facility] Comment on above: Performed By: #### C MP, URIC, LIPID #### [facility] [address] [address] [address] Tom Chacok Creatinine [Mass/Vol] 0.96 mg/dL Normal 0.70-1.[address] [facility] Comment on above: Performed By: #### C MP, URIC, LIPID #### [facility] [address] [address] [address] Tom Chacko EGFR-AF CHINESE >60 Normal >=60 [facility] Comment on above: Performed By: #### C MP, URIC, LIPID #### [facility] [address] [place] [address] Dr. Tom Chacko EGFR-NON AF CHINESE >60 Normal >=[address] [facility] Comment on above: Performed By: #### C MP, URIC, LIPID #### [facility] [address] [address] [address] Tom Chacko Globulin (S) [Mass/Vol] 3.5 g/dL Normal [facility] Comment on above: Performed By: #### C MP, URIC, LIPID #### [facility] [address] [address] [address] Tom Chacko Glucose [Mass/Vol] 113 mg/dL Critically high 74-106 [facility] Comment on above: Performed By: #### C MP, URIC, LIPID #### [facility] [address] [address] [address] Tom Chacko Potassium [Moles/Vol] 3.8 mmol/L Normal 3.5-5.[address] [facility] Comment on above: Performed By: #### C MP, URIC, LIPID #### [facility] [address] [address] [address] Tom Chacko Protein [Mass/Vol] 7.3 g/dL Normal 6.4-8.2 [facility] Comment on above: Performed By: #### C MP, URIC, LIPID #### [facility] [address] [address] [address] Tom Chacko Sodium [Moles/Vol] 140 mmol/L Normal 136-145 [facility] Comment on above: Performed By: #### C MP, URIC, LIPID #### [facility] [address] [place] [address] Dr. Tom Chacko Urea nitrogen [Mass/Vol] 14.0 mg/dL Normal 7.0-18.[address] [facility] Comment on above: Performed By: #### C MP, URIC, LIPID #### [facility] [address] [place] [address] Dr. Tom Chacko Urea nitrogen/Creatinin e [Mass ratio] 14.6 mg/mg Normal [facility] Comment on above: Performed By: #### C MP, URIC, LIPID #### [facility] [address] [place] [address] Dr. Tom Chacko UA (CLEAN/CATCH) COATER/MICRO I F IND.on 11-04-2022 Bilirubin Ql (U) Negative Normal NEGATIVE [facility] Comment on above: Performed By: #### U MICRO, UACSIND #### [facility] [address] [place] [address] Dr. Tom Chacko Clarity (U) CLEAR Normal CLEAR [facility] Comment on above: Performed By: #### U MICRO, UACSIND #### [facility] [address] [place] [address] Dr. Tom Chacko Color (U) YELLOW Normal YELLOW [facility] Comment on above: Performed By: #### U MICRO, UACSIND #### [facility] [address] [place] [address] Dr. Tom Chacko Glucose Ql (U) Negative Normal NEGATIVE [facility] Comment on above: Performed By: #### U MICRO, UACSIND #### [facility] [address] [place] [address] Dr. Tom Chacko Hemoglobin Ql (U) MODERATE Abnormal NEGATIVE [facility] Comment on above: Performed By: #### U MICRO, UACSIND #### [facility] [address] [address] [address] Tom Chacko Ketones Ql (U) Negative Normal NEGATIVE [facility] Comment on above: Performed By: #### U MICRO, UACSIND #### [facility] [address] [address] [address] Tom Chacko LEUKOCYTES Negative Normal NEGATIVE [facility] Comment on above: Performed By: #### U MICRO, UACSIND #### [facility] [address] [address] [address] Tom Chacko Nitrite Ql (U) Negative Normal NEGATIVE [facility] Comment on above: Performed By: #### U MICRO, UACSIND #### [facility] [address] [address] [address] Tom Chacko pH (U) 6.0 [pH] Normal 5-[address] [facility] Comment on above: Performed By: #### U MICRO, UACSIND #### [facility] [address] [address] [address] Tom Chacko SPEC GRAVITY 1.020 Normal 1.005-<=1.[address] [facility] Comment on above: Performed By: #### U MICRO, UACSIND #### [facility] [address] [address] [address] Tom Chacko UA PROTEIN Negative Normal NEGATIVE/ TRACE [facility] Comment on above: Performed By: #### U MICRO, UACSIND #### [facility] [address] [address] [address] Tom Chacko UR MICRO IND INDICATED Normal [facility] Comment on above: Performed By: #### U MICRO, UACSIND #### [facility] [address] [address] [address] Tom Chacko Urobilinogen Qn (U) 0.2 {Joseph'U}/dL Normal 0.2 - 1.[address] [facility] Comment on above: Performed By: #### U MICRO, UACSIND #### [facility] [address] [address] [address] Tom Chacko URIC ACID SERUMon 11-04-2022 Urate [Mass/Vol] 7.3 mg/dL Critically high 3.5-7.2 The [facility] Comment on above: Performed By: #### C MP, URIC, LIPID ####[facility] [id number] [address]Dr. Tom Chacko URINE MICROSCOPIC ONLYon BACTERIA NONE SEEN Normal NONE SEEN The [facility] Comment on above: Performed By: #### U MICRO, UACSIND #### [facility] Laboratory [address] [address] [address] Tom Chacko Bacteria identified Cx Nom (U) NOT INDICATED Normal The [facility] Comment on above: Performed By: #### U MICRO, UACSIND #### [facility] [address] [place] [address] Dr. Tom Chacko CAST NONE SEEN Normal NONE SEEN [facility] Comment on above: Performed By: #### U MICRO, UACSIND #### [facility] [address] [address] [address] Tom Chacko Crystals LM Nom (Urine sed) NONE SEEN Normal NONE SEEN The [facility] Comment on above: Performed By: #### U MICRO, UACSIND #### [facility] [address] [place] [address] Dr. Tom Chacko Epithelial cells LM Ql (Urine sed) RARE Normal NONE SEEN /RARE [facility] Comment on above: Performed By: #### U MICRO, UACSIND #### [facility] [address] [place] [address] Dr. Tom Chacko MUCOUS NONE SEEN Normal NONE SEEN [facility] Comment on above: Performed By: #### U MICRO, UACSIND #### [facility] [address] [address] [address] Tom Chacko RBC 5-10 Abnormal 0-2 [facility] Comment on above: Performed By: #### U MICRO, UACSIND #### [facility] [address] [place] [address] Dr. Tom Chacko WBC NONE SEEN Normal NONE SEEN [facility] Comment on above: Performed By: #### U MICRO, UACSIND #### [facility] [address] [address] [address] Tom Chacko Aerobic Cultureon 02-09-2022 Aerobic Culture ORGANISM: Strep. aga lactiae Grp B (O:B) Quantity of Growth Moderate Growth No Anaerobes Isolated 3 Days Gram Stain Result No Bacteria Seen PERFORMED BY: [place] [address] PATHOLOGIST TAP AND DIE MAKER TECHNICIAN MARGARITA CHOI M.D. [facility] Comment on above: Performed By: #### A ERC, GS #### [address] Gram Stainon 02-09-2022 Microscopic observation Gram stain Nom (Unsp spec) Gram Stain Result No Bacteria Seen PERFORMED BY: [place] [address] PATHOLOGIST TAP AND DIE MAKER TECHNICIAN MARGARITA CHOI M.D. 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 09-27-2024 15:09-0500 Body mass index (BMI) [Ratio] 28.97 kg/m2 Chico Pathak DO Work Phone: [facility] 09-27-2024 15:09-0500 Body weight 83.92 kg Chico Lawson DO Work Phone: [facility] 09-27-2024 15:09-0500 Diastolic blood pressure 64 mm[Hg] Chico Pathak DO Work Phone: [facility] 09-27-2024 15:09-0500 Systolic blood pressure 124 mm[Hg] Chico Lawson DO Work Phone: [facility] 12-22-2022 10:06-0400 Blood Pressure Location Kameron BARR [facility] 12-22-2022 10:06-0400 Diastolic blood pressure 75 mm[Hg] Kameron BARR [facility] 12-22-2022 10:06-0400 Heart rate 58 /min Kameron BARR [facility] 12-22-2022 10:06-0400 Systolic blood pressure 146 mm[Hg] Kameron BARR [facility] 02-09-2022 19:50-0400 Body height 147.32 cm Allegra Moreau Other [employer] Other 02-09-2022 19:50-0400 Body mass index (BMI) [Ratio] 50.15 kg/m2 Allegra Moreau Other [employer] Other 02-09-2022 19:50-0400 Body temperature 96.9 [degF] Allegra Moreau Other [employer] Other 02-09-2022 19:50-0400 Body weight 108.86 kg Allegra Moreau Other [employer] Other 02-09-2022 19:50-0400 Diastolic blood pressure 80 mm[Hg] Allegra Moreau Other [employer] Other 02-09-2022 19:50-0400 Respiratory rate 18 /min Allegra Moreau Other [employer] Other 02-09-2022 19:50-0400 SaO2% (BldA) [Mass fraction] 99 % Allegra Moreau Other [employer] Other 02-09-2022 19:50-0400 Systolic blood pressure 167 mm[Hg] Allegra Moreau Other [employer] Other Encounters Encounter Date Encounter Type Care Provider Facility Start: 09-27-2024 End: 09-27-2024 Postop follow up visit related to original px Chico Pathak DO Work Phone: [facility] Comment on above: 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) Start: 09-27-2024 End: 09-27-2024 ambulatory CHICO PATHAK [facility] Start: 09-27-2024 End: 09-27-2024 Telephone encounter Antionette De La Paz [employer] Work Phone: [facility] Start: 09-25-2024 End: 09-25-2024 ambulatory [facility] Start: 09-11-2024 ambulatory JOELLE BREWER [facility] Start: 09-04-2024 End: 09-04-2024 Evaluation and management of inpatient JENNY Bocanegra [facility] Start: 09-01-2024 End: 09-01-2024 Telephone encounter Tri [facility] Call Benedictoliyah khoury Comment on above: Advice Only Start: 08-31-2024 End: 09-04-2024 Evaluation and management of inpatient [facility] Start: 08-30-2024 End: 09-04-2024 Evaluation and management of inpatient [facility] Start: 08-30-2024 End: 08-30-2024 ambulatory [facility] Start: 08-29-2024 ambulatory [facility] Start: 08-29-2024 End: 09-03-2024 Evaluation and management of inpatient [facility] Start: 01-11-2023 End: 01-12-2023 ambulatory JOELLE BREWER Facility:[facility] Start: 12-23-2022 End: 12-29-2022 Pre-admission assessment Kameron BARR [facility] Start: 12-22-2022 End: 12-23-2022 ambulatory Kameron BARR Facility:[facility] Start: 12-22-2022 End: 12-22-2022 Patient encounter procedure Kameron BARR [facility] Start: 11-16-2022 ambulatory Kameron BARR Facility :[facility] Start: 11-12-2022 End: 11-13-2022 ambulatory JOELLE BREWER Facility:[facility] Start: 11-04-2022 End: 11-05-2022 ambulatory JOELLE BREWER Facility:[facility] Start: 02-09-2022 End: 02-09-2022 Departed Referred MARIELOS Moreau Work Phone: [facility] [place] Start: 02-09-2022 End: 02-09-2022 ambulatory Allegra Moreau Other [employer] Other Start: 02-09-2022 Office outpatient ne w 20 minutes Allegra Moreau [facility] Procedures Date Procedure Procedure Detail Performing Clinician Start: 08-30-2024 Adult depression scr eening assessment [facility] Start: 11-04-2022 PSA screening JOELLE PANTOJA Comment on above: Performed By: #### [facility] #### [facility] [address] [place] [address] Dr. Tom Chacko Cholecystectomy Kameron LALA Colonoscopy Kameron BARR Herniated structure (morphologic abnormality) Kameron BARR Plan of Treatment Date Care Activity Detail Author Start: 09-27-2025 Adult BMI Screening Adult BMI Screen ing [facility] Start: 09-27-2025 Tobacco Screening Tobacco Screening [facility] Start: 08-30-2025 Depression Screening Depression Scre ening [facility] Start: 08-29-2025 Adult BMI Screening Adult BMI Screen ing [facility] Start: 11-15-2024 End: 11-15-2024 Patient encounter procedure 11/15/2024 3:30 PM EDT [facility] [address] [place] [address] Chico Pathak W, DO [address], [address] [place] [address] [facility] Start: 10-29-2024 End: 10-29-2024 Patient encounter procedure 10/29/2024 3:30 PM EST Appointment [facility] [address] [id number] [facility] Start: 10-28-2024 End: 03-27-2026 US Carotid arteries - bilateral Vas carotid duplex bilateral Vascular Ultrasound Routine Stenosis of right carotid artery Expected: 10/28/2024 (Approximate), Expires: 03/27/2026 [facility] Work Phone: Comment on above: Expected: 10/28/2024 (Approximate), Expires: 03/27/2026 Start: 05-06-2024 COVID-19 Vaccine ( season) COVID-19 Vaccine ( season) [facility] Start: 05-06-2024 Influenza vaccination P [facility] Start: 04-26-2024 Tobacco Screening Tobacco Screening [facility] Start: 2022 Fall Risk Screening Fall Risk Screen ing [facility] Start: 2022 Pneumococcal Vaccine : 65+ Years (1 of 1 - PCV) Pneumococcal Vaccine: 65+ Years (1 of 1 - PCV) [facility] Start: 02-09-2022 Aerobic Culture Aerobic Culture [facility] Start: 02-09-2022 Anaerobic Culture Anaerobic Culture [facility] Start: 02-09-2022 Microscopic observat ion [Identifier] in Unspecified specimen by Gram stain Gram Stain [facility] Start: 2007 Administration of varicella zoster vaccine Zoster (Shingles) Vaccine (1 of 2) [facility] Start: 1976 DTaP,Tdap and Td Vaccines (1 - Tdap) DTaP,Tdap and Td Vaccines (1 - Tdap) [facility] Start: 1975 Adult BMI Follow Up Plan Adult BMI Follow Up Plan [facility] Start: 1975 Diabetic foot examination Diabetic Foot Exam [facility] Start: 1957 Glaucoma screening Diabetic Op hthalmology Exam [facility] Start: 1957 Screening for malign ant neoplasm of colon [facility] Start: 1957 Statin Use: Diabetic Statin Use: Yakelin betic [facility] Start: 1957 Tobacco Counseling Tobacco Counselin g [facility] Start: 1957 Urine screening for protein Urine Microalbumin [facility] Bacteria identified in Unspecified specimen by Aerobe culture [facility] Work Phone: Bacteria identified in Unspecified specimen by Anaerobe culture [facility] Work Phone: Microscopic observat ion [Identifier] in Unspecified specimen by Gram stain [facility] Work Phone: Immunizations Immunization Date Immunization Notes Care Provider Wilberto stephens 12-30-2020 SARS-CoV-2 (COVID-19 ) mRNA-1273 vaccine Kameron BARR [facility] Comment on above: Result Comment: 2022: [id number] 12-02-2020 SARS-CoV-2 (COVID-19 ) mRNA-1273 vaccine Kameron BARR [facility] Comment on above: Result Comment: 2022: [id number] 06-21-2020 influenza virus vaccine, unspecified formulation Kameron BARR [facility] 06-21-2020 influenza, injectabl e, quadrivalent, preservative free [facility] 07-08-2019 influenza virus vaccine, unspecified formulation Kameron BARR [facility] 07-08-2019 influenza, injectabl e, quadrivalent, contains preservative [facility] Payers Date Payer Category Payer Medicare MEDICARE [id number] 1957 Medicare [id number] 1955 Unknown [id number] [id number] 1957 Unknown [id number] 2.16.840.1.493974.3.579.2.593 1957 Unknown [id number] 2.16.840.1.538937.3.579.2.593 1957 Unknown [id number] 2.16.840.1.578572.3.579.2.593 1957 Unknown [id number] 2.16.840.1.747795.3.579.2.727 1957 Unknown [id number] 2.16.840.1.520644.3.579.2.727 1957 Unknown [id number] 2..840.1.773535.3.579.2.128 6 1957 Unknown [id number] 2.840.1.366561.3.579.2.128 6 1957 Unknown [id number] 2.840.1.553033.3.579.2.128 6 1957 Unknown [id number] 2.840.1.459510.3.579.2.128 6 1957 Unknown [id number] 2.16.840.1.502399.3.579.2.128 6 1957 Unknown [id number] 2.840.1.842091.3.579.2.128 6 1957 Unknown [id number] 2.16.840.1.251157.3.579.2.128 6 1957 Unknown [id number] 2.16840.1.746446.3.579.2.128 6 1957 Unknown [id number] 2.16.840.1.863443.3.579.2.128 6 1957 Unknown [id number] 2.16.840.1.966342.3.579.2.128 6 1957 Unknown [id number] 2.16.840.1.496657.3.579.2.128 6 1957 Unknown [id number] 2.16.840.1.787387.3.579.2.128 6 1957 Unknown [id number] 2.16.840.1.193861.3.579.2.128 6 1957 Unknown [id number] 2.16.840.1.316117.3.579.2.128 6 Self-pay Self Pay [id number] Unknown [id number] 2..[id number] Social History Date Type Detail Facility [facility] Work Phone: Start: 1955 Sex Assigned At Male F [facility] Start: 10-03-2020 End: 08-30-2024 Sex Assigned At [facility] Start: 12-22-2022 Tobacco smoking status Light t obacco smoker (finding) [facility] Tobacco smoking status Never [facility] Start: 2023 [facility] History of tobacco use [facility] [employer] [facility] Start: 10-03-2020 End: 2023 Cigarettes smoked current (pack per day) - [facility] Start: 2023 Tobacco use and exposure Smokeless tobacco non-user [facility] Start: 04-27-2023 End: 09-27-2024 Alcoholic beverage intake Ex-drinker (finding) [facility] Has the [employer], or [employer] threatened to shut off services in your home in past 12Mo No [facility] How often to you hav e a drink containing alcohol? Never [facility] Start: 1955 Sex assigned at Not on file [employer] [facility] Start: 04-10-2015 Sex Male (finding) [facility] Tobacco smoking stat [facility] Tobacco smoking consumption unknown [facility] Work Phone: Medical Equipment Procedure Code Equipment Code Equipment Origin al Text Equipment Identifier Dates Patch Vsc 8x.8cm [employer] Bvn Pricrd Tiss Strl Rpl [id number] - [id number] Start: 09-02-2024 Functional Status Date Assessment Result Facility 12-22-2022 Functional Status N/A [facility] Clinical Notes 02-09-2022 to 09-27-2024 Telephone [...] paperwork. Referrals show Joelle Brewer referred to [facility] for CVA. Will need updated to Arina and they will need to contact Joelle. [facility] 09-27-2024 Miscellaneous Notes Calling to see if you ever got any information about Harvey He needs to see Dr Hoang Santa. He had a stroke august 28, he had surgery september 01. We need a neurologist. Want to know If you got any of the paperwork. Referrals show Joelle Brewer referred to [facility] for CVA. Will need updated to [facility] and they will need to contact Joelle. documented in this encounter [facility] 09-27-2024 History of Presen t illness Narrative Images from the original note were not included. Dear Dr. 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 09-25-2024 Note [facility] Note Reason for cardiology [...] on heparin infusion. He was transferred to [facility]. His echo was overall normal. He [...] history of Abnormal ECG, Bradycardia, Diabetes mellitus ([facility]), Heart murmur, Heart valve disease, Hyperlipidemia, Hypertension, and Stroke ([facility]). Surgical History He has a past surgical [...] showed normal sinus (more content not included)... [facility] 09-01-2024 Miscellaneous Notes Contract: JAYLEN Alfaro @ [facility] is calling for consult Drier Attendant reached out to DONALDO Hooker to reach out to the facility documented in this encounter [facility] 09-01-2024 Telephone encounter Note Contract: JAYLEN Alfaro @ [facility] is calling for consult [facility] 09-01-2024 Telephone encounter Note Drier Attendant reached out to DONALDO Hooker to reach out to the facility [facility] 12-22-2022 Evaluation + Plan note Diagnostic Tests PendingUrine Cytology ([facility]) 12/22/22 [facility] 12-21-2022 Hospital Discharg e instructions Patient Education [...] Follow these instructions at home: Medicines Take iaxl-yjt-usslsli and prescription medicines only as told by [...] or the blood stops without treatment. Take xjio-oho-fslrdog and prescription medicines only as told by your health care provider. Drink enough fluid to keep your urine pale yellow. This information is not intended to replace advice given to you by your health care provider. Make sure you discuss any questions you have with your health care provider. Document Revised: 04/22/2021 Document Reviewed: 04/22/2021 [employer] Patient Education 2022 [employer]. Follow Up Care 12/21/2022 13:53:01 With:OSITO MOYA, Kameron Khoury, URL Address: [facility] [address], [place] [address]- When: Unknown [facility] 02-09-2022 Evaluation note Encounter Date Diagnosis [...] Other [facility] home care material was printed [employer] Other Evaluation noteNo assessment information available [facility] Work Phone: Evaluation note* Diagnosis Stenosis of right carotid artery- Primary Occlusion and stenosis of carotid artery without mention of cerebral infarction documented in this encounter [facility] N[facility] - Reported* Type Description Date Medical History diabetes mallitus Medical History high blood pressure [employer] Other Hospital course Narrative No data available for this section [facility] Hospital Discharge instructions No data available for this section [facility] on filedocumented in this encounter [facility]Not on filedocumented in this encounter [facility] No data available for this section [facility] Nixon Summary Purpose Family History No [...] section and content) DATE CREATED AUTHOR 09/26/2021 [facility] dical Specialist DATE CREATED AUTHOR AUTHOR'S ORGANIZ ATION 02/13/2022 [facility] DATE CREATED AUTHOR AUTHOR'S ORGANIZ ATION 01/16/2023 [facility] DATE CREATED AUTHOR AUTHOR'S ORGANIZ ATION 03/05/2023 [facility] DATE CREATED AUTHOR AUTHOR'S ORGANIZ ATION 09/03/2024 [facility] DATE CREATED AUTHOR AUTHOR'S ORGANIZ ATION 09/24/2024 [facility] DATE CREATED AUTHOR AUTHOR'S ORGANIZ ATION 09/27/[address] [facility] DATE CREATED AUTHOR AUTHOR'S ORGANIZ ATION 09/29/2024 [facility] Care Teams (unrecognized sec tion and content) Team Status: Inactive Member Role Status Dates Allegra Moreau APRN Attending Provider Active Aircraft Engine Dismantler Relationship Specialty Start Date End Date Joelle Brewer APRN-EDGING SUPERVISOR [address] [facility] [place] [id number] PCP - General Family Medicine 05/26/20 Aircraft Engine Dismantler Relationship Specialty Start Date End Date Joelle Brewer CAFE ASSOCIATE-EDGING SUPERVISOR [address] [facility] [place] [address] PCP - General Family Medicine [...] BE BASED ON THE PRIMARY CLINICAL RECORDS. [facility] [facility]. provides no warranty or guarantee of the accuracy or completeness of information in this document.
--- NOTE | 2024-10-02 14:25 | CM.DCFOLLOWU ---
1st attempt. No answer
--- NOTE | 2024-10-03 14:16 | CM.DCFOLLOWU ---
2nd attempt 10/03/24, no answer
--- NOTE | 2024-10-04 12:54 | CM.DCFOLLOWU ---
Person spoke with: How are you feeling? He is sleeping right now, he has had 2 follow up already trying to get his sugars under control. How is your pain? No pain Did you understand your discharge instructions? Yes Do you have any questions about your discharge instructions? No Were you given any prescriptions at discharge? Yes Were you able to get your prescriptions filled? Yes Do you understand how to take your medications as ordered? Yes Do you have any questions about your follow up appointment and do you plan to keep your follow up appointment? He has had 2 follow up since discharge Is there anything else that you would like to discuss? No Questions/Comments/Concerns/Other:
== END 2024-09-29 12:53 | disposition home or self-care (01) | DRG 638 ==
LOC: ER 15:33 → ICU 09-29 11:26
PROVIDERS: Family Medicine; Admitting Provider Internal Medicine; Emergency Provider Emergency Medicine; PCP Nurse Practitioner Family; Visit Provider Internal Medicine
DX: E11.65 Type 2 diabetes mellitus with hyperglycemia (principal); E87.1 Hypo-osmolality and hyponatremia; N17.9 Acute kidney failure, unspecified; Z79.84 Long term (current) use of oral hypoglycemic drugs; Z86.73 Personal history of transient ischemic attack (TIA), and cerebral infarction without residual deficits; Z79.01 Long term (current) use of anticoagulants; Z90.49 Acquired absence of other specified parts of digestive tract; I10 Essential (primary) hypertension; E78.00 Pure hypercholesterolemia, unspecified; E83.39 Other disorders of phosphorus metabolism; R00.0 Tachycardia, unspecified; D72.829 Elevated white blood cell count, unspecified; E86.0 Dehydration
CPT/HCPCS: 36415; 80053; 81001; 82009; 82948; 83036; 83735; 84100; 85025; 93005; 94761; 99285

== ENCOUNTER 2024-10-31 09:26 | Outpatient (OUT) | payer MEDICARE, SELFPAY ==
--- NOTE | 2024-10-31 09:30 | CA_ITS ---
[facility] Test Date: 2024-10-31 Pat Name: BRAD CABRALES Department: Room: - Gender: Male Manager Trust: Jannet Lyon : 1955 Requested By: [id number] Order Number: [id number] Reading MD: BURT ESPINOZA M.D. Interpretive Statements Summary of the findings: Right leg: LUIZ= 0.82; TBI= 0.55. Doppler waveforms demonstrate monophasic flow at the posterior tibial and dorsalis pedis arteries. Left leg: LUIZ= 0.59; TBI= 0.32. Doppler waveforms demonstrate monophasic flow at the posterior tibial and dorsalis pedis arteries. Segmental pressures: Segmental pressures indicate significant right inflow and left femoropopliteal disease. Pulse volume recordings: PVRs at the high thigh, below knee, and ankle levels show normal left high thigh waveform otherwise abnormal waveforms bilaterally. Conclusion: Right and left ankle-brachial indices are suggestive of mildly reduced right-sided and moderately reduced left-sided arterial flow at rest. Toe-brachial indices are suggestive of PAD. Segmental pressures indicate significant right inflow and left femoropopliteal disease. Pulse volume recordings indicate reduced overall resting arterial flow bilaterally. The study shows evidence of PAD with reduced overall bilateral arterial flow at rest. Electronically Signed On 11-03-2024 18:26:31 EST by BURT ESPINOZA M.D.
--- OUTSIDE RECORDS SUMMARY | 2024-10-31 09:32 | XMS_ITS | CCD ---
Author Organization [facility] Care Team Providers Care Rehabilitation Aide Name Role Phone MARIELOS Moreau Attending Provider [phone] JOELLE BREWER Primary Care Physician [phone] OSMAN, JOELLE Admitting Unavailable OSMAN, JOELLE Attending [...] Unavailable OSMAN, JOELLE S Primary Care Unavailable Unavailable Primary Care Provider Unavailadryan e JENNIFER, VIEH Admitting Unavailable JENNIFER, BRANDON Attending Unavailable ROSA MCGILL Referring Unavailable OSMAN, JOELLE S Primary Care Unavailable ZEN CRUZ Consulting Unavailable AILYN SIBLEY Consulting Unavailable JENNIFER, VIEH Referring Unavailable OSMNA, JOELLE S Primary Care Unavailable NEERAJ, OLGA Referring Unavailable OSMAN, JOELLE S Primary Care Unavailable NEERAJ, OLGA Referring Unavailable OSMAN, JOELLE S Primary Care Unavailable JENNY LUKE Attending Unavailable OSMAN, JOELLE S Primary Care Unavailable BLANCO BENZ Attending Unavailable CHICO PATHAK Attending Unavailable OSMAN, JOELLE S Referring Unavailable OSMAN, JOELLE S Primary Care Unavailable ASHLYN CRANE Attending Unavailable OSMAN, JOELLE S Referring Unavailable OSMAN, JOELLE S Primary Care Unavailable OSMAN, JOELLE S Referring Unavailable OSMAN, JOELLE S Primary Care Unavailable ROSA MARIAASHLYN LYONS Referring Unavailable OSMAN, JOELLE S Primary Care Unavailable REYNA SEWELL Attending Unavailable SAHRA JAY Referring Unavailable OSMAN, JOELLE S Primary Care Unavailable CHICO PATHAK Referring Unavailable OSMAN, JOELLE S Primary Care Unavailable Allergies Allergy Classification Reported Allergen(s) Allergy Type Date of Onset Reaction(s) Facility (8 sources) Benzocaine; Translations: [BENZOCAINE] Drug Allergy 4 [facility] (2 sources) Allantoin / Benzocaine / Camphor / Petrolatum; Translations: [benzocaine topical] Drug Allergy Swelling (finding) [facility] (7 sources) Benzocaine-Kush alkonium Cl; Translations: [BENZOCAINE-RODNEY ZALKONIUM CL] Propensity to adverse reactions to drug 0 Swelling, [facility] Medications Current Medications Medication Drug Class(es) Dates Sig (Normalized) Sig (Original) acetaminophen 500 mg oral tablet (3 sources) Start: 04-08-2021 take 1 tablet by mouth every six hours as needed for pain acetaminophen (TYLENOL) 500 mg tablet Take 1 tablet (500 mg total) by mouth every 6 (six) hours as needed for pain. 30 tablet 04/08/2021 Active aspirin 81 mg delayed release oral tablet (2 sources) Platelet Aggregation Inhibitor, Nonsteroidal Anti-inflammatory Drug Start: 09-04-2024 take 1 tablet by mouth in the morning aspirin 81 mg Take 1 tablet (81 mg total) by mouth in the morning. 81 tablet 1 09/04/2024 Active atorvastatin 40 mg oral tablet (2 sources) HMG-CoA Reductase Inhibitor Start: 09-03-2024 take 1 [...] Feb, Active clopidogrel 75 mg oral tablet (2 sources) P2Y12 Platelet Inhibitor Start: 09-04-2024 take 1 tablet by mouth in the morning clopidogreL (PLAVIX) 75 mg tablet Take 1 tablet (75 mg total) by mouth in the morning. 30 tablet 1 09/04/2024 Active hydroCHLOROthiazide 25 mg / lisinopril 20 mg oral tablet (3 sources) Thiazide Diuretic, Angiotensin Converting Enzyme Inhibitor [...] Ordered Lisinopril Activ e MEN'S MULTI-VITAMIN ORAL (3 sources) MEN'S MULTI-ANDREW MIN ORAL Take by mouth. Active MEN'S MULTI-ANDREW MIN ORAL Take by mouth. Suspended metFORMIN hydrochloride 500 mg oral tablet (6 sources) Biguanide Start: 12-22-2022 take 1 tablet [...] omeprazole 40 mg delayed release oral capsule (3 sources) Proton Pump Inhibitor take 1 capsule by mouth in the morning omeprazole (PriLOSEC) 40 mg capsule Take 1 capsule (40 mg total) by mouth in the morning. Active pantoprazole 40 mg delayed release oral tablet (5 sources) Proton Pump Inhibitor Start: take 1 mg by mouth once daily [...] completed, # 2 tab(s), Refills(s) 0, Pharmacy: [id number], 167, cm, 12/22/22 10:25:00 EDT, Height/Length Do... Start Date: 12/22/22 Status: Ordered Problems Active Problems Problem Classification Problem Date Documented Da te Episodic/Chronic Acute cerebrovascular disease (4 sources) Ischemic stroke; Translations: [Cerebral infarction, unspecified] Onset: 08-29-2024 Chronic Deficiency and other anemia (1 source) Anemia, unspecified; Translations: [ANEMIA UNSPECIFIED] Onset: 11-15-2022 Episodic Diabetes mellitus without complication (5 sources) Diabetes mellitus; Translations: [Type 2 diabetes mellitus without complications] Onset: 11-08-2022 12-22-2022 Chronic Disorders of lipid metabolism (9 sources) Hyperlipidemia; Translations: [Hyperlipidemia, unspecified] Onset: 11-04-2022 [...] Episodic Occlusion or stenosis of precerebral arteries (3 sources) Right carotid artery stenosis; Translations: [Occlusion and stenosis of right carotid artery] Onset: 10-29-2024 09-27-2024 Chronic Other aftercare (1 source) Other custodial (current) drug therapy; Translations: [OTH CUSTODIAL CURRENT DRUG THERAPY] Onset: 11-08-2022 Episodic Other connective tissue disease (3 sources) Neurological symptom; Translations: [Unspecified symptoms and [...] te Episodic/Chronic Genitourinary symptoms and ill-defined conditions (16 sources) Microscopic hematuria; Translations: [Other microscopic hematuria] Onset: 11-08-2022 Episodic Mood disorders (3 sources) Mood disorders Onset: 08-30-2024 08-30-2024 Results Test Name Value Interpretation Reference Range Facility 36on 10-19-2024 36 Regarding lab result s from 10/16/2024: Patient declined to sign ABN for lipid. Signing ABN means he agrees to pay for the lipid should Medicare NOT pay for it. So lipid wasn't drawn because he declined to sign it. Normal [facility] ALT No additional P-5'-P [Ca talytic activity/Vol]on 10-16-2024 ALT [Catalytic activity/Vol] 21 U/L Normal 0-40 [facility] Comment on above: Performed By: #### 1 920-8, 1744-2 #### [facility] ([id number]) [address], [address] [place] [address] Esther 10-16-2024 AST [Catalytic activity/Vol] 16 U/L Normal 0-41 [facility] Comment on above: Performed By: #### 1 920-8, 1744-2 #### [facility] ([id number]) [address], [address] [place] [address] Ambulatory referral to Diabe tic Educationon 10-16-2024 [facility] Office Visiton 09-25-2024 Follow-up visit [id number] Harvey Cabrales 1955 M Date Provider Department Center 09/25/2024 [id number] CRANE THA [facility] Family History Problem Relation Age of Onset Hypertension Brother Family Status - Relation Status Age at Brother Level of Service:07118 [place] OFFICE/OUTPATIENT NEW MODERATE MDM 45 MINUTES Reason for Visit and Comments: Cerebrovascular Accident [149] - Recent CVA and was admitted to [facility]. Had echo while inpatient. Denies lightheadedness/syncope, but c/o blurred vision. carotid artery stenosis [Other] - S/p right CEA a few weeks ago. He has follow up with the surgeon this week. Fatigue [46] - Says he's always thirsty and feels like he can't get enough water. Normal [facility] BASIC METABOLIC PANLon 09-03 Anion gap [Moles/Vol] 9 mmol/L Normal 5-15 [facility] Comment on above: Performed By: #### 7 18-7, PLTCT, PINR, 28199-1, HA1C #### [facility] ([id number]) [address], [address] [place] [address] Calcium [Mass/Vol] 9.3 mg/dL Normal 8.5-10.5 [facility] Comment on above: Performed By: #### 7 18-7, PLTCT, PINR, 18969-6, HA1C #### [facility] ([id number]) [address], [address] [place] [address] Chloride [Moles/Vol] 103 mmol/L Normal 98-109 [facility] Comment on above: Performed By: #### 7 18-7, PLTCT, PINR, 79726-1, HA1C #### [facility] ([id number]) [address], [address] [place] [address] CO2 [Moles/Vol] 27 mmol/L Normal 22-32 [facility] Comment on above: Performed By: #### 7 18-7, PLTCT, PINR, 94927-1, HA1C #### [facility] ([id number]) [address], [address] [place] [address] Creatinine [Mass/Vol] 0.92 mg/dL Normal 0.60-1.30 [facility] Comment on above: Result Comment: METH OD TRACEABLE TO IDMS STANDARD Performed By: #### 7 18-7, PLTCT, PINR, 82870-6, HA1C #### [facility] ([id number]) [address], [address] [place] [address] eGFR (CKD-EPI) NON-RACE DEPENDENT >90 Normal >59 [facility] Comment on above: Result Comment: Reported eGFR is based on the CKD-EPI 2020 equation that does not use a race coefficient. Performed By: #### 7 18-7, PLTCT, PINR, 86806-8, HA1C #### [facility] ([id number]) [address], [address] [place] [address] Glucose [Mass/Vol] 116 mg/dL High 65-99 [facility] Comment on above: Performed By: #### 7 18-7, PLTCT, PINR, 70167-4, HA1C #### [facility] ([id number]) [address], [address] [place] [address] Potassium [Moles/Vol] 4.1 mmol/L Normal 3.5-5.0 [facility] Comment on above: Performed By: #### 7 18-7, PLTCT, PINR, 89377-2, HA1C #### [facility] ([id number]) [address], [address] [place] [address] Sodium [Moles/Vol] 139 mmol/L Normal 134-146 [facility] Comment on above: Performed By: #### 7 18-7, PLTCT, PINR, 81205-4, HA1C #### [facility] ([id number]) [address], [address] [place] [address] Urea nitrogen [Mass/Vol] 16 mg/dL Normal 5-27 [facility] Comment on above: Performed By: #### 7 18-7, PLTCT, PINR, 28653-2, HA1C #### [facility] ([id number]) [address], [address] [place] [address] Glucose Glucometer (BldC) [M ass/Vol]on 09-03-2024 Glucose [Mass/Vol] 200 mg/dL High 65-99 [facility] Glucose [Mass/Vol] 106 mg/dL High 65-99 [facility] BASIC METABOLIC PANLon 09-02 Anion gap [Moles/Vol] 9 mmol/L Normal 5-15 [facility] Comment on above: Performed By: #### 7 18-7, PLTCT, PINR, 03561-8, HA1C #### [facility] ([id number]) [address], [address] [place] [address] Calcium [Mass/Vol] 9.2 mg/dL Normal 8.5-10.5 [facility] Comment on above: Performed By: #### 7 18-7, PLTCT, PINR, 56207-5, HA1C #### [facility] ([id number]) [address], [address] [place] [address] Chloride [Moles/Vol] 105 mmol/L Normal 98-109 [facility] Comment on above: Performed By: #### 7 18-7, PLTCT, PINR, 01498-7, HA1C #### [facility] ([id number]) [address], [address] [place] [address] CO2 [Moles/Vol] 25 mmol/L Normal 22-32 [facility] Comment on above: Performed By: #### 7 18-7, PLTCT, PINR, 90152-9, HA1C #### [facility] ([id number]) [address], [address] [place] [address] Creatinine [Mass/Vol] 0.89 mg/dL Normal 0.60-1.30 [facility] Comment on above: Result Comment: METH OD TRACEABLE TO IDMS STANDARD Performed By: #### 7 18-7, PLTCT, PINR, 22679-2, HA1C #### [facility] ([id number]) [address], [address] [place] [address] eGFR (CKD-EPI) NON-RACE DEPENDENT >90 Normal >59 [facility] Comment on above: Result Comment: Reported eGFR is based on the CKD-EPI 2020 equation that does not use a race coefficient. Performed By: #### 7 18-7, PLTCT, PINR, 94580-7, HA1C #### [facility] ([id number]) [address], [address] [place] [address] Glucose [Mass/Vol] 145 mg/dL High 65-99 [facility] Comment on above: Performed By: #### 7 18-7, PLTCT, PINR, 22406-1, HA1C #### [facility] ([id number]) [address], [address] [place] [address] Potassium [Moles/Vol] 3.9 mmol/L Normal 3.5-5.0 [facility] Comment on above: Performed By: #### 7 18-7, PLTCT, PINR, 52315-4, HA1C #### [facility] ([id number]) [address], [address] [place] [address] Sodium [Moles/Vol] 139 mmol/L Normal 134-146 [facility] Comment on above: Performed By: #### 7 18-7, PLTCT, PINR, 47498-5, HA1C #### [facility] ([id number]) [address], [address] [place] [address] Urea nitrogen [Mass/Vol] 17 mg/dL Normal 5-27 [facility] Comment on above: Performed By: #### 7 18-7, PLTCT, PINR, 71109-5, HA1C #### [facility] ([id number]) [address], [address] [place] [address] Glucose Glucometer (BldC) [M ass/Vol]on 09-02-2024 Glucose [Mass/Vol] 167 mg/dL High 65-99 [facility] Glucose [Mass/Vol] 154 mg/dL High 65-99 [facility] Glucose [Mass/Vol] 134 mg/dL High 65-99 [facility] Glucose [Mass/Vol] 132 mg/dL High 65-99 [facility] HEMOGLOBINon 09-02-2024 Hemoglobin (Bld) [Mass/Vol] 14.5 g/dL Normal 13.0-17.0 [facility] Comment on above: Performed By: #### 7 18-7, PLTCT, PINR, 78387-6, HA1C #### [facility] ([id number]) [address], [facility] [address] [place] [address] Heparin unfractionated Chrom ogenic method Qn (PPP)on 09-02-2024 ANTI XA UFH 0.99 IU/mL Critically high 0.30-0.70 [facility] Comment on above: Result Comment: Opti mal time for testing is 6 hrs post dosage This test is specific for monitoring patients on UFH, and is not recommended for use with other Anti-Xa medications. Performed By: #### 7 18-7, PLTCT, PINR, 41537-1, HA1C #### [facility] ([id number]) [address], [address] [address] PLATELET COUNT AND MPVon Platelet mean volume (Bld) [Entitic vol] 8.8 fL Normal 7-12 [facility] Comment on above: Performed By: #### 7 18-7, PLTCT, PINR, 16817-4, HA1C #### [facility] ([id number]) [address], [address] [address] Platelets (Bld) [#/Vol] 239 10*3/uL Normal 150-450 [facility] Comment on above: Performed By: #### 7 18-7, PLTCT, PINR, 69567-1, HA1C #### [facility] ([id number]) [address], [address] [address] BASIC METABOLIC PANLon 09-01 Anion gap [Moles/Vol] 11 mmol/L Normal 5-15 [facility] Comment on above: Performed By: #### 7 18-7, PLTCT, PINR, 33651-2, HA1C #### [facility] ([id number]) [address] [address] Calcium [Mass/Vol] 9.2 mg/dL Normal 8.5-10.5 [facility] Comment on above: Performed By: #### 7 18-7, PLTCT, PINR, 75108-3, HA1C #### [facility] ([id number]) [address], [address] [place] [address] Chloride [Moles/Vol] 105 mmol/L Normal 98-109 [facility] Comment on above: Performed By: #### 7 18-7, PLTCT, PINR, 12606-5, HA1C #### [facility] ([id number]) [address], [address] [place] [address] CO2 [Moles/Vol] 25 mmol/L Normal 22-32 [facility] Comment on above: Performed By: #### 7 18-7, PLTCT, PINR, 94325-1, HA1C #### [facility] ([id number]) [address], [address] [place] [address] Creatinine [Mass/Vol] 0.90 mg/dL Normal 0.60-1.30 [facility] Comment on above: Result Comment: METH OD TRACEABLE TO IDMS STANDARD Performed By: #### 7 18-7, PLTCT, PINR, 96937-0, HA1C #### [facility] ([id number]) [address], [address] [place] [address] eGFR (CKD-EPI) NON-RACE DEPENDENT >90 Normal >59 [facility] Comment on above: Result Comment: Reported eGFR is based on the CKD-EPI 2020 equation that does not use a race coefficient. Performed By: #### 7 18-7, PLTCT, PINR, 96626-9, HA1C #### [facility] ([id number]) [address], [address] [place] [address] Glucose [Mass/Vol] 127 mg/dL High 65-99 [facility] Comment on above: Performed By: #### 7 18-7, PLTCT, PINR, 54873-8, HA1C #### [facility] ([id number]) [address], [address] [place] [address] Potassium [Moles/Vol] 4.1 mmol/L Normal 3.5-5.0 [facility] Comment on above: Performed By: #### 7 18-7, PLTCT, PINR, 98266-0, HA1C #### [facility] ([id number]) [address], [address] [place] [address] Sodium [Moles/Vol] 141 mmol/L Normal 134-146 [facility] Comment on above: Performed By: #### 7 18-7, PLTCT, PINR, 92681-0, HA1C #### [facility] ([id number]) [address], [facility] [address] [place] [address] Urea nitrogen [Mass/Vol] 20 mg/dL Normal 5-27 [facility] Comment on above: Performed By: #### 7 18-7, PLTCT, PINR, 73831-7, HA1C #### [facility] ([id number]) [address], [address] [place] [address] CBC AND AUTO DIFFon 12-20 24 ABSOLUTE BASOPHIL 0.2 X10E9/L Normal 0.0-0.2 [facility] Comment on above: Performed By: #### 7 18-7, PLTCT, PINR, 89103-3, HA1C #### [facility] ([id number]) [address], [address] [place] [address] ABSOLUTE NEUTROPHIL 6.1 X10E9/L Normal 1.5-6.6 [facility] Comment on above: Performed By: #### 7 18-7, PLTCT, PINR, 21487-2, HA1C #### [facility] ([id number]) [address], [address] [place] [address] Basophils/100 WBC (Bld) 1.5 % Normal [facility] Comment on above: Performed By: #### 7 18-7, PLTCT, PINR, 56927-0, HA1C #### [place] [facility] ([id number]) [address] [address] [place] [address] Eosinophils (Bld) [#/Vol] 0.2 10*3/uL Normal 0.0-0.4 [facility] Comment on above: Performed By: #### 7 18-7, PLTCT, PINR, 87949-1, HA1C #### [facility] ([id number]) [address] [address] Eosinophils/100 WBC (Bld) 2.2 % Normal [facility] Comment on above: Performed By: #### 7 18-7, PLTCT, PINR, 16783-5, HA1C #### [facility] ([id number]) [address] [address] Erythrocyte distribution width (RBC) [Ratio] 13.6 % Normal 11.5-15.0 [facility] Comment on above: Performed By: #### 7 18-7, PLTCT, PINR, 03663-8, HA1C #### [facility] ([id number]) [address] [address] Hematocrit (Bld) [Volume fraction] 43.0 % Normal 39-49 [facility] Comment on above: Performed By: #### 7 18-7, PLTCT, PINR, 09686-7, HA1C #### [facility] ([id number]) [address] [address] Hemoglobin (Bld) [Mass/Vol] 14.8 g/dL Normal 13.0-17.0 [facility] Comment on above: Performed By: #### 7 18-7, PLTCT, PINR, 78498-3, HA1C #### [facility] ([id number]) [address] [address] [address] [place] [address] Lymphocytes (Bld) [#/Vol] 3.4 10*3/uL Normal 1.0-3.5 [facility] Comment on above: Performed By: #### 7 18-7, PLTCT, PINR, 82639-1, HA1C #### [facility] ([id number]) [address], [address] [place] [address] Lymphocytes/100 WBC (Bld) 31.7 % Normal [facility] Comment on above: Performed By: #### 7 18-7, PLTCT, PINR, 57716-3, HA1C #### [facility] ([id number]) [address], [facility] [address] [place] [address] MCH (RBC) [Entitic mass] 31.0 pg Normal 27-34 [facility] Comment on above: Performed By: #### 7 18-7, PLTCT, PINR, 23909-3, HA1C #### [facility] ([id number]) [address], [address] [place] [address] MCHC (RBC) [Mass/Vol] 34.4 g/dL Normal 32-36 [facility] Comment on above: Performed By: #### 7 18-7, PLTCT, PINR, 98230-1, HA1C #### [facility] ([id number]) [address], [address] [address] MCV (RBC) [Entitic vol] 90 fL Normal 80-100 [facility] Comment on above: Performed By: #### 7 18-7, PLTCT, PINR, 23982-9, HA1C #### [facility] ([id number]) [address] [place] [address] Monocytes (Bld) [#/Vol] 0.7 10*3/uL Normal 0-0.9 [facility] Comment on above: Performed By: #### 7 18-7, PLTCT, PINR, 07701-0, HA1C #### [facility] ([id number]) [address], [address] [place] [address] Monocytes/100 WBC (Bld) 6.9 % Normal [facility] Comment on above: Performed By: #### 7 18-7, PLTCT, PINR, 81929-9, HA1C #### [facility] ([id number]) [address], [address] [place] [address] Neutrophils/100 WBC (Bld) 57.7 % Normal [facility] Comment on above: Performed By: #### 7 18-7, PLTCT, PINR, 72172-4, HA1C #### [facility] ([id number]) [address], [address] [place] [address] Platelet mean volume (Bld) [Entitic vol] 8.7 fL Normal 7-12 [facility] Comment on above: Performed By: #### 7 18-7, PLTCT, PINR, 98593-9, HA1C #### [facility] ([id number]) [address], [address] [place] [address] Platelets (Bld) [#/Vol] 254 10*3/uL Normal 150-450 [facility] Comment on above: Performed By: #### 7 18-7, PLTCT, PINR, 23485-4, HA1C #### [facility] ([id number]) [address], [address] [place] [address] RBC COUNT 4.78 X10E12/L Normal 4.10-5.70 [facility] Comment on above: Performed By: #### 7 18-7, PLTCT, PINR, 05868-6, HA1C #### [facility] ([id number]) [address], [address] [place] [address] WBC (Bld) [#/Vol] 10.6 10*3/uL Normal 4.0-11.0 [facility] Comment on above: Performed By: #### 7 18-7, PLTCT, PINR, 43804-8, HA1C #### [facility] ([id number]) [address], [address] [place] [address] Glucose Glucometer (BldC) [M ass/Vol]on 09-01-2024 Glucose [Mass/Vol] 189 mg/dL High 65-99 [facility] Glucose [Mass/Vol] 166 mg/dL High 65-99 [facility] Glucose [Mass/Vol] 103 mg/dL High 65-99 [facility] Glucose [Mass/Vol] 132 mg/dL High 65-99 [facility] HEMOGLOBINon 09-01-2024 Hemoglobin (Bld) [Mass/Vol] 14.2 g/dL Normal 13.0-17.0 [facility] Comment on above: Performed By: #### 7 18-7, PLTCT, PINR, 51840-6, HA1C #### [facility] ([id number]) [address], [address] [place] [address] Heparin unfractionated Chrom ogenic method Qn (PPP)on 09-01-2024 ANTI XA UFH 0.49 IU/mL Normal 0.30-0.70 [facility] Comment on above: Result Comment: Opti mal time for testing is 6 hrs post dosage This test is specific for monitoring patients on UFH, and is not recommended for use with other Anti-Xa medications. Performed By: #### 7 18-7, PLTCT, PINR, 59337-1, HA1C #### [facility] ([id number]) [address], [address] [place] [address] PLATELET COUNT AND MPVon Platelet mean volume (Bld) [Entitic vol] 8.4 fL Normal 03-16 [facility] Comment on above: Performed By: #### 7 18-7, PLTCT, PINR, 88872-5, HA1C #### [facility] ([id number]) [address] [place] [address] Platelets (Bld) [#/Vol] 242 10*3/uL Normal 150-450 [facility] Comment on above: Performed By: #### 7 18-7, PLTCT, PINR, 64469-9, HA1C #### [facility] ([id number]) [address], [address] [place] [address] PROTIME AND INRon 09-01-2024 INR Coag (PPP) [Relative time] 1.2 {INR} High 0.8-1.1 [facility] Comment on above: Performed By: #### 7 18-7, PLTCT, PINR, 94707-9, HA1C #### [facility] ([id number]) [address], [address] [place] [address] PT Coag (PPP) [Time] 14.4 s High 9.8-13.2 [facility] Comment on above: Performed By: #### 7 18-7, PLTCT, PINR, 08783-0, HA1C #### [facility] ([id number]) [address], [facility] [address] [place] [address] aPTT Coag (PPP) [Time]on aPTT Coag (Bld) [Time] 43 s High 26-37 [facility] Comment on above: Performed By: #### 7 18-7, PLTCT, PINR, 51656-8, HA1C #### [facility] ([id number]) [address], [address] [place] [address] BASIC METABOLIC PANLon 08-31 Anion gap [Moles/Vol] 8 mmol/L Normal 5-15 [facility] Comment on above: Performed By: #### 7 18-7, PLTCT, PINR, 31899-9, HA1C #### [facility] ([id number]) [address], [address] [place] [address] Calcium [Mass/Vol] 9.2 mg/dL Normal 8.5-10.5 [facility] Comment on above: Performed By: #### 7 18-7, PLTCT, PINR, 53564-4, HA1C #### [facility] ([id number]) [address], [address] [place] [address] Chloride [Moles/Vol] 105 mmol/L Normal 98-109 [facility] Comment on above: Performed By: #### 7 18-7, PLTCT, PINR, 02428-6, HA1C #### [facility] ([id number]) [address], [address] [place] [address] CO2 [Moles/Vol] 25 mmol/L Normal 22-32 [facility] Comment on above: Performed By: #### 7 18-7, PLTCT, PINR, 31743-6, HA1C #### [facility] ([id number]) [address], [address] [place] [address] Creatinine [Mass/Vol] 0.90 mg/dL Normal 0.60-1.30 [facility] Comment on above: Result Comment: METH OD TRACEABLE TO IDMS STANDARD Performed By: #### 7 18-7, PLTCT, PINR, 05858-6, HA1C #### [facility] ([id number]) [address], [address] [place] [address] eGFR (CKD-EPI) NON-RACE DEPENDENT >90 Normal >59 [facility] Comment on above: Result Comment: Reported eGFR is based on the CKD-EPI 2020 equation that does not use a race coefficient. Performed By: #### 7 18-7, PLTCT, PINR, 83078-7, HA1C #### [facility] ([id number]) [address], [address] [place] [address] Glucose [Mass/Vol] 131 mg/dL High 65-99 [facility] Comment on above: Performed By: #### 7 18-7, PLTCT, PINR, 20791-2, HA1C #### [facility] ([id number]) [address], [address] [place] [address] Potassium [Moles/Vol] 3.8 mmol/L Normal 3.5-5.0 [facility] Comment on above: Performed By: #### 7 18-7, PLTCT, PINR, 08976-7, HA1C #### [facility] ([id number]) [address], [address] [place] [address] Sodium [Moles/Vol] 138 mmol/L Normal 134-146 [facility] Comment on above: Performed By: #### 7 18-7, PLTCT, PINR, 72670-3, HA1C #### [facility] ([id number]) [address], [facility] [address] [place] [address] Urea nitrogen [Mass/Vol] 23 mg/dL Normal 5-27 [facility] Comment on above: Performed By: #### 7 18-7, PLTCT, PINR, 66177-0, HA1C #### [facility] ([id number]) [address] [address] CBC AND AUTO DIFFon 08-31-20 24 ABSOLUTE BASOPHIL 0.1 X10E9/L Normal 0.0-0.2 [facility] Comment on above: Performed By: #### 7 18-7, PLTCT, PINR, 22521-4, HA1C #### [facility] ([id number]) [address], [facility] [address] [place] [address] ABSOLUTE NEUTROPHIL 6.6 X10E9/L Normal 1.5-6.6 [facility] Comment on above: Performed By: #### 7 18-7, PLTCT, PINR, 24134-9, HA1C #### [facility] ([id number]) [address], [facility] [address] [place] [address] Basophils/100 WBC (Bld) 1.0 % Normal [facility] Comment on above: Performed By: #### 7 18-7, PLTCT, PINR, 20624-6, HA1C #### [facility] ([id number]) [address] [address] [place] [address] Eosinophils (Bld) [#/Vol] 0.2 10*3/uL Normal 0.0-0.4 [facility] Comment on above: Performed By: #### 7 18-7, PLTCT, PINR, 67587-3, HA1C #### [facility] ([id number]) [address], [facility] [address] [place] [address] Eosinophils/100 WBC (Bld) 2.1 % Normal [facility] Comment on above: Performed By: #### 7 18-7, PLTCT, PINR, 47128-3, HA1C #### [facility] ([id number]) [address], [facility] [address] [place] [address] Erythrocyte distribution width (RBC) [Ratio] 13.3 % Normal 11.5-15.0 [facility] Comment on above: Performed By: #### 7 18-7, PLTCT, PINR, 99145-0, HA1C #### [facility] ([id number]) [address] [address] Hematocrit (Bld) [Volume fraction] 43.1 % Normal 39-49 [facility] Comment on above: Performed By: #### 7 18-7, PLTCT, PINR, 18203-1, HA1C #### [facility] ([id number]) [address] [address] Hemoglobin (Bld) [Mass/Vol] 14.6 g/dL Normal 13.0-17.0 [facility] Comment on above: Performed By: #### 7 18-7, PLTCT, PINR, 96208-9, HA1C #### [facility] ([id number]) [address], [address] [place] [address] Lymphocytes (Bld) [#/Vol] 3.8 10*3/uL High 1.0-3.5 [facility] Comment on above: Performed By: #### 7 18-7, PLTCT, PINR, 40560-3, HA1C #### [facility] ([id number]) [address], [address] [place] [address] Lymphocytes/100 WBC (Bld) 32.6 % Normal [facility] Comment on above: Performed By: #### 7 18-7, PLTCT, PINR, 20301-5, HA1C #### [facility] ([id number]) [address], [address] [place] [address] MCH (RBC) [Entitic mass] 30.8 pg Normal 27-34 [facility] Comment on above: Performed By: #### 7 18-7, PLTCT, PINR, 14758-6, HA1C #### [facility] ([id number]) [address], [address] [place] [address] MCHC (RBC) [Mass/Vol] 33.9 g/dL Normal 32-36 [facility] Comment on above: Performed By: #### 7 18-7, PLTCT, PINR, 48477-3, HA1C #### [facility] ([id number]) [address], [address] [place] [address] MCV (RBC) [Entitic vol] 91 fL Normal 80-100 [facility] Comment on above: Performed By: #### 7 18-7, PLTCT, PINR, 36970-2, HA1C #### [facility] ([id number]) [address], [address] [place] [address] Monocytes (Bld) [#/Vol] 0.9 10*3/uL Normal 0-0.9 [facility] Comment on above: Performed By: #### 7 18-7, PLTCT, PINR, 90322-9, HA1C #### [facility] ([id number]) [address], [address] [place] [address] Monocytes/100 WBC (Bld) 8.0 % Normal [facility] Comment on above: Performed By: #### 7 18-7, PLTCT, PINR, 94094-9, HA1C #### [facility] ([id number]) [address], [address] [place] [address] Neutrophils/100 WBC (Bld) 56.3 % Normal [facility] Comment on above: Performed By: #### 7 18-7, PLTCT, PINR, 34349-7, HA1C #### [facility] ([id number]) [address], [address] [place] [address] Platelet mean volume (Bld) [Entitic vol] 8.7 fL Normal 7-12 [facility] Comment on above: Performed By: #### 7 18-7, PLTCT, PINR, 53582-4, HA1C #### [facility] ([id number]) [address], [address] [place] [address] Platelets (Bld) [#/Vol] 237 10*3/uL Normal 150-450 [facility] Comment on above: Performed By: #### 7 18-7, PLTCT, PINR, 75184-8, HA1C #### [facility] ([id number]) [address], [address] [place] [address] RBC COUNT 4.75 X10E12/L Normal 4.10-5.70 [facility] Comment on above: Performed By: #### 7 18-7, PLTCT, PINR, 17537-0, HA1C #### [facility] ([id number]) [address], [address] [place] [address] WBC (Bld) [#/Vol] 11.7 10*3/uL High 4.0-11.0 [facility] Comment on above: Performed By: #### 7 18-7, PLTCT, PINR, 91879-6, HA1C #### [facility] ([id number]) [address], [address] [place] [address] Glucose Glucometer (BldC) [M ass/Vol]on 08-31-2024 Glucose [Mass/Vol] 182 mg/dL High 65-99 [facility] Glucose [Mass/Vol] 234 mg/dL High 65-99 [facility] Glucose [Mass/Vol] 101 mg/dL High 65-99 [facility] Glucose [Mass/Vol] 124 mg/dL High 65-99 [facility] POTASSIUMon 08-31-2024 Potassium [Moles/Vol] 4.0 mmol/L Normal 3.5-5.0 [facility] Comment on above: Performed By: #### 7 18-7, PLTCT, PINR, 37422-5, HA1C #### [facility] ([id number]) [address], [address] [place] [address] BASIC METABOLIC PANLon 08-30 Anion gap [Moles/Vol] 8 mmol/L Normal 5-15 [facility] Comment on above: Performed By: #### 7 18-7, PLTCT, PINR, 54286-3, HA1C #### [facility] ([id number]) [address], [address] [place] [address] Calcium [Mass/Vol] 9.4 mg/dL Normal 8.5-10.5 [facility] Comment on above: Performed By: #### 7 18-7, PLTCT, PINR, 08214-3, HA1C #### [facility] ([id number]) [address], [address] [place] [address] Chloride [Moles/Vol] 104 mmol/L Normal 98-109 [facility] Comment on above: Performed By: #### 7 18-7, PLTCT, PINR, 93368-7, HA1C #### [facility] ([id number]) [address], [address] [place] [address] CO2 [Moles/Vol] 27 mmol/L Normal 22-32 [facility] Comment on above: Performed By: #### 7 18-7, PLTCT, PINR, 29686-4, HA1C #### [facility] ([id number]) [address], [address] [place] [address] Creatinine [Mass/Vol] 0.94 mg/dL Normal 0.60-1.30 [facility] Comment on above: Result Comment: METH OD TRACEABLE TO IDMS STANDARD Performed By: #### 7 18-7, PLTCT, PINR, 79098-0, HA1C #### [facility] ([id number]) [address], [address] [place] [address] GFR/1.73 sq M.predicted among non-blacks MDRD (S/P/Bld) [Vol rate/Area] 89 mL/min/{1.73_m2} Normal >59 [facility] Comment on above: Result Comment: Reported eGFR is based on the CKD-EPI 2020 equation that does not use a race coefficient. Performed By: #### 7 18-7, PLTCT, PINR, 50694-4, HA1C #### [facility] ([id number]) [address], [address] [place] [address] Glucose [Mass/Vol] 109 mg/dL High 65-99 [facility] Comment on above: Performed By: #### 7 18-7, PLTCT, PINR, 12981-8, HA1C #### [facility] ([id number]) [address], [address] [place] [address] Potassium [Moles/Vol] 3.9 mmol/L Normal 3.5-5.0 [facility] Comment on above: Performed By: #### 7 18-7, PLTCT, PINR, 57538-1, HA1C #### [facility] ([id number]) [address], [address] [place] [address] Sodium [Moles/Vol] 139 mmol/L Normal 134-146 [facility] Comment on above: Performed By: #### 7 18-7, PLTCT, PINR, 21650-8, HA1C #### [facility] ([id number]) [address], [address] [place] [address] Urea nitrogen [Mass/Vol] 25 mg/dL Normal 5-27 [facility] Comment on above: Performed By: #### 7 18-7, PLTCT, PINR, 73490-9, HA1C #### [facility] ([id number]) [address], [address] [place] [address] CBC AND AUTO DIFFon 08-30-20 24 ABSOLUTE BASOPHIL 0.1 X10E9/L Normal 0.0-0.2 [facility] Comment on above: Performed By: #### 7 18-7, PLTCT, PINR, 76929-4, HA1C #### [facility] ([id number]) [address] [address] [place] [address] ABSOLUTE NEUTROPHIL 6.5 X10E9/L Normal 1.5-6.6 [facility] Comment on above: Performed By: #### 7 18-7, PLTCT, PINR, 35875-0, HA1C #### [facility] ([id number]) [address] [address] Basophils/100 WBC (Bld) 1.0 % Normal [facility] Comment on above: Performed By: #### 7 18-7, PLTCT, PINR, 10481-5, HA1C #### [facility] ([id number]) [address], [address] [place] [address] Eosinophils (Bld) [#/Vol] 0.3 10*3/uL Normal 0.0-0.4 [facility] Comment on above: Performed By: #### 7 18-7, PLTCT, PINR, 01303-4, HA1C #### [facility] ([id number]) [address] [address] [place] [address] Eosinophils/100 WBC (Bld) 2.5 % Normal [facility] Comment on above: Performed By: #### 7 18-7, PLTCT, PINR, 86412-2, HA1C #### [facility] ([id number]) [address] [address] Erythrocyte distribution width (RBC) [Ratio] 13.5 % Normal 11.5-15.0 [facility] Comment on above: Performed By: #### 7 18-7, PLTCT, PINR, 90691-7, HA1C #### [facility] ([id number]) [address] [address] Hematocrit (Bld) [Volume fraction] 44.1 % Normal 39-49 [facility] Comment on above: Performed By: #### 7 18-7, PLTCT, PINR, 99282-3, HA1C #### [facility] ([id number]) [address] [address] Hemoglobin (Bld) [Mass/Vol] 14.9 g/dL Normal 13.0-17.0 [facility] Comment on above: Performed By: #### 7 18-7, PLTCT, PINR, 84362-1, HA1C #### [facility] ([id number]) [address] [address] Lymphocytes (Bld) [#/Vol] 4.0 10*3/uL High 1.0-3.5 [facility] Comment on above: Performed By: #### 7 18-7, PLTCT, PINR, 72170-4, HA1C #### [facility] ([id number]) [address], [address] [place] [address] Lymphocytes/100 WBC (Bld) 33.5 % Normal [facility] Comment on above: Performed By: #### 7 18-7, PLTCT, PINR, 74959-3, HA1C #### [facility] ([id number]) [address], [address] [place] [address] MCH (RBC) [Entitic mass] 30.5 pg Normal 27-34 [facility] Comment on above: Performed By: #### 7 18-7, PLTCT, PINR, 33714-2, HA1C #### [facility] ([id number]) [address], [address] [place] [address] MCHC (RBC) [Mass/Vol] 33.7 g/dL Normal 32-36 [facility] Comment on above: Performed By: #### 7 18-7, PLTCT, PINR, 38713-4, HA1C #### [facility] ([id number]) [address], [address] [place] [address] MCV (RBC) [Entitic vol] 91 fL Normal 80-100 [facility] Comment on above: Performed By: #### 7 18-7, PLTCT, PINR, 70123-6, HA1C #### [facility] ([id number]) [address], [address] [place] [address] Monocytes (Bld) [#/Vol] 1.0 10*3/uL High 0-0.9 [facility] Comment on above: Performed By: #### 7 18-7, PLTCT, PINR, 15795-9, HA1C #### [facility] ([id number]) [address], [address] [place] [address] Monocytes/100 WBC (Bld) 8.6 % Normal [facility] Comment on above: Performed By: #### 7 18-7, PLTCT, PINR, 19672-1, HA1C #### [facility] ([id number]) [address], [facility] [address] [place] [address] Neutrophils/100 WBC (Bld) 54.4 % Normal [facility] Comment on above: Performed By: #### 7 18-7, PLTCT, PINR, 62964-1, HA1C #### [facility] ([id number]) [address], [address] [address] Platelet mean volume (Bld) [Entitic vol] 8.4 fL Normal 7-12 [facility] Comment on above: Performed By: #### 7 18-7, PLTCT, PINR, 92694-9, HA1C #### [facility] ([id number]) [address], [address] [address] Platelets (Bld) [#/Vol] 238 10*3/uL Normal 150-450 [facility] Comment on above: Performed By: #### 7 18-7, PLTCT, PINR, 51178-5, HA1C #### [facility] ([id number]) [address], [address] [address] RBC COUNT 4.86 X10E12/L Normal 4.10-5.70 [facility] Comment on above: Performed By: #### 7 18-7, PLTCT, PINR, 27973-9, HA1C #### [facility] ([id number]) [address] [address] WBC (Bld) [#/Vol] 11.9 10*3/uL High 4.0-11.0 [facility] Comment on above: Performed By: #### 7 18-7, PLTCT, PINR, 12739-7, HA1C #### [facility] ([id number]) [address], [address] [place] [address] Glucose Glucometer (BldC) [M ass/Vol]on 08-30-2024 Glucose [Mass/Vol] 199 mg/dL High 65-99 [facility] Glucose [Mass/Vol] 291 mg/dL High 65-99 [facility] Glucose [Mass/Vol] 87 mg/dL Normal 65-99 [facility] Lipid 1996 panelon Cholesterol [Mass/Vol] 99 mg/dL Low 150-200 [facility] Comment on above: Performed By: #### 7 18-7, PLTCT, PINR, 12654-1, HA1C #### [facility] ([id number]) [address] [place] [address] Cholesterol in HDL [Mass/Vol] 31 mg/dL Low >39 [facility] Comment on above: Result Comment: HDL <40 mg/dL - High Risk HDL > or = 40mg/dL- Desirable HDL >60 mg/dL - Negative Risk Performed By: #### 7 18-7, PLTCT, PINR, 23388-3, HA1C #### [facility] ([id number]) [address], [address] [place] [address] Cholesterol in LDL [Mass/Vol] 54 mg/dL Normal <130 [facility] Comment on above: Result Comment: LDL <100 mg/dL - Desirable LDL >160 mg/dL - High Risk Performed By: #### 7 18-7, PLTCT, PINR, 46912-7, HA1C #### [facility] ([id number]) [address], [address] [place] [address] Cholesterol in VLDL [Mass/Vol] 14 mg/dL Normal 0-30 [facility] Comment on above: Performed By: #### 7 18-7, PLTCT, PINR, 40176-4, HA1C #### [facility] ([id number]) [address], [address] [place] [address] CHOLESTEROL:HDL 3.2 Normal 1.0-5.0 [facility] Comment on above: Performed By: #### 7 18-7, PLTCT, PINR, 28782-0, HA1C #### [facility] ([id number]) [address], [address] [place] [address] Triglyceride [Mass/Vol] 68 mg/dL Normal 27-150 [facility] Comment on above: Performed By: #### 7 18-7, PLTCT, PINR, 54634-7, HA1C #### [facility] ([id number]) [address], [address] [place] [address] MR BRAIN WO CONTon MR BRAIN WO [...] Marie MD on 08/30/2024 1:59 PM Normal [facility] BASIC METABOLIC PANLon 08-29 Anion gap [Moles/Vol] 11 mmol/L Normal 5-15 [facility] Comment on above: Performed By: #### B MP #### [facility] ([id number]) [address], [address] [place] [address] Calcium [Mass/Vol] 9.7 mg/dL Normal 8.5-10.5 [facility] Comment on above: Performed By: #### B MP #### [facility] ([id number]) [address], [address] [place] [address] Chloride [Moles/Vol] 101 mmol/L Normal 98-109 [facility] Comment on above: Performed By: #### B MP #### [facility] ([id number]) [address], [address] [place] [address] CO2 [Moles/Vol] 27 mmol/L Normal 22-32 [facility] Comment on above: Performed By: #### B MP #### [facility] ([id number]) [address], [address] [place] [address] Creatinine [Mass/Vol] 1.01 mg/dL Normal 0.60-1.30 [facility] Comment on above: Result Comment: METH OD TRACEABLE TO IDMS STANDARD Performed By: #### B MP #### [facility] ([id number]) [address], [address] [place] [address] GFR/1.73 sq M.predicted among non-blacks MDRD (S/P/Bld) [Vol rate/Area] 82 mL/min/{1.73_m2} Normal >59 [facility] Comment on above: Result Comment: Reported eGFR is based on the CKD-EPI 2020 equation that does not use a race coefficient. Performed By: #### B MP #### [facility] ([id number]) [address], [address] [place] [address] Glucose [Mass/Vol] 122 mg/dL High 65-99 [facility] Comment on above: Performed By: #### B MP #### [facility] ([id number]) [address], [address] [place] [address] Potassium [Moles/Vol] 3.4 mmol/L Low 3.5-5.0 [facility] Comment on above: Performed By: #### B MP #### [facility] ([id number]) [address], [address] [place] [address] Sodium [Moles/Vol] 139 mmol/L Normal 134-146 [facility] Comment on above: Performed By: #### B MP #### [facility] ([id number]) [address], [address] [place] [address] Urea nitrogen [Mass/Vol] 22 mg/dL Normal 5-27 [facility] Comment on above: Performed By: #### B MP #### [facility] ([id number]) [address], [address] [place] [address] Glucose Glucometer (BldC) [M ass/Vol]on 08-29-2024 Glucose [Mass/Vol] 116 mg/dL High 65-99 [facility] Glucose [Mass/Vol] 155 mg/dL High 65-99 [facility] HEMOGLOBINon 08-29-2024 Hemoglobin (Bld) [Mass/Vol] 15.4 g/dL Normal 13.0-17.0 [facility] Comment on above: Performed By: #### 7 18-7, PLTCT, PINR, 90902-2, HA1C #### [facility] ([id number]) [address], [address] [place] [address] HGB A1C (GLYCO-HGB)on 2023 Glucose [Mass/Vol] 171 mg/dL Normal [facility] Comment on above: Performed By: #### 7 18-7, PLTCT, PINR, 35157-8, HA1C #### [facility] ([id number]) [address], [address] [place] [address] HbA1c (Bld) [Mass fraction] 7.6 % High 4.4-5.6 [facility] Comment on above: Result Comment: NOTE ADA Guidelines Result HgbA1c Normal : less than 5.7 % Prediabetes : 5.7 % to 6.4 % Diabetes : > 6.4 % Use with caution in patients with abnormal hemoglobin variants as the half-life of red blood cells and in vivo glycation rates are affected. Performed By: #### 7 18-7, PLTCT, PINR, 83817-7, HA1C #### [facility] ([id number]) [address] [facility], [address] [place] [address] Heparin unfractionated Chrom ogenic method Qn (PPP)on 08-29-2024 ANTI XA UFH 0.16 IU/mL Low 0.30-0.70 [facility] Comment on above: Result Comment: Opti mal time for testing is 6 hrs post dosage This test is specific for monitoring patients on UFH, and is not recommended for use with other Anti-Xa medications. Performed By: #### 3 274-8 #### [facility] ([id number]) [address], [address] [place] [address] ANTI XA UFH 0.10 IU/mL Low 0.30-0.70 [facility] Comment on above: Result Comment: Opti mal time for testing is 6 hrs post dosage This test is specific for monitoring patients on UFH, and is not recommended for use with other Anti-Xa medications. Performed By: #### 3 274-8 #### [facility] ([id number]) [address], [address] [place] [address] PLATELET COUNT AND MPVon Platelet mean volume (Bld) [Entitic vol] 8.3 fL Normal 03-16 [facility] Comment on above: Performed By: #### 7 18-7, PLTCT, PINR, 39123-6, HA1C #### [facility] ([id number]) [address], [address] [place] [address] Platelets (Bld) [#/Vol] 243 10*3/uL Normal 150-450 [facility] Comment on above: Performed By: #### 7 18-7, PLTCT, PINR, 57629-3, HA1C #### [facility] ([id number]) [address], [address] [place] [address] PROTIME AND INRon 08-29-2024 INR Coag (PPP) [Relative time] 1.3 {INR} High 0.8-1.1 [facility] Comment on above: Performed By: #### 7 18-7, PLTCT, PINR, 06397-2, HA1C #### [facility] ([id number]) [address], [address] [place] [address] PT Coag (PPP) [Time] 15.0 s High 9.8-13.2 [facility] Comment on above: Performed By: #### 7 18-7, PLTCT, PINR, 10660-9, HA1C #### [facility] ([id number]) [address], [address] [address] aPTT Coag (PPP) [Time]on aPTT Coag (Bld) [Time] 34 s Normal 26-37 [facility] Comment on above: Performed By: #### 7 18-7, PLTCT, PINR, 47625-8, HA1C #### [facility] ([id number]) [address], [address] [place] [address] Provider Letteron 03-04-2023 Provider Letter (Inserted Image. Carin ble to display) March 04, 2023 HARVEY CABRALES [address] [place] [id number] : 1955 Dear Mr. Harvey Cabrales , This letter is to inform you the the providers of [facility], [facility] (Dr. Kameron Barr) will no [...] of area physicians can be found on [facility]'s website at [email or web address] or you may contact your health plan. We will be glad to forward your records to your new physician as long as we receive a signed release of records form. Sincerely, Kameron Barr M.D., F.A.C.S. [facility] [address] [place], [place] [address] , Option #3 Normal [facility] Patient Letter [facility] January 21, 2023 HARVEY CABRALES [address] [place] [address] : 1955 SENT REGULAR/CERTIFIED MAIL Dear Mr. [...] Kameron Barr M.D., F.A.C.S. [facility] [address] [place], [place] [address] , Option #3 Normal [facility] [place] [facility] Urine Cytology ([facility])on 0 12-28-2022 Urine Cytology Diagnosis Info Invalid Interpretation Code [facility] [place] [facility] Comment on above: Result Comment: A:Ur [...] on: 12/28/2022 09:05:14 Performed By: #### 1 [id number] #### [facility] [place] [facility] [address] [place] [address] Formson 12-23-2022 Forms [id number]:127 Normal [facility] [place] [facility] Physician Referralon 023 Physician Referral [id number]:127 Normal [facility] [place] [facility] Screenson 12-23-2022 Screens [id number]:127 Normal [facility] [place] [facility] Ambulatory Visit Summaryon 0 12-22-2022 Ambulatory Visit Summary HARVEY CABRALES :1955 Visit Date:12/22/2022 Ambulatory Visit Instructions Your Diagnosis Microhematuria Benign prostatic hyperplasia (BPH) with post-void dribbling Family history of kidney cancer Tests Performed Urnls Dip Stick Auto w/o Microscopy POC 304[address] Your Care Team Attending Physician - Kameron [...] Appointments Follow Up with Kameron BARR MD, NIKAL When: Where: [facility] [address] [place] [address]- Medications What How Much When Instructions Unchanged lisinopril (lisinopril 20 mg Tab) Every day Contact prescribing physician if questions or concerns Unchanged metformin Contact prescribing physician if questions or concerns Unchanged pantoprazole (Pantoprazole [address] Tab) Every day Contact prescribing physician if questions or concerns Test Results Urnls Dip Stick Auto w/o Microscopy POC 79685 (12/22/2022) Bilirubin Urine Dipstick - Negative Blood Urine Dipstick - 2+ Moderate Glucose Urine Dipstick - Negative Ketones Urine Dipstick - Negative Leukocytes Urine Dipstick - Negative Nitrite Urine Dipstick - Negative Protein Urine Dipstick - Negative Specific [place] Urine Dipstick - 1.020 Urine Appearance Urine [...] these instructions at home: Medicines ? Take [id number] and prescription medicines only as told by [...] do not (more content not included)... Normal [facility] [place] [facility] Urine Cytology ([facility])on 0 12-22-2022 Method of Extraction Voided Normal [facility] [place] [facility] Comment on above: Performed By: #### 1 [id number] #### [facility] [place] [facility] [address] Number of Jars 1 Invalid Interpretation Code [facility] [place] [facility] Comment on above: Performed By: #### 1 [id number] #### [facility] [place] [facility] [address] [id number] Specimen Urine Normal [facility] [place] [facility] Comment on above: Performed By: #### 1 [id number] #### [facility] [place] [facility] [address] [place] [address] Type of Service Technical Only Normal [facility] Comment on above: Performed By: #### 1 [id number] #### [facility] [address] [place] [address] Urology Office/Clinic Noteon 12-22-2022 Urology Office/Clinic Note [...] URL [facility] [address], [place] [address]- Additional Instructions: schedule cysto Patient Education Hematuria, [...] Hyperlipidemia Hypertens (more content not included)... Normal [facility] [place] [facility] Comment on above: Result Comment: Elec [...] these instructions at home: Medicines ? Take esbp-eut-bkritti and prescription medicines only as told by [...] the blood stops without treatment. ? Take cxbe-ixj-urlscni and prescription medicines only as told by your health care provider. ? Drink enough fluid to keep your urine pale yellow. This information is not intended to replace advice given to you by your health care provider. Make sure you discuss any questions you have with your health care provider. Document Revised: 04/22/2021 Document Reviewed: 04/22/2021 Elsevier Patient Education ? 2022 [employer] Normal [facility] [place] [facility] OCC BLD IMMUNO SCREENon 11-03 OCCULT BLOOD Negative Normal NEGATIVE [facility] Comment on above: Performed By: #### O BSCRN #### [facility] Laboratory [address] [place], [place] [address] Dr. Tom Chacko US KIDNEYS BLADDERon 11-12- 023 US KIDNEYS BLADDER EXAMINATION: US KIDN [...] Date: 2022-11-12 13:02 Normal [facility] CA 19-9on 11-05-2022 CA 19-9 9 U/mL Normal 0-35 [facility] Comment on above: Result Comment: [employer] Electrochemiluminescence Immunoassay (ECLIA) . Values obtained with different assay methods or kits cannot be used interchangeably. Results cannot be interpreted as absolute evidence of the presence or absence of malignant disease. Performed By: #### C A 19,9 #### [facility] [address] [place], [place] [address] Dr. Tom Chacko INSULINon 11-05-2022 Insulin 17.2 uIU/mL Normal 2.6-24.9 [facility] Comment on above: Performed By: #### I NSULIN ####[facility] [id number] [place], [place] [address]PqDr. Tom Chacko CBC AUTO DIFFon 11-04-2022 BASO # 0.1 103/ul Normal 0.0-0.1 [facility] Comment on above: Performed By: #### C BC #### [facility] [address] [place] [address] [address] Tom Chacko Basophils/100 WBC (Bld) 1.0 % Normal 0.2-2.0 [facility] Comment on above: Performed By: #### C BC #### [facility] [address] [place] [address] [address] Tom Chacko EO # 0.4 103/ul Normal 0.0-0.7 [facility] Comment on above: Performed By: #### C BC #### [facility] [address] [place] [address] [address] Tom Chacko Eosinophils/100 WBC (Bld) 3.2 % Normal 0.9-7.0 [facility] Comment on above: Performed By: #### C BC #### [facility] [address] [place] [address] [address] Tom Chacko Erythrocyte distribution width (RBC) [Ratio] 13.5 % Normal 11.0-15.0 [facility] Comment on above: Performed By: #### C BC #### [facility] [address] [address] [address] Tom Chacko Hematocrit (Bld) [Volume fraction] 45.7 % Normal 42.0-54.0 [facility] Comment on above: Performed By: #### C BC #### [facility] [address] [address] [address] Tom Chacko Hemoglobin (Bld) [Mass/Vol] 15.7 g/dL Normal 14.0-18.0 [facility] Comment on above: Performed By: #### C BC #### [facility] [address] [address] [address] Tom Chacko IG # 0.05 10e3/ul Critically high 0.00-0.03 [facility] Comment on above: Performed By: #### C BC #### [facility] [address] [place] [address] Dr. Tom Chacko IG % 0.4 % Normal 0.0-0.5 [facility] Comment on above: Performed By: #### C BC #### [facility] [address] [place] [address] Dr. Tom Chacko LYMPH # 3.8 103/ul Normal 1.2-3.8 [facility] Comment on above: Performed By: #### C BC #### [facility] [address] [place] [address] Dr. Tom Chacko Lymphocytes/100 WBC (Bld) 31.9 % Normal 20.5-60.0 [facility] Comment on above: Performed By: #### C BC #### [facility] [address] [place] [address] Dr. Tom Chacko MANUAL DIFF REQ NO Normal [facility] Comment on above: Performed By: #### C BC #### [facility] [address] [place] [address] Dr. Tom Chacko MCH (RBC) [Entitic mass] 30.3 pg Normal 25.9-34.0 [facility] Comment on above: Performed By: #### C BC #### [facility] [address] [place] [address] Dr. Tom Chacko MCHC (RBC) [Mass/Vol] 34.4 g/dL Normal 29.9-35.2 [facility] Comment on above: Performed By: #### C BC #### [facility] [address] [place] [address] Dr. Tom Chacko MCV (RBC) [Entitic vol] 88.2 fL Normal 80.0-94.0 [facility] Comment on above: Performed By: #### C BC #### [facility] [address] [place] [address] Dr. Tom Chacko MONO # 0.8 103/ul Normal 0.3-0.8 [facility] Comment on above: Performed By: #### C BC #### [facility] [address] [place] [address] [address] Tom Chacko Monocytes/100 WBC (Bld) 6.6 % Normal 1.7-12.0 [facility] Comment on above: Performed By: #### C BC #### [facility] [address] [place] [address] [address] Tom Chacko NEUT # 6.8 103/ul Critically high 1.4-6.5 [facility] Comment on above: Performed By: #### C BC #### [facility] [address] [address] [address] Tom Chacko Neutrophils/100 WBC (Bld) 56.9 % Normal 43.0-75.0 [facility] Comment on above: Performed By: #### C BC #### [facility] [address] [place] [address] Dr. Tom Chacko Platelet mean volume (Bld) [Entitic vol] 9.6 fL Normal 9.5-13.5 [facility] Comment on above: Performed By: #### C BC #### [facility] [address] [place] [address] Dr. Tom Chacko PLT 258 103/ul Normal 150-450 [facility] Comment on above: Performed By: #### C BC #### [facility] [address] [place] [address] Dr. Tom Chacko RBC 5.18 106/ul Normal 4.70-6.10 [facility] Comment on above: Performed By: #### C BC #### [facility] [address] [place] [address] Dr. Tom Chacko WBC 11.9 103/ul Critically high 4.0-11.0 [facility] Comment on above: Performed By: #### C BC #### [facility] [address] [place] [address] Dr. Tom Chacko GLYCOHEMOGLOBIN A1Con 2022 ADA RECOMMENDATION SEE BELOW Normal [facility] Comment on above: Result Comment: ADA RECOMMENDED LIMIT 4.0 - 6.0 ADA THERAPEUTIC TARGET < 7.0 ACTION SUGGESTED > 7.0 Performed By: #### A 1C #### [facility] [address] [place] [address] [address] Tom Chacko Glucose [Mass/Vol] 120 mg/dL Normal [facility] Comment on above: Performed By: #### A 1C #### [facility] [address] [place] [address] [address] Tom Chacko HbA1c (Bld) [Mass fraction] 5.8 % Normal 4.5-6.2 [facility] Comment on above: Performed By: #### A 1C #### [facility] [address] [address] [address] Tom Chacko LIPID PROFILEon 11-04-2022 CHOL-HDL RATIO NORM SEE BELOW Normal [facility] Comment on above: Result Comment: 3.3 - 4.4 LOW RISK 4.4 - 7.1 AVERAGE RISK 7.1 - 11.0 MODERATE RISK >11.0 HIGH RISK Performed By: #### C MP, URIC, LIPID #### [facility] [address] [place] [address] [address] Tom Chacko Cholesterol [Mass/Vol] 112 mg/dL Normal <=200 [facility] Comment on above: Performed By: #### C MP, URIC, LIPID #### [facility] [address] [place] [address] Dr. Tom Chacko Cholesterol in HDL [Mass/Vol] 34 mg/dL Critically low 40-60 [facility] Comment on above: Performed By: #### C MP, URIC, LIPID #### [facility] [address] [address] [address] Tom Chacko Cholesterol in LDL [Mass/Vol] 48.6 mg/dL Normal [facility] Comment on above: Performed By: #### C MP, URIC, LIPID #### [facility] [address] [place] [address] Dr. Tom Chacko Cholesterol.total/ Cholesterol in HDL [Mass ratio] 3.3 {ratio} Normal [facility] Comment on above: Performed By: #### C MP, URIC, LIPID #### [facility] [address] [place] [address] [address] Tom Chacko HDL NORMAL > or = 60 mg/dl - LO W CARDIOVASCULAR RISK <40 mg/dl - HIGH CARDIOVASCULAR RISK Normal [facility] Comment on above: Performed By: #### C MP, URIC, LIPID #### [facility] [address] [place] [address] [address] Tom Chacko LDL CALC NORMAL SEE BELOW Normal [facility] Comment on above: Result Comment: <100 mg/dl OPTIMAL 100 - 129 mg/dl NEAR OR ABOVE OPTIMAL 130 - 159 mg/dl BORDERLINE HIGH 160 - 189 mg/dl HIGH >190 mg/dl VERY HIGH Performed By: #### C MP, URIC, LIPID #### [facility] [address] [place] [address] [address] Tom Chacko Triglyceride [Mass/Vol] 147 mg/dL Normal <=150 [facility] Comment on above: Performed By: #### C MP, URIC, LIPID #### [facility] [address] [place] [address] [address] Tom Chacko VLDL CALC 29.4 mg/dL Normal [facility] Comment on above: Performed By: #### C MP, URIC, LIPID #### [facility] [address] [place] [address] [address] Tom Chacko PROF 14(COMP METB)on 023 Albumin [Mass/Vol] 3.8 g/dL Normal 3.4-5.0 [facility] Comment on above: Performed By: #### C MP, URIC, LIPID #### [facility] [address] [place] [address] [address] Tom Chacko Albumin/Globulin [Mass ratio] 1.1 {ratio} Normal [facility] Comment on above: Performed By: #### C MP, URIC, LIPID #### [facility] [address] [place] [address] [address] Tom Chacko ALP [Catalytic activity/Vol] 73 U/L Normal 46-116 [facility] Comment on above: Performed By: #### C MP, URIC, LIPID #### [facility] [address] [place] [address] [address] Tom Chacko ALT [Catalytic activity/Vol] 28 U/L Normal 16-63 [facility] Comment on above: Performed By: #### C MP, URIC, LIPID #### [facility] [address] [place] [address] Dr. Tom Chacko Anion gap [Moles/Vol] 10.3 mmol/L Normal [facility] Comment on above: Performed By: #### C MP, URIC, LIPID #### [facility] [address] [place] [address] Dr. Tom Chacko AST [Catalytic activity/Vol] 17 U/L Normal 15-37 [facility] Comment on above: Performed By: #### C MP, URIC, LIPID #### [facility] [address] [place] [address] Dr. Tom Chacko Bilirubin [Mass/Vol] 0.4 mg/dL Normal 0.2-1.0 [facility] Comment on above: Performed By: #### C MP, URIC, LIPID #### [facility] [address] [place] [address] Dr. Tom Chacko Calcium [Mass/Vol] 9.3 mg/dL Normal 8.5-10.1 [facility] Comment on above: Performed By: #### C MP, URIC, LIPID #### [facility] [address] [place] [address] Dr. Tom Chacko Chloride [Moles/Vol] 104 mmol/L Normal 98-107 [facility] Comment on above: Performed By: #### C MP, URIC, LIPID #### [facility] [address] [place] [address] Dr. Tom Chacko CO2 [Moles/Vol] 29.5 mmol/L Normal 21.0-32.0 [facility] Comment on above: Performed By: #### C MP, URIC, LIPID #### [facility] [address] [place] [address] Dr. Tom Chacko Creatinine [Mass/Vol] 0.96 mg/dL Normal 0.70-1.30 [facility] Comment on above: Performed By: #### C MP, URIC, LIPID #### [facility] [address] [place] [address] Dr. Tom Chacko EGFR-AF NORTHER[place] IRISH >60 Normal >=60 [facility] Comment on above: Performed By: #### C MP, URIC, LIPID #### [facility] [address] [place] [address] [address] Tom Chacko EGFR-NON AF [place]THER[place]ISH >60 Normal >=60 [facility] Comment on above: Performed By: #### C MP, URIC, LIPID #### [facility] [address] [place] [address] [address] Tom Chacko Globulin (S) [Mass/Vol] 3.5 g/dL Normal [facility] Comment on above: Performed By: #### C MP, URIC, LIPID #### [facility] [address] [place] [address] [address] Tom Chacko Glucose [Mass/Vol] 113 mg/dL Critically high 74-106 [facility] Comment on above: Performed By: #### C MP, URIC, LIPID #### [facility] [address] [address] [address] Tom Chacko Potassium [Moles/Vol] 3.8 mmol/L Normal 3.5-5.1 [facility] Comment on above: Performed By: #### C MP, URIC, LIPID #### [facility] [address] [place] [address] Dr. Tom Chacko Protein [Mass/Vol] 7.3 g/dL Normal 6.4-8.2 [facility] Comment on above: Performed By: #### C MP, URIC, LIPID #### [facility] [address] [place] [address] Dr. Tom Chacko Sodium [Moles/Vol] 140 mmol/L Normal 136-145 [facility] Comment on above: Performed By: #### C MP, URIC, LIPID #### [facility] [address] [place] [address] [address] Tom Chacko Urea nitrogen [Mass/Vol] 14.0 mg/dL Normal 7.0-18.0 [facility] Comment on above: Performed By: #### C MP, URIC, LIPID #### [facility] [address] [place] [address] [address] Tom Chacko Urea nitrogen/Creatinin e [Mass ratio] 14.6 mg/mg Normal [facility] Comment on above: Performed By: #### C MP, URIC, LIPID #### [facility] [address] [place] [address] Dr. Tom Chacko UA (CLEAN/CATCH) PAPIER MACHE' MOLDER/MICRO I F IND.on 11-04-2022 Bilirubin Ql (U) Negative Normal NEGATIVE [facility] Comment on above: Performed By: #### U MICRO, UACSIND #### [facility] [address] [place] [address] [address] Tom Chacko Clarity (U) CLEAR Normal CLEAR [facility] Comment on above: Performed By: #### U MICRO, UACSIND #### [facility] [address] [place] [address] Dr. Tom Chacko Color (U) YELLOW Normal YELLOW [facility] Comment on above: Performed By: #### U MICRO, UACSIND #### [facility] [address] [place] [address] Dr. Tom Chacko Glucose Ql (U) Negative Normal NEGATIVE [facility] Comment on above: Performed By: #### U MICRO, UACSIND #### [facility] [address] [place] [address] Dr. Tom Chacko Hemoglobin Ql (U) MODERATE Abnormal NEGATIVE [facility] Comment on above: Performed By: #### U MICRO, UACSIND #### [facility] [address] [place] [address] [address] Tom Chacko Ketones Ql (U) Negative Normal NEGATIVE [facility] Comment on above: Performed By: #### U MICRO, UACSIND #### [facility] [address] [place] [address] Dr. Tom Chacko LEUKOCYTES Negative Normal NEGATIVE [facility] Comment on above: Performed By: #### U MICRO, UACSIND #### [facility] [address] [place] [address] Dr. Tom Chacko Nitrite Ql (U) Negative Normal NEGATIVE [facility] Comment on above: Performed By: #### U MICRO, UACSIND #### [facility] [address] [place] [address] [address] Tom Chacko pH (U) 6.0 [pH] Normal 5-9 [facility] Comment on above: Performed By: #### U MICRO, UACSIND #### [facility] [address] [place] [address] [address] Tom Chacko SPEC GRAVITY 1.020 Normal 1.005-<=1.0 25 [facility] Comment on above: Performed By: #### U MICRO, UACSIND #### [facility] [address] [place] [address] [address] Tom Chacko UA PROTEIN Negative Normal NEGATIVE/ TRACE [facility] Comment on above: Performed By: #### U MICRO, UACSIND #### [facility] [address] [place] [address] [address] Tom Chacko UR MICRO IND INDICATED Normal [facility] Comment on above: Performed By: #### U MICRO, UACSIND #### [facility] [address] [place] [address] [address] Tom Chacko Urobilinogen Qn (U) 0.2 {Joseph'U}/dL Normal 0.2 - 1.0 [facility] Comment on above: Performed By: #### U MICRO, UACSIND #### [facility] [address] [place] [address] [address] Tom Chacko URIC ACID SERUMon 11-04-2022 Urate [Mass/Vol] 7.3 mg/dL Critically high 3.5-7.2 [facility] Comment on above: Performed By: #### C MP, URIC, LIPID ####[facility] [id number] [place] [address]Dr. Tom Chacko URINE MICROSCOPIC ONLYon BACTERIA NONE SEEN Normal NONE SEEN [facility] Comment on above: Performed By: #### U MICRO, UACSIND #### [facility] Laboratory [address] [place] [address] [address] Tom Chacko Bacteria identified Cx Nom (U) NOT INDICATED Normal [facility] Comment on above: Performed By: #### U MICRO, UACSIND #### [facility] [address] [place] [address] [address] Tom Chacko CAST NONE SEEN Normal NONE SEEN [facility] Comment on above: Performed By: #### U MICRO, UACSIND #### [facility] [address] [place] [address] [address] Tom Chacko Crystals LM Nom (Urine sed) NONE SEEN Normal NONE SEEN [facility] Comment on above: Performed By: #### U MICRO, UACSIND #### [facility] [address] [place] [address] [address] Tom Chacko Epithelial cells LM Ql (Urine sed) RARE Normal NONE SEEN /RARE [facility] Comment on above: Performed By: #### U MICRO, UACSIND #### [facility] [address] [place] [address] Dr. Tom Chacko MUCOUS NONE SEEN Normal NONE SEEN [facility] Comment on above: Performed By: #### U MICRO, UACSIND #### [facility] [address] [place] [address] Dr. Tom Chacko RBC 5-10 Abnormal 0-2 [facility] Comment on above: Performed By: #### U MICRO, UACSIND #### [facility] [address] [place] [address] Dr. Tom Chacko WBC NONE SEEN Normal NONE SEEN [facility] Comment on above: Performed By: #### U MICRO, UACSIND #### [facility] [address] [place] [address] [address] Tom Chacko Aerobic Cultureon 02-09-2022 Aerobic Culture ORGANISM: Strep. aga lactiae Grp B (O:B) Quantity of Growth Moderate Growth No Anaerobes Isolated 3 Days Gram Stain Result No Bacteria Seen PERFORMED BY: [place] [address] PATHOLOGIST DEVELOPER EVANGELIST MARGARITA CHOI M.D. [facility] Comment on above: Performed By: #### A ERC, GS #### [address] Gram Stainon 02-09-2022 Microscopic observation Gram stain Nom (Unsp spec) Gram Stain Result No Bacteria Seen PERFORMED BY: [place] [address] PATHOLOGIST DEVELOPER EVANGELIST MARGARITA CHOI M.D. [facility] Comment on above: Performed By: #### A JUSTIN, #### [address] US Venous, Unilat, Lower Ext Righton [...] by Reggie Hackett on 09/25/2021 1153 Normal [facility] [employer] US Venous, Unilat, Lower Ext Righton 09-11-2021 [...] by Reggie Hackett on 09/11/2021 1200 Normal [facility] Specialist Vital Signs Date Time Vital Sign Value Performing Clinician Facility 10-16-2024 11:46-0500 Body height 170.2 cm Reyna HOFFMAN Work Phone: [facility] 10-16-2024 11:46-0500 Body mass index (BMI) [Ratio] 28.98 kg/m2 Reyna HOFFMAN Work Phone: [facility] 10-16-2024 11:46-0500 Body weight 83.92 kg Reyna HOFFMAN Work Phone: [facility] 09-27-2024 15:09-0500 Body height 170.2 cm [facility] 09-27-2024 15:09-0500 Body mass index (BMI) [Ratio] 28.97 kg/m2 Chico Walker DO [facility] 09-27-2024 15:09-0500 Body weight 83.92 kg Chico Walker DO [facility] 09-27-2024 15:09-0500 Diastolic blood pressure 64 mm[Hg] [facility]ico Walker DO [facility] 09-27-2024 15:09-0500 Systolic blood pressure 124 mm[Hg] Chico Walker DO Work Phone: [facility] [employer] [facility] 12-22-2022 10:06-0400 Blood Pressure Location Kameron BARR [facility] 12-22-2022 10:06-0400 Diastolic blood pressure 75 mm[Hg] Kameron BARR [facility] 12-22-2022 10:06-0400 Heart rate 58 /min Kameron BARR [facility] 12-22-2022 10:06-0400 Systolic blood pressure 146 mm[Hg] Kameron BARR [facility] 02-09-2022 19:50-0400 Body height 147.32 cm Allegra Moreau Other [employer] Other 02-09-2022 19:50-0400 Body mass index (BMI) [Ratio] 50.15 kg/m2 Allegra Moreau Other [employer] Other 02-09-2022 19:50-0400 Body temperature 96.9 [degF] Allegra Moreau Other [employer] Other 02-09-2022 19:50-0400 Body weight 108.86 kg Allegra Moreau Other [facility] Other 02-09-2022 19:50-0400 Diastolic blood pressure 80 mm[Hg] Allegra Moreau Other [facility] Other 02-09-2022 19:50-0400 Respiratory rate 18 /min Allegra Moreau Other [facility] Other 02-09-2022 19:50-0400 SaO2% (BldA) [Mass fraction] 99 % Allegra Moreau Other [facility] Other 02-09-2022 19:50-0400 Systolic blood pressure 167 mm[Hg] Allegra Moreau Other [facility] Other Encounters Encounter Date Encounter Type Care Provider Facility Start: 10-29-2024 End: 10-29-2024 ambulatory CHICO PATHAK [facility] Start: 10-16-2024 End: 10-16-2024 Nutrition therapy Reyna HOFFMAN Work Phone: [facility] Comment on above: Type 2 diabetes jackelin itus without complication, unspecified whether custodial insulin use ([facility]) Start: 10-16-2024 End: 10-16-2024 ambulatory ASHLYN CRANE [facility] Start: 10-08-2024 ambulatory JOELLE BREWER [facility] Start: 09-27-2024 End: 09-27-2024 Postop follow up visit related to original px Chico Pathak DO Work Phone: [facility] Comment on above: 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) Start: 09-27-2024 End: 09-27-2024 ambulatory CHICO Molina [facility] Start: 09-27-2024 End: 09-27-2024 Telephone encounter Antionette De La Paz NP Work Phone: [facility] Start: 09-25-2024 End: 09-25-2024 ambulatory [facility] Start: 09-11-2024 ambulatory [facility] Start: 09-04-2024 End: 09-04-2024 Evaluation and management of inpatient JENNY Sahra [facility] Start: 09-01-2024 End: 09-01-2024 Telephone encounter [facility] Call Michelle khoury Comment on above: Advice Only Start: 08-31-2024 End: 09-04-2024 Evaluation and management of inpatient [facility] Start: 08-30-2024 End: 09-04-2024 Evaluation and management of inpatient [facility] Start: 08-30-2024 End: 08-30-2024 ambulatory [facility] Start: 08-29-2024 ambulatory [facility] Start: 08-29-2024 End: 09-03-2024 Evaluation and management of inpatient [facility] Start: 01-11-2023 End: 01-12-2023 ambulatory [facility] Facility:[facility] Start: 12-23-2022 End: 12-29-2022 Pre-admission assessment Kameron BARR [facility] Start: 12-22-2022 End: 12-23-2022 ambulatory Kameron BARR Facility: [facility] Start: 12-22-2022 End: 12-22-2022 Patient encounter procedure Kameron BARR [facility] Start: 11-16-2022 ambulatory Kameron BARR Facility :[facility] [place] Start: 11-12-2022 End: 11-13-2022 ambulatory JOELLE OSMAN Facility:[facility] Start: 11-04-2022 End: 11-05-2022 ambulatory JOELLENADEEM BREWER Facility:[facility]1 Start: 02-09-2022 End: 02-09-2022 Departed Referred 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 OF 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 AND 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 Allegra Moreau Work Phone: [facility] [place] Start: 02-09-2022 End: 02-09-2022 ambulatory Allegra Moreau Other [facility] [employer] Other Start: 02-09-2022 Office outpatient ne w 20 minutes Allegra Moreau [facility] Procedures Date Procedure Procedure Detail Performing Clinician Start: 10-16-2024 AMB REFERRAL TO DIAB ETIC EDUCATION Sahra Jay MD Work Phone: Start: 08-30-2024 Adult depression scr eening assessment Tri Sergio Start: 11-04-2022 PSA screening JOELLE PANTOJA Comment on above: Performed By: #### P [facility] #### [facility] [address] [place] [address] Dr. Tom LALA Colonoscopy Kameron BARR Herniated structure (morphologic abnormality) Kameron BARR Plan of Treatment Date Care Activity Detail Author Start: 09-27-2025 Adult BMI Screening Adult BMI Screen ing [facility] [employer] [facility] Start: 09-27-2025 Tobacco Screening Tobacco Screening [facility] Start: 08-30-2025 Depression Screening Depression Scre ening [facility] Start: 08-29-2025 Adult BMI Screening Adult BMI Screen ing [facility] Start: 11-15-2024 End: 11-15-2024 Patient encounter procedure 11/15/2024 3:30 PM EDT Office Visit [facility] [address] [place] [address] Chico Pathak, [address] [place] [address] [facility] Start: 10-29-2024 End: 10-29-2024 Patient encounter procedure 10/29/2024 3:30 PM EST Appointment [facility] [address] [place] [id number] [facility] Start: 10-28-2024 End: 03-27-2026 US Carotid arteries - bilateral Vas carotid duplex bilateral Vascular Ultrasound Routine Stenosis of right carotid artery Expected: 10/28/2024 (Approximate), Expires: 03/27/2026 [facility] Work Phone: Comment on above: Expected: 10/28/2024 (Approximate), Expires: 03/27/2026 Start: 05-06-2024 COVID-19 Vaccine ( season) COVID-19 Vaccine ( season) [facility] Start: 05-06-2024 Influenza vaccination [facility] Start: 04-26-2024 Tobacco Screening Tobacco Screening [facility] Start: 2022 Fall Risk Screening Fall Risk Screen ing [facility] Start: 2022 Pneumococcal Vaccine : 65+ Years (1 of 1 - PCV) Pneumococcal Vaccine: 65+ Years (1 of 1 - PCV) [facility] Start: 02-09-2022 Aerobic Culture Aerobic Culture [facility] Start: 02-09-2022 Anaerobic Culture Anaerobic Culture [facility] Start: 02-09-2022 Microscopic observat ion [Identifier] in Unspecified specimen by Gram stain Gram Stain [facility] Start: 2007 Administration of varicella zoster vaccine Zoster (Shingles) Vaccine (1 of 2) [facility] Start: 1976 DTaP,Tdap and Td Vaccines (1 - Tdap) DTaP,Tdap and Td Vaccines (1 - Tdap) [facility] Start: 1975 Adult BMI Follow Up Plan Adult BMI Follow Up Plan [facility] Start: 1975 Diabetic foot examination Diabetic Foot Exam [facility] Start: 1957 Glaucoma screening Diabetic Op hthalmology Exam [facility] Start: 1957 Screening for malign ant neoplasm of colon [facility] Start: 1957 Statin Use: Diabetic Statin Use: Yakelin sara [facility] Start: 1957 Tobacco Counseling Tobacco Counselin g [facility] Start: 1957 Urine screening for protein Urine Microalbumin [facility] Bacteria identified in Unspecified specimen by Aerobe culture [facility] Work Phone: Bacteria identified in Unspecified specimen by Anaerobe culture [facility] Work Phone: Microscopic observat ion [Identifier] in Unspecified specimen by Gram stain [facility] Work Phone: Immunizations Immunization Date Immunization Notes Care Provider Fa cili 12-30-2020 SARS-CoV-2 (COVID-19 ) mRNA-1273 vaccine Kameron BARR [facility] Comment on above: Result Comment: 2022: [id number] 12-02-2020 SARS-CoV-2 (COVID-19 ) mRNA-1273 vaccine Kameron BARR [facility] Comment on above: Result Comment: 2022: [id number] 06-21-2020 influenza virus vaccine, unspecified formulation Kameron BARR [facility] 06-21-2020 influenza, injectabl e, quadrivalent, preservative free Tri Sergio [facility] [employer] [facility] 07-08-2019 influenza virus vaccine, unspecified formulation Kameron BARR [facility] 07-08-2019 influenza, injectabl e, quadrivalent, contains preservative Tri [facility] Payers Date Payer Category Payer Medicare MEDICARE [id number] 1957 Medicare [id number] 1955 Unknown [id number] [id number]3 1957 Unknown [id number] 2.16.840.1.787305.3.579.2.593 1957 Unknown [id number] 2.16.840.1.144777.3.579.2.593 1957 Unknown [id number] 2.16.840.1.402804.3.579.2.593 1957 Unknown [id number] 2.16.840.1.167183.3.579.2.727 1957 Unknown [id number] 2.16.840.1.703389.3.579.2.727 1957 Unknown [id number] 2.16840.1.003010.3.579.2.128 6 1957 Unknown [id number] 2.16.840.1.700945.3.579.2.128 6 1957 Unknown [id number] 2.16.840.1.799608.3.579.2.128 6 1957 Unknown [id number] 2.16.840.1.483664.3.579.2.128 6 1957 Unknown [id number] 2.16.840.1.472817.3.579.2.128 6 1957 Unknown [id number] 2.16.840.1.057990.3.579.2.128 6 1957 Unknown [id number] 2.16.840.1.799936.3.579.2.128 6 1957 Unknown [id number] 2.16.840.1.500128.3.579.2.128 6 1957 Unknown [id number] 2.16.840.1.866061.3.579.2.128 6 1957 Unknown [id number] 2.16.840.1.960140.3.579.2.128 6 1957 Unknown [id number] 2.16.840.1.718385.3.579.2.128 6 1957 Unknown [id number] 2.16.840.1.572058.3.579.2.128 6 1957 Unknown [id number] 2.16840.1.535700.3.579.2.128 6 1957 Unknown [id number] 2.16840.1.174990.3.579.2.128 6 1957 Unknown [id number] 2.16840.1.569495.3.579.2.128 6 1957 Unknown [id number] 2.16840.1.877531.3.579.2.128 6 1957 Unknown [id number] 2.840.1.207142.3.579.2.128 6 1957 Unknown [id number] 2.840.1.017997.3.579.2.128 6 Self-pay Self Pay [id number] Unknown [id number] Social History Date Type Detail Facility Tobacco smoking stat [facility] Unknown if ever smoked [facility] Work Phone: Start: 1955 Sex Assigned At Male F [facility] Start: 10-03-2020 End: 08-30-2024 Sex Assigned At [facility] Start: 12-22-2022 Tobacco smoking status Light t obacco smoker (finding) [facility] Tobacco smoking status Never [facility] Start: 2023 Tobacco smoking stat [facility] Smokes tobacco daily [facility] [employer] [facility] History of tobacco use Cigarette Smoker P [employer] [facility] Start: 10-03-2020 End: 2023 Cigarettes smoked current (pack per day) - Reported 0.5 [facility] Start: 2023 Tobacco use and exposure Smokeless tobacco non-user [facility] Start: 04-27-2023 End: 09-27-2024 Alcoholic beverage intake Ex-drinker (finding) [facility] [employer] [facility] Has the [employer], or [employer] threatened to shut off services in your home in past 12Mo No [facility] [employer] [facility] How often to you hav e a drink containing alcohol? Never [facility] Start: 1955 Sex assigned at Not on file [facility] Start: 04-10-2015 Sex Male (finding) [facility] [employer] [facility] [employer] Tobacco smoking stat [facility] Tobacco smoking consumption unknown [facility] Work Phone: Medical Equipment Procedure Code Equipment Code Equipment Origin al Text Equipment Identifier Dates Patch Vsc 8x.8cm [employer] Bvn Pricrd Tiss Strl Rpl [id number] - [id number] Start: 09-02-2024 Functional Status Date Assessment Result Facility 12-22-2022 Functional Status N/A [facility] Clinical Notes 02-09-2022 to 10-16-2024 Reyna Sewell, DALTON - 10/16/2024 10:30 AM ESTTelephone Encounter - Antionette De La Paz, ARMANDO - 09/27/2024 8:11 PM ESTTelephone Encounter - Antionette De La Paz, ARMANDO - 09/27/2024 8:11 PM EST Note Date & Type Note Facility 10-16-2024 History of Presen t illness Narrative OUTPATIENT NUTRITION CONSULTATION- ADULT Date: 10/16/24 Time in: 1030 Time out: 11:45 Patient Harvey Cabrales Age () 69 y.o. (1955) Sex male Accompanied by significant other Reason for Visit: No chief complaint on file. Assessment: Height/Weight: Today's BMI Body mass index is 28.98 kg/m . BMI Category Pre-obese (25.00- 29.99) Height Height: 170.2 cm (5' 7 ) Weight Wt Readings from Last 3 Encounters: 10/16/24 83.9 kg (185 lb) 09/27/24 83.9 kg (185 lb) 09/02/24 88.3 kg (194 lb 10.7 oz) [place] Body Weight [place] body weight: 66.1 kg (145 lb 11.6 oz) Adjusted ideal body weight: 73.2 kg (161 lb 6.9 oz) Lab Results: POCT A1c No results found for: [id number] A1c Lab Results Component Value Date HGBA1C 7.6 (H) 08/29/2024 HGBA1C 5.8 10/03/2020 C-Peptide No results found for: CPEPTIDE Kidney No results found for: ALBCREATRA Lab Results Component Value Date GLU 200 (H) 09/03/2024 K 4.1 09/03/2024 BUN 16 09/03/2024 CREATININE 0.92 09/03/2024 Lipid Panel Lab Results Component Value Date CHOL 99 (L) 08/30/2024 Lab Results Component Value Date HDL 31 (L) 08/30/2024 Lab Results Component Value Date LDLCALC 54 08/30/2024 Lab Results Component Value Date TRIG 68 08/30/2024 No results found for: CHOLHDL Hgb Hemoglobin Date/Time Value Ref Range Status 09/02/2024 04:00 AM 14.5 13.0 - 17.0 g/dL Final Psychosocial / Economic Comments: Pt reports he is wanting to make good changes to his eating habits as he does not want to be in the hospital again. Nutrition/Diet Counseling: Prior Nutrition Counseling Prior nutrition counseling was not provided. Estimated Energy Needs 4451-7867 kcals daily Diet History Revealed Energy Intake: Inconsistent Total Fat Intake: Inconsistent Sodium Intake: Inconsistent Fiber Intake: Inconsistent Carbohydrate Intake: Excessive Protein Intake: Excessive Food Recall Breakfast Meal:: skip or has 2 pieces of toast, jam Lunch Time:: 1151 Lunch Meal:: tacos, veg, Dinner Time:: 1600 Dinner Meal:: sliders x 2, meat, veg Snack Time:: 0200 Snack:: chips, sweet ie. Lemon pic What beverages do you consume and approxiate amount?: coffee water, regular pop and juice Diagnosis: Excessive carbohydrate intake Related to Lack of prior nutrition-related education As evidenced by Altered lab values HgbA1c 7.6 Intervention: Nutrition Education: Patient was instructed on carbohydrate counting, healthy food selections, weight reduction, sources of fat, and sources of fiber, menu planning, and label reading Carbohydrate distribution provided to patient (if applicable): Breakfast Snack Lunch Snack Dinner Snack Carbohydrate 75 75 15 75 15 Notes: Total Kcal Recommended: 1800 (weight maintenance) Monitoring & Evaluation: Goals Eat 3 meals per day, Use resources discussed/given to count carbs, Target 5 servings of fruits/vegetables per day, Avoid sugar sweetened beverages, Exercise for 150 minutes per week, Monitors portions, and Label reading Follow-Up Plan Patient plans to call R.D. to schedule. Department phone number provided for questions after session. Reyna Sewell RD., LD. [facility] Education documented in this encounter [facility] 09-27-2024 Telephone encounter Note Calling to see if you ever got any information about Harvey He needs to see Dr Hoang Santa. He had a stroke august 28, he had surgery september 01. We need a neurologist. Want to know If you got any of the paperwork. Referrals show Joelle Brewer referred to [facility] for CVA. Will need updated to Arina and they will need to contact Joelle. [facility] 09-27-2024 Miscellaneous Notes Calling to see if you ever got any information about Harvey He needs to see Dr Hoang Santa. He had a stroke august 28, he had surgery september 01. We need a neurologist. Want to know If you got any of the paperwork. Referrals show Joelle Brewer referred to [facility] for CVA. Will need updated to Arina and they will need to contact Joelle. documented in this encounter [facility] 09-27-2024 History of Presen t illness Narrative Images from the original note were not included. Dear Dr. 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 He was transferred to [facility]. His echo was overall normal. He underwent [...] history of Abnormal ECG, Bradycardia, Diabetes mellitus ([facility]), Heart murmur, Heart valve disease, Hyperlipidemia, Hypertension, and Stroke ([facility]). Surgical History He has a past surgical [...] showed normal sinus (more content not included)... [facility] 09-01-2024 Miscellaneous Notes Contract: JAYLEN Alfaro @ [facility] is calling for consult Web Project Manager reached out to DONALDO Hooker to reach out to the facility documented in this encounter [facility] 09-01-2024 Telephone encounter Note Contract: JAYLEN Alfaro @ [facility] is calling for consult [facility] 09-01-2024 Telephone encounter Note Web Project Manager reached out to DONALDO Hooker to reach out to the facility [facility] 12-22-2022 Evaluation + Plan note Diagnostic Tests PendingUrine Cytology ([facility]) 12/22/22 [facility] 12-21-2022 Hospital Discharg e instructions Patient Education [...] Follow these instructions at home: Medicines Take mkbm-crd-ctlymtx and prescription medicines only as told by [...] or the blood stops without treatment. Take haum-sby-hucqopg and prescription medicines only as told by your health care provider. Drink enough fluid to keep your urine pale yellow. This information is not intended to replace advice given to you by your health care provider. Make sure you discuss any questions you have with your health care provider. Document Revised: 04/22/2021 Document Reviewed: 04/22/2021 [employer] Combine Patient Education 2022 [employer]. Follow Up Care 12/21/2022 13:53:01 With:OSIOT MOYA, Kameron Khoury, URL Address: [facility] [address], [place] [address]- When: Unknown [facility] 02-09-2022 Evaluation note Encounter Date [...] Other [facility] care material was printed [facility] Other Evaluation noteNo assessment information available [facility] Work Phone: Evaluation note* Diagnosis Stenosis of right carotid artery- Primary Occlusion and stenosis of carotid artery without mention of cerebral infarction [facility] Diagnosis Type 2 diabetes mellitus without complication, unspecified whether terminologist insulin use ([facility]) documented in this encounter [facility] general Narrative - Reported* Type Description Date Medical History diabetes mallitus Medical History high blood pressure [facility] Other Hospital course Narrative No data available for this section [facility] Active Implants Hospital Discharge instructions No data available for this section [facility]Not on filedocumented in this encounter [facility]Not on filedocumented in this encounter [facility] SystemInstructionsNot on filedocumented in this encounter [facility] No data available for this section [facility] Active Implants Reason for visit Narrative* Consultation (Routine) - Pending Review Specialty Diagnoses / Procedures Referred By Carlitos t Referred To Contact Endocrinology, Diabetes & Metabolism Diagnoses Type 2 diabetes mellitus without complication, unspecified whether custodial insulin use ([facility]) Sahra Jay MD [address] [place] [address] Phone: tel:[phone] fax: [facility] [address] [place] [address] Phone: tel: fax: Referral ID Status Reason Start Date Expiration Date Visits Requested Visits Authorized [id number] Pending Review Specialty Services Required 10/08/2024 10/08/2025 1 1 [facility] [employer] [facility] Summary Purpose Family History No Family History [...] section and content) DATE CREATED AUTHOR 09/26/2021 [facility] dical Specialist DATE CREATED AUTHOR AUTHOR'S ORGANIZ ATION 02/13/2022 [facility] DATE CREATED AUTHOR AUTHOR'S ORGANIZ ATION 01/16/2023 [facility] [place] [facility] DATE CREATED AUTHOR AUTHOR'S ORGANIZ ATION 03/05/2023 [facility] DATE CREATED AUTHOR AUTHOR'S ORGANIZ ATION 09/03/2024 [facility] DATE CREATED AUTHOR AUTHOR'S ORGANIZ ATION 09/29/2024 [facility] DATE CREATED AUTHOR AUTHOR'S ORGANIZ ATION 10/21/2024 [facility] DATE CREATED AUTHOR AUTHOR'S ORGANIZ ATION 10/31/[address] [facility] Care Teams (unrecognized sec tion and content) Team Status: Inactive Member Role Status Dates Allegra Moreau APRN Attending Provider Active Rehabilitation Aide Relationship Specialty Start Date End Date Joelle Brewer APRN-CNP [address] [place] [id number] 388 PCP - General Family Medicine 05/26/20 Rehabilitation Aide Relationship Specialty Start Date End Date Joelle Brewer APRN-CNP [address] [place] [address] PCP - General Family Medicine 05/26/20 Rehabilitation Aide Relationship Specialty Start Date End Date Joelle Brewer APRN-CNP [address] [place] [address] PCP - General Family Medicine 05/26/20 Goals (unrecognized section and content) Goals may be documented in a n alternate sectionNo Information No data available for this section No data available for this sectionNot on filedocumented as of this encounterNot on filedocumented as of this encounterNot on [...] BE BASED ON THE PRIMARY CLINICAL RECORDS. [employer] [facility]. provides no warranty or guarantee of the accuracy or completeness of information in this document.
== END 2024-10-31 09:27 | disposition home or self-care (01) ==
LOC: CARD 09:26
PROVIDERS: PCP Nurse Practitioner Family; Visit Provider Nurse Practitioner Family
DX: R09.89 Other specified symptoms and signs involving the circulatory and respiratory systems (principal)
CPT/HCPCS: 93923

== ENCOUNTER 2025-01-03 13:16 | Outpatient (OUT) | payer MEDICARE, SELFPAY ==
[2025-01-03 15:03] LABS: Chol HDL Ratio 2.2; Cholesterol 76 mg/dL (<=200); HDL Cholesterol 35 mg/dL (40-60); Triglycerides 91 mg/dL (<=150); VLDL CHOLESTEROL 18.2 mg/dL
== END 2025-01-03 13:17 | disposition home or self-care (01) ==
LOC: LAB 13:17
PROVIDERS: PCP Nurse Practitioner Family; Visit Provider Internal Medicine Cardiovascular Disease
DX: I63.10 Cerebral infarction due to embolism of unspecified precerebral artery (principal); I73.9 Peripheral vascular disease, unspecified
CPT/HCPCS: 36415; 80061

== ENCOUNTER 2025-01-03 13:21 | Outpatient (OUT) | payer MEDICARE, SELFPAY ==
[2025-01-03 15:08] LABS: Estimated Average Glucose 151 mg/dL; Glycohemoglobin A1C 6.9 % (4.5-6.2)
== END 2025-01-03 13:22 | disposition home or self-care (01) ==
LOC: LAB 13:23
PROVIDERS: PCP Nurse Practitioner Family; Visit Provider Nurse Practitioner Family
DX: I73.9 Peripheral vascular disease, unspecified (principal); E11.9 Type 2 diabetes mellitus without complications; I63.10 Cerebral infarction due to embolism of unspecified precerebral artery
CPT/HCPCS: 36415; 80061; 83036

== ENCOUNTER 2025-02-19 12:12 | Outpatient (OUT) | payer MEDICARE, SELFPAY ==
[2025-02-19 12:41] LABS: Alanine Aminotransferase 34 U/L (16-63); Aspartate Amino Transferase 20 U/L (15-37)
== END 2025-02-19 12:13 | disposition home or self-care (01) ==
LOC: LAB 12:14
PROVIDERS: PCP Nurse Practitioner Family; Visit Provider Internal Medicine Cardiovascular Disease
DX: E78.2 Mixed hyperlipidemia (principal)
CPT/HCPCS: 36415; 80061; 84450; 84460

== ENCOUNTER 2025-04-09 15:29 | Outpatient (OUT) | payer MEDICARE, SELFPAY ==
[2025-04-09 16:14] LABS: Glucose Urine UA >=1000 mg/dL (NEGATIVE)
[2025-04-09 16:15] LABS: Hematocrit 40.6 % (42.0-54.0); Hemoglobin 14.0 g/dL (14.0-18.0); Immature Granulocytes Abs Auto 0.14 10^3/uL (0.00-0.03); Immature Granulocytes Pct Auto 1.3 % (0.0-0.5); Lymphocytes Absolute Auto 2.6 10^3/uL (1.2-3.8); Mean Corpuscular HGB Conc 34.5 g/dL (29.9-35.2); Mean Corpuscular Hemoglobin 30.0 pg (25.9-34.0); Mean Corpuscular Volume 87.1 fL (80.0-94.0); Platelet Count 276 10^3/uL (150-450); Red Blood Count 4.66 10^6/uL (4.70-6.10); White Blood Count 10.5 10^3/uL (4.0-11.0)
[2025-04-09 16:35] LABS: Alanine Aminotransferase 40 U/L (16-63); Albumin Globulin Ratio 1.1; Albumin Level 3.9 g/dL (3.4-5.0); Alkaline Phosphatase 84 U/L (46-116); Anion Gap 14.0; Aspartate Amino Transferase 23 U/L (15-37); Blood Urea Nitrogen 13.0 mg/dL (7.0-18.0); Calcium 9.0 mg/dL (8.5-10.1); Carbon Dioxide 26.0 mmol/L (21.0-32.0); Chloride 101 mmol/L (98-107); Estimated GFR (African America 55 (>=60 mL/min/1.73m^2); Estimated GFR (Non-African Ame 45 (>=60 mL/min/1.73m^2); Free T3 2.29 pg/mL (2.18-3.98); Globulin 3.6 g/dL; Glucose 288 mg/dL (74-106); Potassium 4.0 mmol/L (3.5-5.1); Sodium 137 mmol/L (136-145); Thyroid Stimulating Hormone 1.360 uIU/mL (0.358-3.740); Total Protein 7.5 g/dL (6.4-8.2); Uric Acid 7.3 mg/dL (3.5-7.2)
[2025-04-09 16:57] LABS: Cast Seen? NONE SEEN #/LPF (NONE SEEN); Crystals Seen? None Seen #/HPF (None Seen); Urine Culture Indicated NO
== END 2025-04-09 15:30 | disposition home or self-care (01) ==
PROVIDERS: PCP Nurse Practitioner Family; Visit Provider Nurse Practitioner Family
DX: R31.9 Hematuria, unspecified (principal); E11.9 Type 2 diabetes mellitus without complications
CPT/HCPCS: 36415; 80053; 81001; 83036; 83525; 84436; 84443; 84481; 84550; 85025; G0103

== ENCOUNTER 2025-06-05 12:29 | Outpatient (OUT) | payer MEDICARE, SELFPAY ==
--- NOTE | 2025-06-05 12:41 | MR_ITS ---
The [address] [address] Patient Name: BRAD CABRALES MRN: [id number] date: 1955 Sex: M Assigned Patient Location: LAB Current Patient Location: LAB Accession/Order Number: [id number] Exam Date: 06/05/2025 13:07 Report Date: 06/05/2025 15:49 At the request of: PA BREWER Procedure: MR abdomen wo/w con MRI OF THE ABDOMEN WITH AND WITHOUT CONTRAST: CLINICAL HISTORY: Pancreatic Mass K89.89 COMPARISON: Prior MRI 10/26/2021 TECHNIQUE: Multisequence, multiplanar imaging of the abdomen was obtained before and after the use of IV contrast. FINDINGS: Liver appears normal in contour with ectatic steatosis. No enhancing liver lesion is present. Hepatic and portal veins appear patent. Gallbladder has been removed. No CBD dilatation. Spleen appears unremarkable. Adrenal glands appear normal. Nonenhancing cysts involving the left kidney. Right kidney appears unremarkable. Abdominal aorta appears normal in caliber. No bulky lymphadenopathy or ascites. No pleural effusion. A multicystic lesion is seen involving the pancreatic head measuring approximately 3.1 x 2.6 x 3.7 cm. No pancreatic duct dilatation or atrophy. No surrounding inflammatory change. MR/MR abdomen wo/w con IMPRESSION: A MULTICYSTIC LESION IS SEEN INVOLVING THE PANCREATIC HEAD NOW MEASURING 3.1 X 2.6 X 3.7 CM. A SIMILAR PROCESS IS SEEN ON THE 2021 STUDY. 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 CONTINUED MRI FOLLOW-UP IS SUGGESTED Impression dictated by: Reggie Root Jr., DSolaOSola 06/05/2025 3:49 PM Dictation Location: [place] [address] Electronically authenticated by: [id number] Y Date: 06/05/2025 15:49
[2025-06-05 12:52] LABS: Estimated GFR (African America >60 (>=60 mL/min/1.73m^2); Estimated GFR (Non-African Ame 59 (>=60 mL/min/1.73m^2)
== END 2025-06-05 12:30 | disposition home or self-care (01) ==
LOC: LAB 12:29
PROVIDERS: Pathology Anatomic Pathology & Clinical Pathology; PCP Nurse Practitioner Family; Visit Provider Nurse Practitioner Family
DX: K86.89 Other specified diseases of pancreas (principal)
CPT/HCPCS: 36415; 74183; 82565; A9575

== ENCOUNTER 2025-06-14 12:29 | Outpatient (OUT) | payer MEDICARE, SELFPAY ==
--- OUTSIDE RECORDS SUMMARY | 2025-06-14 12:38 | XMS_ITS | CCD ---
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 Name Role Phone MARIELOS Moreau Attending Provider [...] Osman CLAUDIO Joelle S Primary Care Provider Unavailable Primary Care Provider Unavailabl e OSMAN, JOELLE S Referring Unavailable OSMAN, JOELLE S Primary Care Unavailable OSMAN, JOELLE S Referring Unavailable OSMAN, JOELLE S Primary Care Unavailable ASHLYN CRANE Referring Unavailable OSMAN, JOELLE S Primary Care Unavailable GAYLE SEWELL Attending Unavailable SAHRA JAY Referring Unavailable OSMAN, JOELLE S Primary Care Unavailable VAN PATHAK Referring Unavailable OSMAN, JOELLE S Primary Care Unavailable JENNIFER, VIEH Admitting Unavailable JENNIFER, JOCELYNEH Attending Unavailable ROSA MCGILL Referring Unavailable OSMAN, [...] Primary Care Unavailable BLANCO BENZ Attending Unavailable VAN PATHAK Attending Unavailable OSMAN, JOELLE S Referring Unavailable OSMAN, JOELLE S Primary Care Unavailable VAN PATHAK Attending Unavailable OSMAN, JOELLE S Referring Unavailable OSMAN, JOELLE S Primary Care Unavailable ORLY SANTA Attending Unavailable ORLY SANTA Referring Unavailable SANTAORLY Attending Unavailable Osman WINDOW COVERING SALES CONSULTANT-PMO LEAD, Joelle S Primary Care Provider ASHLYN CRANE Attending Unavailable ASHLYN CRANE Attending Unavailable OSMAN, JOELLE S Referring Unavailable OSMAN, JOELLE S Primary Care Unavailable OSMAN, JOELLE S Referring Unavailable OSMAN, JOELLE S Primary Care Unavailable OSMAN, JOELLE S Referring Unavailable OSMAN, JOELLE S Primary Care Unavailable OSMAN, JOELLE S Referring Unavailable OSMAN, JOELLE S Primary Care Unavailable ASIA CA Attending Unavailable OSMAN, JOELLE S Referring Unavailable OSMAN, JOELLE S Primary Care Unavailable Osman SAFETY PHYSICIAN-C, Joelle Ellie Primary Care Provider Kike Whitt MD Attending Provider Manfred SAFETY PHYSICIAN-CAnnabelle Attending Provider Annabelle Shearer Attending Unavailable Annabelle Shearer Admitting Unavailable Osman, Joelle Ellie Primary Care Unavailable Allergies Allergy Classification Reported Allergen(s) Allergy Type Date of Onset Reaction(s) Facility (11 sources) Benzocaine; Translations: [BENZOCAINE] Drug Allergy 4 Hives [facility] (2 sources) Allantoin / Benzocaine / Camphor / Petrolatum; Translations: [benzocaine topical] Drug Allergy Swelling (finding) [facility] (19 sources) Benzocaine-Kush alkonium Cl; Translations: [BENZOCAINE-RODNEY ZALKONIUM CL] Propensity to adverse reactions to drug 0 Swelling, Flushing [facility] (6 sources) Benzocaine Drug Allergy 4 Hives, Swelling [facility] (1 source) Benzocaine Drug Allergy 5 [facility] Medications Current Medications Medication Drug Class(es) Dates Sig (Normalized) Sig (Original) acetaminophen 500 mg oral tablet (6 sources) Start: 04-08-2021 take 1 tablet by mouth every six hours as needed for pain acetaminophen (TYLENOL) 500 mg tablet Take 1 tablet (500 mg total) by mouth every 6 (six) hours as needed for pain. 30 tablet 04/08/2021 Active aspirin 81 mg delayed release oral tablet (14 sources) Platelet Aggregation Inhibitor, Nonsteroidal Anti-inflammatory Drug Start: 09-04-2024 Aspirin (Adult Low Dose Aspirin) 81 mg tablet,delayed release (DR/EC) Active 81 MG PO Daily November 14, 2024 12:00am Complies with drug therapy atorvastatin 40 mg oral tablet (14 sources) HMG-CoA Reductase Inhibitor Start: 09-03-2024 take 1 tablet by mouth once daily in the evening Atorvastatin 40 mg tablet Active 40 MG PO Every evening November 14, 2024 12:00am Complies with drug therapy cephalexin 500 mg oral tablet (1 source) Cephalosporin Antibacterial Start: 02-09-2022 take 1 tablet by mouth every twelve hours Cephalexin 500 MG 1 tablet Orally every 12 hrs for 10 day(s) Feb, Active clopidogrel 75 mg oral tablet (14 sources) P2Y12 Platelet Inhibitor Start: 09-04-2024 take 1 tablet by mouth once daily Clopidogrel (Plavix) 75 mg tablet Active 75 MG PO Daily November 14, 2024 12:00am Complies with drug therapy glipiZIDE 5 mg oral tablet (9 sources) Sulfonylurea glipiZIDE (GLUCOTROL) 5 mg tablet every 12 (twelve) hours. Active hydroCHLOROthiazide 25 mg / lisinopril 20 mg oral tablet (6 sources) Thiazide Diuretic, Angiotensin Converting Enzyme Inhibitor Start: 12-09-2022 take 1 tablet by mouth once in the morning lisinopril-hydroC HLOROthiazide (PRINZIDE,ZESTORE TIC) 20-25 mg per tablet Take 1 tablet by mouth in the morning. 12/09/2022 Active lisinopril 20 mg oral tablet (4 sources) Angiotensin Converting Enzyme Inhibitor Start: 06-12-2025 take 1 tablet by mouth once daily Lisinopril 20 mg tablet Active 20 MG PO Daily June 12, 2025 12:00am Complies with drug therapy Start: 12-22-2022 take 1 mg by mouth once daily lisinopril 20 mg Tab mg tab(s), Oral, Daily Start Date: 12/22/22 Status: Ordered Lisinopril Activ e MEN'S MULTI-VITAMIN ORAL (6 sources) MEN'S MULTI-ANDREW MIN ORAL Take by mouth. Active MEN'S MULTI-ANDREW MIN ORAL Take by mouth. Suspended metFORMIN hydrochloride 500 mg oral tablet (10 sources) Biguanide Start: 06-12-2025 take 1 tablet by mouth once daily Metformin 500 mg tablet Active 500 MG PO Daily June 12, 2025 12:00am Complies with drug therapy Start: 12-22-2022 take 1 tablet by dottie th in the morning, then take 1 tablet by mouth at mealtime metFORMIN (GLUCOPHAGE) 500 mg tablet Take 1 tablet (500 mg total) by mouth in the morning and 1 tablet (500 mg total) in the evening. Take with meals. 12/22/2022 Active Start: 12-22-2022 metformin Oral Start Date: 12/22/22 Status: Ordered metFORMIN HCl Ac tive omeprazole 40 mg delayed release oral capsule (12 sources) Proton Pump Inhibitor take 1 capsule by mouth in the morning omeprazole (PriLOSEC) 40 mg capsule Take 1 capsule (40 mg total) by mouth in the morning. Active pantoprazole 40 mg delayed release oral tablet (15 sources) Proton Pump Inhibitor Start: take 1 tablet by mouth once daily Pantoprazole 40 mg tablet,delayed release (DR/EC) Active 40 MG PO Daily June 12, 2025 12:00am Complies with drug therapy Start: 12-22-2022 take 1 mg by mouth once daily Pantoprazole [address] Tab mg tab(s), Oral, Daily Start Date: 12/22/22 Status: Ordered take 1 tablet by dottie th in the morning pantoprazole (PROTONIX) 20 mg EC tablet Take 1 tablet (20 mg total) by mouth in the morning. Active Pantoprazole Sod ium Active thiamine 100 mg oral tablet (9 sources) Start: 11-12-2024 End: 04-09-2025 take 1 tablet by mouth in the morning, then take 1 tablet by mouth once daily thiamine mononitrate, vit B1, (VITAMIN B-1) 100 mg tablet Take 1 tablet (100 mg total) by mouth in the morning. 1 TABLET ORALLY ONCE A DAY. 04/09/2025 Active Completed/Discontinued Medications Medication Drug Class(es) Dates Sig (Normalized) Sig (Original) ciprofloxacin 500 mg oral tablet (2 sources) Quinolone Antimicrobial Start: 12-22-2022 Cipro 500 mg Tab 500 mg = 1 tab(s), Oral, As Directed, Patient to take 1 tab the day before procedure and the 2nd tab the day of procedure once completed, # 2 tab(s), Refills(s) 0, Pharmacy: [id number], 167, cm, 12/22/22 10:25:00 EDT, Height/Length Do... Start Date: 12/22/22 Status: Ordered Problems Active Problems Problem Classification Problem Date Documented Da te Episodic/Chronic Acute cerebrovascular disease (17 sources) Cerebral infarction, unspecified; Translations: [Cerebrovascular accident due to thrombus of left carotid artery] Onset: 08-29-2024 11-12-2024 Chronic Biliary tract disease (6 sources) Biliary calculus; Translations: [Calculus of gallbladder without cholecystitis without obstruction] Onset: 11-12-2024 11-12-2024 Episodic Deficiency and other anemia (1 source) Anemia, unspecified; Translations: [ANEMIA UNSPECIFIED] Onset: 11-15-2022 Episodic Diabetes mellitus without complication (17 sources) Diabetes mellitus; Translations: [Type 2 diabetes mellitus without complications] Onset: 11-08-2022 12-22-2022 Chronic Disorders of lipid metabolism (15 sources) Hyperlipidemia; Translations: [Hyperlipidemia, unspecified] Onset: 11-04-2022 12-22-2022 Chronic Diverticulosis and diverticulitis (6 sources) Diverticulosis of colon; Translations: [Diverticulosis of large intestine without perforation or abscess without bleeding] Onset: 11-12-2024 11-12-2024 Chronic Essential hypertension (14 sources) Hypertensive disorder; Translations: [Essential (primary) hypertension] Onset: 09-25-2024 12-22-2022 Chronic Genitourinary symptoms and ill-defined conditions (20 sources) Microscopic hematuria; Translations: [Other microscopic hematuria] Onset: 11-08-2022 Episodic Heart valve disorders (8 sources) Aortic valve sclerosis; Translations: [Other nonrheumatic aortic valve disorders] Onset: 09-25-2024 11-12-2024 Chronic Hyperplasia of prostate (9 sources) Benign prostatic hypertrophy with outflow obstruction; Translations: [Benign prostatic hyperplasia with lower urinary tract symptoms] Onset: 12-22-2022 Chronic Joint disorders and dislocations; trauma-related (6 sources) Derangement of right knee; Translations: [Unspecified internal derangement of right knee] Onset: 11-12-2024 11-12-2024 Chronic Malaise and fatigue (1 source) Other fatigue; Translations: [OTHER FATIGUE] Onset: 11-08-2022 Episodic Occlusion or stenosis of precerebral arteries (18 sources) Right carotid artery stenosis; Translations: [Occlusion and stenosis of right carotid artery] Onset: 09-25-2024 09-27-2024 Chronic Osteoarthritis (6 sources) Idiopathic osteoarthritis; Translations: [Primary osteoarthritis, unspecified site] Onset: 11-12-2024 11-12-2024 Chronic Other aftercare (1 source) 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; Translations: [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 CURRENT DRUG THERAPY] Onset: 11-08-2022 Episodic Other connective tissue disease (6 sources) Artificial knee joint present; Translations: [Presence of unspecified artificial knee joint] Onset: 11-12-2024 11-12-2024 Chronic Other connective tissue disease (2 sources) Unspecified symptoms and signs involving the nervous system; Translations: [Unspecified symptoms and signs involving the nervous system] Onset: 08-29-2024 Episodic Other diseases of kidney and ureters (1 source) Cyst of kidney, acquired; Translations: [CYST OF KIDNEY ACQUIRED] Onset: 11-16-2022 Episodic Other nervous system disorders (6 sources) Chronic pain; Translations: [Other chronic pain] Onset: 11-12-2024 11-12-2024 Chronic Other nervous system disorders (6 sources) Abnormal gait; Translations: [Other abnormalities of gait and mobility] Onset: 11-12-2024 11-12-2024 Episodic Other non-traumatic joint disorders (1 source) Pain in unspecified joint; Translations: [PAIN IN UNSPECIFIED JOINT] Onset: 11-08-2022 Episodic Other screening for suspected conditions (not mental disorders or infectious disease) (6 sources) Encounter for screening for malignant neoplasm of rectum; Translations: [Encounter for screening for malignant neoplasm of prostate] Onset: 11-08-2022 Episodic Peripheral and visceral atherosclerosis (6 sources) Peripheral vascular disease, unspecified; Translations: [Peripheral arterial disease] Onset: 12-24-2024 Chronic Skin and subcutaneous tissue infections (2 sources) Paronychia of finger; Translations: [Cellulitis of unspecified finger] Onset: 02-09-2022 Resolved: 02-09-2022 Episodic Spondylosis; intervertebral disc disorders; other back problems (11 sources) Degeneration of cervical intervertebral disc; Translations: [Other cervical disc degeneration, unspecified cervical region] Onset: 11-13-2024 11-12-2024 Chronic Substance-related disorders (3 sources) Smokes tobacco daily; Translations: [Nicotine dependence, unspecified, uncomplicated] 11-14-2024 Chronic Substance-related disorders (3 sources) Marijuana user; Translations: [Cannabis use, unspecified, uncomplicated] 11-14-2024 Episodic Unclassified (1 source) Post-op Onset: 09-27-2024 Past or Other Problems Problem Classification Problem Date Documented Da te Episodic/Chronic Heart valve disorders (8 sources) Heart murmur; Translations: [Cardiac murmur, unspecified] Onset: 09-25-2024 12-22-2022 Episodic Mood disorders (6 sources) Mood disorders Onset: 08-30-2024 08-30-2024 Nonspecific chest pain (10 sources) Other chest pain; Translations: [Chest pain] Onset: 02-18-2014 Episodic Other connective tissue disease (12 sources) Neurological symptom; Translations: [Unspecified symptoms and signs involving the nervous system] Onset: 08-29-2024 08-29-2024 Episodic Residual codes; unclassified (9 sources) Family history of malignant neoplasm of kidney; Translations: [Family history of malignant neoplasm of kidney] Onset: 12-22-2022 Episodic Residual codes; unclassified (6 sources) Tobacco user; Translations: [Tobacco use] Onset: 09-25-2024 11-12-2024 Episodic Residual codes; unclassified (2 sources) Tobacco use; Translations: [Tobacco use] Onset: 09-25-2024 Episodic Residual codes; unclassified (1 source) Pain, unspecified; Translations: [Pain, unspecified] Onset: 08-29-2024 Episodic Results Test Name Value Interpretation Reference Range Facility US art pvr/post Dorita 025 US art pvr/post LE [facility] Main [place] [address] [place] [address] Ultrasound Report Signed Patient: Harvey Cabrales MR#: [id number] : 1955 Acct:[id number] Age/Sex: 70 / M ADM Date: 06/07/25 Loc: Room: Type: [facility] Attending Dr: Annabelle Shearer SAFETY PHYSICIAN-C Ordering Provider: Annabelle Shearer APRN Date of Service: 06/07/25 US/US art pvr/post LE: I70.213 - Atherosclerosis of [place] arteries of extremiti... Copies to: Annabelle Shearer APRN LOWER EXTREMITY SEGMENTAL ARTERIAL DOPSCAN (PVR) INDICATION: Leg pain PROCEDURE: Right arm blood pressure is 133 , left is 127 . Pressures throughout the right leg are 127 at the low thigh, 127 at the calf, 119 at the ankle using the posterior tibial artery and 97 at the ankle using the dorsalis pedis artery with ankle-brachial index of 0.73 0.89 . Pressures throughout the left leg are 155 at the low thigh, 91 at the calf, 90,90,84,82,89,98,98 at the ankle using the posterior tibial artery and 80 at the ankle using the dorsalis pedis artery with ankle-brachial index of 0.60 0.68,0.68,0.64,0.64,0.75,0. 74,0.73 . Wave forms by plethysmography are biphasic, bilaterally. US/US art pvr/post LE IMPRESSION: MODERATE PERIPHERAL ARTERIAL DISEASE OF THE LEFT LOWER EXTREMITY AT REST. THE PATIENT IS MOST LIKELY TO HAVE femoral-popliteal DISEASE OF THE LEFT LOWER EXTREMITY. The patient's LUIZ improved with exercise, bilaterally. Impression dictated by: Kike Whitt MD,FACS,FSVS 06/08/2025 10:36 AM Dictation Location: [facility] Tech: Deneen Acuna Transcribed By: PWS 06/08/25 1036 Dictated By: Kike Whitt MD 06/08/25 1034 Signed By: 06/08/25 1036 Normal [facility] US carotid doppler BIon 10- US carotid doppler BI [facility] Main [place] [address] [place] [address] Ultrasound Report Signed Patient: Harvey Cabrales MR#: [id number] : 1955 Acct:[id number] Age/Sex: 70 / M ADM Date: 06/07/25 Loc: Room: Type: [facility] Attending Dr: Annabelle Shearer SAFETY PHYSICIAN-C Ordering Provider: Annabelle Shearer APRN Date of Service: 06/07/25 US/US carotid doppler BI: I65.23 - Occlusion and stenosis of bilateral carotid kade... Copies to: Annabelle Shearer APRN CAROTID DUPLEX INDICATION: Carotid bruit. PROCEDURE: Color-flow duplex scanning is used to interrogate the extracranial carotid arterial system, as well as both vertebral arteries. The proximal right internal carotid artery shows a highest peak systolic velocity of 67.3 cm/s with an end-diastolic velocity of 18.4 cm/s . The mid internal carotid artery measures 80.4 cm/s peak systolic with an end-diastolic velocity of 31.4 cm/s . The distal segment measures 82.3 cm/s peak systolic with an end diastolic velocity of 31.8 cm/s . The velocities of the right common carotid artery are 107 cm/s peak systolic and 20.5 cm/s end- diastolic proximally and 74.6 cm/s peak systolic and 16.2 cm/s end-diastolic distally. The peak systolic velocity ratio of the internal to the common carotid artery is 1.1 . The right external carotid artery measures 122 cm/s peak systolic. The right vertebral artery is patent at 43.7 cm/s peak systolic and with antegrade flow. The proximal left internal carotid artery shows a highest peak systolic velocity of 80 cm/s with an end-diastolic velocity of 26.4 cm/s . The mid internal carotid artery measures 112 cm/s peak systolic with an end-diastolic velocity of 42.3 cm/s . The distal segment measures 106 cm/s peak systolic with an end diastolic velocity of 33.6 cm/s . The velocities of the left common carotid artery are 82 cm/s peak systolic and 17.4 cm/s end-diastolic proximally and 67.7 cm/s peak systolic and 17.4 cm/s end-diastolic distally. The peak systolic velocity ratio of the internal to the common carotid artery is 1.65 . The left external carotid artery measures 123 cm/s peak systolic. The left vertebral artery is patent at 59 cm/s peak systolic with antegrade flow. US/US carotid doppler BI IMPRESSION: NO HEMODYNAMICALLY SIGNIFICANT STENOSIS OF EITHER EXTRACRANIAL INTERNAL CAROTID ARTERY. BOTH VERTEBRAL ARTERIES ARE PATENT WITH ANTEGRADE FLOW. Impression dictated by: Kike Whitt MD,FACS,FSVS 06/07/2025 2:01 PM Dictation Location: [place] [address] Tech: Thao Israel Transcribed By: PWS 06/07/25 1401 Dictated By: Kike Whitt MD 06/07/25 1400 Signed By: 06/07/25 1401 Normal [facility] POCT Urinalysis Auto, W/O Mi croscopyon 05-21-2025 External Poct Urine Blood 1+ [facility] External Poct Urine Glucose 3+ [facility] External Poct Urine Ketones Negative [facility] External Poct Urine Leukocyte Esterase Negative [facility] External Poct Urine Nitrite Negative [facility] External Poct Urine Ph 6 [facility] External Poct Urine Protein 1+ [facility] 36on 04-01-2025 36 Regarding lab result s from 02/19/2025: MD Raquel Grijalva MA This AST and ALT are good. Make sure that there is an order for AST ALT when he has his lipids done in May. Orders printed and sent to patient in the mail to have completed. Normal [facility] 36on 02-14-2025 36 Regarding lab result s from 01/03/2025: MD Raquel Grijalva MA Lipids good, CCM, recheck lipids and AST/ALT in 3 months. LM for patient and sent him orders in the mail to be completed in May 2025. Asked him to call the office with additional questions. Normal [facility] Office Visiton 12-24-2024 Follow-up visit [id number] Harvey Cabrales 1955 M Date Provider Department Center 12/24/2024 [id number] CRANE THA [place] Family History Problem Relation Age of Onset Kidney failure Mother Cancer Father Hypertension Sister Hypertension Brother Heart failure Brother Family Status - Relation Status Age at Mother Father Sister Alive Brother Level of Service:87930 [place] OFFICE/OUTPATIENT ESTABLISHED LOW MDM 20 MIN Reason for Visit and Comments: 3 month follow up [Other] Normal [facility] XR CERVICAL SPINE AP/LAT/FLE X/EXTon 11-12-2024 XR CERVICAL SPINE AP/LAT/FLEX/EXT Exam: XR CERVICAL SPINE AP/LAT/FLEX/EXT Reason for exam: Numbness left side of neck, neck stiffness Prior comparative studies: None Findings: There is straightening of cervical lordosis. There is endplate sclerosis with osteophyte formation and disc narrowing throughout the cervical spine. Findings are most severe at C5-6 and to a lesser degree C4-5. Atlantoaxial space is normal. No prevertebral soft tissue swelling is seen. Clips in the left neck noted. Open-mouth view is unremarkable. No fracture is apparent. Gentle flexion and extension views are performed. No subluxation or instability is demonstrated. IMPRESSION: 1. No acute abnormality or instability identified. 2. Advanced degenerative changes particularly in the mid to lower cervical segments. Dictated on: 11/12/2024 8:20 AM This report has been electronically signed and approved by the interpreting radiologist. Normal Not Available XR Cervical spine 4 or 5 Vie wson 11-12-2024 Exam: XR CERVICAL SP INE AP/LAT/FLEX/EXT Reason for exam: Numbness left side of neck, neck stiffness Prior comparative studies: None Findings: There is straightening of cervical lordosis. There is endplate sclerosis with osteophyte formation and disc narrowing throughout the cervical spine. Findings are most severe at C5-6 and to a lesser degree C4-5. Atlantoaxial space is normal. No prevertebral soft tissue swelling is seen. Clips in the left neck noted. Open-mouth view is unremarkable. No fracture is apparent. Gentle flexion and extension views are performed. No subluxation or instability is demonstrated. IMPRESSION: 1. No acute abnormality or instability identified. 2. Advanced degenerative changes particularly in the mid to lower cervical segments. Dictated on: 11/12/2024 8:20 AM This report has been electronically signed and approved by the interpreting radiologist. IMAGING Maninder Murrell MD - 11/12/2024 Exam: XR CERVICAL SPINE AP/LAT/FLEX/EXT Reason for exam: Numbness left side of neck, neck stiffness Prior comparative studies: None Findings: There is straightening of cervical lordosis. There is endplate sclerosis with osteophyte formation and disc narrowing throughout the cervical spine. Findings are most severe at C5-6 and to a lesser degree C4-5. Atlantoaxial space is normal. No prevertebral soft tissue swelling is seen. Clips in the left neck noted. Open-mouth view is unremarkable. No fracture is apparent. Gentle flexion and extension views are performed. No subluxation or instability is demonstrated. IMPRESSION: 1. No acute abnormality or instability identified. 2. Advanced degenerative changes particularly in the mid to lower cervical segments. Dictated on: 11/12/2024 8:20 AM This report has been electronically signed and approved by the interpreting radiologist. [facility] Radiology Study observation (narrative) [facility] XR Cervical spine 4 or 5 Vie wsOrdered By: Maninder Murrell on 11-12-2024 [facility] Work Phone: 36on 10-19-2024 36 Regarding lab result s from 10/16/2024: Patient declined to sign ABN for lipid. Signing ABN means he agrees to pay for the lipid should Medicare NOT pay for it. So lipid wasn't drawn because he declined to sign it. Normal [facility] Telephoneon 10-19-2024 Telephone [id number] Harvey Cabrales 1955 M Date Provider Department Center 10/19/2024 Joselyn8-RAQUEL LYLES THA [facility] Family History Problem Relation Age of Onset Hypertension Brother Family Status - Relation Status Age at Brother Normal [facility] ALT No additional P-5'-P [Ca talytic activity/Vol]on 10-16-2024 ALT [Catalytic activity/Vol] 21 U/L Normal 0-40 [facility] Comment on above: Performed By: #### 1 920-8, 1744-2 #### [facility] ([id number]) [address] [place] [address] Esther 10-16-2024 AST [Catalytic activity/Vol] 16 U/L Normal 0-41 [facility] Comment on above: Performed By: #### 1 920-8, 1744-2 #### [facility] ([id number]) [address], [address] [place] [address] Ambulatory referral to Diabe tic Educationon 10-16-2024 [facility] Office Visiton 09-25-2024 Follow-up visit [id number] Harvey Cabrales 1955 M Date Provider Department Center 09/25/2024 [id number]-OLJVPKASHLYN CRANE CARD [facility] Family History Problem Relation Age of Onset Hypertension Brother Family Status - Relation Status Age at Brother Level of Service:63081 [place] OFFICE/OUTPATIENT NEW MODERATE MDM 45 MINUTES Reason for Visit and Comments: Cerebrovascular Accident [149] - Recent CVA and was admitted to [facility]. Had echo while inpatient. Denies lightheadedness/syncope, but c/o blurred vision. carotid artery stenosis [Other] - S/p right CEA a few weeks ago. He has follow up with the surgeon this week. Fatigue [46] - Says he's always thirsty and feels like he can't get enough water. Normal [facility] BASIC METABOLIC PANLon 09-03 Anion gap [Moles/Vol] 9 mmol/L Normal 5-15 [facility] Comment on above: Performed By: #### 7 18-7, 87449-6, HA1C, PINR, PLTCT #### [facility] ([id number]) [address], [address] [place] [address] Calcium [Mass/Vol] 9.3 mg/dL Normal 8.5-10.5 [facility] Comment on above: Performed By: #### 7 18-7, 27287-6, HA1C, PINR, PLTCT #### [facility] ([id number]) [address], [address] [place] [address] Chloride [Moles/Vol] 103 mmol/L Normal 98-109 [facility] Comment on above: Performed By: #### 7 -7, 59117-9, HA1C, PINR, PLTCT #### [facility] ([id number]) [address], [address] [place] [address] CO2 [Moles/Vol] 27 mmol/L Normal 22-32 [facility] Comment on above: Performed By: #### 7 -7, 93616-2, HA1C, PINR, PLTCT #### [facility] ([id number]) [address], [address] [place] [address] Creatinine [Mass/Vol] 0.92 mg/dL Normal 0.60-1.30 [facility] Comment on above: Result Comment: METH OD TRACEABLE TO IDMS STANDARD Performed By: #### 7 7, 94167-2, HA1C, PINR, PLTCT #### [facility] ([id number]) [address], [address] [place] [address] eGFR (CKD-EPI) NON-RACE DEPENDENT >90 Normal >59 [facility] Comment on above: Result Comment: Reported eGFR is based on the CKD-EPI 2020 equation that does not use a race coefficient. Performed By: #### 7 7, 08033-4, HA1C, PINR, PLTCT #### [facility] ([id number]) [address], [address] [place] [address] Glucose [Mass/Vol] 116 mg/dL High 65-99 [facility] Comment on above: Performed By: #### 7 7, 66198-6, HA1C, PINR, PLTCT #### [facility] ([id number]) [address], [address] [place] [address] Potassium [Moles/Vol] 4.1 mmol/L Normal 3.5-5.0 [facility] Comment on above: Performed By: #### 7 -7, 34787-7, HA1C, PINR, PLTCT #### [facility] ([id number]) [address], [address] [place] [address] Sodium [Moles/Vol] 139 mmol/L Normal 134-146 [facility] Comment on above: Performed By: #### 7 18-7, 99846-8, HA1C, PINR, PLTCT #### [facility] ([id number]) [address], [address] [place] [address] Urea nitrogen [Mass/Vol] 16 mg/dL Normal 5-27 [facility] Comment on above: Performed By: #### 7 18-7, 36056-8, HA1C, PINR, PLTCT #### [facility] ([id number]) [address], [address] [place] [address] Glucose Glucometer (BldC) [M ass/Vol]on 09-03-2024 Glucose [Mass/Vol] 200 mg/dL High 65-99 [facility] Glucose [Mass/Vol] 106 mg/dL High 65-99 [facility] BASIC METABOLIC PANLon 09-02 Anion gap [Moles/Vol] 9 mmol/L Normal 5-15 [facility] Comment on above: Performed By: #### 7 18-7, 61614-5, HA1C, PINR, PLTCT #### [facility] ([id number]) [address], [address] [place] [address] Calcium [Mass/Vol] 9.2 mg/dL Normal 8.5-10.5 [facility] Comment on above: Performed By: #### 7 18-7, 36389-1, HA1C, PINR, PLTCT #### [facility] ([id number]) [address], [address] [place] [address] Chloride [Moles/Vol] 105 mmol/L Normal 98-109 [facility] Comment on above: Performed By: #### 7 18-7, 22728-5, HA1C, PINR, PLTCT #### [facility] ([id number]) [address], [address] [place] [address] CO2 [Moles/Vol] 25 mmol/L Normal 22-32 [facility] Comment on above: Performed By: #### 7 18-7, 97143-6, HA1C, PINR, PLTCT #### [facility] ([id number]) [address], [address] [place] [address] Creatinine [Mass/Vol] 0.89 mg/dL Normal 0.60-1.30 [facility] Comment on above: Result Comment: METH OD TRACEABLE TO IDMS STANDARD Performed By: #### 7 18-7, 73302-6, HA1C, PINR, PLTCT #### [facility] ([id number]) [address], [address] [place] [address] eGFR (CKD-EPI) NON-RACE DEPENDENT >90 Normal >59 [facility] Comment on above: Result Comment: Reported eGFR is based on the CKD-EPI 2020 equation that does not use a race coefficient. Performed By: #### 7 18-7, 12758-1, HA1C, PINR, PLTCT #### [facility] ([id number]) [address], [address] [place] [address] Glucose [Mass/Vol] 145 mg/dL High 65-99 [facility] Comment on above: Performed By: #### 7 18-7, 96957-2, HA1C, PINR, PLTCT #### [facility] ([id number]) [address], [address] [place] [address] Potassium [Moles/Vol] 3.9 mmol/L Normal 3.5-5.0 [facility] Comment on above: Performed By: #### 7 18-7, 14265-6, HA1C, PINR, PLTCT #### [facility] ([id number]) [address], [address] [place] [address] Sodium [Moles/Vol] 139 mmol/L Normal 134-146 [facility] Comment on above: Performed By: #### 7 18-7, 89491-3, HA1C, PINR, PLTCT #### [facility] ([id number]) [address], [address] [place] [address] Urea nitrogen [Mass/Vol] 17 mg/dL Normal 5-27 [facility] Comment on above: Performed By: #### 7 18-7, 17955-5, HA1C, PINR, PLTCT #### [facility] ([id number]) [address], [address] [place] [address] Glucose Glucometer (BldC) [M ass/Vol]on 09-02-2024 Glucose [Mass/Vol] 167 mg/dL High 65-99 [facility] Glucose [Mass/Vol] 154 mg/dL High 65-99 [facility] Glucose [Mass/Vol] 134 mg/dL High 65-99 [facility] Glucose [Mass/Vol] 132 mg/dL High 65-99 [facility] HEMOGLOBINon 09-02-2024 Hemoglobin (Bld) [Mass/Vol] 14.5 g/dL Normal 13.0-17.0 [facility] Comment on above: Performed By: #### 7 18-7, 77095-8, HA1C, PINR, PLTCT #### [facility] ([id number]) [address], [address] [place] [address] Heparin unfractionated Chrom ogenic method Qn (PPP)on 09-02-2024 ANTI XA UFH 0.99 IU/mL Critically high 0.30-0.70 [facility] Comment on above: Result Comment: Opti mal time for testing is 6 hrs post dosage This test is specific for monitoring patients on UFH, and is not recommended for use with other Anti-Xa medications. Performed By: #### 7 18-7, 37698-6, HA1C, PINR, PLTCT #### [facility] ([id number]) [address], [address] [place] [address] PLATELET COUNT AND MPVon Platelet mean volume (Bld) [Entitic vol] 8.8 fL Normal 7-12 [facility] Comment on above: Performed By: #### 7 18-7, 32420-9, HA1C, PINR, PLTCT #### [facility] ([id number]) [address], [address] [place] [address] Platelets (Bld) [#/Vol] 239 10*3/uL Normal 150-450 [facility] Comment on above: Performed By: #### 7 18-7, 21018-5, HA1C, PINR, PLTCT #### [facility] ([id number]) [address], [address] [place] [address] BASIC METABOLIC PANLon 09-01 Anion gap [Moles/Vol] 11 mmol/L Normal 5-15 [facility] Comment on above: Performed By: #### 7 18-7, 94236-0, HA1C, PINR, PLTCT #### [facility] ([id number]) [address], [address] [place] [address] Calcium [Mass/Vol] 9.2 mg/dL Normal 8.5-10.5 [facility] Comment on above: Performed By: #### 7 18-7, 10047-9, HA1C, PINR, PLTCT #### [facility] ([id number]) [address], [address] [place] [address] Chloride [Moles/Vol] 105 mmol/L Normal 98-109 [facility] Comment on above: Performed By: #### 7 18-7, 45646-0, HA1C, PINR, PLTCT #### [facility] ([id number]) [address], [address] [place] [address] CO2 [Moles/Vol] 25 mmol/L Normal 22-32 [facility] Comment on above: Performed By: #### 7 18-7, 44591-6, HA1C, PINR, PLTCT #### [facility] ([id number]) [address], [address] [place] [address] Creatinine [Mass/Vol] 0.90 mg/dL Normal 0.60-1.30 [facility] Comment on above: Result Comment: METH OD TRACEABLE TO IDMS STANDARD Performed By: #### 7 -7, 00551-5, HA1C, PINR, PLTCT #### [facility] ([id number]) [address], [address] [place] [address] eGFR (CKD-EPI) NON-RACE DEPENDENT >90 Normal >59 [facility] Comment on above: Result Comment: Reported eGFR is based on the CKD-EPI 2020 equation that does not use a race coefficient. Performed By: #### 7 187, 71662-9, HA1C, PINR, PLTCT #### [facility] ([id number]) [address], [address] [place] [address] Glucose [Mass/Vol] 127 mg/dL High 65-99 [facility] Comment on above: Performed By: #### 7 18-7, 35799-5, HA1C, PINR, PLTCT #### [facility] ([id number]) [address], [address] [place] [address] Potassium [Moles/Vol] 4.1 mmol/L Normal 3.5-5.0 [facility] Comment on above: Performed By: #### 7 18-7, 08751-8, HA1C, PINR, PLTCT #### [facility] ([id number]) [address], [address] [place] [address] Sodium [Moles/Vol] 141 mmol/L Normal 134-146 [facility] Comment on above: Performed By: #### 7 18-7, 43930-6, HA1C, PINR, PLTCT #### [facility] ([id number]) [address], [address] [place] [address] Urea nitrogen [Mass/Vol] 20 mg/dL Normal 5-27 [facility] Comment on above: Performed By: #### 7 18-7, 72262-2, HA1C, PINR, PLTCT #### [facility] ([id number]) [address], [address] [place] [address] CBC AND AUTO DIFFon 09-01- 24 ABSOLUTE BASOPHIL 0.2 X10E9/L Normal 0.0-0.2 [facility] Comment on above: Performed By: #### 7 18-7, 95675-3, HA1C, PINR, PLTCT #### [facility] ([id number]) [address] [address] [place] [address] ABSOLUTE NEUTROPHIL 6.1 X10E9/L Normal 1.5-6.6 [facility] Comment on above: Performed By: #### 7 18-7, 65364-3, HA1C, PINR, PLTCT #### [facility] ([id number]) [address] [address] [place] [address] Basophils/100 WBC (Bld) 1.5 % Normal [facility] Comment on above: Performed By: #### 7 18-7, 77526-8, HA1C, PINR, PLTCT #### [facility] ([id number]) [address], [address] [place] [address] Eosinophils (Bld) [#/Vol] 0.2 10*3/uL Normal 0.0-0.4 [facility] Comment on above: Performed By: #### 7 18-7, 25477-3, HA1C, PINR, PLTCT #### [facility] ([id number]) [address], [address] [place] [address] Eosinophils/100 WBC (Bld) 2.2 % Normal [facility] Comment on above: Performed By: #### 7 -7, 99047-6, HA1C, PINR, PLTCT #### [facility] ([id number]) [address] [address] [place] [address] Erythrocyte distribution width (RBC) [Ratio] 13.6 % Normal 11.5-15.0 [facility] Comment on above: Performed By: #### 7 7, 62849-4, HA1C, PINR, PLTCT #### [facility] ([id number]) [address] [address] [place] [address] Hematocrit (Bld) [Volume fraction] 43.0 % Normal 39-49 [facility] Comment on above: Performed By: #### 7 7, 52391-5, HA1C, PINR, PLTCT #### [facility] ([id number]) [address], [address] [place] [address] Hemoglobin (Bld) [Mass/Vol] 14.8 g/dL Normal 13.0-17.0 [facility] Comment on above: Performed By: #### 7 7, 80405-6, HA1C, PINR, PLTCT #### [facility] ([id number]) [address] [address] [place] [address] Lymphocytes (Bld) [#/Vol] 3.4 10*3/uL Normal 1.0-3.5 [facility] Comment on above: Performed By: #### 7 -7, 77858-2, HA1C, PINR, PLTCT #### [facility] ([id number]) [address] [address] Lymphocytes/100 WBC (Bld) 31.7 % Normal [facility] Comment on above: Performed By: #### 7 , 79997-5, HA1C, PINR, PLTCT #### [facility] ([id number]) [address], [address] [place] [address] MCH (RBC) [Entitic mass] 31.0 pg Normal 27-34 [facility] Comment on above: Performed By: #### 7 7, 42644-3, HA1C, PINR, PLTCT #### [facility] ([id number]) [address], [address] [place] [address] MCHC (RBC) [Mass/Vol] 34.4 g/dL Normal 32-36 [facility] Comment on above: Performed By: #### 7 7, 78625-3, HA1C, PINR, PLTCT #### [facility] ([id number]) [address], [address] [place] [address] MCV (RBC) [Entitic vol] 90 fL Normal 80-100 [facility] Comment on above: Performed By: #### 7 , 41121-2, HA1C, PINR, PLTCT #### [facility] ([id number]) [address], [address] [place] [address] Monocytes (Bld) [#/Vol] 0.7 10*3/uL Normal 0-0.9 [facility] Comment on above: Performed By: #### 7 7, 60321-7, HA1C, PINR, PLTCT #### [facility] ([id number]) [address], [address] [place] [address] Monocytes/100 WBC (Bld) 6.9 % Normal [facility] Comment on above: Performed By: #### 7 -7, 20759-2, HA1C, PINR, PLTCT #### [facility] ([id number]) [address], [address] [place] [address] Neutrophils/100 WBC (Bld) 57.7 % Normal [facility] Comment on above: Performed By: #### 7 18-7, 94184-9, HA1C, PINR, PLTCT #### [facility] ([id number]) [address], [facility] [address] [place] [address] Platelet mean volume (Bld) [Entitic vol] 8.7 fL Normal 7-12 [facility] Comment on above: Performed By: #### 7 18-7, 27294-1, HA1C, PINR, PLTCT #### [facility] ([id number]) [address], [facility] [address] [place] [address] Platelets (Bld) [#/Vol] 254 10*3/uL Normal 150-450 [facility] Comment on above: Performed By: #### 7 -7, 15964-9, HA1C, PINR, PLTCT #### [facility] ([id number]) [address], [facility] [address] [place] [address] RBC COUNT 4.78 X10E12/L Normal 4.10-5.70 [facility] Comment on above: Performed By: #### 7 18-7, 24727-0, HA1C, PINR, PLTCT #### [facility] ([id number]) [address], [address] [address] WBC (Bld) [#/Vol] 10.6 10*3/uL Normal 4.0-11.0 [facility] Comment on above: Performed By: #### 7 18-7, 80370-5, HA1C, PINR, PLTCT #### [facility] ([id number]) [address], [address] [place] [address] Glucose Glucometer (BldC) [M ass/Vol]on 09-01-2024 Glucose [Mass/Vol] 189 mg/dL High 65-99 [facility] Glucose [Mass/Vol] 166 mg/dL High 65-99 [facility] Glucose [Mass/Vol] 103 mg/dL High 65-99 [facility] Glucose [Mass/Vol] 132 mg/dL High 65- [facility] HEMOGLOBINon 09-01-2024 Hemoglobin (Bld) [Mass/Vol] 14.2 g/dL Normal 13.0-17.0 [facility] Comment on above: Performed By: #### 7 18-7, 78224-8, HA1C, PINR, PLTCT #### [facility] ([id number]) [address], [address] [place] [address] Heparin unfractionated Chrom ogenic method Qn (PPP)on 09-01-2024 ANTI XA UFH 0.49 IU/mL Normal 0.30-0.70 [facility] Comment on above: Result Comment: Opti mal time for testing is 6 hrs post dosage This test is specific for monitoring patients on UFH, and is not recommended for use with other Anti-Xa medications. Performed By: #### 7 18-7, 70771-5, HA1C, PINR, PLTCT #### [facility] ([id number]) [address], [address] [place] [address] PLATELET COUNT AND MPVon Platelet mean volume (Bld) [Entitic vol] 8.4 fL Normal 03-16 [facility] Comment on above: Performed By: #### 7 18-7, 16637-4, HA1C, PINR, PLTCT #### [facility] ([id number]) [address], [address] [place] [address] Platelets (Bld) [#/Vol] 242 10*3/uL Normal 150-450 [facility] Comment on above: Performed By: #### 7 18-7, 73346-4, HA1C, PINR, PLTCT #### [facility] ([id number]) [address], [address] [place] [address] PROTIME AND INRon 09-01-2024 INR Coag (PPP) [Relative time] 1.2 {INR} High 0.8-1.1 [facility] Comment on above: Performed By: #### 7 18-7, 46758-6, HA1C, PINR, PLTCT #### [facility] ([id number]) [address], [address] [place] [address] PT Coag (PPP) [Time] 14.4 s High 9.8-13.2 [facility] Comment on above: Performed By: #### 7 18-7, 31929-0, HA1C, PINR, PLTCT #### [facility] ([id number]) [address], [address] [place] [address] aPTT Coag (PPP) [Time]on aPTT Coag (Bld) [Time] 43 s High 26-37 [facility] Comment on above: Performed By: #### 7 18-7, 66585-7, HA1C, PINR, PLTCT #### [facility] ([id number]) [address], [address] [place] [address] BASIC METABOLIC PANLon 08-31 Anion gap [Moles/Vol] 8 mmol/L Normal 5-15 [facility] Comment on above: Performed By: #### 7 18-7, 53863-0, HA1C, PINR, PLTCT #### [facility] ([id number]) [address], [address] [place] [address] Calcium [Mass/Vol] 9.2 mg/dL Normal 8.5-10.5 [facility] Comment on above: Performed By: #### 7 18-7, 35222-5, HA1C, PINR, PLTCT #### [facility] ([id number]) [address], [address] [place] [address] Chloride [Moles/Vol] 105 mmol/L Normal 98-109 [facility] Comment on above: Performed By: #### 7 18-7, 59580-7, HA1C, PINR, PLTCT #### [facility] ([id number]) [address], [address] [place] [address] CO2 [Moles/Vol] 25 mmol/L Normal 22-32 [facility] Comment on above: Performed By: #### 7 18-7, 97278-2, HA1C, PINR, PLTCT #### [facility] ([id number]) [address] [place] [address] Creatinine [Mass/Vol] 0.90 mg/dL Normal 0.60-1.30 [facility] Comment on above: Result Comment: METH OD TRACEABLE TO IDMS STANDARD Performed By: #### 7 18-7, 95774-2, HA1C, PINR, PLTCT #### [facility] ([id number]) [address], [address] [place] [address] eGFR (CKD-EPI) NON-RACE DEPENDENT >90 Normal >59 [facility] Comment on above: Result Comment: Reported eGFR is based on the CKD-EPI 2020 equation that does not use a race coefficient. Performed By: #### 7 18-7, 01362-7, HA1C, PINR, PLTCT #### [facility] ([id number]) [address], [address] [place] [address] Glucose [Mass/Vol] 131 mg/dL High 65-99 [facility] Comment on above: Performed By: #### 7 18-7, 00798-7, HA1C, PINR, PLTCT #### [facility] ([id number]) [address], [address] [place] [address] Potassium [Moles/Vol] 3.8 mmol/L Normal 3.5-5.0 [facility] Comment on above: Performed By: #### 7 18-7, 35820-0, HA1C, PINR, PLTCT #### [facility] ([id number]) [address] [place] [address] Sodium [Moles/Vol] 138 mmol/L Normal 134-146 [facility] Comment on above: Performed By: #### 7 18-7, 12024-5, HA1C, PINR, PLTCT #### [facility] ([id number]) [address] [address] Urea nitrogen [Mass/Vol] 23 mg/dL Normal 5-27 [facility] Comment on above: Performed By: #### 7 18-7, 20286-0, HA1C, PINR, PLTCT #### [facility] ([id number]) [address] [address] CBC AND AUTO DIFFon 08-31-20 24 ABSOLUTE BASOPHIL 0.1 X10E9/L Normal 0.0-0.2 [facility] Comment on above: Performed By: #### 7 18-7, 42998-2, HA1C, PINR, PLTCT #### [facility] ([id number]) [address] [address] ABSOLUTE NEUTROPHIL 6.6 X10E9/L Normal 1.5-6.6 [facility] Comment on above: Performed By: #### 7 18-7, 34321-8, HA1C, PINR, PLTCT #### [facility] ([id number]) [address] [address] Basophils/100 WBC (Bld) 1.0 % Normal [facility] Comment on above: Performed By: #### 7 18-7, 65894-9, HA1C, PINR, PLTCT #### [facility] ([id number]) [address] [address] Eosinophils (Bld) [#/Vol] 0.2 10*3/uL Normal 0.0-0.4 [facility] Comment on above: Performed By: #### 7 18-7, 34485-4, HA1C, PINR, PLTCT #### [facility] ([id number]) [address] [place] [address] Eosinophils/100 WBC (Bld) 2.1 % Normal [facility] Comment on above: Performed By: #### 7 18-7, 33761-7, HA1C, PINR, PLTCT #### [facility] ([id number]) [address], [facility] [address] [place] [address] Erythrocyte distribution width (RBC) [Ratio] 13.3 % Normal 11.5-15.0 [facility] Comment on above: Performed By: #### 7 -7, 42633-3, HA1C, PINR, PLTCT #### [facility] ([id number]) [address] [address] [place] [address] Hematocrit (Bld) [Volume fraction] 43.1 % Normal 39-49 [facility] Comment on above: Performed By: #### 7 7, 13999-5, HA1C, PINR, PLTCT #### [facility] ([id number]) [address] [address] [place] [address] Hemoglobin (Bld) [Mass/Vol] 14.6 g/dL Normal 13.0-17.0 [facility] Comment on above: Performed By: #### 7 18-7, 63591-2, HA1C, PINR, PLTCT #### [facility] ([id number]) [address] [address] [place] [address] Lymphocytes (Bld) [#/Vol] 3.8 10*3/uL High 1.0-3.5 [facility] Comment on above: Performed By: #### 7 18-7, 89232-1, HA1C, PINR, PLTCT #### [facility] ([id number]) [address] [address] [place] [address] Lymphocytes/100 WBC (Bld) 32.6 % Normal [facility] Comment on above: Performed By: #### 7 18-7, 78616-8, HA1C, PINR, PLTCT #### [facility] ([id number]) [address], [address] [place] [address] MCH (RBC) [Entitic mass] 30.8 pg Normal 27-34 [facility] Comment on above: Performed By: #### 7 18-7, 78247-7, HA1C, PINR, PLTCT #### [facility] ([id number]) [address], [facility] [address] [place] [address] MCHC (RBC) [Mass/Vol] 33.9 g/dL Normal 32-36 [facility] Comment on above: Performed By: #### 7 18-7, 66012-2, HA1C, PINR, PLTCT #### [facility] ([id number]) [address], [facility] [address] [place] [address] MCV (RBC) [Entitic vol] 91 fL Normal 80-100 [facility] Comment on above: Performed By: #### 7 18-7, 27110-2, HA1C, PINR, PLTCT #### [facility] ([id number]) [address], [facility] [address] [place] [address] Monocytes (Bld) [#/Vol] 0.9 10*3/uL Normal 0-0.9 [facility] Comment on above: Performed By: #### 7 18-7, 40270-8, HA1C, PINR, PLTCT #### [facility] ([id number]) [address] [address] [place] [address] Monocytes/100 WBC (Bld) 8.0 % Normal [facility] Comment on above: Performed By: #### 7 18-7, 80068-0, HA1C, PINR, PLTCT #### [facility] ([id number]) [address] [address] [place] [address] Neutrophils/100 WBC (Bld) 56.3 % Normal [facility] Comment on above: Performed By: #### 7 18-7, 16170-2, HA1C, PINR, PLTCT #### [facility] LAB ([id number]) [address] [address] [place] [address] Platelet mean volume (Bld) [Entitic vol] 8.7 fL Normal 7-12 [facility] Comment on above: Performed By: #### 7 18-7, 88659-8, HA1C, PINR, PLTCT #### [facility] ([id number]) [address] [address] Platelets (Bld) [#/Vol] 237 10*3/uL Normal 150-450 [facility] Comment on above: Performed By: #### 7 18-7, 04826-6, HA1C, PINR, PLTCT #### [facility] ([id number]) [address] [address] [place] [address] RBC COUNT 4.75 X10E12/L Normal 4.10-5.70 [facility] Comment on above: Performed By: #### 7 18-7, 43378-2, HA1C, PINR, PLTCT #### [facility] ([id number]) [address] [address] WBC (Bld) [#/Vol] 11.7 10*3/uL High 4.0-11.0 [facility] Comment on above: Performed By: #### 7 18-7, 34328-4, HA1C, PINR, PLTCT #### [facility] ([id number]) [address] [address] [place] [address] Glucose Glucometer (BldC) [M ass/Vol]on 08-31-2024 Glucose [Mass/Vol] 182 mg/dL High 65-99 [facility] Glucose [Mass/Vol] 234 mg/dL High 65-99 [facility] Glucose [Mass/Vol] 101 mg/dL High 65-99 [facility] Glucose [Mass/Vol] 124 mg/dL High 65-99 [facility] POTASSIUMon 08-31-2024 Potassium [Moles/Vol] 4.0 mmol/L Normal 3.5-5.0 [facility] Comment on above: Performed By: #### 7 18-7, 37268-3, HA1C, PINR, PLTCT #### [facility] ([id number]) [address] [place] [address] BASIC METABOLIC PANLon 08-30 Anion gap [Moles/Vol] 8 mmol/L Normal 5-15 [facility] Comment on above: Performed By: #### 7 18-7, 04700-0, HA1C, PINR, PLTCT #### [facility] ([id number]) [address] [place] [address] Calcium [Mass/Vol] 9.4 mg/dL Normal 8.5-10.5 [facility] Comment on above: Performed By: #### 7 18-7, 36667-7, HA1C, PINR, PLTCT #### [facility] ([id number]) [address] [place] [address] Chloride [Moles/Vol] 104 mmol/L Normal 98-109 [facility] Comment on above: Performed By: #### 7 18-7, 78999-7, HA1C, PINR, PLTCT #### [facility] ([id number]) [address] [place] [address] CO2 [Moles/Vol] 27 mmol/L Normal 22-32 [facility] Comment on above: Performed By: #### 7 18-7, 49382-5, HA1C, PINR, PLTCT #### [facility] ([id number]) [address], [address] [place] [address] Creatinine [Mass/Vol] 0.94 mg/dL Normal 0.60-1.30 [facility] Comment on above: Result Comment: METH OD TRACEABLE TO IDMS STANDARD Performed By: #### 7 18-7, 23465-5, HA1C, PINR, PLTCT #### [facility] ([id number]) [address] [place] [address] GFR/1.73 sq M.predicted among non-blacks MDRD (S/P/Bld) [Vol rate/Area] 89 mL/min/{1.73_m2} Normal >59 [facility] Comment on above: Result Comment: Reported eGFR is based on the CKD-EPI 2020 equation that does not use a race coefficient. Performed By: #### 7 18-7, 99470-4, HA1C, PINR, PLTCT #### [facility] ([id number]) [address] [place] [address] Glucose [Mass/Vol] 109 mg/dL High 65-99 [facility] Comment on above: Performed By: #### 7 18-7, 41677-3, HA1C, PINR, PLTCT #### [facility] ([id number]) [address] [place] [address] Potassium [Moles/Vol] 3.9 mmol/L Normal 3.5-5.0 [facility] Comment on above: Performed By: #### 7 18-7, 59177-6, HA1C, PINR, PLTCT #### [facility] ([id number]) [address] [place] [address] Sodium [Moles/Vol] 139 mmol/L Normal 134-146 [facility] Comment on above: Performed By: #### 7 18-7, 83588-0, HA1C, PINR, PLTCT #### [facility] ([id number]) [address] [place] [address] Urea nitrogen [Mass/Vol] 25 mg/dL Normal 5-27 [facility] Comment on above: Performed By: #### 7 18-7, 77111-8, HA1C, PINR, PLTCT #### [facility] ([id number]) [address] [place] [address] CBC AND AUTO DIFFon 08-30-20 ABSOLUTE BASOPHIL 0.1 X10E9/L Normal 0.0-0.2 [facility] Comment on above: Performed By: #### 7 18-7, 51769-4, HA1C, PINR, PLTCT #### [facility] ([id number]) [address] [place] [address] ABSOLUTE NEUTROPHIL 6.5 X10E9/L Normal 1.5-6.6 [facility] Comment on above: Performed By: #### 7 18-7, 10079-3, HA1C, PINR, PLTCT #### [facility] ([id number]) [address] [place] [address] Basophils/100 WBC (Bld) 1.0 % Normal [facility] Comment on above: Performed By: #### 7 18-7, 89599-9, HA1C, PINR, PLTCT #### [facility] ([id number]) [address] [place] [address] Eosinophils (Bld) [#/Vol] 0.3 10*3/uL Normal 0.0-0.4 [facility] Comment on above: Performed By: #### 7 18-7, 67907-8, HA1C, PINR, PLTCT #### [facility] ([id number]) [address] [place] [address] Eosinophils/100 WBC (Bld) 2.5 % Normal [facility] Comment on above: Performed By: #### 7 -7, 71267-8, HA1C, PINR, PLTCT #### [facility] ([id number]) [address] [address] [place] [address] Erythrocyte distribution width (RBC) [Ratio] 13.5 % Normal 11.5-15.0 [facility] Comment on above: Performed By: #### 7 -7, 33569-6, HA1C, PINR, PLTCT #### [facility] ([id number]) [address] [address] [place] [address] Hematocrit (Bld) [Volume fraction] 44.1 % Normal 39-49 [facility] Comment on above: Performed By: #### 7 -7, 59406-8, HA1C, PINR, PLTCT #### [facility] ([id number]) [address] [address] [place] [address] Hemoglobin (Bld) [Mass/Vol] 14.9 g/dL Normal 13.0-17.0 [facility] Comment on above: Performed By: #### 7 -7, 86666-6, HA1C, PINR, PLTCT #### [facility] ([id number]) [address] [address] Lymphocytes (Bld) [#/Vol] 4.0 10*3/uL High 1.0-3.5 [facility] Comment on above: Performed By: #### 7 -7, 72947-7, HA1C, PINR, PLTCT #### [facility] ([id number]) [address] [address] Lymphocytes/100 WBC (Bld) 33.5 % Normal [facility] Comment on above: Performed By: #### 7 -7, 41347-7, HA1C, PINR, PLTCT #### [facility] ([id number]) [address] [place] [address] MCH (RBC) [Entitic mass] 30.5 pg Normal 27-34 [facility] Comment on above: Performed By: #### 7 18-7, 93962-0, HA1C, PINR, PLTCT #### [facility] ([id number]) [address], [facility] [address] [place] [address] MCHC (RBC) [Mass/Vol] 33.7 g/dL Normal 32-36 [facility] Comment on above: Performed By: #### 7 18-7, 94707-7, HA1C, PINR, PLTCT #### [facility] ([id number]) [address], [facility] [address] [place] [address] MCV (RBC) [Entitic vol] 91 fL Normal 80-100 [facility] Comment on above: Performed By: #### 7 7, 71934-6, HA1C, PINR, PLTCT #### [facility] ([id number]) [address] [address] Monocytes (Bld) [#/Vol] 1.0 10*3/uL High 0-0.9 [facility] Comment on above: Performed By: #### 7 7, 33148-6, HA1C, PINR, PLTCT #### [facility] ([id number]) [address] [address] Monocytes/100 WBC (Bld) 8.6 % Normal [facility] Comment on above: Performed By: #### 7 18-7, 52098-9, HA1C, PINR, PLTCT #### [facility] ([id number]) [address], [facility] [address] [place] [address] Neutrophils/100 WBC (Bld) 54.4 % Normal [facility] Comment on above: Performed By: #### 7 18-7, 04392-2, HA1C, PINR, PLTCT #### [facility] ([id number]) [address], [facility] [address] [place] [address] Platelet mean volume (Bld) [Entitic vol] 8.4 fL Normal 7-12 [facility] Comment on above: Performed By: #### 7 18-7, 39391-1, HA1C, PINR, PLTCT #### [facility] ([id number]) [address] [address] Platelets (Bld) [#/Vol] 238 10*3/uL Normal 150-450 [facility] Comment on above: Performed By: #### 7 18-7, 98235-7, HA1C, PINR, PLTCT #### [facility] ([id number]) [address], [facility] [address] [place] [address] RBC COUNT 4.86 X10E12/L Normal 4.10-5.70 [facility] Comment on above: Performed By: #### 7 18-7, 17123-1, HA1C, PINR, PLTCT #### [facility] ([id number]) [address] [address] WBC (Bld) [#/Vol] 11.9 10*3/uL High 4.0-11.0 [facility] Comment on above: Performed By: #### 7 18-7, 44362-1, HA1C, PINR, PLTCT #### [facility] ([id number]) [address] [place] [address] Glucose Glucometer (BldC) [M ass/Vol]on 08-30-2024 Glucose [Mass/Vol] 199 mg/dL High 65-99 [facility] Glucose [Mass/Vol] 291 mg/dL High 65-99 [facility] Glucose [Mass/Vol] 87 mg/dL Normal 65-99 [facility] Lipid 1996 panelon Cholesterol [Mass/Vol] 99 mg/dL Low 150-200 [facility] Comment on above: Performed By: #### 7 18-7, 87599-5, HA1C, PINR, PLTCT #### [facility] ([id number]) [address] [place] [address] Cholesterol in HDL [Mass/Vol] 31 mg/dL Low >39 [facility] Comment on above: Result Comment: HDL <40 mg/dL - High Risk HDL > or = 40mg/dL- Desirable HDL >60 mg/dL - Negative Risk Performed By: #### 7 18-7, 23479-4, HA1C, PINR, PLTCT #### [facility] ([id number]) [address] [place] [address] Cholesterol in LDL [Mass/Vol] 54 mg/dL Normal <130 [facility] Comment on above: Result Comment: LDL <100 mg/dL - Desirable LDL >160 mg/dL - High Risk Performed By: #### 7 18-7, 57617-7, HA1C, PINR, PLTCT #### [facility] ([id number]) [address] [place] [address] Cholesterol in VLDL [Mass/Vol] 14 mg/dL Normal 0-30 [facility] Comment on above: Performed By: #### 7 18-7, 58186-2, HA1C, PINR, PLTCT #### [facility] ([id number]) [address] [place] [address] CHOLESTEROL:HDL 3.2 Normal 1.0-5.0 [facility] Comment on above: Performed By: #### 7 18-7, 02002-4, HA1C, PINR, PLTCT #### [facility] ([id number]) [address] [place] [address] Triglyceride [Mass/Vol] 68 mg/dL Normal 27-150 [facility] Comment on above: Performed By: #### 7 18-7, 74949-1, HA1C, PINR, PLTCT #### [facility] ([id number]) [address] [place] [address] MR BRAIN WO CONTon MR BRAIN WO [...] Marie MD on 08/30/2024 1:59 PM Normal [facility] BASIC METABOLIC PANLon 08-29 Anion gap [Moles/Vol] 11 mmol/L Normal 5-15 [facility] Comment on above: Performed By: #### B MP #### [facility] ([id number]) [address], [address] [place] [address] Calcium [Mass/Vol] 9.7 mg/dL Normal 8.5-10.5 [facility] Comment on above: Performed By: #### B MP #### [facility] ([id number]) [address], [address] [place] [address] Chloride [Moles/Vol] 101 mmol/L Normal 98-109 [facility] Comment on above: Performed By: #### B MP #### [facility] ([id number]) [address], [facility] [address] [place] [address] CO2 [Moles/Vol] 27 mmol/L Normal 22-32 [facility] Comment on above: Performed By: #### B MP #### [facility] ([id number]) [address] [address] Creatinine [Mass/Vol] 1.01 mg/dL Normal 0.60-1.30 [facility] Comment on above: Result Comment: METH OD TRACEABLE TO IDMS STANDARD Performed By: #### B MP #### [facility] ([id number]) [address] [address] GFR/1.73 sq M.predicted among non-blacks MDRD (S/P/Bld) [Vol rate/Area] 82 mL/min/{1.73_m2} Normal >59 [facility] Comment on above: Result Comment: Reported eGFR is based on the CKD-EPI 2020 equation that does not use a race coefficient. Performed By: #### B MP #### [facility] ([id number]) [address] [place] [address] Glucose [Mass/Vol] 122 mg/dL High 65-99 [facility] Comment on above: Performed By: #### B MP #### [facility] ([id number]) [address] [address] [place] [address] Potassium [Moles/Vol] 3.4 mmol/L Low 3.5-5.0 [facility] Comment on above: Performed By: #### B MP #### [facility] ([id number]) [address] [address] [place] [address] Sodium [Moles/Vol] 139 mmol/L Normal 134-146 [facility] Comment on above: Performed By: #### B MP #### [facility] ([id number]) [address], [address] [address] Urea nitrogen [Mass/Vol] 22 mg/dL Normal 5-27 [facility] Comment on above: Performed By: #### B MP #### [facility] ([id number]) [address], [address] [address] Glucose Glucometer (BldC) [M ass/Vol]on 08-29-2024 Glucose [Mass/Vol] 116 mg/dL High 65-99 [facility] Glucose [Mass/Vol] 155 mg/dL High 65-99 [facility] HEMOGLOBINon 08-29-2024 Hemoglobin (Bld) [Mass/Vol] 15.4 g/dL Normal 13.0-17.0 [facility] Comment on above: Performed By: #### 7 18-7, 62915-5, HA1C, PINR, PLTCT #### [facility] ([id number]) [address], [address] [address] HGB A1C (GLYCO-HGB)on 2023 Glucose [Mass/Vol] 171 mg/dL Normal [facility] Comment on above: Performed By: #### 7 18-7, 54731-7, HA1C, PINR, PLTCT #### [facility] ([id number]) [address], [address] [address] HbA1c (Bld) [Mass fraction] 7.6 % High 4.4-5.6 [facility] Comment on above: Result Comment: NOTE ADA Guidelines Result HgbA1c Normal : less than 5.7 % Prediabetes : 5.7 % to 6.4 % Diabetes : > 6.4 % Use with caution in patients with abnormal hemoglobin variants as the half-life of red blood cells and in vivo glycation rates are affected. Performed By: #### 7 18-7, 81840-3, HA1C, PINR, PLTCT #### [facility] ([id number]) [address] [address] Heparin unfractionated Chrom ogenic method Qn (PPP)on 08-29-2024 ANTI XA UFH 0.16 IU/mL Low 0.30-0.70 [facility] Comment on above: Result Comment: Opti mal time for testing is 6 hrs post dosage This test is specific for monitoring patients on UFH, and is not recommended for use with other Anti-Xa medications. Performed By: #### 3 274-8 #### [facility] ([id number]) [address], [address] [place] [address] ANTI XA UFH 0.10 IU/mL Low 0.30-0.70 [facility] Comment on above: Result Comment: Opti mal time for testing is 6 hrs post dosage This test is specific for monitoring patients on UFH, and is not recommended for use with other Anti-Xa medications. Performed By: #### 3 274-8 #### [facility] ([id number]) [address] [address] PLATELET COUNT AND MPVon Platelet mean volume (Bld) [Entitic vol] 8.3 fL Normal 7-12 [facility] Comment on above: Performed By: #### 7 18-7, 38725-0, HA1C, PINR, PLTCT #### [facility] ([id number]) [address] [address] Platelets (Bld) [#/Vol] 243 10*3/uL Normal 150-450 [facility] Comment on above: Performed By: #### 7 18-7, 35632-6, HA1C, PINR, PLTCT #### [facility] ([id number]) [address] [facility], [address] [place] [address] PROTIME AND INRon 08-29-2024 INR Coag (PPP) [Relative time] 1.3 {INR} High 0.8-1.1 [facility] Comment on above: Performed By: #### 7 18-7, 00646-6, HA1C, PINR, PLTCT #### [facility] ([id number]) [address] [facility], [address] [place] [address] PT Coag (PPP) [Time] 15.0 s High 9.8-13.2 [facility] Comment on above: Performed By: #### 7 18-7, 02662-5, HA1C, PINR, PLTCT #### [facility] ([id number]) [address] [facility], [address] [place] [address] aPTT Coag (PPP) [Time]on aPTT Coag (Bld) [Time] 34 s Normal 26-37 [facility] Comment on above: Performed By: #### 7 18-7, 01117-4, HA1C, PINR, PLTCT #### [facility] ([id number]) [address] [facility], [address] [place] [address] Provider Letteron 03-04-2023 Provider Letter (Inserted Image. Carin ble to display) March 04, 2023 HARVEY CABRALES [address] [place] [address] : 1955 Dear Mr. Harvey Cabrales , This letter is to inform you the the providers of [facility] [place], [facility] (Dr. Kameron Barr) will no longer [...] of area physicians can be found on [facility]'s website at [email or web address] or you may contact your health plan. We will be glad to forward your records to your new physician as long as we receive a signed release of records form. Sincerely, Kameron Barr M.D., F.A.C.S. [facility] [address] [place], [place] [address] , Option #3 Normal [facility] Patient Letter FTon 2022 Patient Letter [facility] January 21, 2023 HARVEY SAMRA [address] [place] [address] : 1955 SENT REGULAR/CERTIFIED MAIL Dear Mr. [...] Barr M.D., F.A.C.S. [facility] [address] [place], [place] [address] , Option #3 Normal [facility] Urine Cytology ([facility])on 0 12-28-2022 Urine Cytology Diagnosis Info Invalid Interpretation Code [facility] Comment on above: Result Comment: A:Ur ine,Urine:Voided [...] on: 12/28/2022 09:05:14 Performed By: #### 1 [id number] #### [facility] [address] [place] [address] Formson 12-23-2022 Forms [id number]:127 Normal [facility] Physician Referralon 023 Physician Referral [id number]#[id number]:127 Normal [facility] Screenson 12-23-2022 Screens [id number]:127 Normal [facility] Ambulatory Visit Summaryon 0 12-22-2022 Ambulatory Visit Summary HARVEY CABRALES :1955 Visit Date:12/22/2022 Ambulatory Visit Instructions Your Diagnosis Microhematuria Benign prostatic hyperplasia (BPH) with post-void dribbling Family history of kidney cancer Tests Performed Urnls Dip Stick Auto w/o Microscopy POC [address] Your Care Team Attending Physician - Kameron [...] Where: [facility] [address], [place] [address]- Medications What How Much When Instructions Unchanged lisinopril (lisinopril 20 mg Tab) Every day Contact prescribing physician if questions or concerns Unchanged metformin Contact prescribing physician if questions or concerns Unchanged pantoprazole (Pantoprazole [address] Tab) Every day Contact prescribing physician if questions or concerns Test Results Urnls Dip Stick Auto w/o Microscopy POC 00952 (12/22/2022) Bilirubin Urine Dipstick - Negative Blood Urine Dipstick - 2+ Moderate Glucose Urine Dipstick - Negative Ketones Urine Dipstick - Negative Leukocytes Urine Dipstick - Negative Nitrite Urine Dipstick - Negative Protein Urine Dipstick - Negative Specific [place] Urine Dipstick - 1.020 Urine Appearance Urine [...] these instructions at home: Medicines ? Take vimi-hrf-pjjaojw and prescription medicines only as told by [...] do not (more content not included)... Normal [facility] Urine Cytology ([facility])on 0 12-22-2022 Method of Extraction Voided Normal [facility] Comment on above: Performed By: #### 1 [id number] #### [facility] [address] Number of Jars 1 Invalid Interpretation Code [facility] Comment on above: Performed By: #### 1 [id number] #### [facility] [address] [place] [address] Specimen Urine Normal [facility] Comment on above: Performed By: #### 1 [id number] #### [facility] [address] [place] [address] Type of Service Technical Only Normal [facility] Comment on above: Performed By: #### 1 [id number] #### [facility] [address] [place] [address] Urology Office/Clinic Noteon 12-22-2022 Urology Office/Clinic Note [...] [facility] [address], [place] [address]- Additional Instructions: schedule cysto Patient Education Hematuria, [...] Hyperlipidemia Hypertens (more content not included)... Normal [facility] Comment on above: Result Comment: Elec tronically [...] these instructions at home: Medicines ? Take dbtk-tzi-sfrjicn and prescription medicines only as told by [...] the blood stops without treatment. ? Take cvvo-vdi-agcepmx and prescription medicines only as told by your health care provider. ? Drink enough fluid to keep your urine pale yellow. This information is not intended to replace advice given to you by your health care provider. Make sure you discuss any questions you have with your health care provider. Document Revised: 04/22/2021 Document Reviewed: 04/22/2021 [email or web address] Patient Education ? 2022 [employer] Normal [facility] OCC BLD IMMUNO SCREENon 11-03 OCCULT BLOOD Negative Normal NEGATIVE [facility] Comment on above: Performed By: #### O BSCRN #### [facility] [address] [address] [address] Tom Chacko US KIDNEYS BLADDERon 023 [...] ANA RAMOS Date: 2022-11-12 13:02 Normal [facility] CA 19-9on 11-05-2022 CA 19-9 9 U/mL Normal 0-35 [facility] Comment on above: Result Comment: [employer] Electrochemiluminescence Immunoassay (ECLIA) . Values obtained with different assay methods or kits cannot be used interchangeably. Results cannot be interpreted as absolute evidence of the presence or absence of malignant disease. Performed By: #### C A 19,9 #### [facility] [address] [address] [address] Tom Chacko INSULINon 11-05-2022 Insulin 17.2 uIU/mL Normal 2.6-24.9 [facility] Comment on above: Performed By: #### I NSULIN ####[facility] [address] [place], [place] [address]WkDr. Tom Chacko CBC AUTO DIFFon 11-04-2022 BASO # 0.1 103/ul Normal 0.0-0.1 [facility] Comment on above: Performed By: #### C BC #### [facility] [address] [address] [address] Tom Chacko Basophils/100 WBC (Bld) 1.0 % Normal 0.2-2.0 [facility] Comment on above: Performed By: #### C BC #### [facility] [address] [place] [address] Dr. Tom Chacko EO # 0.4 103/ul Normal 0.0-0.7 [facility] Comment on above: Performed By: #### C BC #### [facility] [address] [place] [address] Dr. Tom Chacko Eosinophils/100 WBC (Bld) 3.2 % Normal 0.9-7.0 [facility] Comment on above: Performed By: #### C BC #### [facility] [facility] [address] [place] [address] Dr. Tom Chacko Erythrocyte distribution width (RBC) [Ratio] 13.5 % Normal 11.0-15.0 [facility] Comment on above: Performed By: #### C BC #### [facility] [address] [place] [address] Dr. Tom Chacko Hematocrit (Bld) [Volume fraction] 45.7 % Normal 42.0-54.0 [facility] Comment on above: Performed By: #### C BC #### [facility] [address] [place] [address] Dr. Tom Chacko Hemoglobin (Bld) [Mass/Vol] 15.7 g/dL Normal 14.0-18.0 [facility] Comment on above: Performed By: #### C BC #### [facility] [address] [place] [address] Dr. Tom Chacko IG # 0.05 10e3/ul Critically high 0.00-0.03 [facility] Comment on above: Performed By: #### C BC #### [facility] [address] [place] [address] Dr. Tom Chacko IG % 0.4 % Normal 0.0-0.5 [facility] Comment on above: Performed By: #### C BC #### [facility] [address] [place] [address] Dr. Tom Chacko LYMPH # 3.8 103/ul Normal 1.2-3.8 [facility] Comment on above: Performed By: #### C BC #### [facility] [address] [address] [address] Tom Chacko Lymphocytes/100 WBC (Bld) 31.9 % Normal 20.5-60.0 [facility] Comment on above: Performed By: #### C BC #### [facility] [address] [address] [address] Tom Chacko MANUAL DIFF REQ NO Normal [facility] Comment on above: Performed By: #### C BC #### [facility] [address] [place] [address] Dr. Tom Chacko MCH (RBC) [Entitic mass] 30.3 pg Normal 25.9-34.0 [facility] Comment on above: Performed By: #### C BC #### [facility] [address] [place] [address] Dr. Tom Chacko MCHC (RBC) [Mass/Vol] 34.4 g/dL Normal 29.9-35.2 [facility] Comment on above: Performed By: #### C BC #### [facility] [address] [place] [address] Dr. Tom Chacko MCV (RBC) [Entitic vol] 88.2 fL Normal 80.0-94.0 [facility] Comment on above: Performed By: #### C BC #### [facility] [address] [place] [address] Dr. Tom Chacko MONO # 0.8 103/ul Normal 0.3-0.8 [facility] Comment on above: Performed By: #### C BC #### [facility] [address] [place] [address] Dr. Tom Chacko Monocytes/100 WBC (Bld) 6.6 % Normal 1.7-12.0 [facility] Comment on above: Performed By: #### C BC #### [facility] [address] [place] [address] Dr. Tom Chacko NEUT # 6.8 103/ul Critically high 1.4-6.[address] [facility] Comment on above: Performed By: #### C BC #### [facility] [address] [address] [address] Tom Chacko Neutrophils/100 WBC (Bld) 56.9 % Normal 43.0-75.0 [facility] Comment on above: Performed By: #### C BC #### [facility] [address] [address] [address] Tom Chacko Platelet mean volume (Bld) [Entitic vol] 9.6 fL Normal 9.5-13.5 [facility] Comment on above: Performed By: #### C BC #### [facility] [address] [address] [address] Tom Chacko PLT 258 103/ul Normal 150-450 [facility] Comment on above: Performed By: #### C BC #### [facility] [address] [place] [address] Dr. Tom Chacko RBC 5.18 106/ul Normal 4.70-6.10 [facility] Comment on above: Performed By: #### C BC #### [facility] [address] [address] [address] Tom Chacko WBC 11.9 103/ul Critically high 4.0-11.0 [facility] Comment on above: Performed By: #### C BC #### [facility] [address] [address] [address] Tom Chacko GLYCOHEMOGLOBIN A1Con 2022 ADA RECOMMENDATION SEE BELOW Normal [facility] Comment on above: Result Comment: ADA RECOMMENDED LIMIT 4.0 - 6.0 ADA THERAPEUTIC TARGET < 7.0 ACTION SUGGESTED > 7.0 Performed By: #### A 1C #### [facility] [address] [place] [address] Dr. Tom Chacko Glucose [Mass/Vol] 120 mg/dL Normal [facility] Comment on above: Performed By: #### A 1C #### [facility] [address] [place] [address] Dr. Tom Chacko HbA1c (Bld) [Mass fraction] 5.8 % Normal 4.5-6.2 [facility] Comment on above: Performed By: #### A 1C #### [facility] [address] [address] [address] Tom Chacko LIPID PROFILEon 11-04-2022 CHOL-HDL RATIO NORM SEE BELOW Normal [facility] Comment on above: Result Comment: 3.3 - 4.4 LOW RISK 4.4 - 7.1 AVERAGE RISK 7.1 - 11.0 MODERATE RISK >11.0 HIGH RISK Performed By: #### C MP, URIC, LIPID #### [facility] [address] [address] [address] Tom Chacko Cholesterol [Mass/Vol] 112 mg/dL Normal <=200 [facility] Comment on above: Performed By: #### C MP, URIC, LIPID #### [facility] [address] [address] [address] Tom Chacko Cholesterol in HDL [Mass/Vol] 34 mg/dL Critically low 40-60 [facility] Comment on above: Performed By: #### C MP, URIC, LIPID #### [facility] [address] [address] [address] Tom Chacko Cholesterol in LDL [Mass/Vol] 48.6 mg/dL Normal [facility] Comment on above: Performed By: #### C MP, URIC, LIPID #### [facility] [address] [address] [address] Tom Chacko Cholesterol.total/ Cholesterol in HDL [Mass ratio] 3.3 {ratio} Normal [facility] Comment on above: Performed By: #### C MP, URIC, LIPID #### [facility] [address] [address] [address] Tom Chacko HDL NORMAL > or = 60 mg/dl - LO W CARDIOVASCULAR RISK <40 mg/dl - HIGH CARDIOVASCULAR RISK Normal [facility] Comment on above: Performed By: #### C MP, URIC, LIPID #### [facility] [address] [address] [address] Tom Chacko LDL CALC NORMAL SEE BELOW Normal [facility] Comment on above: Result Comment: <100 mg/dl OPTIMAL 100 - 129 mg/dl NEAR OR ABOVE OPTIMAL 130 - 159 mg/dl BORDERLINE HIGH 160 - 189 mg/dl HIGH >190 mg/dl VERY HIGH Performed By: #### C MP, URIC, LIPID #### [facility] [address] [address] [address] Tom Chacko Triglyceride [Mass/Vol] 147 mg/dL Normal <=150 [facility] Comment on above: Performed By: #### C MP, URIC, LIPID #### [facility] [address] [address] [address] Tom Chacko VLDL CALC 29.4 mg/dL Normal [facility] Comment on above: Performed By: #### C MP, URIC, LIPID #### [facility] [address] [address] [address] Tom Chacko PROF 14(COMP METB)on 023 Albumin [Mass/Vol] 3.8 g/dL Normal 3.4-5.0 [facility] Comment on above: Performed By: #### C MP, URIC, LIPID #### [facility] [address] [place] [address] Dr. Tom Chacko Albumin/Globulin [Mass ratio] 1.1 {ratio} Normal [facility] Comment on above: Performed By: #### C MP, URIC, LIPID #### [facility] [address] [place] [address] Dr. Tom Chacko ALP [Catalytic activity/Vol] 73 U/L Normal 46-116 [facility] Comment on above: Performed By: #### C MP, URIC, LIPID #### [facility] [address] [address] [address] Tom Chacko ALT [Catalytic activity/Vol] 28 U/L Normal 16-63 [facility] Comment on above: Performed By: #### C MP, URIC, LIPID #### [facility] [address] [address] [address] Tom Chacko Anion gap [Moles/Vol] 10.3 mmol/L Normal [facility] Comment on above: Performed By: #### C MP, URIC, LIPID #### [facility] [address] [place] [address] Dr. Tom Chacko AST [Catalytic activity/Vol] 17 U/L Normal 15-37 [facility] Comment on above: Performed By: #### C MP, URIC, LIPID #### [facility] [address] [address] [address] Tom Chacko Bilirubin [Mass/Vol] 0.4 mg/dL Normal 0.2-1.0 [facility] Comment on above: Performed By: #### C MP, URIC, LIPID #### [facility] [address] [place] [address] Dr. Tom Chacko Calcium [Mass/Vol] 9.3 mg/dL Normal 8.5-10.1 [facility] Comment on above: Performed By: #### C MP, URIC, LIPID #### [facility] [address] [place] [address] Dr. Tom Chacko Chloride [Moles/Vol] 104 mmol/L Normal 98-107 [facility] Comment on above: Performed By: #### C MP, URIC, LIPID #### [facility] [address] [place] [address] Dr. Tom Chacko CO2 [Moles/Vol] 29.5 mmol/L Normal 21.0-32.0 [facility] Comment on above: Performed By: #### C MP, URIC, LIPID #### [facility] [address] [place] [address] Dr. Tom Chacko Creatinine [Mass/Vol] 0.96 mg/dL Normal 0.70-1.30 [facility] Comment on above: Performed By: #### C MP, URIC, LIPID #### [facility] [address] [place] [address] Dr. Tom Chacko EGFR-AF JAMAICAN >60 Normal >=60 [facility] Comment on above: Performed By: #### C MP, URIC, LIPID #### [facility] [address] [place] [address] Dr. Tom Chacko EGFR-NON AF J[place]ICAN >60 Normal >=60 [facility] Comment on above: Performed By: #### C MP, URIC, LIPID #### [facility] [address] [place] [address] Dr. Tom Chacko Globulin (S) [Mass/Vol] 3.5 g/dL Normal [facility] Comment on above: Performed By: #### C MP, URIC, LIPID #### [facility] [address] [place] [address] Dr. Tom Chacko Glucose [Mass/Vol] 113 mg/dL Critically high 74-106 [facility] Comment on above: Performed By: #### C MP, URIC, LIPID #### [facility] [address] [place] [address] Dr. Tom Chacko Potassium [Moles/Vol] 3.8 mmol/L Normal 3.5-5.1 [facility] Comment on above: Performed By: #### C MP, URIC, LIPID #### [facility] [address] [place] [address] Dr. Tom Chacko Protein [Mass/Vol] 7.3 g/dL Normal 6.4-8.2 [facility] Comment on above: Performed By: #### C MP, URIC, LIPID #### [facility] [address] [place] [address] Dr. Tom Chacko Sodium [Moles/Vol] 140 mmol/L Normal 136-145 [facility] Comment on above: Performed By: #### C MP, URIC, LIPID #### [facility] [address] [place] [address] Dr. Tom Chacko Urea nitrogen [Mass/Vol] 14.0 mg/dL Normal 7.0-18.0 [facility] Comment on above: Performed By: #### C MP, URIC, LIPID #### [facility] [address] [place] [address] Dr. Tom Chacko Urea nitrogen/Creatinin e [Mass ratio] 14.6 mg/mg Normal [facility] Comment on above: Performed By: #### C MP, URIC, LIPID #### [facility] [address] [place] [address] Dr. Tom Chacko UA (CLEAN/CATCH) SUPERVISOR CARTOGRAPHY/MICRO I F IND.on 11-04-2022 Bilirubin Ql (U) Negative Normal NEGATIVE [facility] Comment on above: Performed By: #### U MICRO, UACSIND #### [facility] [address] [address] [address] Tom Chacko Clarity (U) CLEAR Normal CLEAR [facility] Comment on above: Performed By: #### U MICRO, UACSIND #### [facility] [address] [address] [address] Tom Chacko Color (U) YELLOW Normal YELLOW [facility] Comment on above: Performed By: #### U MICRO, UACSIND #### [facility] [address] [address] [address] Tom Chacko Glucose Ql (U) Negative Normal NEGATIVE [facility] Comment on above: Performed By: #### U MICRO, UACSIND #### [facility] [address] [address] [address] Tom Chacko Hemoglobin Ql (U) MODERATE Abnormal NEGATIVE [facility] Comment on above: Performed By: #### U MICRO, UACSIND #### [facility] [address] [address] [address] Tom Chacko Ketones Ql (U) Negative Normal NEGATIVE [facility] Comment on above: Performed By: #### U MICRO, UACSIND #### [facility] [address] [address] [address] Tom Chacko LEUKOCYTES Negative Normal NEGATIVE [facility] Comment on above: Performed By: #### U MICRO, UACSIND #### [facility] [address] [address] [address] Tom Chacko Nitrite Ql (U) Negative Normal NEGATIVE [facility] Comment on above: Performed By: #### U MICRO, UACSIND #### [facility] [address] [address] [address] Tom Cahcko pH (U) 6.0 [pH] Normal 5-9 [facility] Comment on above: Performed By: #### U MICRO, UACSIND #### [facility] [address] [address] [address] Tom Chacko SPEC GRAVITY 1.020 Normal 1.005-<=1.0 25 [facility] Comment on above: Performed By: #### U MICRO, UACSIND #### [facility] [address] [address] [address] Tom Chacko UA PROTEIN Negative Normal NEGATIVE/ TRACE [facility] Comment on above: Performed By: #### U MICRO, UACSIND #### [facility] [address] [address] [address] Tom Chacko UR MICRO IND INDICATED Normal [facility] Comment on above: Performed By: #### U MICRO, UACSIND #### [facility] [address] [address] [address] Tom Chacko Urobilinogen Qn (U) 0.2 {Joseph'U}/dL Normal 0.2 - 1.0 [facility] Comment on above: Performed By: #### U MICRO, UACSIND #### [facility] [address] [place] [address] Dr. Tom Chacko URIC ACID SERUMon 11-04-2022 Urate [Mass/Vol] 7.3 mg/dL Critically high 3.5-7.2 [facility] Comment on above: Performed By: #### C MP, URIC, LIPID ####[facility] [id number] [id number]. Tom Chacko URINE MICROSCOPIC ONLYon BACTERIA NONE SEEN Normal NONE SEEN [facility] Comment on above: Performed By: #### U MICRO, UACSIND #### [facility] [address] [place] [address] Dr. Tom Chacko Bacteria identified Cx Nom (U) NOT INDICATED Normal [facility] Comment on above: Performed By: #### U MICRO, UACSIND #### [facility] [address] [address] [address] Tom Chacko CAST NONE SEEN Normal NONE SEEN [facility] Comment on above: Performed By: #### U MICRO, UACSIND #### [facility] [address] [address] [address] Tom Chacko Crystals LM Nom (Urine sed) NONE SEEN Normal NONE SEEN [facility] Comment on above: Performed By: #### U MICRO, UACSIND #### [facility] [address] [address] [address] Tom Chacko Epithelial cells LM Ql (Urine sed) RARE Normal NONE SEEN /RARE [facility] Comment on above: Performed By: #### U MICRO, UACSIND #### [facility] [address] [address] [address] Tom Chacko MUCOUS NONE SEEN Normal NONE SEEN [facility] Comment on above: Performed By: #### U MICRO, UACSIND #### [facility] [address] [address] [address] Tom Chacko RBC 5-10 Abnormal 0-2 [facility] Comment on above: Performed By: #### U MICRO, UACSIND #### [facility] [address] [address] [address] Tom Chacko WBC NONE SEEN Normal NONE SEEN [facility] Comment on above: Performed By: #### U MICRO, UACSIND #### [facility] [address] [address] [address] Tom Chacko US Venous, Unilat, Lower Ext Righton 09-25-2021 [...] by Reggie Hackett on 09/25/2021 1153 Normal [facility] US Venous, Unilat, Lower Ext Righton 09-11-2021 [...] by Reggie Hackett on 09/11/2021 1200 Normal [facility] Vital Signs Date Time Vital Sign Value Performing Clinician Facility 06-12-2025 10:54-0400 Body height 167.64 cm Joelle Brewer SAFETY PHYSICIAN-C Work Phone: [facility] 06-12-2025 10:54-0400 Body mass index (BMI) [Ratio] 30.6 kg/m2 Joelle Brewer SAFETY PHYSICIAN-C Work Phone: [facility] 06-12-2025 10:54-0400 Body temperature 98.6 [degF] Joelle Brewer SAFETY PHYSICIAN-C Work Phone: [facility] 06-12-2025 10:54-0400 Body weight 86 kg Joelle Brewer SAFETY PHYSICIAN-C Work Phone: [facility] 06-12-2025 10:54-0400 Diastolic blood pressure 82 mm[Hg] Joelle Brewer SAFETY PHYSICIAN-C Work Phone: [facility] 06-12-2025 10:54-0400 Heart rate 64 /min Joelle Brewer SAFETY PHYSICIAN-C Work Phone: [facility] 06-12-2025 10:54-0400 Respiratory rate 16 /min Joelle Osman SAFETY PHYSICIAN-C Work Phone: [facility] 06-12-2025 10:54-0400 SaO2% (BldA) [Mass fraction] 98 % Joelle Brewer SAFETY PHYSICIAN-C Work Phone: [facility] 06-12-2025 10:54-0400 Systolic blood pressure 120 mm[Hg] Joelle Brewer SAFETY PHYSICIAN-C Work Phone: [facility] 05-21-2025 12:06-0400 Body height 170.2 cm [facility] 05-21-2025 12:06-0400 Body mass index (BMI) [Ratio] 30.7 kg/m2 Asia Ca MD Work Phone: [employer] [facility] 05-21-2025 12:06-0400 Body weight 88.91 kg Asia Ca MD Work Phone: [facility] 11-15-2024 15:09-0400 Body mass index (BMI) [Ratio] 30.7 kg/m2 Van Jessica DO Work Phone: [facility] 11-15-2024 15:09-0400 Body weight 88.91 kg Van Pathak DO Work Phone: [facility] 11-15-2024 15:09-0400 Diastolic blood pressure 70 mm[Hg] Van Jessica DO Work Phone: [facility] 11-15-2024 15:09-0400 Systolic blood pressure 122 mm[Hg] Van Pathak DO Work Phone: [facility] 11-14-2024 08:39-0400 Body height 167.64 cm [facility] 11-14-2024 08:39-0400 Body mass index (BMI) [Ratio] 31.3 kg/m2 [facility] 11-14-2024 08:39-0400 Body temperature 98.2 [degF] [facility] 11-14-2024 08:39-0400 Body weight 87.99 kg [facility] 11-14-2024 08:39-0400 Diastolic blood pressure 72 mm[Hg] [facility] 11-14-2024 08:39-0400 Heart rate 61 /min [facility] 11-14-2024 08:39-0400 Respiratory rate 16 /min [facility] 11-14-2024 08:39-0400 SaO2% (BldA) [Mass fraction] 98 % [facility] 11-14-2024 08:39-0400 Systolic blood pressure 122 mm[Hg] [facility] 11-12-2024 09:07-0400 Body height 167.6 cm Orly Santa MD Work Phone: [facility] 11-12-2024 09:07-0400 Body mass index (BMI) [Ratio] 31.31 kg/m2 Orly Santa MD Work Phone: [facility] 11-12-2024 09:07-0400 Body weight 88 kg Orly Santa MD Work Phone: [facility] 11-12-2024 09:07-0400 Diastolic blood pressure 100 mm[Hg] Orly Santa MD Work Phone: [facility] 11-12-2024 09:07-0400 Systolic blood pressure 160 mm[Hg] Orly Santa MD Work Phone: [facility] 10-16-2024 11:46-0500 Body height 170.2 cm Gayle Sewell LD Work Phone: [facility] 10-16-2024 11:46-0500 Body mass index (BMI) [Ratio] 28.98 kg/m2 Gayle Donato LD Work Phone: [facility] 10-16-2024 11:46-0500 Body weight 83.92 kg Gayle Donato LD Work Phone: [facility] 09-27-2024 15:09-0500 Body height 170.2 cm Van Walker DO Work Phone: [facility] 09-27-2024 15:09-0500 Body mass index (BMI) [Ratio] 28.97 kg/m2 Van Walker DO Work Phone: [facility] [employer] [facility] 09-27-2024 15:09-0500 Body weight 83.92 kg Van Walker DO Work Phone: [facility] [employer] [facility] 09-27-2024 15:09-0500 Diastolic blood pressure 64 mm[Hg] Van Walker DO Work Phone: [facility] [employer] [facility] 09-27-2024 15:09-0500 Systolic blood pressure 124 mm[Hg] Van Walker DO Work Phone: [facility] 12-22-2022 10:06-0400 Blood Pressure Location Kameron OSITO [facility] 12-22-2022 10:06-0400 Diastolic blood pressure 75 mm[Hg] Kameron BARR [facility] 12-22-2022 10:06-0400 Heart rate 58 /min Kameron BARR [facility] 12-22-2022 10:06-0400 Systolic blood pressure 146 mm[Hg] Kameron BARR [facility] 02-09-2022 19:50-0400 Body height 147.32 cm Allegra Prieto Other [employer] Other 02-09-2022 19:50-0400 Body mass index (BMI) [Ratio] 50.15 kg/m2 Allegra Moreau Other [facility] Other 02-09-2022 19:50-0400 Body temperature 96.9 [degF] Allegra Moreau Other [facility] Other 02-09-2022 19:50-0400 Body weight 108.86 kg Allegra Moreau Other [facility] Other 02-09-2022 19:50-0400 Diastolic blood pressure 80 mm[Hg] Allegra Moreau Other [facility] Other 02-09-2022 19:50-0400 Respiratory rate 18 /min Allegra Moreau Other [facility] Other 02-09-2022 19:50-0400 SaO2% (BldA) [Mass fraction] 99 % Allegra Moreau Other [facility] Other 02-09-2022 19:50-0400 Systolic blood pressure 167 mm[Hg] Allegra Moreau Other [facility] Other Encounters Encounter Date Encounter Type Care Provider Facility Start: 06-12-2025 End: 06-12-2025 ambulatory Joelletroy Brewer SAFETY PHYSICIAN-C Work Phone: [facility] Work Phone: Start: 06-12-2025 End: 06-12-2025 Patient encounter procedure Annabelle Shearer [employer] SALES CONSULTANT -[facility] Work Phone: Start: 06-07-2025 End: 06-07-2025 Patient encounter procedure Annabelle Shearer [employer] SALES CONSULTANT -[facility] Work Phone: Start: 06-07-2025 End: 06-07-2025 ambulatory Joelletroy Brewer SAFETY PHYSICIAN-C Work Phone: [facility] Work Phone: Start: 05-30-2025 End: 05-30-2025 ambulatory Joelle Ellie Osman SAFETY PHYSICIAN-C Work Phone: [facility] Work Phone: Start: 05-30-2025 End: 05-30-2025 Patient encounter procedure Kike Whitt MD -[facility] Work Phone: Start: 05-21-2025 End: 05-21-2025 Office outpatient visit 15 minutes Asia Ca MD Work Phone: [facility] Comment on above: Hematuria, unspecifi ed type (Primary Dx) Start: 05-21-2025 End: 05-21-2025 ambulatory ASIA CA [facility] Start: 02-11-2025 End: 02-11-2025 Refill Susanne Grigsby PA-C Work Phone: [facility] Start: 02-01-2025 End: 02-01-2025 Orders Only Antionette De La Paz SAFETY PHYSICIAN Work Phone: [facility] Comment on above: DDD (degenerative di sc disease), cervical (Primary Dx); 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 (CMS/HCC) Start: 01-09-2025 End: 01-09-2025 Office outpatient visit 15 minutes Orly Santa MD Work Phone: [facility] NEUR Comment on above: DDD (degenerative di sc disease), cervical; 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 (CMS/HCC) Start: 01-09-2025 End: 01-09-2025 ambulatory ORLY SANTA Not Available Start: 01-09-2025 End: 01-09-2025 Bamboo flowsheet Orly Santa MD Work Phone: [facility] Start: 01-09-2025 End: 01-09-2025 Bamelenoo flowsheet Orly Santa MD Work Phone: [facility] Start: 12-24-2024 End: 12-24-2024 ambulatory [facility] Start: 11-15-2024 End: 11-15-2024 Postop follow up visit related to original px Van Pathak DO Work Phone: [facility] Vascular Comment on above: 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) Start: 11-15-2024 End: 11-15-2024 ambulatory VAN PATHAK [facility] Start: 11-14-2024 End: 11-14-2024 ambulatory [facility] Work Phone: Start: 11-14-2024 End: 11-14-2024 Patient encounter procedure [facility] Work Phone: Start: 11-12-2024 End: 11-12-2024 Office outpatient new 45 minutes Orly Santa MD Work Phone: [facility] NEUR Comment on above: DDD (degenerative di sc disease), cervical (Primary Dx); 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 Start: 10-16-2024 End: 10-16-2024 ambulatory [facility] Start: 10-08-2024 ambulatory [facility] Start: 09-30-2024 Non-patient / Non-visit [facility] OutPt Work Phone: Start: 09-27-2024 End: 09-27-2024 Postop follow up visit related to original px Van Molina Jessica SHAY Work Phone: [facility] Comment on above: 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) Start: 09-27-2024 End: 09-27-2024 [facility] VAN Molina JESSICA [facility] Start: 09-27-2024 End: 09-27-2024 Telephone encounter Antionette De La Paz NP Work Phone: [facility] NEURO 210 Start: 09-25-2024 End: 09-25-2024 ambulatory [facility] Start: 09-11-2024 ambulatory [facility] Start: 09-04-2024 End: 09-04-2024 Evaluation and management of inpatient JENNY LUKE [facility] Start: 09-01-2024 End: 09-01-2024 [facility] Michelle khoury Comment on above: Advice Only Start: 08-31-2024 End: 09-04-2024 Evaluation and management of inpatient OLGA NEERAJ [facility] Start: 08-30-2024 End: 09-04-2024 Evaluation and management of inpatient [facility] Start: 08-30-2024 End: 08-30-2024 ambulatory [facility] Start: 08-29-2024 Non-patient / Non-visit [facility] ER Work Phone: Start: 08-29-2024 ambulatory JOELLE S OSMAN [facility] Start: 08-29-2024 End: 09-03-2024 Evaluation and management of inpatient [facility] Start: 01-11-2023 End: 01-12-2023 ambulatory JOELLE OSMAN Facility:[facility] Start: 12-23-2022 End: 12-29-2022 Pre-admission assessment Kameron BARR [facility] Start: 12-22-2022 End: 12-23-2022 ambulatory Kameron BARR Facility:[facility] [place] Start: 12-22-2022 End: 12-22-2022 Patient encounter procedure Kameron BARR [facility] Start: 11-16-2022 ambulatory Kameron BARR Facility :[facility] [place] Start: 11-12-2022 End: 11-13-2022 ambulatory JOELLE BREWER Facility:[facility] Start: 11-04-2022 End: 11-05-2022 ambulatory JOELLE BREWER Facility:[facility] Start: 02-09-2022 End: 02-09-2022 Departed Referred WINDOW COVERING SALES CONSULTANT Allegra Moreau Work Phone: [facility] [place] Start: 02-09-2022 End: 02-09-2022 ambulatory Allegra Moreau Other [employer] Other Start: 02-09-2022 Office outpatient ne w 20 minutes Allegra Moreau [facility] Procedures Date Procedure Procedure Detail Performing Clinician Start: 06-07-2025 Doppler ultrasonogra phy of bilateral carotid arteries Joelle Osman SAFETY PHYSICIAN-C Work Phone: Start: 06-07-2025 Pulse volume recorde r plethysmography Joelle Osman SAFETY PHYSICIAN-C Work Phone: Start: 05-21-2025 Urnls dip stick/tabl et rgnt auto w/o microscopy Asia Ca MD Work Phone: Start: 05-21-2025 Follow-up visit Follow-up ASIA CA Start: 11-15-2024 Follow-up visit Follow-up VAN Molina JESSICA Start: 10-16-2024 AMB REFERRAL TO DIAB ETIC EDUCATION Sahra Jay MD Work Phone: Start: 08-30-2024 Adult depression scr eening assessment [facility] [place] Start: 11-04-2022 PSA screening JOELLE PANTOJA Comment on above: Performed By: #### P [facility] #### [facility] [address] [place] [address] Dr. Tom Chacko Cholecystectomy Kameron LALA Colonoscopy Kameron BARR Herniated structure (morphologic abnormality) Kameron BARR Plan of Treatment Date Care Activity Detail Author Start: 05-21-2026 Adult BMI Screening Adult BMI Screen ing [facility] Start: 05-21-2026 Tobacco Screening Tobacco Screening [facility] Start: 11-15-2025 Adult BMI Screening Adult BMI Screen ing [facility] Start: 11-15-2025 Tobacco Screening Tobacco Screening [facility] Start: 09-27-2025 Adult BMI Screening Adult BMI Screen ing [facility] [employer] [facility] Start: 09-27-2025 Tobacco Screening Tobacco Screening [facility] Start: 09-03-2025 Statin Use: Diabetic Statin Use: Yakelin betic [facility] Start: 08-30-2025 Depression Screening Depression Scre ening [facility] Start: 08-29-2025 Adult BMI Screening Adult BMI Screen ing [facility] Start: 07-15-2025 End: 07-15-2025 Patient encounter procedure 07/15/2025 1:00 PM EST Office Visit [facility] [address] [place] [address] Orly Santa MD [address] [place] [address] [facility] Start: 06-07-2025 Pulse volume recorde r plethysmography US art pvr/post [facility] Start: 05-20-2025 End: 05-20-2025 Patient encounter procedure 05/20/2025 1:00 PM EDT Appointment [facility] [address] [place] [address] [facility] Start: 05-18-2025 End: 05-18-2026 US Carotid arteries - bilateral Vas carotid duplex bilateral Vascular Ultrasound Routine Stenosis of right carotid artery Expected: 05/18/2025 (Approximate), Expires: 05/18/2026 [facility] Work Phone: Comment on above: Expected: 05/18/2025 (Approximate), Expires: 05/18/2026 Start: 05-06-2025 COVID-19 Vaccine ( season) COVID-19 Vaccine ( season) [facility] [employer] [facility] Start: 05-06-2025 Influenza vaccination [facility] Start: 01-09-2025 End: 01-09-2025 Patient encounter procedure [facility] Comment on above: Arrived Start: 11-15-2024 End: 11-15-2024 Patient encounter procedure 11/15/2024 3:30 PM EDT Office Visit [facility] [address] [place] [phone] Van Pathak, [address] [place] [address] [facility] Start: 10-29-2024 End: 10-29-2024 Patient encounter procedure 10/29/2024 3:30 PM EST Appointment [facility] [address] [place] [address] [facility] Start: 10-28-2024 End: 03-27-2026 US Carotid arteries - bilateral Vas carotid duplex bilateral Vascular Ultrasound Routine Stenosis of right carotid artery Expected: 10/28/2024 (Approximate), Expires: 03/27/2026 [facility] Work Phone: Comment on above: Expected: 10/28/2024 (Approximate), Expires: 03/27/2026 Start: 05-06-2024 COVID-19 Vaccine () COVID-19 Vaccine ( season) [facility] Start: 05-06-2024 Influenza vaccination [facility] Start: 04-26-2024 Tobacco Screening Tobacco Screening [facility] Start: 2022 Fall Risk Screening Fall Risk Screen ing [facility] Start: 2022 Pneumococcal Vaccine : 65+ Years (1 of 1 - PCV) Pneumococcal Vaccine: 65+ Years (1 of 1 - PCV) [facility] Start: 02-09-2022 Aerobic Culture Aerobic Culture [facility] Start: 02-09-2022 Anaerobic Culture Anaerobic Culture [facility] Start: 02-09-2022 Microscopic observat ion [Identifier] in Unspecified specimen by Gram stain Gram Stain [facility] Start: 2007 Administration of varicella zoster vaccine Zoster (Shingles) Vaccine (1 of 2) [facility] Start: 2007 Pneumococcal Vaccine : 65+ Years (1 of 1 - PCV) Pneumococcal Vaccine: 65+ Years (1 of 1 - PCV) [facility] Start: 1976 DTaP,Tdap and Td Vac cines (1 - Tdap) DTaP,Tdap and Td Vaccines (1 - Tdap) [facility] Start: 1975 Adult BMI Follow Up Plan Adult BMI Follow Up Plan [facility] Start: 1975 Diabetic foot examination Diabetic F oot Exam [facility] Start: 1957 Glaucoma screening Diabetic Op hthalmology Exam [facility] Start: 1957 Screening for malign ant neoplasm of colon [facility] Start: 1957 Statin Use: Diabetic Statin Use: Yakelin ruiz [facility] Start: 1957 Tobacco Counseling Tobacco Counselin chelle [facility] Start: 1957 Urine screening for protein Urine Microalbumin [facility] Bacteria identified in Unspecified specimen by Aerobe culture [facility] Work Phone: Bacteria identified in Unspecified specimen by Anaerobe culture [facility] Work Phone: Microscopic observat ion [Identifier] in Unspecified specimen by Gram stain [facility] Work Phone: Immunizations Immunization Date Immunization Notes Care Provider Wilberto stephens 12-30-2020 SARS-CoV-2 (COVID-19 ) mRNA-1273 vaccine Kameron BARR [facility] Comment on above: Result Comment: 2022: [id number] 12-02-2020 SARS-CoV-2 (COVID-19 ) mRNA-1273 vaccine Kameronflakita BARR [facility] Comment on above: Result Comment: 2022: [id number] 06-21-2020 influenza virus vaccine, unspecified formulation Kameron BARR [facility] 06-21-2020 influenza, injectabl e, quadrivalent, preservative free [facility] [employer] [facility] 07-08-2019 influenza virus vaccine, unspecified formulation Kameron BARR [facility] 07-08-2019 influenza, injectabl e, quadrivalent, contains preservative Tri Sergio [facility] Payers Date Payer Category Payer Self-pay [id number] 2022 Medicare [id number] 1959 Medicare [id number] 1957 Unknown [id number] 2.16.84 0.1.379379.3.579.2.593 1957 Unknown [id number] 2.16.84 0.1.748824.3.579.2.593 1957 Unknown [id number] 2.16.84 0.1.773320.3.579.2.593 1957 Unknown [id number] 2.16.84 0.1.022035.3.579.2.593 1957 Unknown [id number] 2.16.8 40.1.309141.3.579.2.727 1957 Unknown [id number] 2.16.8 40.1.103209.3.579.2.727 1957 Unknown [id number] 2. 840.1.254393.3.579.2.1286 1957 Unknown [id number] 2. 840.1.413427.3.579.2.1286 1957 Unknown [id number] 2.16. 840.1.298112.3.579.2.1286 1957 Unknown [id number] 2.16 840.1.079222.3.579.2.1286 1957 Unknown [id number] 2.16. 840.1.394576.3.579.2.1286 1957 Unknown [id number] 2.16 840.1.460607.3.579.2.1286 1957 Unknown [id number] 2.16. 840.1.884275.3.579.2.1286 1957 Unknown [id number] 2.16. 840.1.721499.3.579.2.1286 1957 Unknown [id number] 2.16. 840.1.717764.3.579.2.1286 1957 Unknown [id number] 2.16. 840.1.790049.3.579.2.128 1957 Unknown [id number] 2.16. 840.1.038430.3.579.2.128 1957 Unknown [id number] 2.16. 840.1.238021.3.579.2.128 1957 Unknown [id number] 2.16. 840.1.400977.3.579.2.128 1957 Unknown [id number] 2.16.8 40.1.458998.3.579.2.128 1957 Unknown [id number] 2.16. 840.1.310959.3.579.2.1285 1957 Unknown [id number] 2.16.84 0.1.447674.3.579.2.1259 1957 Unknown [id number] 2.16.84 0.1.388425.3.579.2.1259 1957 Unknown [id number] 2.16.84 0.1.445698.3.579.2.1259 1957 Unknown [id number] 2.16. 840.1.373318.3.579.2.1285 1957 Unknown [id number] 2.16.8 40.1.506759.3.579.2.1286 1957 Unknown [id number] 2.16.8 40.1.618970.3.579.2.128 1957 Unknown [id number] 2.16.8 40.1.510382.3.579.2.1286 1957 Unknown [id number] 2.16.8 40.1.047151.3.579.2.1286 Unknown [id number] 2.16. 840.1.291636.19 Unknown [facility] [id number] Unknown [id number] 2.16.8 40.1.927958.3.579.2.531 Social History Date Type Detail Facility Tobacco [facility] if ever smoked [facility] Work Phone: Start: 1955 Sex Assigned At Male F [facility] Start: 10-03-2020 End: 08-30-2024 Sex Assigned At [facility] Start: 12-22-2022 Tobacco smoking status Light t obacco smoker (finding) [facility] Tobacco smoking status Never [facility] Start: 2023 End: 06-12-2025 Tobacco smoking status NHIS Smokes tobacco daily [facility] [employer] [facility] History of tobacco use Cigarette Smoker P [facility] [employer] [facility] Start: 10-03-2020 End: 2023 Cigarettes smoked current (pack per day) - Reported 0.5 [facility] Start: 2023 End: 11-12-2024 Tobacco use and exposure Smokeless tobacco non-user [facility] [employer] [facility] Start: 04-27-2023 End: 05-21-2025 Alcoholic beverage intake Ex-drinker (finding) [facility] [employer] [facility] Has the [employer], or [employer] threatened to shut off services in your home in past 12Mo No [facility] How often to you hav e a drink containing alcohol? Never [facility] Start: 1955 Sex assigned at Not on file P [employer] [facility] Start: 04-10-2015 End: 11-14-2024 Sex Male (finding) [facility] Tobacco smoking stat [facility] Tobacco smoking consumption unknown [facility] Work Phone: Start: 11-12-2024 Tobacco smoking stat [facility]oker [facility] Start: 11-14-2024 History of tobacco use Current smoke r [facility] Start: 11-12-2024 Alcoholic beverage intake Lifetime non-drinker (finding) [facility] Medical Equipment Procedure Code Equipment Code Equipment Origin al Text Equipment Identifier Dates Patch Vsc 8x.8cm Xen[employer] Bvn Pricrd Tiss Strl Rpl [id number] - [id number] Start: 09-02-2024 Functional Status Date Assessment Result Facility 12-22-2022 Functional Status N/A [facility] Clinical Notes 02-09-2022 to 06-07-2025 Asia Ca MD - 05/21/2025 12:00 PM EDTAntionette De La Paz NP - 02/01/2025 11:41 AM Trena Santa MD - 01/09/2025 2:40 PM EDTGtayla Pathak DO - 11/15/2024 3:30 PM EDT Note Date & Type Note Facility 06-07-2025 Radiology Diagnostic study note [facility] [place] [address] Ultrasound Report Signed Patient: Harvey Cabrales MR#: [id number] 82 : 1955 Acct:[id number] Age/Sex: 70 / M ADM Date: 5 Loc: Room: Type: [facility] Attending Dr: Annabelle Shearer SAFETY PHYSICIAN-C Ordering Provider: Annabelle Shearer APRN Date of Service: 06/07/25 US/US carotid doppler BI: I65.23 - Occlusion and stenosis of bilateral carotid kade... Copies to: Annabelle Shearer APRN~ CAROTID DUPLEX INDICATION: Carotid bruit. PROCEDURE: Color-flow duplex scanning is used to interrogate the extracranial carotid arterial system, as well as both vertebral arteries. The proximal rightinternal carotid artery shows a highest peak systolic velocity of 67.3 cm/s withan end-diastolic velocity of 18.4 cm/s . The mid internal carotid artery measures 80.4 cm/s peak systolic with an end-diastolic velocity of 31.4 cm/s . The distal segment measures 82.3 cm/s peak systolic with an end diastolic velocity of 31.8 cm/s . The velocities of the right common carotid artery are 107 cm/s peak systolic and 20.5 cm/s end-diastolic proximally and 74.6 cm/s peak systolic and 16.2 cm/s end-diastolic distally. The peak systolic velocity ratio of the internal to the common carotid artery is 1.1 . The right external carotid artery measures 122 cm/s peak systolic. The right vertebral artery is patent at 43.7 cm/s peak systolic and with antegrade flow. The proximal left internal carotid artery shows a highest peak systolic velocityof 80 cm/s with an end-diastolic velocity of 26.4 cm/s . The mid internal carotid artery measures 112 cm/s peak systolic with an end-diastolic velocity of 42.3 cm/s . The distal segment measures 106 cm/s peak systolic with an enddiastolic velocity of 33.6 cm/s . The velocities of the left common carotid artery are 82 cm/s peak systolic and 17.4 cm/s end-diastolic proximally and 67.7 cm/s peak systolic and 17.4 cm/s end-diastolic distally. The peak systolic velocity ratio of the internal to the common carotid artery is 1.65 . The left external carotid artery measures 123 cm/s peak systolic. The left vertebral artery is patent at 59 cm/s peak systolic with antegrade flow. US/US carotid doppler BI IMPRESSION: NO HEMODYNAMICALLY SIGNIFICANT STENOSIS OF EITHER EXTRACRANIAL INTERNAL CAROTID ARTERY. BOTH VERTEBRAL ARTERIES ARE PATENT WITH ANTEGRADE FLOW. Impression dictated by: Kike Whitt MD,FACS,FSVS 06/07/2025 2:01 PM Dictation Location: [place] [address] Tech: Thao Israel Transcribed By: PWS 06/07/25 1401 Dictated By: Kike Whitt MD 06/07/25 1400 Signed By: 06/07/25 1401 [facility] Work Phone: 05-21-2025 History of Presen t illness Narrative Images from the original note were not included. [address] [place] [address] A [facility] [address] Patient: Harvey Cabrales Date of : 1955 Encounter Date: 05/21/2025 History of Present Illness: Chief Complaint: Follow Up The patient is a 70 y.o. male, an established patient, and is here for follow-up. He was seen by me in 2022. Presents back with his fiancee. He had initially had a workup with imaging for microhematuria in 2022 in [place]. Has a known simple renal cysts.. Additionally has a cystic pancreatic lesion on MRI in 2020 for which he was supposed to see GI but has not. He underwent cystoscopy under anesthesia April 26, 2023. That was also negative. Had seen his primary care physician and persists in having microhematuria. Denies any gross hematuria. Does not smoke. Summary of old records: Urinalysis today: Recent Labs 05/21/25 1207 EXTPOCURBS 3+ EXTPOCUKET Negative EXTPOCUPRO 1+ EXTPOCUNIT Negative EXTPOCUBLD 1+ EXTPOCUPH 6.0 EXTPOCULEE Negative Last BUN and creatinine: Lab Results Component Value Date BUN 16 09/03/2024 Lab Results Component Value Date CREATININE 0.92 09/03/2024 Last PSA: No results found for: PSA Lab Results Component Value Date PROSTATICSP 0.24 10/03/2020 Additional Lab/Culture results: Imaging Reviewed during this Office Visit: (Results were independently reviewed by physician and radiology report verified) Past Medical, Family, and Social History Update: The following portions of the patient's history were reviewed and updated as appropriate: allergies, current medications, past family history, past medical history, past social history, past surgical history and problem list. Past Medical History: Diagnosis Date Arthritis Bradycardia CHF (congestive heart failure) ([facility] [place] patient denies CHF dx Cholelithiasis Dental disease upper and lower partials Diabetes ([facility] [place]) Diabetes mellitus type 2, controlled ([facility] [place]) GERD (gastroesophageal reflux disease) Hypertension Inguinal hernia Pancreatitis Poor historian Patient is very slow to respond to questions and unsure of many answers to basic health history questions. Visual impairment reading Past Surgical History: Procedure Laterality Date . Left 09/01/2024 Performed by Beau Hebert MD at [facility] APPENDECTOMY COLONOSCOPY N/A 10/30/2020 Performed by Carl Dockery MD at [facility] CYSTOSCOPY N/A 04/26/2023 Performed by Asia Ca MD at [facility] Diagnostic cerebral angiogram N/A 09/01/2024 Performed by Beau Hebert MD at [facility] ENDARTERECTOMY CAROTID Left 09/02/2024 Performed by Van Pathak DO at [facility] HERNIA REPAIR 03/2015 KNEE ARTHROSCOPY Right 04/06/2021 LAPAROSCOPIC CHOLECYSTECTOMY N/A 06/02/2020 Performed by Carl Dockery MD at [facility] OTHER SURGICAL HISTORY 04/2015 excision fat necrosis right inguinal area post hernia surgery Family History Problem Relation Age of Onset Diabetes Mother Kidney disease Mother Cancer Father lung Diabetes Son Hypertension Son Cancer Son Current Outpatient Medications Medication Sig Dispense Refill acetaminophen (TYLENOL) 500 mg tablet Take 1 tablet (500 mg total) by mouth every 6 (six) hours as needed for pain. 30 tablet 0 aspirin 81 mg Take 1 tablet (81 mg total) by mouth in the morning. 81 tablet 1 atorvastatin (LIPITOR) 40 mg tablet Take 1 tablet (40 mg total) by mouth nightly. 30 tablet 2 clopidogreL (PLAVIX) 75 mg tablet Take 1 tablet (75 mg total) by mouth in the morning. 30 tablet 1 glipiZIDE (GLUCOTROL) 5 mg tablet every 12 (twelve) hours. lisinopril-hydroCHLOROthiazide (PRINZIDE,ZESTORETIC) 20-25 mg per tablet Take 1 tablet by mouth in the morning. metFORMIN (GLUCOPHAGE) 500 mg tablet Take 1 tablet (500 mg total) by mouth in the morning and 1 tablet (500 mg total) in the evening. Take with meals. pantoprazole (PROTONIX) 20 mg EC tablet Take 1 tablet (20 mg total) by mouth in the morning. thiamine mononitrate, vit B1, (VITAMIN B-1) 100 mg tablet Take 1 tablet (100 mg total) by mouth in the morning. 1 TABLET ORALLY ONCE A DAY. MEN'S MULTI-VITAMIN ORAL Take by mouth. (Patient not taking: Reported on 05/21/2025) omeprazole (PriLOSEC) 40 mg capsule Take 1 capsule (40 mg total) by mouth in the morning. (Patient not taking: Reported on 05/21/2025) No current facility-administered medications for this visit. (All medications reviewed and updated by provider since last office visit or hospitalization) Allergies: Benzocaine and Orajel mouth-aid [benzocaine-benzalkonium cl] Tobacco History: Social History Tobacco Use Smoking Status Every Day Current packs/day: 0.50 Average packs/day: 0.5 packs/day for 40.0 years (20.0 ttl pk-yrs) Types: Cigarettes Smokeless Tobacco Never (If patient a smoker, smoking cessation counseling offered) Social History: Social History Substance and Sexual Activity Alcohol Use Not Currently Review of Systems: General: Negative for chills and fever. Cardiovascular: Negative for chest pain and shortness of breath. Gastrointestinal: Negative for constipation, diarrhea, nausea, and vomitting. -per HPI Physical Exam: Ht 170.2 cm (5' 7 ) Wt 88.9 kg (196 lb) BMI 30.70 kg/m Assessment and Plan: Harvey was seen today for follow-up. Diagnoses and all orders for this visit: Hematuria, unspecified type - POCT Urinalysis Auto, W/O Microscopy Problem List Other Hematuria - Primary Overview 03/22/23: Persistent micro hematuria. I agree that a cysto would be recommended. He has already had upper tract imaging. We talked about alternatives to doing this under local including oral sedation and MAC anesthesia and he would prefer the latter. 04/26/23: Cysto under MAC negative 05/21/2025: Patient with persistent microhematuria. No gross hematuria. Does not need any additional workup unless he develops gross hematuria. Again recommended GI consult for pancreatic lesion Relevant Orders POCT Urinalysis Auto, W/O Microscopy (Completed) Follow-up: Asia Ca MD This note was created with the assistance of a speech recognition program. While intending to generate a timely document that accurately reflects the content of the visit, no guarantee can be provided that every grammatical or spelling mistake has been or will be identified or corrected. Thank you for your understanding. documented in this encounter [facility] 02-01-2025 History of Presen t illness Narrative Patient requiring handicap placard due to his stroke and leg documented in this encounter [facility] 01-09-2025 History of Presen t illness Narrative Images from the original note were not included. CHIEF COMPLAINT REASON FOR VISIT : Follow up HPI: Harvey Cabrales is a 69 y.o. male who presents for He was in [facility] on 08/29/24 for right arm weakness, paresthesia and speech disturbance. Symptoms present since 08/25/2024. He had stroke workup including MRI Brain. While admitted he worked with PT/OT and continued outpatient PT/OT to continue to work on fine motor movements in right upper extremity. He was clear for regular diet with thin liquids by speech therapy. States they took out blood clot on the left side. States his speech and right hand movement came back about 8 hours after surgery. No family hx of stroke that he is aware of. But thinks his brother had some issues with heart but has passed. He is now about 3 months out and feels better and getting back to where he needs to be. He states this was his 3rd stroke. Spouse states she does not think they were strokes. He states his speech seems to be pretty good. She states that he gets confused at times and defensive. He did quit smoking. But does smoke marijuana. He just started driving a few weeks ago and seems to be doing well. He states he does not have any issues but neck is still sore and he does have some numbness on the left side. Denies any other concerns. CURRENT MEDICATIONS: ALLERGIES/DISCONTINUE MEDICATIONS Current Outpatient Medications Medication Instructions aspirin 81 mg, Daily RT atorvastatin (LIPITOR) 40 mg, Daily RT clopidogrel (PLAVIX) 75 mg, Daily RT glipiZIDE (Glucotrol) 5 MG tablet Every 12 hours omeprazole (PRILOSEC) 40 mg, Daily RT pantoprazole (PROTONIX) 20 mg, Daily RT thiamine (VITAMIN B-1) 100 mg, Oral, Daily Allergies Allergen Reactions Benzocaine Hives and Swelling Other Reaction(s): Facial Swelling Benzocaine-Benzalkonium Cl Swelling Other Reaction(s): Flushing There are no discontinued medications. PAST MEDICAL HISTORY: SURGICAL/SOCIAL/FAMILY HISTORY DEPRESSION SCREEN: No past medical history on file. No past surgical history on file. Social History Tobacco Use Smoking status: Former Types: Cigarettes Smokeless tobacco: Never Substance Use Topics Alcohol use: Never Drug use: Yes Types: Marijuana No family history on file. Depression: Not at risk (08/30/2024) Received from [facility] PHQ-2 Total Score: 0 REVIEW OF SYMPTOMS: Review of Systems Constitutional: Negative for chills, diaphoresis, fatigue and fever. HENT: Negative for ear pain, tinnitus and trouble swallowing. Eyes: Negative for photophobia and visual disturbance. Respiratory: Negative for cough and shortness of breath. Cardiovascular: Negative for palpitations and leg swelling. Gastrointestinal: Negative for abdominal pain and nausea. Genitourinary: Negative for difficulty urinating and urgency. Musculoskeletal: Negative for arthralgias, back pain, myalgias, neck pain and neck stiffness. Neurological: Negative for tremors, weakness, light-headedness and numbness. Psychiatric/Behavioral: Negative for agitation, confusion and suicidal ideas. OBJECTIVE: 11/12/2024 9:07 AM 12/09/2021 12:00 PM 07/17/2021 12:00 PM Vitals BMI 31.31 kg/m2 32.89 kg/m2 30.85 kg/m2 BSA (m2) 2.02 m2 2.12 m2 2.06 m2 Systolic 160 Diastolic 100 Height (in) 5' 6 5' 7 5' 7 Weight (lb) 194 210 197 Visit Report Report EXAM: Neurological Exam Mental Status Awake, alert and oriented to person, place and time. Oriented to person, place and time. Recent and remote memory are intact. Speech is normal. Language is fluent with no aphasia. Attention and concentration are normal. Cranial Nerves CN II: Visual acuity is normal. Visual toscano full to confrontation. CN III, IV, : Extraocular movements intact bilaterally. Normal lids and orbits bilaterally. Pupils equal round and reactive to light bilaterally. CN V: Facial sensation is normal. CN VII: Full and symmetric facial movement. CN VIII: Hearing is normal. CN XII: Tongue midline without atrophy or fasciculations. Motor Normal muscle bulk throughout. Normal muscle tone. Right Left Wrist flexion 5 5 Wrist extension 5 5 Right Left Deltoid 5 5 Biceps 5 5 Triceps 5 5 Wrist flexor 5 5 Wrist extensor 5 5 Glutei 5 5 Iliopsoas 5 5 Quadriceps 5 5 Gastrocnemius 5 5 Anterior tibialis 5 5 Posterior tibialis 5 5 Sensory Light touch is normal in upper and lower extremities. Pinprick is normal in upper and lower extremities. Vibration is normal in upper and lower extremities. Reflexes Right Left Brachioradialis 2+ 2+ Biceps 2+ 2+ Patellar 2+ 2+ Achilles 2+ 2+ Right Plantar: downgoing Left Plantar: downgoing Right pathological reflexes: Judson's absent. Ankle clonus absent. Left pathological reflexes: Judson's absent. Ankle clonus absent. Coordination Xqkipg-hp-[id number], rapid alternating movements and llah-iz-bxfw normal bilaterally without dysmetria. Gait Normal casual, toe, heel and tandem gait. Romberg is absent. PROCEDURE: NONE ASSESSMENT AND PLAN: Diagnoses and all orders for this visit: DDD (degenerative disc disease), cervical - thiamine (Vitamin B-1) 100 MG tablet; Take 1 tablet (100 mg) by mouth Daily =Physical therapy will be ordered for presumed cervical radiculopathy to see if we can increase mobility, decrease pain and improve neurological function of the upper extremities. 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 (CMS/HCC) - thiamine (Vitamin B-1) 100 MG tablet; Take 1 tablet (100 mg) by mouth Daily -I will arrange for physical therapy for gait assessment and treatment of balance difficulties to improve fall risk I counseled the patient on the possible side effects and interactions of medications. This note was scribed by CHARISSE Levine acting under the direction of Orly Santa MD. The content has been reviewed and confirmed for accuracy by Orly Santa MD documented in this encounter [facility] 12-24-2024 Note [facility] Note Reason for cardiology visit: Follow-up on stroke, carotid stenosis, and hypertension HPI: 12/24/2024 Patient is here today for follow-up visit with his . He states that he has been doing well. He denies any chest pain or shortness of breath at rest or with exertion. Denies orthopnea or paroxysmal nocturnal dyspnea. Denies dizziness or palpitations. He reports left leg tiredness and weakness with exertion that he has to sit and rest. He had recently lower extremity arterial Doppler study. He is still of smoking and drinking. 09/25/2024 Harvey Cabrales is a 69 y.o. male [...] on heparin infusion. He was transferred to [facility]. His echo was overall normal. He underwent [...] No other family members with cardiac issues ROS: All systems were reviewed and they were negative except for the positive findings noted above in the history Past Medical History He has a past medical history of Abnormal ECG, Bradycardia, Diabetes mellitus (CMS/HCC), Heart murmur, Heart valve disease, Hyperlipidemia, Hypertension, and Stroke (CMS/HCC). Surgical History He has a past surgical history that includes Carotid endarterectomy; Cholecystectomy; Appendectomy; and Knee surgery. Social History He reports that he quit smoking about 3 months ago. His smoking use included cigarettes. He has never used smokeless tobacco. He reports that he does not currently use alcohol. He reports current drug use. Drug: Marijuana. Family History Family History Problem Relation Name Age of Onset Kidney failure Mother Cancer Father Hypertension Sister Hypertension Brother Heart failure Brother Allergies Benzocaine and Benzocaine-benzalkonium cl Medications Current Outpatient Medications: aspirin 81 mg EC tablet, Take 81 mg by mouth in the morning., Disp: , Rfl: atorvastatin (Lipitor) 40 mg tablet, Take 40 mg by mouth in the morning., Disp: , Rfl: clopidogrel (Plavix) 75 mg tablet, Take 75 mg by mouth in the morning., Disp: , Rfl: glipiZIDE (Glucotrol) 5 mg tablet, Take 5 mg by mouth before breakfast and before evening meal., Disp: , Rfl: lisinopriL-hydrochlorothiazide 20-25 mg tablet, Take 1 tablet by mouth in the morning., Disp: , Rfl: metFORMIN (Glucophage) 500 mg tablet, Take 500 mg by mouth with breakfast and with evening meal., Disp: , Rfl: pantoprazole (ProtoNix) 40 mg EC tablet, Take 40 mg by mouth before breakfast., Disp: , Rfl: Last Recorded Vitals Visit Vitals BP 106/69 (BP Location: Right arm, Patient Position: Sitting) Pulse 57 Ht 1.676 m (5' 6 ) Wt 88.9 kg (196 lb) SpO2 98% BMI 31.64 kg/m??? Smoking Status Former BSA 2.03 m??? Physical Examination: GENERAL: alert and oriented x3, well developed, in no acute distress. HEAD: atraumatic, normocephalic. EYES: MRAGY, EOMI. NECK: trachea midline, no JVD present, [...] PSYCH: appropriate mood, affect, and judgement. Labs: 10/16/2024 ALT 21, AST 16. Insurance declined coverage for lipids 09/02/2024 Sodium 139, potassium 3.9, BUN 17, creatinine 0.89, glucose 149, GFR above 90, calcium 9.2 09/01/2024 White blood count 10.6, hemoglobin 14.8, hematocrit 43, platelets 254 08/30/2024 Cholesterol 99, triglycerides 68, HDL 31, LDL 54 08/29/2024 HbA1c 7.6% 03/22/20 (more content not included)... [facility] 11-15-2024 History of Presen t illness Narrative Images from the original note were not included. Dear Dr. JOELLE BREWER, [employer] Harvey Cabrales comes in for post op evaluation after undergoing left carotid endarterectomy. He is recovering well. He complains of no gross neurologic deficits. He has a little numbness along the anterior portion of the incision and along the jawline. He states he thinks this is slowly improving. He feels much better than he did about a month ago when I 1st saw him. His blood glucose is apparently under much better control. The wound is clean, dry and intact with no signs or symptoms of infection. Pain appears well controlled. No gross neurologic deficits. We will plan to gradually increase activity as tolerated. The patient was instructed to call for any changes or worsening of symptoms. Follow up in 6 months with a carotid duplex. Van Pathak DO 11/15/2024 3:34 PM [facility] History of Presen t illness Narrative Images from the original note were not included. CHIEF COMPLAINT REASON FOR VISIT: Consultation for Stroke HPI: Harvey Cabrales is a 69 y.o. male who presents for a new patient consultation referred by Joelle Brewer NP for stroke. He was in [facility] on 08/29/24 for right arm weakness, paresthesia and speech disturbance. Symptoms present since 08/25/2024. He had stroke workup including MRI Brain. While admitted he worked with PT/OT and continued outpatient PT/OT to continue to work on fine motor movements in right upper extremity. He was clear for regular diet with thin liquids by speech therapy. States they took out blood clot on the left side. States his speech and right hand movement came back about 8 hours after surgery. No family hx of stroke that he is aware of. But thinks his brother had some issues with heart but has passed. He is now about 3 months out and feels better and getting back to where he needs to be. He states this was his 3rd stroke. Spouse states she does not think they were strokes. He states his speech seems to be pretty good. She states that he gets confused at times and defensive. He did quit smoking. But does smoke marijuana. He just started driving a few weeks ago and seems to be doing well. He states he does not have any issues but neck is still sore and he does have some numbness on the left side. Denies any other concerns. CURRENT MEDICATIONS: ALLERGIES/DISCONTINUE MEDICATIONS No current outpatient medications Not on File There are no discontinued medications. PAST MEDICAL HISTORY: SURGICAL/SOCIAL/FAMILY HISTORY DEPRESSION SCREEN: No past medical history on file. No past surgical history on file. No family history on file. Depression: Not at risk (08/30/2024) [facility] PH[facility]-2 Total Score: 0 REVIEW OF SYMPTOMS: Review of Systems Constitutional: Negative for chills, diaphoresis, fatigue and fever. HENT: Negative for ear pain, tinnitus and trouble swallowing. Eyes: Negative for photophobia and visual disturbance. Respiratory: Negative for cough and shortness of breath. Cardiovascular: Negative for palpitations and leg swelling. Gastrointestinal: Negative for abdominal pain and nausea. Genitourinary: Negative for difficulty urinating and urgency. Musculoskeletal: Positive for neck stiffness. Negative for arthralgias, back pain, myalgias and neck pain. Neurological: Positive for numbness. Negative for tremors, weakness and light-headedness. Psychiatric/Behavioral: Negative for agitation, confusion and suicidal ideas. OBJECTIVE: 12/09/2021 12:00 PM 07/17/2021 12:00 PM 06/29/2021 12:00 PM Vitals BMI 32.89 kg/m2 30.85 kg/m2 29.76 kg/m2 BSA (m2) 2.12 m2 2.06 m2 2.02 m2 Height (in) 5' 7 5' 7 5' 7 Weight (lb) 210 197 190 EXAM: Neurological Exam Mental Status Awake, alert and oriented to person, place and time. Oriented to person, place and time. Recent and remote memory are intact. Speech is normal. Language is fluent with no aphasia. Attention and concentration are normal. Cranial Nerves CN II: Visual acuity is normal. Visual toscano full to confrontation. CN III, IV, : Extraocular movements intact bilaterally. Normal lids and orbits bilaterally. Pupils equal round and reactive to light bilaterally. CN V: Facial sensation is normal. CN VII: Full and symmetric facial movement. CN VIII: Hearing is normal. CN XII: Tongue midline without atrophy or fasciculations. Motor Normal muscle bulk throughout. Normal muscle tone. Right Left Wrist flexion 5 5 Wrist extension 5 5 Right Left Deltoid 5 5 Biceps 5 5 Triceps 5 5 Wrist flexor 5 5 Wrist extensor 5 5 Glutei 5 5 Iliopsoas 5 5 Quadriceps 5 5 Gastrocnemius 5 5 Anterior tibialis 5 5 Posterior tibialis 5 5 Sensory Light touch is normal in upper and lower extremities. Pinprick is normal in upper and lower extremities. Vibration is normal in upper and lower extremities. Reflexes Right Left Brachioradialis 2+ 2+ Biceps 2+ 2+ Patellar 2+ 2+ Achilles 2+ 2+ Right Plantar: downgoing Left Plantar: downgoing Right pathological reflexes: Judson's absent. Ankle clonus absent. Left pathological reflexes: Judson's absent. Ankle clonus absent. Coordination Mriqzs-it-mqgq, rapid alternating movements and ddkv-kv-rotq normal bilaterally without dysmetria. Gait Normal casual, toe, heel and tandem gait. Romberg is absent. PROCEDURE: NONE ASSESSMENT AND PLAN: Harvey Cabrales is a 69 year old male with past medical history significant for bradycardia, CHF, DM, HTN, HLD who presented to the hospital on 08/29/2024 for evaluation of RUE weakness, paresthesias and speech disturbance. Symptoms had been present since 08/25/2024. On arrival CTH completed which was negative for acute intracranial process. Vessel imaging completed and showed concern for L ICA stenosis/thrombus. Due to these findings he was transferred to [facility] for higher level of care. During admission he had an MRI brain which confirmed presence of a left frontal/parietal ischemic stroke. Workup included an echocardiogram which showed an 60-65%. No valvular disease present. Lipid profile showed a total cholesterol of 99 and an LDL of 54. Hemoglobin A1c was 7.6. On 09/01/2024 he underwent diagnostic cerebral angiogram which showed calcified atherosclerotic plaque at the origin left internal carotid artery causing 70% stenosis. There was superimposing intraluminal thrombus distal to the stenotic segment. Due to risk for distal embolization, carotid stenting was aborted and a vascular surgery consultation was requested. He underwent carotid endarterectomy on 09/02/2024. Procedure went well without complications. He sustained a left frontal/parietal ischemic stroke secondary to L ICA stenosis/intraluminal thrombus and is now s/p L CEA. He remains on aspirin, plavix, and statin. He is okay to continue driving. This was discussed with patient and all questions answered. MRI BRAIN HISTORY: Right-sided weakness and speech disturbance. Evaluate CVA. Multi sequence multiplanar imaging of the brain was obtained. [...] with acute to subacute ischemia, MCA distribution. Diagnoses and all orders for this visit: DDD (degenerative disc disease), cervical I will place order for xray cervical flexion/extension. 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 (CMS/HCC) Start thiamine 100 mg which is good for overall brain health and nerve nutrition. He will remain on aspirin, plavix and statin. He will follow up with vascular surgery on 11/15 Follow up with cardiology in December. PCP manages his blood sugar. I counseled the patient on stroke signs and symptoms and advised the patient to go immediately to the emergency room should these symptoms develop. The patient states understanding. I counseled the patient on the possible side effects and interactions of medications. Follow up 8 weeks. This note was scribed by CHARISSE Levine acting under the direction of Orly Santa MD. The content has been reviewed and confirmed for accuracy by Orly Santa MD documented in this encounter [facility] 10-16-2024 History of Presen t illness Narrative [...] 09/02/24 88.3 kg (194 lb 10.7 oz) [place] Body Weight [place] body weight: 66.1 kg (145 lb 11.6 oz) Adjusted ideal body weight: 73.2 kg (161 lb 6.9 oz) Lab Results: POCT A1c No results found for: [id number] A1c Lab Results Component Value Date HGBA1C [...] counseling was not provided. Estimated Energy Needs [id number] kcals daily Diet History Revealed Energy Intake: [...] phone number provided for questions after session. Gayle Sewell RD., LD. [facility] Diabetes and Nutrition Education documented in this encounter [facility] 09-27-2024 Telephone encounter Note Calling to see if you ever got any information about Harvey He needs to see Dr Orly Santa. He had a stroke august 28, he had surgery september 01. We need a neurologist. Want to know If you got any of the paperwork. Referrals show Joelle Brewer referred to [facility] for CVA. Will need updated to [facility] and they will need to contact Joelle. [facility] 09-27-2024 Miscellaneous Notes Calling to see if you ever got any information about Harvey He needs to see Dr Orly Santa. He had a stroke august 28, he had surgery september 01. We need a neurologist. Want to know If you got any of the paperwork. Referrals show Joelle Brewer referred to [facility] for CVA. Will need updated to [facility] and they will need to contact Joelle. documented in this encounter [facility] 09-27-2024 History of Presen t illness Narrative Images from the original note were not included. Dear Dr. JOELLE BREWER, MARIELOS-SOPHY Harvey Cabrales comes in for post op [...] for any changes or worsening of symptoms. Van Pathak DO 09/27/2024 3:19 PM documented in this encounter [facility] 09-25-2024 Note [facility] Note Reason for cardiology [...] on heparin infusion. He was transferred to [facility]. His echo was overall normal. He underwent [...] history of Abnormal ECG, Bradycardia, Diabetes mellitus ([facility]), Heart murmur, Heart valve disease, Hyperlipidemia, Hypertension, and Stroke ([facility]). Surgical History He has a past [...] showed normal sinus (more content not included)... [facility] 09-01-2024 Miscellaneous Notes Contract: JAYLEN Alfaro @ [facility] is calling for consult [employer] reached out to DONALDO Hooker to reach out to the facility documented in this encounter [facility] 09-01-2024 Telephone encounter Note Contract: OMARSUSAN Alfaro @ [facility] is calling for consult [facility] 09-01-2024 Telephone encounter Note [employer] reached out to DONALDO Hooker to reach out to the facility [facility] 12-22-2022 Evaluation + Plan note Diagnostic Tests PendingUrine Cytology ([facility]) 12/22/22 [facility] 12-21-2022 Hospital Discharg e instructions Patient [...] Follow these instructions at home: Medicines Take wyka-dbn-cparbxy and prescription medicines only as told by [...] or the blood stops without treatment. Take ffno-dta-fiutxoy and prescription medicines only as told by your health care provider. Drink enough fluid to keep your urine pale yellow. This information is not intended to replace advice given to you by your health care provider. Make sure you discuss any questions you have with your health care provider. Document Revised: 04/22/2021 Document Reviewed: 04/22/2021 Elsevier Patient Education 2022 [employer]. Follow Up Care 12/21/2022 13:53:01 With:OSITO MOYA, Kameron Khoury, URL Address: [facility] [address], [place] [address]- When: Unknown [facility] 02-09-2022 Evaluation note Encounter Date Diagnosis Assessment [...] Other [facility] care material was printed [employer] Other Evaluation noteNo assessment information available [facility] Work Phone: Evaluation note* Diagnosis Stenosis of right carotid artery- Primary Occlusion and stenosis of carotid artery without mention of cerebral infarction [facility] Diagnosis Type 2 diabetes mellitus without complication, unspecified whether prison insulin use ([facility]) [facility] Diagnosis DDD (degenerative disc disease), cervical- Primary Degeneration of cervical intervertebral disc 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 (CMS/HCC) DDD (degenerative disc disease), cervical Degeneration of cervical intervertebral disc documented in this encounter [facility]* Diagnosis DDD (degenerative disc disease), cervical Degeneration of cervical intervertebral disc 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 (CMS/HCC) documented in this encounter [facility] HealthcareEvaluation note* Diagnosis DDD (degenerative disc disease), cervical- Primary Degeneration of cervical intervertebral disc 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 (CMS/HCC) documented in this encounter [facility] HealthcareEvaluation note* Diagnosis Hematuria, unspecified type- Primary [facility] this [facility] - Reported* Type Description Date Medical History diabetes mallitus Medical History high blood pressure [facility] Other Hospital course Narrative No data available for this section [facility] Hospital Discharge instructions No data available for this section [facility]ructions[place] on filedocumented in this encounter [facility] filedocumented in this encounter [facility] on filedocumented in this encounter [facility]ructionsNot on filedocumented in this encounter [facility]ructionsNot on filedocumented in this encounter [facility] No data available for this section [facility] Reason for referral (narrative)No reason for referral [facility] Work Phone: Reason for visit Narrative* Consultation (Routine) - Pending Review Specialty Diagnoses / Procedures Referred By Contac t Referred To Contact Endocrinology, Diabetes & Metabolism Diagnoses Type 2 diabetes mellitus without complication, unspecified whether prison insulin use ([facility]) Sahra Jay MD [address] [place] [address] Phone: tel:[phone] fax: [facility] [address] [place] [address] Phone: tel: fax: Referral ID Status Reason Start Date Expiration Date Visits Requested Visits Authorized [id number] Pending Review Specialty Services Required 10/08/2024 10/08/2025 1 1 [facility] Summary Purpose Family History No Family History Records FoundNo Family History Records FoundNo Family History Records FoundNo Family History Records FoundNo Family History Records FoundNo Family History Records FoundNo Family History Records FoundNo Family History Records FoundNo Family History Records Found Advance Directives Date Activated Date Inactivated Comments 08/31/2024 12:40 PM Date Activated Date Inactivated Comments 08/31/2024 12:40 PM 09/03/2024 6:43 PM Advance Directive Response Recorded Date/ Time Advance Directives No February 10 12:14pm Date Activated Date Inactivated Comments 08/31/2024 12:40 PM 09/03/2024 6:43 PM Chief Complaint and Reason for Visit Chief Complaint Admit Date ref by Joelle Brewer for PVD/carotid cecil nosis November 14, 2024 8:27am Chief Complaint Admit Date 6m follow up; Carotid U/S and PVR done a [facility] May 30, 2025 10:49am Chief Complaint Admit Date 6m follow up; Carotid U/S and PVR done a [facility] May 30, 2025 10:49am I70.213 June 07, 2025 12 :49pm Chief Complaint Admit Date 6m follow up; Carotid U/S and PVR done a [facility] May 30, 2025 10:49am I70.213 June 07, 2025 12 :49pm 6mo F/U [place]ot[place] [facility] 2025 10:15am Additional Source Comments (unrecognized sect ion and content) No Status Records FoundNo Status Records FoundNo Status Records FoundNo Status Records FoundNo Status Records FoundNo Status Records FoundNo Status Records FoundNo Status Records FoundNo Status Records Found INFORMATION SOURCE (unrecogn ized section and content) DATE CREATED AUTHOR 09/26/2021 [facility] dical Specialist DATE CREATED AUTHOR AUTHOR'S ORGANIZ ATION 01/16/2023 [facility] DATE CREATED AUTHOR AUTHOR'S ORGANIZ ATION 03/05/2023 [facility] DATE CREATED AUTHOR AUTHOR'S ORGANIZ ATION 10/31/2024 [facility] DATE CREATED AUTHOR AUTHOR'S ORGANIZ ATION 11/18/2024 [facility] DATE CREATED AUTHOR AUTHOR'S ORGANIZ ATION 01/12/2025 [facility] Specialists EPIC DATE CREATED AUTHOR AUTHOR'S ORGANIZ ATION 04/02/2025 [facility] DATE CREATED AUTHOR AUTHOR'S ORGANIZ ATION 05/22/2025 [facility] DATE CREATED AUTHOR AUTHOR'S ORGANIZ ATION 06/11/2025 [facility] Care Teams (unrecognized sec tion and content) Team Status: Active Member Role Status Dates NATACHA Oscar Primary Care Provider Active Team Status: Inactive Member Role Status Dates NATACHA Oscar Primary Care Provider Active Start: May 30, 2025 End: May 30, 2025 Kike Whitt MD Attending Provider Active Start: May 30, 2025 End: May 30, 2025 Team Status: Inactive Member Role Status Dates Allegra Moreau APRN Attending Provider Active Quencher Operator Relationship Specialty Start Date End Date Joelle Brewer APRN-PMO LEAD [address] [place] [address] PCP - General Family Medicine 05/26/20 Quencher Operator Relationship Specialty Start Date End Date Joelle Brewer APRN-PMO LEAD [address] [place] [address] PCP - General Family Medicine 05/26/20 Quencher Operator Relationship Specialty Start Date End Date Joelle Brewer APRN-PMO LEAD [address] [place] [address] PCP - General Family Medicine 05/26/20 Team Status: Active Member Role Status Dates NATACHA Oscar Primary Care Provider Active Start: August 29, 2024 Enzo Wolfe DO Attending Provider Active Sta rt: August 29, 2024 Team Status: Active Member Role Status Dates NATACHA Oscar Primary Care Provider Active Start: September 30, 2024 Enzo Wolfe DO Attending Provider Active Sta rt: September 30, 2024 Team Status: Inactive Member Role Status Dates NATACHA Oscar Primary Care Provider Active Start: November 14, 2024 End: November 14, 2024 [address]ike Whitt MD Active St art: November 14, 2024 End: November 14, 2024 NATACHA Ballesteros Attending Provider Active Start: November 14, 2024 End: November 14, 2024 Quencher Operator Relationship Specialty Start Date End Date Joelle Brewer APRN-PMO LEAD [address] [facility] [place] [address] PCP - General Family Medicine 05/26/20 Quencher Operator Relationship Specialty Start Date End Date Joelle Brewer APRN-PMO LEAD [address] [facility] [place] [address] PCP - General Family Medicine 05/26/20 Team Status: Inactive Member Role Status Dates NATACHA Oscar Primary Care Provider Active Start: June 07, 2025 End: June 07, 2025 NATACHA Malone Attending Provider Active Start: June 07, 2025 End: June 07, 2025 Team Status: Inactive Member Role Status Dates NATACHA Oscar Primary Care Provider Active Start: June 12, 2025 End: June 12, 2025 NATACHA Malone Attending Provider Active Start: June 12, 2025 End: June 12, 2025 Goals (unrecognized section and content) Goals may be documented in a n alternate sectionNo Information No data available for this section No data available for this sectionNot on filedocumented as of this encounterNot on filedocumented as of this encounterNot on filedocumented as of this encounterGoals may be documented in an alternate sectionNot on filedocumented as of this encounterNot on filedocumented as of this encounterNot on filedocumented as of this encounterGoals may be documented in an alternate sectionGoals may be documented in an alternate sectionGoals may be documented in an alternate section REASON FOR VISIT (unrecogniz ed section and content) Reason Onset Date Comments Advice Only 09/01/2024 Reason Comments Post-op Reason Comments Follow-up Reason Comments Med Refill Reason Comments Follow-up FOR RECORDS PERTAINING TO PATIENTS WHO ARE [...] BE BASED ON THE PRIMARY CLINICAL RECORDS. [facility] [facility]. provides no warranty or guarantee of the accuracy or completeness of information in this document.
[2025-06-15 08:09] LABS: CA 19-9 12 U/mL (0-35)
== END 2025-06-14 12:30 | disposition home or self-care (01) ==
PROVIDERS: PCP Nurse Practitioner Family; Visit Provider Nurse Practitioner Family
DX: K86.89 Other specified diseases of pancreas (principal)
CPT/HCPCS: 36415; 86301